=== PATIENT | female | born 1945 | race Caucasian/White ===

== ENCOUNTER 2017-10-25 09:02 | Outpatient (RCR) | payer OTHER, SELFPAY ==
[2017-10-11 09:46] LABS: International Normalized Ratio 3.4; Prothrombin Time (Protime)PT. 34.5 SECONDS (11.7-14.9)
[2017-10-25 10:02] LABS: International Normalized Ratio 2.8; Prothrombin Time (Protime)PT. 29.6 SECONDS (11.7-14.9)
== END 2017-10-30 23:59 ==
LOC: INT LAB 09:02
PROVIDERS: Family Provider Family Medicine; PCP Family Medicine; Visit Provider Family Medicine
DX: I48.91 Unspecified atrial fibrillation (principal)
CPT/HCPCS: 36415; 85610

== ENCOUNTER 2017-12-01 08:39 | Outpatient (RCR) | payer OTHER, SELFPAY ==
[2017-12-01 09:19] LABS: International Normalized Ratio 2.7
== END 2017-12-30 23:59 ==
LOC: INT LAB 08:39
PROVIDERS: Family Provider Family Medicine; PCP Family Medicine; Visit Provider Family Medicine
DX: I48.91 Unspecified atrial fibrillation (principal)
CPT/HCPCS: 36415; 85610

== ENCOUNTER 2018-01-19 07:55 | Outpatient (RCR) | payer OTHER, SELFPAY ==
[2018-01-19 09:36] LABS: International Normalized Ratio 2.7; Prothrombin Time (Protime)PT. 28.9 SECONDS (11.7-14.9)
== END 2018-01-19 09:00 | disposition home or self-care (01) ==
LOC: LAB 07:55
PROVIDERS: Family Provider Family Medicine; PCP Family Medicine; Visit Provider Family Medicine
DX: I48.91 Unspecified atrial fibrillation (principal)
CPT/HCPCS: 36415; 85610

== ENCOUNTER 2018-03-02 08:28 | Outpatient (RCR) | payer OTHER, SELFPAY ==
[2018-03-02 09:01] LABS: International Normalized Ratio 2.5; Prothrombin Time (Protime)PT. 27.2 SECONDS (11.7-14.9)
== END 2018-03-02 10:00 | disposition home or self-care (01) ==
LOC: LAB 08:28
PROVIDERS: Family Provider Family Medicine; PCP Family Medicine; Visit Provider Family Medicine
DX: I48.91 Unspecified atrial fibrillation (principal)
CPT/HCPCS: 36415; 85610

== ENCOUNTER 2018-05-18 08:28 | Outpatient (RCR) | payer OTHER, SELFPAY ==
[2018-05-18 09:18] LABS: International Normalized Ratio 3.2; Prothrombin Time (Protime)PT. 32.7 SECONDS (11.7-14.9)
[2018-05-18 09:27] LABS: Anion Gap 6 (5-15); BUN 17 mg/dL (7-18); BUN/Creat Ratio 22.4 RATIO (10-20); Chloride 104 mmol/L (98-107); Creatinine, Serum 0.76 mg/dL (0.55-1.02); EST Glomerular Filtration Rate 79 mL/min (>60); Est Glom Filt Rate - Afr Amer 96 mL/min (>60); Glucose 85 mg/dL (74-106); Sodium Level 138 mmol/L (136-145)
== END 2018-05-18 10:00 | disposition home or self-care (01) ==
LOC: LAB 08:28
PROVIDERS: Family Provider Family Medicine; PCP Family Medicine; Visit Provider Family Medicine
DX: I48.91 Unspecified atrial fibrillation (principal); I10 Essential (primary) hypertension
CPT/HCPCS: 36415; 80048; 85610

== ENCOUNTER 2018-06-06 08:07 | Outpatient (RCR) | payer OTHER, SELFPAY ==
[2018-06-06 10:00] LABS: International Normalized Ratio 2.8
[2018-06-06 10:17] LABS: Anion Gap 8 (5-15); BUN 12 mg/dL (7-18); BUN/Creat Ratio 15.7 RATIO (10-20); Calcium,Total 8.7 mg/dL (8.5-10.1); Chloride 104 mmol/L (98-107); Creatinine, Serum 0.77 mg/dL (0.55-1.02); EST Glomerular Filtration Rate 78 mL/min (>60); Est Glom Filt Rate - Afr Amer 95 mL/min (>60); Glucose 79 mg/dL (74-106); Potassium 4.2 mmol/L (3.5-5.1); Sodium Level 141 mmol/L (136-145)
== END 2018-07-01 12:34 | disposition home or self-care (01) ==
LOC: LAB 08:07
PROVIDERS: Family Provider Family Medicine; PCP Family Medicine; Referring Provider Family Medicine; Visit Provider Family Medicine
DX: I48.91 Unspecified atrial fibrillation (principal); I10 Essential (primary) hypertension
CPT/HCPCS: 36415; 80048; 85610

== ENCOUNTER 2018-07-29 08:27 | Outpatient (RCR) | payer OTHER, SELFPAY ==
[2018-06-29 09:31] VITALS: BMI 28.6
[2018-07-08 09:19] LABS: International Normalized Ratio 2.8; Prothrombin Time (Protime)PT. 29.6 SECONDS (11.7-14.9)
[2018-07-29 09:52] LABS: Prothrombin Time (Protime)PT. 31.5 SECONDS (11.7-14.9)
== END 2018-07-29 09:00 | disposition home or self-care (01) ==
LOC: LAB 08:27
PROVIDERS: Family Provider Family Medicine; PCP Family Medicine; Referring Provider Family Medicine; Visit Provider Family Medicine
DX: I48.91 Unspecified atrial fibrillation (principal); I10 Essential (primary) hypertension
CPT/HCPCS: 36415; 85610

== ENCOUNTER 2018-10-19 08:23 | Outpatient (RCR) | payer OTHER, SELFPAY ==
[2018-06-29 09:31] VITALS: BMI 28.6
[2018-10-19 09:05] LABS: International Normalized Ratio 2.3
== END 2018-10-19 09:23 | disposition home or self-care (01) ==
LOC: LAB 08:23
PROVIDERS: Family Provider Family Medicine; PCP Family Medicine; Referring Provider Family Medicine; Visit Provider Family Medicine
DX: I48.91 Unspecified atrial fibrillation (principal)
CPT/HCPCS: 36415; 85610

== ENCOUNTER 2018-10-28 08:38 | Outpatient (RCR) | payer OTHER, SELFPAY ==
[2018-06-29 09:31] VITALS: BMI 28.6
[2018-10-28 09:40] VITALS: BP 153/95; PULSE 76; RESP 16; TEMP 36.3; BMI 26.8
--- NOTE | 2018-10-28 11:01 | PCM.WC.HP ---
(1) Peripheral vascular disease of lower extremity with ulceration Status: Acute Current Visit: Yes Code(s): I73.9 - Peripheral vascular disease, unspecified; L97.909 - Non-pressure chronic ulcer of unspecified part of unspecified lower leg with unspecified severity (2) Chronic atrial fibrillation Status: Chronic Current Visit: No Code(s): I48.2 - Chronic atrial fibrillation (3) Essential (primary) hypertension Status: Chronic Current Visit: No Code(s): I10 - Essential (primary) hypertension (4) Nonrheumatic aortic valve insufficiency Status: Chronic Current Visit: No Code(s): I35.1 - Nonrheumatic aortic (valve) insufficiency (5) Nonhealing nonsurgical wound with fat layer exposed Status: Acute Current Visit: Yes Code(s): T14.8XXA - Other injury of unspecified body region, initial encounter (6) Edema, lower extremity Status: Acute Current Visit: Yes Code(s): R60.0 - Localized edema (7) Cellulitis of lower extremity Status: Acute Current Visit: Yes Code(s): L03.119 - Cellulitis of unspecified part of limb History of Present Illness Date of Service: 10/28/18 Chief Complaint: Follow-up on an old leg wound right nuno area History of Wound: 73-year-old [place] white woman with an open wound on her right lower leg nuno since last January or March 2018. Patient has been using ointments such as antibiotics and home remedies without any healing. Has severe edema of bilateral lower legs many varicosities and some cellulitis on the around the toes bilaterally and around the ulcer itself. Past Medical History Past Medical History: Chronic Problems (Last Reviewed 06/29/18 @ 09:49 by Demario Mccauley MD) Nonrheumatic aortic valve insufficiency (Chronic) Nonrheumatic mitral (valve) insufficiency (Chronic) Essential (primary) hypertension (Chronic) Chronic atrial fibrillation (Chronic) Past Medical History: Open ulcer right lower leg nonhealing Surgical History: - - Prior hemiarthroplasty Total hip arthroplasty Allergies/Adverse Reactions: Allergies chlorhexidine Adverse Reaction (Verified 10/28/18 10:02) Nausea Home Medications: Ambulatory Orders Medication Instructions Recorded Metoprolol Tartrate [Lopressor] 100 mg PO BID 02/22/15 warfarin 3 mg tablet 3 mg PO DAILY 60 Days #60 tab 06/28/18 amlodipine 5 mg tablet 5 mg PO QHS tab 06/29/18 Ubidecarenone/Vit E Acet [Co Q-10 2 each PO DAILY 10/28/18 100 mg Softgel] - Family History Maternal Family History: Family History (Last Reviewed 06/29/18 @ 09:49 by Demario Mccauley MD) Mother CVA (cerebral vascular accident) Father Cancer Unknown Lives: Spouse/ Significant Other Smoking Status: Never smoker Review of Systems Constitutional: Denies: Chills, Fever Eyes: Denies: Blurred vision, Drainage, Pain HEENT: Denies: Difficulty Hearing, Difficulty Swallowing, Sore Throat, Visual Changes Cardiovascular: Denies: Chest Pain, Palpitations, Syncope Respiratory: Denies: Cough, Shortness of Breath Gastrointestinal: Denies: Abdominal Pain, Nausea, Vomiting Genitourinary: Denies: Dysuria, Frequency Musculoskeletal: Denies: Joint Pain, Muscle pain Skin: Reports: - - Right lower leg nuno ulcer. Denies: Jaundice, Rash Neurological: Denies: Balance problems, Change in Speech, Difficulty swallowing, Focal weakness Psychiatric: Denies: Anxiety, Depression Endocrine: Denies: Change in Body Habitus Hematologic/ Lymphatic: Denies: Adenopathy - Physical Exam Vital Signs Temp Pulse Resp BP 97.3 F L 76 16 153/95 H 10/28/18 09:40 10/28/18 09:40 10/28/18 09:40 10/28/18 09:40 General: Oriented x3, Cooperative, Well developed HEENT: Atraumatic, PERRLA Oral: Moist Mucosa Neck: Supple, No JVD Lungs: Clear to auscultation, Normal air movement Cardiovascular: Regular rate, Regular Rhythm Abdomen: Bowel Sounds Present, Soft, Non Tender, No Hepato-splenomegaly Extremities: No clubbing, No edema Skin: - - Right nuno ulcer with peripheral vascular disease Wound Measurements and Assessment WC - Nurse 1 - General Ulcer Measurement Start: 10/28/18 09:39 Freq: Status: Active Protocol: Activity Type Activity Date Activity User E-Sign Co-Sign Detail Recorded Client Recorded Date Recorded By Document 10/28/18 09:40 [facility] [id number] 10/28/18 09:54 BM 10/28/18 09:40 Wound Center Nurse 1 [Ulcer Assessment] #1- RT NUNO -Combined with other wound No -Current Size (cm) - Length 1.4 -Current Size (cm) - Width 1.8 -Current Size (cm) - Depth 0.1 -Total Square Cm 2.52 -Date of Last Picture (Recall this 10/28/18 field) -Photo Taken Yes -Epithelialization Small 1-33% -Tunneling No -Undermining/Tunneling No -Circular Undermining No -Exudate Amt Small -Exudate Type Serous -Wound Margin Flat & Intact -Granulation Amt Medium (34-66%) -Granulation Quality Red -Slough/Fibrin Yes -Necrosis Amt Medium (34-66%) -Necrotic Tissue Type Adherent Slough -Texture (Nancy-wound Skin Appearance) Assessed Scarring -Moisture (Nancy-wound Skin Appearance Assessed ) -Color (Nancy-wound Skin Appearance) Assessed Erythema Hemosiderin Staining -Temperature (Nancy-wound Skin No Abnormality Appearance) (Pt Warm) -Tenderness on Palpation (Nancy-wound No Skin Appearance) -Ulcer Cleansing Rinsed/ Irrigated with Saline -Foul Odor after Cleansing No -Anesthetic Used 5% Lidocaine Gel [Edema Assessment] -Lower Limb Edema Present Yes -Right Calf (cm) 36.2 -Right Ankle (cm) 22.9 -Left Calf (cm) 37.2 -Left Ankle (cm) 24 WC - Nurse 2 - General Ulcer CM Notes Start: 10/28/18 09:39 Freq: Status: Active Protocol: Activity Type Activity Date Activity User E-Sign Co-Sign Detail Recorded Client Recorded Date Recorded By Document 10/28/18 10:19 MW [id number] 10/28/18 10:26 MW 10/28/18 10:19 Wound Center Nurse 2 [Procedure/Treatment] #1- RT NUNO -Time 10:24 -Correct Patient Yes -Correct Side, Site, Position Yes -Correct Procedure Yes -Procedure Performed Yes -Type of Procedure Debridement -Clinical Debridement Subcutaneous -Post Debridement Size (cm) - Length 1.5 -Post Debridement Size (cm) - Width 1.5 -Post Debridement Size (cm) - Depth 0.3 -Total Square Cm 2.25 -Wound/Ulcer Outcome Not Healed -Ulcer Cleansing Rinsed/ Irrigated with Saline -Foul Odor after Cleansing No -Bioengineered Tissue No -Bleeding Controlled with Pressure -Offloading No -Treatment Response Procedure Tolerated Well [See Physician Procedure note for Specifics] Pain Scale: 0-10 Numeric [Pain] -Is Patient Pain Free? Yes Musculoskeletal: No Tenderness to Palpation of Joints or Extremities Lymphatic: No Cervical, Supraclavicular, or Inguinal Adenopathy Neurological: Cranial nerves II-XII grossly intact, Neuro grossly intact Psych/Mental Status: Normal Affect, Appropriate Debridement Note Post-Debridement Measurements/Treatment WC - Nurse 2 - General Ulcer CM Notes Start: 10/28/18 09:39 Freq: Status: Active Protocol: Activity Type Activity Date Activity User E-Sign Co-Sign Detail Recorded Client Recorded Date Recorded By Document 10/28/18 10:19 MW [id number] 10/28/18 10:26 MW 10/28/18 10:19 Wound Center Nurse 2 #1- RT NUNO -Time 10:24 -Correct Patient Yes -Correct Side, Site, Position Yes -Correct Procedure Yes -Procedure Performed Yes -Type of Procedure Debridement -Clinical Debridement Subcutaneous -Post Debridement Size (cm) - Length 1.5 -Post Debridement Size (cm) - Width 1.5 -Post Debridement Size (cm) - Depth 0.3 -Total Square Cm 2.25 -Wound/Ulcer Outcome Not Healed -Ulcer Cleansing Rinsed/ Irrigated with Saline -Foul Odor after Cleansing No -Bioengineered Tissue No -Bleeding Controlled with Pressure -Offloading No -Treatment Response Procedure Tolerated Well Pain Scale: 0-10 Numeric Is Patient Pain Free? Yes Wound debrided: Nuno Laterality: Right Type of Debridement: Excisional debridement Anesthesia Used: 5% Lidocaine Gel Depth: Down to and including healthy tissue, in the subcutaneous layer Percentage of wound debrided: 100 Instrument Used: 5mm curette Tissue Removed: Slough and fibrin and devitalized tissue Amount of bleeding with debridement: Mild Bleeding Controlled with: Compression and gauze Patient tolerated procedure well Assessment/Plan Aerobic and anaerobic cultures obtained venous studies to be ordered Active Problems (Last Reviewed 06/29/18 @ 09:49 by Demario Mccauley MD) Peripheral vascular disease of lower extremity with ulceration (Acute) Nonhealing nonsurgical wound with fat layer exposed (Acute) Edema, lower extremity (Acute) Cellulitis of lower extremity (Acute) Assessment: As above Plan: Wash leg with dial. Apply Aquacel extra to wound base cover with Adaptic gauze and tape. Double layer Tubigrip to the right lower leg. Schedule for venous studies for her edema. She was taken of the ulcer
[2018-12-23 08:54] VITALS: BP 150/85; PULSE 72; RESP 16; TEMP 37; BMI 26.8
== END 2018-10-30 23:59 ==
LOC: WC 08:38
PROVIDERS: Family Provider Family Medicine; PCP Family Medicine; Visit Provider Nurse Practitioner
DX: I83.018 Varicose veins of right lower extremity with ulcer other part of lower leg (principal); L97.812 Non-pressure chronic ulcer of other part of right lower leg with fat layer exposed; I73.9 Peripheral vascular disease, unspecified; I48.2 Chronic atrial fibrillation; I10 Essential (primary) hypertension; R60.0 Localized edema
CPT/HCPCS: 11042; 87070; 87075; 87077; 87186; 87205; 99213; G0463

== ENCOUNTER 2018-11-09 08:23 | Outpatient (RCR) | payer SELFPAY ==
[2018-10-31 01:42] VITALS: BP 153/95; PULSE 76; RESP 16; TEMP 36.3; BMI 26.8
--- NOTE | 2018-11-09 08:26 | VDLE_ITS ---
Reason For Study: BLE EDEMA RT nuno ulcer RIGHT LEFT CFV is compressible, spontaneous, phasic, CFV is compressible, spontaneous, phasic, competent and demonstrates normal competent, and demonstrates normal augmentation. augmentation. FV is compressible, spontaneous, phasic, FV is compressible, spontaneous, phasic, competent and demonstrates normal competent and demonstrates normal augmentation. augmentation. POP V is compressible, spontaneous, phasic, POP V is compressible, spontaneous, phasic, competent and demonstrates normal competent and demonstrates normal augmentation. augmentation. T/P Trunk is compressible. T/P Trunk is compressible. PTV is compressible. PTV is compressible. RT PerV is compressible. LT PerV is compressible. SFJ is competent. SFJ is incompetent > 1.0 second. GSV above the knee is competent. GSV is incompetent throughout > .5 seconds, GSV below the knee is incompetent > .5 measuring 0.69 x 0.80 cm. seconds, measuring 0.37 0.46 cm. SSV was very difficult to evaluate, is SSV is competent. compressible with thickened quevedo. Procedure Gastrocnemius V are dilated and COMPRESSIBLE Exam performed in department. demonstrating rouleaux flow. The study was technically difficult. The exam was diagnostic. Interpretation Summary Deep veins of the lower extremities are bilaterally patent and compressible segmentally. There is no evidence of deep vein thrombosis on either side. Valvular competence appears intact within the proximal deep venous systems bilaterally. The greater saphenous veins appear bilaterally patent and compressible segmentally. Rouleaux flow is noted in the left gastrocnemius vein. The right sapheno- femoral junction is competent . The left sapheno-femoral junction is incompetent . The right greater saphenous vein appears competent above the knee. The right greater saphenous vein appears incompetent below the knee. The left greater saphenous vein appears segmentally incompetent. The right small saphenous vein is patent and competent. The left small saphenous vein is patent and demonstrates chronic vein wall thickening. Ordering Physician: Caryn Miguel Referring Physician: Caryn Miguel Performed By: Rebecca Bowman, MATT, RVT
== END 2018-11-29 23:59 ==
LOC: CVS 08:23
PROVIDERS: Family Provider Family Medicine; PCP Family Medicine; Referring Provider Nurse Practitioner; Visit Provider Nurse Practitioner
DX: R60.0 Localized edema (principal); L97.811 Non-pressure chronic ulcer of other part of right lower leg limited to breakdown of skin; I73.9 Peripheral vascular disease, unspecified
CPT/HCPCS: 93970

== ENCOUNTER 2018-11-16 08:08 | Outpatient (RCR) | payer OTHER, SELFPAY ==
[2018-10-31 01:42] VITALS: BMI 26.8
[2018-11-02 11:50] LABS: International Normalized Ratio 2.2; Prothrombin Time (Protime)PT. 24.7 SECONDS (11.7-14.9)
[2018-11-16 09:21] LABS: Prothrombin Time (Protime)PT. 22.4 SECONDS (11.7-14.9)
== END 2018-11-29 16:00 | disposition home or self-care (01) ==
LOC: LAB 08:08
PROVIDERS: Family Provider Family Medicine; PCP Family Medicine; Referring Provider Family Medicine; Visit Provider Family Medicine
DX: I48.91 Unspecified atrial fibrillation (principal)
CPT/HCPCS: 36415; 85610

== ENCOUNTER 2018-11-25 09:00 | Outpatient (RCR) | payer OTHER, SELFPAY ==
[2018-10-31 01:42] VITALS: BMI 26.8
[2018-11-11 08:50] VITALS: BP 143/76; PULSE 80; RESP 18; TEMP 36.4; BMI 26.8
--- NOTE | 2018-11-11 09:36 | PCM.WC.PN ---
(1) Cellulitis of lower extremity Status: Acute Current Visit: No Qualifiers: Laterality: right Qualified Code(s): L03.115 - Cellulitis of right lower limb Code(s): L03.119 - Cellulitis of unspecified part of limb (2) Edema, lower extremity Status: Acute Current Visit: Yes Code(s): R60.0 - Localized edema (3) Nonhealing nonsurgical wound with fat layer exposed Status: Acute Current Visit: Yes Code(s): T14.8XXA - Other injury of unspecified body region, initial encounter (4) Peripheral vascular disease of lower extremity with ulceration Status: Acute Current Visit: Yes Code(s): I73.9 - Peripheral vascular disease, unspecified; L97.909 - Non-pressure chronic ulcer of unspecified part of unspecified lower leg with unspecified severity (5) Chronic atrial fibrillation Status: Chronic Current Visit: Yes Code(s): I48.2 - Chronic atrial fibrillation (6) Nonrheumatic aortic valve insufficiency Status: Chronic Current Visit: Yes Code(s): I35.1 - Nonrheumatic aortic (valve) insufficiency (7) Nonrheumatic mitral (valve) insufficiency Status: Chronic Current Visit: Yes Code(s): I34.0 - Nonrheumatic mitral (valve) insufficiency Type of Wound Chief Complaint: Follow-up on an old leg wound right nuno area History of Wound: 73-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 Patient has been using ointments such as antibiotics and home remedies without any healing. Has severe edema of bilateral lower legs many varicosities and some cellulitis on the around the toes bilaterally and around the ulcer itself. Progress of Wound: Today the wound looks better with new cell buds growing in the base still has a lot of cellulitis around the area and upper leg. Her venous study showed blockages in her gastrocnemius and we will refer her to Dr. Watson. Patient is tolerating dressing changes daily well and the infection that she grew is being well contained with doxycycline that she is taking daily. - Physical Exam Vital Signs Temp Pulse Resp BP 97.6 F L 80 18 143/76 H 11/11/18 08:50 11/11/18 08:50 11/11/18 08:50 11/11/18 08:50 General: Oriented x3, Cooperative, Well developed HEENT: Atraumatic, PERRLA Oral: Moist Mucosa Neck: Supple, No JVD Lungs: Clear to auscultation, Normal air movement Cardiovascular: Regular rate, Regular Rhythm Abdomen: Bowel Sounds Present, Soft, Non Tender, No Hepato-splenomegaly Extremities: No clubbing, No edema Skin: Ulcer/ Wound - Right nuno traumatic Wound Measurements and Assessment WC - Nurse 1 - General Ulcer Measurement Start: 11/11/18 08:42 Freq: Status: Active Protocol: Activity Type Activity Date Activity User E-Sign Co-Sign Detail Recorded Client Recorded Date Recorded By Document 11/11/18 08:50 DV [id number] 11/11/18 09:04 DV 11/11/18 08:50 Wound Center Nurse 1 [Ulcer Assessment] #1- RT NUNO -Combined with other wound No -Current Size (cm) - Length 1.5 -Current Size (cm) - Width 1 -Current Size (cm) - Depth 0.1 -Total Square Cm 1.5 -Photo Taken No -Epithelialization None Present -Undermining/Tunneling No -Circular Undermining No -Classification - Thickness Full Thickness without Exposed Support Structure -Exudate Amt Medium -Exudate Type Yellow/Green -Wound Margin Flat & Intact -Granulation Amt Small (1-33%) -Granulation Quality N/A -Slough/Fibrin No -Necrosis Amt Large (67-100%) -Necrotic Tissue Type Adherent Slough -Structure Exposed None/Limited to Skin Breakdown -Texture (Nancy-wound Skin Appearance) Assessed Scarring Rash -Moisture (Nancy-wound Skin Appearance Assessed ) Weeping -Color (Nancy-wound Skin Appearance) Assessed Erythema -Temperature (Nancy-wound Skin No Abnormality Appearance) (Pt Warm) -Tenderness on Palpation (Nancy-wound Yes Skin Appearance) -Ulcer Cleansing Rinsed/ Irrigated with Saline -Foul Odor after Cleansing No -Anesthetic Used 5% Lidocaine Gel [Edema Assessment] -Lower Limb Edema Present Yes -Right Calf (cm) 38 -Right Ankle (cm) 22 WC - Nurse 2 - General Ulcer CM Notes Start: 11/11/18 08:42 Freq: Status: Active Protocol: Activity Type Activity Date Activity User E-Sign Co-Sign Detail Recorded Client Recorded Date Recorded By Document 11/11/18 09:11 MW [id number] 11/11/18 09:16 MW 11/11/18 09:11 Wound Center Nurse 2 [Procedure/Treatment] #1- RT NUNO -Time 09:11 -Correct Patient Yes -Correct Side, Site, Position Yes -Correct Procedure Yes -Procedure Performed Yes -Type of Procedure Debridement -Clinical Debridement Subcutaneous -Post Debridement Size (cm) - Length 1.2 -Post Debridement Size (cm) - Width 1.0 -Post Debridement Size (cm) - Depth 0.2 -Total Square Cm 1.20 -Wound/Ulcer Outcome Not Healed -Ulcer Cleansing Rinsed/ Irrigated with Saline -Foul Odor after Cleansing No -Bioengineered Tissue No -Bleeding Controlled with Pressure -Offloading No -Treatment Response Procedure Tolerated Well [See Physician Procedure note for Specifics] Pain Scale: 0-10 Numeric [Pain] -Is Patient Pain Free? Yes Musculoskeletal: No Tenderness to Palpation of Joints or Extremities Lymphatic: No Cervical, Supraclavicular, or Inguinal Adenopathy Neurological: Cranial nerves II-XII grossly intact, Neuro grossly intact Psych/Mental Status: Normal Affect, Appropriate Debridement Note Post-Debridement Measurements/Treatment WC - Nurse 2 - General Ulcer CM Notes Start: 11/11/18 08:42 Freq: Status: Active Protocol: Activity Type Activity Date Activity User E-Sign Co-Sign Detail Recorded Client Recorded Date Recorded By Document 11/11/18 09:11 MW [id number] 11/11/18 09:16 MW 11/11/18 09:11 Wound Center Nurse 2 #1- RT NUNO -Time 09:11 -Correct Patient Yes -Correct Side, Site, Position Yes -Correct Procedure Yes -Procedure Performed Yes -Type of Procedure Debridement -Clinical Debridement Subcutaneous -Post Debridement Size (cm) - Length 1.2 -Post Debridement Size (cm) - Width 1.0 -Post Debridement Size (cm) - Depth 0.2 -Total Square Cm 1.20 -Wound/Ulcer Outcome Not Healed -Ulcer Cleansing Rinsed/ Irrigated with Saline -Foul Odor after Cleansing No -Bioengineered Tissue No -Bleeding Controlled with Pressure -Offloading No -Treatment Response Procedure Tolerated Well Pain Scale: 0-10 Numeric Is Patient Pain Free? Yes Wound debrided: Right nuno Type of Debridement: Excisional debridement Depth: Down to and including healthy tissue, in the subcutaneous layer Instrument Used: 5mm curette Tissue Removed: Devitalized tissue and fibrin Severity: Limited To Skin Breakdown Amount of bleeding with debridement: Mild Bleeding Controlled with: Compression and gauze Patient tolerated procedure well Assessment/Plan Active Problems (Last Reviewed 06/29/18 @ 09:49 by Demario Mccauley MD) Peripheral vascular disease of lower extremity with ulceration (Acute) Nonhealing nonsurgical wound with fat layer exposed (Acute) Edema, lower extremity (Acute) Nonrheumatic aortic valve insufficiency (Chronic) Nonrheumatic mitral (valve) insufficiency (Chronic) Chronic atrial fibrillation (Chronic) Assessment: As above Plan: Wash leg with dial. Apply Aquacel extra to wound base cover with Adaptic gauze and tape. Double layer Tubigrip to the right lower leg. Schedule with Dr. Watson for follow-up. Follow-up 2 weeks
[2018-11-25 08:56] VITALS: BP 146/68; PULSE 81; RESP 16; TEMP 35.5; BMI 26.8
--- NOTE | 2018-11-25 10:27 | PCM.WC.PN ---
(1) Cellulitis of lower extremity Status: Acute Current Visit: No Qualifiers: Laterality: right Qualified Code(s): L03.115 - Cellulitis of right lower limb Code(s): L03.119 - Cellulitis of unspecified part of limb (2) Edema, lower extremity Status: Acute Current Visit: Yes Code(s): R60.0 - Localized edema (3) Nonhealing nonsurgical wound with fat layer exposed Status: Acute Current Visit: Yes Code(s): T14.8XXA - Other injury of unspecified body region, initial encounter (4) Peripheral vascular disease of lower extremity with ulceration Status: Acute Current Visit: Yes Code(s): I73.9 - Peripheral vascular disease, unspecified; L97.909 - Non-pressure chronic ulcer of unspecified part of unspecified lower leg with unspecified severity (5) Chronic atrial fibrillation Status: Chronic Current Visit: Yes Code(s): I48.2 - Chronic atrial fibrillation (6) Nonrheumatic aortic valve insufficiency Status: Chronic Current Visit: Yes Code(s): I35.1 - Nonrheumatic aortic (valve) insufficiency (7) Nonrheumatic mitral (valve) insufficiency Status: Chronic Current Visit: Yes Code(s): I34.0 - Nonrheumatic mitral (valve) insufficiency Type of Wound Chief Complaint: Follow-up on an old leg wound right nuno area History of Wound: 73-year-old [employer] white woman with an open wound on her right lower leg nuno since last January or March 2018. Patient has been using ointments such as antibiotics and home remedies without any healing. Has severe edema of bilateral lower legs many varicosities and some cellulitis on the around the toes bilaterally and around the ulcer itself. Progress of Wound: Today the wound looks better with new cell buds growing in the base still has a lot of cellulitis around the area and upper leg. Her venous study showed blockages in her gastrocnemius and we will refer her to Dr. Watson. Patient is tolerating dressing changes daily well and the infection that she grew is being well contained with doxycycline that she is taking daily. - Physical Exam Vital Signs Temp Pulse Resp BP 96 F L 81 16 146/68 H 11/25/18 08:56 11/25/18 08:56 11/25/18 08:56 11/25/18 08:56 General: Oriented x3, Cooperative, Well developed HEENT: Atraumatic, PERRLA Oral: Moist Mucosa Neck: Supple, No JVD Lungs: Clear to auscultation, Normal air movement Cardiovascular: Regular rate, Regular Rhythm Abdomen: Bowel Sounds Present, Soft, Non Tender, No Hepato-splenomegaly Extremities: No clubbing, No edema, - - right nuno Wound Measurements and Assessment WC - Nurse 1 - General Ulcer Measurement Start: 11/11/18 08:42 Freq: Status: Active Protocol: Activity Type Activity Date Activity User E-Sign Co-Sign Detail Recorded Client Recorded Date Recorded By Document 11/25/18 08:56 AN [id number] 11/25/18 09:08 AN 11/25/18 08:56 Wound Center Nurse 1 [Ulcer Assessment] #1- RT NUNO -Current Size (cm) - Length 1.3 -Current Size (cm) - Width 1.2 -Current Size (cm) - Depth 0.1 -Total Square Cm 1.56 -Photo Taken No -Tunneling No -Undermining/Tunneling No -Classification - Thickness Full Thickness without Exposed Support Structure -Exudate Amt Small -Exudate Type Serosanguineous -Wound Margin Distinct, Outline Attached -Granulation Amt Large (67-100%) -Granulation Quality Red -Slough/Fibrin Yes -Necrosis Amt Small (1-33%) -Necrotic Tissue Type Adherent Slough -Structure Exposed None/Limited to Skin Breakdown -Texture (Nancy-wound Skin Appearance) Assessed -Moisture (Nancy-wound Skin Appearance Maceration ) -Color (Nancy-wound Skin Appearance) Assessed Erythema -Temperature (Nancy-wound Skin No Abnormality Appearance) (Pt Warm) -Tenderness on Palpation (Nancy-wound No Skin Appearance) -Ulcer Cleansing Rinsed/ Irrigated with Saline -Foul Odor after Cleansing No -Anesthetic Used 4% Lidocaine Solution [Edema Assessment] -Right Calf (cm) 37.8 -Right Ankle (cm) 22.1 WC - Nurse 2 - General Ulcer CM Notes Start: 11/11/18 08:42 Freq: Status: Active Protocol: Activity Type Activity Date Activity User E-Sign Co-Sign Detail Recorded Client Recorded Date Recorded By Document 11/25/18 09:40 MW [id number] 11/25/18 09:42 MW 11/25/18 09:40 Wound Center Nurse 2 [Procedure/Treatment] #1- RT NUNO -Time 09:40 -Correct Patient Yes -Correct Side, Site, Position Yes -Correct Procedure Yes -Procedure Performed Yes -Type of Procedure Debridement -Clinical Debridement Subcutaneous -Post Debridement Size (cm) - Length 1.2 -Post Debridement Size (cm) - Width 1.3 -Post Debridement Size (cm) - Depth 0.2 -Total Square Cm 1.56 -Wound/Ulcer Outcome Not Healed -Ulcer Cleansing Rinsed/ Irrigated with Saline -Foul Odor after Cleansing No -Bioengineered Tissue No -Bleeding Controlled with Pressure -Offloading No -Treatment Response Procedure Tolerated Well [See Physician Procedure note for Specifics] Pain Scale: 0-10 Numeric [Pain] -Is Patient Pain Free? Yes Musculoskeletal: No Tenderness to Palpation of Joints or Extremities Lymphatic: No Cervical, Supraclavicular, or Inguinal Adenopathy Neurological: Cranial nerves II-XII grossly intact, Neuro grossly intact Psych/Mental Status: Normal Affect, Appropriate, Alert and oriented to time, place, person, mood and affect Debridement Note Post-Debridement Measurements/Treatment WC - Nurse 2 - General Ulcer CM Notes Start: 11/11/18 08:42 Freq: Status: Active Protocol: Activity Type Activity Date Activity User E-Sign Co-Sign Detail Recorded Client Recorded Date Recorded By Document 11/11/18 09:11 MW [id number] 11/11/18 09:16 MW Document 11/25/18 09:40 MW [id number] 11/25/18 09:42 MW 11/11/18 11/25/18 09:11 09:40 Wound Center Nurse 2 #1- RT NUNO -Time 09:11 09:40 -Correct Patient Yes Yes -Correct Side, Site, Position Yes Yes -Correct Procedure Yes Yes -Procedure Performed Yes Yes -Type of Procedure Debridement Debridement -Clinical Debridement Subcutaneous Subcutaneous -Post Debridement Size (cm) - Length 1.2 1.2 -Post Debridement Size (cm) - Width 1.0 1.3 -Post Debridement Size (cm) - Depth 0.2 0.2 -Total Square Cm 1.20 1.56 -Wound/Ulcer Outcome Not Healed Not Healed -Ulcer Cleansing Rinsed/ Rinsed/ Irrigated with Irrigated with Saline Saline -Foul Odor after Cleansing No No -Bioengineered Tissue No No -Bleeding Controlled with Pressure Pressure -Offloading No No -Treatment Response Procedure Procedure Tolerated Well Tolerated Well Pain Scale: 0-10 Numeric Is Patient Pain Free? Yes Yes Wound debrided: Right nuno Type of Debridement: Excisional debridement Anesthesia Used: 5% Lidocaine Gel Depth: Down to and including healthy tissue, in the subcutaneous layer Percentage of wound debrided: 100 Instrument Used: 5mm curette Tissue Removed: Fibrin Severity: Limited To Skin Breakdown Amount of bleeding with debridement: Mild Bleeding Controlled with: Compression and gauze Patient tolerated procedure well Assessment/Plan Active Problems (Last Reviewed 06/29/18 @ 09:49 by Demario Mccauley MD) Peripheral vascular disease of lower extremity with ulceration (Acute) Nonhealing nonsurgical wound with fat layer exposed (Acute) Edema, lower extremity (Acute) Nonrheumatic aortic valve insufficiency (Chronic) Nonrheumatic mitral (valve) insufficiency (Chronic) Chronic atrial fibrillation (Chronic) Assessment: As above Plan: Wash leg with dial. Apply Promogran to wound base every other day cover with Adaptic gauze and tape. Double layer Tubigrip to the right lower leg. Schedule with Dr. Watson for follow-up. Follow-up 2 weeks
== END 2018-11-29 23:59 ==
LOC: WC 09:00
PROVIDERS: Family Provider Family Medicine; PCP Family Medicine; Visit Provider Nurse Practitioner
DX: S81.831A Puncture wound without foreign body, right lower leg, initial encounter (principal); I73.9 Peripheral vascular disease, unspecified; L03.119 Cellulitis of unspecified part of limb; R60.0 Localized edema; I48.2 Chronic atrial fibrillation; X58.XXXA Exposure to other specified factors, initial encounter
CPT/HCPCS: 11042

== ENCOUNTER 2018-12-12 13:36 | Outpatient (RCR) | payer OTHER, SELFPAY ==
[2018-12-12 15:20] LABS: International Normalized Ratio 2.2; Prothrombin Time (Protime)PT. 24.7 SECONDS (11.7-14.9)
== END 2018-12-12 15:00 | disposition home or self-care (01) ==
LOC: LAB 13:36
PROVIDERS: Family Provider Family Medicine; PCP Family Medicine; Referring Provider Family Medicine; Visit Provider Family Medicine
DX: I48.91 Unspecified atrial fibrillation (principal)
CPT/HCPCS: 36415; 85610

== ENCOUNTER 2018-12-23 09:00 | Outpatient (RCR) | payer OTHER, SELFPAY ==
[2018-11-30 01:49] VITALS: BP 146/68; PULSE 81; RESP 16; TEMP 35.5
--- NOTE | 2018-12-09 10:09 | PCM.WC.PN ---
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 Patient has been using ointments such as antibiotics and home remedies without any healing. Has severe edema of bilateral lower legs many varicosities and some cellulitis on the around the toes bilaterally and around the ulcer itself. Progress of Wound: Today the wound looks better with new cell buds growing in the base still has a lot of cellulitis around the area and upper leg. Her venous study showed blockages in her gastrocnemius and we will refer her to Dr. Watson. Patient is tolerating dressing changes daily well and the infection that she grew is being well contained with doxycycline that she is taking daily. The right lateral lower leg is almost healed she has developed a second traumatic ulcer on the medial side of the right lower leg from her boots. - Physical Exam Vital Signs Temp Pulse Resp BP 96 F L 81 16 146/68 H 11/30/18 01:49 11/30/18 01:49 11/30/18 01:49 11/30/18 01:49 General: Oriented x3, Cooperative, Well developed HEENT: Atraumatic, PERRLA Oral: Moist Mucosa Neck: Supple, No JVD Lungs: Clear to auscultation, Normal air movement Cardiovascular: Regular rate, Regular Rhythm Abdomen: Bowel Sounds Present, Soft, Non Tender, No Hepato-splenomegaly Extremities: No clubbing, No edema Skin: Ulcer/ Wound - Right lateral lower leg and right medial lower leg traumatic wounds Musculoskeletal: No Tenderness to Palpation of Joints or Extremities Lymphatic: No Cervical, Supraclavicular, or Inguinal Adenopathy Neurological: Cranial nerves II-XII grossly intact, Neuro grossly intact Psych/Mental Status: Normal Affect, Appropriate Debridement Note Wound debrided: Right lateral lower leg Type of Debridement: Excisional debridement Anesthesia Used: 5% Lidocaine Gel Depth: Down to and including healthy tissue, in the subcutaneous layer Percentage of wound debrided: 100 Instrument Used: 5mm curette Tissue Removed: Fibrin Severity: Limited To Skin Breakdown Amount of bleeding with debridement: None Bleeding Controlled with: Compression and gauze Patient tolerated procedure well - Additional Wound Wound debrided: Right medial lower leg Type of Debridement: Excisional debridement Anesthesia Used: 5% Lidocaine Gel Depth: Down to and including healthy tissue, in the subcutaneous layer Percentage of wound debrided: 100 Instrument Used: 5mm curette Tissue Removed: Fibrin Severity: Limited To Skin Breakdown Amount of bleeding with debridement: Mild Bleeding Controlled with: Pressure Patient tolerated procedure: Patient tolerated procedure well Assessment/Plan Active Problems (Last Reviewed 06/29/18 @ 09:49 by Demario Mccauley MD) Traumatic open wound of right lower leg with delayed healing (Acute) Assessment: As above. Right medial lower leg traumatic laceration Plan: Wash leg with dial. Apply Aquacel extra to wound base cover with Adaptic gauze and tape. Double layer Tubigrip to the right lower le. Follow-up in 2 weeks
--- NOTE | 2018-12-23 12:05 | PCM.WC.PN ---
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 Patient has been using ointments such as antibiotics and home remedies without any healing. Has severe edema of bilateral lower legs many varicosities and some cellulitis on the around the toes bilaterally and around the ulcer itself. Progress of Wound: Today the ulcer is healed and patient will be discharged from the wound center - Physical Exam Vital Signs Temp Pulse Resp BP 96 F L 81 16 146/68 H 11/30/18 01:49 11/30/18 01:49 11/30/18 01:49 11/30/18 01:49 General: Oriented x3, Cooperative, Well developed HEENT: Atraumatic, PERRLA Oral: Moist Mucosa Neck: Supple, No JVD Lungs: Clear to auscultation, Normal air movement Cardiovascular: Regular rate, Regular Rhythm Abdomen: Bowel Sounds Present, Soft, Non Tender, No Hepato-splenomegaly Extremities: No clubbing, No edema, - - Right nuno Wound Measurements and Assessment WC - Nurse 2 - General Ulcer CM Notes Start: 12/09/18 09:54 Freq: Status: Active Protocol: Activity Type Activity Date Activity User E-Sign Co-Sign Detail Recorded Client Recorded Date Recorded By Document 12/23/18 09:19 MW [id number] 12/23/18 09:20 MW 12/23/18 09:19 Wound Center Nurse 2 [Procedure/Treatment] 2. R liliya LE -Time 09:19 -Correct Patient Yes -Correct Side, Site, Position Yes -Correct Procedure Yes -Procedure Performed No -Post Debridement Size (cm) - Length 0 -Post Debridement Size (cm) - Width 0 -Post Debridement Size (cm) - Depth 0 -Total Square Cm 0 -Wound/Ulcer Outcome Healed- Epithelialized #1- RT NUNO -Time 09:19 -Correct Patient Yes -Correct Side, Site, Position Yes -Correct Procedure Yes -Procedure Performed No -Post Debridement Size (cm) - Length 0 -Post Debridement Size (cm) - Width 0 -Post Debridement Size (cm) - Depth 0 -Total Square Cm 0 -Wound/Ulcer Outcome Healed- Epithelialized [See Physician Procedure note for Specifics] Musculoskeletal: No Tenderness to Palpation of Joints or Extremities Lymphatic: No Cervical, Supraclavicular, or Inguinal Adenopathy Neurological: Cranial nerves II-XII grossly intact, Neuro grossly intact Psych/Mental Status: Normal Affect, Appropriate Debridement Note Post-Debridement Measurements/Treatment WC - Nurse 2 - General Ulcer CM Notes Start: 12/09/18 09:54 Freq: Status: Active Protocol: Activity Type Activity Date Activity User E-Sign Co-Sign Detail Recorded Client Recorded Date Recorded By Document 12/09/18 10:31 MW [id number] 12/09/18 10:33 MW Document 12/23/18 09:19 MW [id number] 12/23/18 09:20 MW 12/09/18 12/23/18 10:31 09:19 Wound Center Nurse 2 2. R medial LE -Time 09:30 09:19 -Correct Patient Yes Yes -Correct Side, Site, Position Yes Yes -Correct Procedure Yes Yes -Procedure Performed Yes No -Type of Procedure Debridement -Clinical Debridement Subcutaneous -Post Debridement Size (cm) - Length 1.0 0 -Post Debridement Size (cm) - Width 1.0 0 -Post Debridement Size (cm) - Depth 0.1 0 -Total Square Cm 1.00 0 -Wound/Ulcer Outcome Not Healed Healed- Epithelialized -Ulcer Cleansing Rinsed/ Irrigated with Saline -Foul Odor after Cleansing No -Bioengineered Tissue No -Bleeding Controlled with Pressure -Offloading No -Treatment Response Procedure Tolerated Well #1- RT NUNO -Time 10:32 09:19 -Correct Patient Yes Yes -Correct Side, Site, Position Yes Yes -Correct Procedure Yes Yes -Procedure Performed Yes No -Type of Procedure Debridement -Clinical Debridement Subcutaneous -Post Debridement Size (cm) - Length 0.6 0 -Post Debridement Size (cm) - Width 1.0 0 -Post Debridement Size (cm) - Depth 0.1 0 -Total Square Cm 0.60 0 -Wound/Ulcer Outcome Not Healed Healed- Epithelialized -Ulcer Cleansing Rinsed/ Irrigated with Saline -Foul Odor after Cleansing No -Bioengineered Tissue No -Bleeding Controlled with Pressure -Offloading No -Treatment Response Procedure Tolerated Well Pain Scale: 0-10 Numeric Is Patient Pain Free? Yes No debridement was completed today Assessment/Plan Active Problems (Last Reviewed 06/29/18 @ 09:49 by Demario Mccauley MD) Nonhealing nonsurgical wound with fat layer exposed (Acute) Traumatic open wound of right lower leg with delayed healing (Acute) Chronic atrial fibrillation (Chronic) Assessment: As above. Right medial lower leg traumatic laceration resolved Plan: Discharge from the wound center follow-up as needed
== END 2018-12-30 23:59 ==
LOC: WC 09:00
PROVIDERS: Family Provider Family Medicine; PCP Family Medicine; Visit Provider Nurse Practitioner
DX: S81.831A Puncture wound without foreign body, right lower leg, initial encounter (principal); X58.XXXA Exposure to other specified factors, initial encounter; I48.2 Chronic atrial fibrillation
CPT/HCPCS: 11042; 99212; 99213; G0463

== ENCOUNTER 2019-01-23 11:26 | Outpatient (RCR) | payer OTHER, SELFPAY ==
[2018-12-28 09:48] VITALS: BMI 26.8
[2019-01-23 12:32] LABS: International Normalized Ratio 2.2; Prothrombin Time (Protime)PT. 24.5 SECONDS (11.7-14.9)
== END 2019-01-29 12:00 | disposition home or self-care (01) ==
LOC: LAB 11:26
PROVIDERS: Family Provider Family Medicine; PCP Family Medicine; Referring Provider Family Medicine; Visit Provider Family Medicine
DX: I48.91 Unspecified atrial fibrillation (principal)
CPT/HCPCS: 36415; 85610

== ENCOUNTER 2019-03-29 08:32 | Outpatient (RCR) | payer OTHER, SELFPAY ==
[2018-12-28 09:48] VITALS: BMI 26.8
[2019-03-08 10:20] LABS: International Normalized Ratio 1.7; Prothrombin Time (Protime)PT. 19.7 SECONDS (11.7-14.9)
[2019-03-29 09:09] LABS: International Normalized Ratio 2.1; Prothrombin Time (Protime)PT. 23.4 SECONDS (11.7-14.9)
== END 2019-03-29 09:32 | disposition home or self-care (01) ==
LOC: LAB 08:32
PROVIDERS: Family Provider Family Medicine; PCP Family Medicine; Referring Provider Family Medicine; Visit Provider Family Medicine
DX: I48.91 Unspecified atrial fibrillation (principal)
CPT/HCPCS: 36415; 85610

== ENCOUNTER 2019-04-20 13:26 | Outpatient (RCR) | payer OTHER, SELFPAY ==
[2018-12-28 09:48] VITALS: BMI 26.8
[2019-04-20 14:29] LABS: International Normalized Ratio 2.2; Prothrombin Time (Protime)PT. 24.6 SECONDS (11.7-14.9)
== END 2019-05-01 18:00 | disposition home or self-care (01) ==
LOC: LAB 13:26
PROVIDERS: Family Provider Family Medicine; PCP Family Medicine; Referring Provider Family Medicine; Visit Provider Family Medicine
DX: I48.91 Unspecified atrial fibrillation (principal)
CPT/HCPCS: 36415; 85610

== ENCOUNTER 2019-05-26 08:24 | Outpatient (RCR) | payer OTHER, SELFPAY ==
[2018-12-28 09:48] VITALS: BMI 26.8
[2019-05-26 09:37] LABS: International Normalized Ratio 1.8; Prothrombin Time (Protime)PT. 20.8 SECONDS (11.7-14.9)
== END 2019-05-26 18:00 | disposition home or self-care (01) ==
LOC: LAB 08:24
PROVIDERS: Family Provider Family Medicine; PCP Family Medicine; Referring Provider Family Medicine; Visit Provider Family Medicine
DX: I48.91 Unspecified atrial fibrillation (principal)
CPT/HCPCS: 36415; 85610

== ENCOUNTER 2019-06-23 10:51 | Outpatient (RCR) | payer OTHER, SELFPAY ==
[2018-12-28 09:48] VITALS: BMI 26.8
[2019-06-09 10:02] LABS: International Normalized Ratio 1.8; Prothrombin Time (Protime)PT. 20.4 SECONDS (11.7-14.9)
[2019-06-23 12:58] LABS: International Normalized Ratio 1.8; Prothrombin Time (Protime)PT. 20.8 SECONDS (11.7-14.9)
== END 2019-06-23 18:00 | disposition home or self-care (01) ==
LOC: LAB 10:51
PROVIDERS: Family Provider Family Medicine; PCP Family Medicine; Referring Provider Family Medicine; Visit Provider Family Medicine
DX: I48.91 Unspecified atrial fibrillation (principal)
CPT/HCPCS: 36415; 85610

== ENCOUNTER 2019-07-19 08:42 | Outpatient (RCR) | payer OTHER, SELFPAY ==
[2018-12-28 09:48] VITALS: BMI 26.8
[2019-07-03 10:41] LABS: Basophil# 0.09 X10^3/uL; Basophil% 1.4 % (0-1); Eosinophils% 22.3 % (0-5); Hemoglobin 13.8 g/dL (12.0-15.0); Lymphocyte % 22.3 % (19-41); Mean Corp Hgb Conc 32.9 g/dL (32-36); Mean Corpuscular Hgb 30.1 pg (27.0-32.0); Mean Corpuscular Volume 91.7 fL (81-99); Mean Platelet Vol. 10.6 fl (6.2-12.0); Monocyte# 0.39 X10^3/uL; Monocyte% 6.2 % (0-10); NRBC Flagged by Analyzer 0 % (0-5); Neutrophil % 47.6 % (47-70); Platelet Count 281 K/mm3 (150-450); RBC Distribution Width CV 12.7 % (11.6-14.6); RBC Distribution Width SD 42.2 fl (35.1-43.9); Red Blood Count 4.58 M/mm3 (4.2-5.4); White Blood Count 6.3 K/mm3 (4.4-11.0)
[2019-07-03 10:55] LABS: International Normalized Ratio 1.9; Prothrombin Time (Protime)PT. 21.4 SECONDS (11.7-14.9)
[2019-07-03 11:11] LABS: AST(SGOT) 26 U/L (15-37); Alanine Aminotransfer ALT/SGPT 14 U/L (13-56); Albumin, Serum 3.9 g/dL (3.2-5.0); Alkaline Phosphatase 70 U/L (45-117); Anion Gap 6 (5-15); BUN 14 mg/dL (7-18); Calcium,Total 8.8 mg/dL (8.5-10.1); Chloride 105 mmol/L (98-107); EST Glomerular Filtration Rate 87 mL/min (>60); Est Glom Filt Rate - Afr Amer 105 mL/min (>60); Globulin 4.1 g/dL (2.2-4.2); Glucose 85 mg/dL (74-106); Potassium 4.1 mmol/L (3.5-5.1); Sodium Level 138 mmol/L (136-145); T4 Free Direct 1.04 ng/dL (0.76-1.46); Thyroid Stim Hormone (TSH) 4.69 uIU/mL (0.358-3.74)
[2019-07-05 12:05] LABS: Anti-Thyroglobulin AB < 1.0 IU/mL (0.0-0.9); Thyroglobulin, Serum Qt. 24.5 ng/mL (1.5-38.5); Thyroid Peroxidase AB 16 IU/mL (0-34)
[2019-07-12 09:42] LABS: International Normalized Ratio 2.6; Prothrombin Time (Protime)PT. 27.7 SECONDS (11.7-14.9)
[2019-07-19 09:15] LABS: International Normalized Ratio 2.4
== END 2019-07-19 18:00 | disposition home or self-care (01) ==
LOC: LAB 08:42
PROVIDERS: Family Provider Family Medicine; PCP Family Medicine; Referring Provider Family Medicine; Visit Provider Family Medicine
DX: I48.91 Unspecified atrial fibrillation (principal); E01.0 Iodine-deficiency related diffuse (endemic) goiter
CPT/HCPCS: 36415; 80053; 83735; 84432; 84439; 84443; 85025; 85610; 86376; 86800

== ENCOUNTER 2019-09-27 08:17 | Outpatient (RCR) | payer OTHER, SELFPAY ==
[2018-12-28 09:48] VITALS: BMI 26.8
[2019-09-27 08:59] LABS: International Normalized Ratio 2.6; Prothrombin Time (Protime)PT. 27.5 SECONDS (11.7-14.9)
== END 2019-09-27 18:00 | disposition home or self-care (01) ==
LOC: LAB 08:17
PROVIDERS: Family Provider Family Medicine; PCP Family Medicine; Referring Provider Family Medicine; Visit Provider Family Medicine
DX: I48.91 Unspecified atrial fibrillation (principal)
CPT/HCPCS: 36415; 85610

== ENCOUNTER 2019-10-13 09:10 | Outpatient (RCR) | payer OTHER, SELFPAY ==
[2018-12-28 09:48] VITALS: BMI 26.8
[2019-10-13 10:43] LABS: International Normalized Ratio 2.5; Prothrombin Time (Protime)PT. 27.4 SECONDS (11.7-14.9)
== END 2019-10-13 18:00 | disposition home or self-care (01) ==
LOC: LAB 09:10
PROVIDERS: Family Provider Family Medicine; PCP Family Medicine; Referring Provider Family Medicine; Visit Provider Family Medicine
DX: I48.91 Unspecified atrial fibrillation (principal)
CPT/HCPCS: 36415; 85610

== ENCOUNTER 2019-12-27 10:32 | Outpatient (RCR) | payer OTHER, SELFPAY ==
[2018-12-28 09:48] VITALS: BMI 26.8
[2019-12-27 11:21] LABS: International Normalized Ratio 2.2; Prothrombin Time (Protime)PT. 23.8 SECONDS (11.7-14.9)
== END 2019-12-27 18:00 | disposition home or self-care (01) ==
LOC: LAB 10:32
PROVIDERS: Family Provider Family Medicine; PCP Family Medicine; Referring Provider Family Medicine; Visit Provider Family Medicine
DX: I48.91 Unspecified atrial fibrillation (principal)
CPT/HCPCS: 36415; 85610

== ENCOUNTER 2020-02-15 08:30 | Outpatient (RCR) | payer OTHER, SELFPAY ==
[2018-12-28 09:48] VITALS: BMI 26.8
[2020-02-15 09:16] LABS: International Normalized Ratio 2.4; Prothrombin Time (Protime)PT. 25.6 SECONDS (11.7-14.9)
== END 2020-02-15 18:00 | disposition home or self-care (01) ==
LOC: LAB 08:30
PROVIDERS: Family Provider Family Medicine; PCP Family Medicine; Referring Provider Family Medicine; Visit Provider Family Medicine
DX: I48.91 Unspecified atrial fibrillation (principal)
CPT/HCPCS: 36415; 85610

== ENCOUNTER 2020-03-20 08:14 | Outpatient (RCR) | payer OTHER, SELFPAY ==
[2018-12-28 09:48] VITALS: BMI 26.8
[2020-03-20 09:45] LABS: International Normalized Ratio 2.7; Prothrombin Time (Protime)PT. 27.9 SECONDS (11.7-14.9)
== END 2020-04-01 18:00 | disposition home or self-care (01) ==
LOC: LAB 08:14
PROVIDERS: Family Provider Family Medicine; PCP Family Medicine; Referring Provider Family Medicine; Visit Provider Family Medicine
DX: I48.91 Unspecified atrial fibrillation (principal)
CPT/HCPCS: 36415; 85610

== ENCOUNTER 2020-04-17 14:31 | Outpatient (RCR) | payer OTHER, SELFPAY ==
[2018-12-28 09:48] VITALS: BMI 26.8
[2020-04-17 16:09] LABS: International Normalized Ratio 2.5; Prothrombin Time (Protime)PT. 26.9 SECONDS (11.7-14.9)
== END 2020-04-17 18:00 | disposition home or self-care (01) ==
LOC: LAB 14:31
PROVIDERS: Family Provider Family Medicine; PCP Family Medicine; Referring Provider Family Medicine; Visit Provider Family Medicine
DX: I48.91 Unspecified atrial fibrillation (principal)
CPT/HCPCS: 36415; 85610

== ENCOUNTER 2020-06-26 08:15 | Outpatient (RCR) | payer OTHER, SELFPAY ==
[2018-12-28 09:48] VITALS: BMI 26.8
[2020-06-07 09:41] LABS: International Normalized Ratio 2.7; Prothrombin Time (Protime)PT. 28.5 SECONDS (11.7-14.9)
[2020-06-26 09:31] LABS: Mucous, Urine 0 SEEN /hpf (<or=2+); Squamous Epithelial Cells - UA 0 SEEN /hpf (5-10)
[2020-06-26 09:51] LABS: International Normalized Ratio 2.7; Prothrombin Time (Protime)PT. 28.7 SECONDS (11.7-14.9)
[2020-06-26 10:30] LABS: Absolute Lymphocyte Count 0.85 X10^3/uL (0.83-4.51); Absolute Neutrophil Count 3.5 X10^3/uL (2.0-7.7); Basophil# 0.09 X10^3/uL; Basophil% 1.5 % (0-1); Eosinophil# 1.18 X10^3/uL; Eosinophils% 19.8 % (0-5); Hematocrit 40.1 % (37-47); Hemoglobin 12.8 g/dL (12.0-15.0); Lymphocyte # 0.85 X10^3/ul (4.0); Lymphocyte % 14.3 % (19-41); Mean Corp Hgb Conc 31.9 g/dL (32-36); Mean Corpuscular Hgb 29.1 pg (27.0-32.0); Mean Corpuscular Volume 91.1 fL (81-99); Mean Platelet Vol. 10.4 fl (6.2-12.0); Monocyte# 0.38 X10^3/uL; Monocyte% 6.4 % (0-10); NRBC Flagged by Analyzer 0 % (0-5); Neutrophil # 3.45 X10^3/uL (2.7-7.7); Neutrophil % 57.8 % (47-70); Platelet Count 253 K/mm3 (150-450); RBC Distribution Width CV 12.8 % (11.6-14.6); RBC Distribution Width SD 42.6 fl (35.1-43.9)
[2020-06-26 11:27] LABS: AST(SGOT) 29 U/L (15-37); Alanine Aminotransfer ALT/SGPT 17 U/L (13-56); Alkaline Phosphatase 74 U/L (45-117); Anion Gap 6 (5-15); BUN 16 mg/dL (7-18); BUN/Creat Ratio 20.1 RATIO (10-20); Chloride 104 mmol/L (98-107); EST Glomerular Filtration Rate 74 mL/min (>60); Est Glom Filt Rate - Afr Amer 90 mL/min (>60); Globulin 3.9 g/dL (2.2-4.2); Glucose 92 mg/dL (74-106); Potassium 3.8 mmol/L (3.5-5.1); Protein, Total 7.9 g/dL (6.4-8.2); Sodium Level 137 mmol/L (136-145); Thyroid Stim Hormone (TSH) 5.22 uIU/mL (0.358-3.74)
[2020-06-26 12:25] LABS: Color, Urine Yellow (Yellow); Glucose, Dipstick Normal (Normal); Ketone-Dipstick Negative (Negative); Leukocyte Esterase-Dipstick Negative /ul (Negative); Nitrite-Dipstick Negative (Negative); Occult Blood-Urine 10 /ul (Negative); Protein-Dipstick Negative (Negative); Urine Bilirubin Dipstick Negative (Negative); Urine Clarity Clear (Clear); Urine Urobilinogen Normal (Normal)
[2020-06-26 12:31] LABS: Red Blood Cells-Urine 0-5 SEEN /hpf (0-5)
[2020-06-26 12:32] LABS: Bacteria RARE /hpf (None Seen); White Blood Cells 0 SEEN /hpf (0-5)
== END 2020-06-26 18:00 | disposition home or self-care (01) ==
LOC: LAB 08:15
PROVIDERS: Family Provider Family Medicine; PCP Family Medicine; Referring Provider Family Medicine; Visit Provider Family Medicine
DX: I48.91 Unspecified atrial fibrillation (principal)
CPT/HCPCS: 36415; 80053; 81001; 83735; 84443; 85025; 85610

== ENCOUNTER → 2020-07-03 11:19 | Outpatient (CLI) | payer OTHER, SELFPAY ==
[2018-12-28 09:48] VITALS: BMI 26.8
[2020-07-03 12:35] LABS: T4 Free Direct 1.08 ng/dL (0.76-1.46)
[2020-07-04 15:56] LABS: Thyroglobulin Antibody < 1.0 IU/mL (0.0-0.9); Thyroid Peroxidase AB < 9 IU/mL (0-34)
== END ==
PROVIDERS: PCP Family Medicine; Visit Provider Family Medicine
DX: E01.0 Iodine-deficiency related diffuse (endemic) goiter (principal)
CPT/HCPCS: 36415; 84439; 86376; 86800

== ENCOUNTER 2020-07-24 08:40 | Outpatient (RCR) | payer OTHER, SELFPAY ==
[2018-12-28 09:48] VITALS: BMI 26.8
[2020-07-24 09:21] LABS: International Normalized Ratio 2.6; Prothrombin Time (Protime)PT. 27.1 SECONDS (11.7-14.9)
== END 2020-07-24 18:00 | disposition home or self-care (01) ==
LOC: LAB 08:40
PROVIDERS: Family Provider Family Medicine; PCP Family Medicine; Referring Provider Family Medicine; Visit Provider Family Medicine
DX: I48.91 Unspecified atrial fibrillation (principal)
CPT/HCPCS: 36415; 85610

== ENCOUNTER → 2020-08-05 10:31 | Outpatient (CLI) | payer SELFPAY, OTHER ==
[2018-12-28 09:48] VITALS: BMI 26.8
--- NOTE | 2020-08-05 10:35 | ART_ITS ---
Reason For Study: Decreasedpedal pulses Procedure A bilateral lower extremity continuous wave Doppler with analog waveform analysis,segmental pressures,and ankle brachial indexes with exercise. Left Segmental Pressures Left brachial= 151mmHg. Left posterior tibial artery = 196mmHg. Left dorsalis pedis artery = 171mmHg. Left digit = 138 mmHg. The left dorsalis pedis waveforms are triphasic. The left posterior tibial artery waveforms are triphasic. Right Segmental Pressures Right brachial= 153mmHg. Right posterior tibial artery = 190mmHg. Right dorsalis pedis artery = 181mmHg. Right digit = 145 mmHg. The right dorsalis pedis waveforms are triphasic. The right posterior tibial artery waveforms are triphasic. Indices The right ankle brachial index by the dorsalis pedis is 1.18. The right ankle brachial index by the posterior tibial artery is 1.24. The right post exercise ankle brachial index is 1.34. The right digital-brachial index is 0.95. The left ankle brachial index by the dorsalis pedis is 1.12. The left ankle brachial index by the posterior tibial artery is 1.28. The left post exercise ankle brachial index is 1.28. The left digital-brachial index is 0.90. Interpretation Summary Triphasic Doppler waveforms are noted at ankle level bilaterally. Pulse-volume recordings appear satisfactory at all levels bilaterally, including low-thigh, calf, ankle, and digital levels. Resting ankle-brachial indices are normal bilaterally. Digital-brachial indices are normal bilaterally. The patient ambulated on a treadmill for 4 minutes at 1.4 MPH and a 5% grade, following which ankle pressures augmented bilaterally, a normal physiological response. There is no evidence of significant arterial occlusive disease in the lower extremities bilaterally. Ordering Physician: Wilmer Hernandez Referring Physician: Wilmer Hernandez Performed By: Lizy Stoll RVT
== END ==
PROVIDERS: PCP Family Medicine; Referring Provider Family Medicine; Visit Provider Family Medicine
DX: R09.89 Other specified symptoms and signs involving the circulatory and respiratory systems (principal)
CPT/HCPCS: 93924

== ENCOUNTER 2020-08-28 08:09 | Outpatient (RCR) | payer OTHER, SELFPAY ==
[2018-12-28 09:48] VITALS: BMI 26.8
[2020-08-28 08:43] LABS: International Normalized Ratio 1.9; Prothrombin Time (Protime)PT. 21.7 SECONDS (11.7-14.9)
== END 2020-08-28 18:00 | disposition home or self-care (01) ==
LOC: LAB 08:09
PROVIDERS: Family Provider Family Medicine; PCP Family Medicine; Referring Provider Family Medicine; Visit Provider Family Medicine
DX: I48.91 Unspecified atrial fibrillation (principal)
CPT/HCPCS: 36415; 85610

== ENCOUNTER 2020-10-18 10:20 | Outpatient (RCR) | payer OTHER, SELFPAY ==
[2018-12-28 09:48] VITALS: BMI 26.8
[2020-10-18 09:12] VITALS: BMI 26.8
[2020-10-18 11:16] LABS: International Normalized Ratio 2.6; Prothrombin Time (Protime)PT. 27.2 SECONDS (11.7-14.9)
== END 2020-10-18 18:00 | disposition home or self-care (01) ==
LOC: LAB 10:20
PROVIDERS: Family Provider Family Medicine; PCP Family Medicine; Referring Provider Family Medicine; Visit Provider Family Medicine
DX: I48.91 Unspecified atrial fibrillation (principal)
CPT/HCPCS: 36415; 85610

== ENCOUNTER 2020-10-25 09:00 | Outpatient (RCR) | payer OTHER, SELFPAY ==
[2018-12-28 09:48] VITALS: BMI 26.8
[2020-10-04 08:52] VITALS: BP 148/92; PULSE 62; TEMP 36.1; BMI 26.8
--- NOTE | 2020-10-04 12:56 | HP.PCM_ITS ---
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; L97.312 - Non-pressure chronic ulcer of right ankle with fat layer exposed (2) Peripheral vascular disease of lower extremity with ulceration Status: Chronic Code(s): I73.9 - Peripheral vascular disease, unspecified; L97.909 - Non-pressure chronic ulcer of unspecified part of unspecified lower leg with unspecified severity (3) Chronic atrial fibrillation Status: Chronic Code(s): I48.2 - Chronic atrial fibrillation (4) Diastolic heart failure Status: Chronic Qualifiers: Code(s): I50.30 - Unspecified diastolic (congestive) heart failure (5) Essential (primary) hypertension Status: Chronic Code(s): I10 - Essential (primary) hypertension History of Present Illness Date of Service: 10/04/20 Chief Complaint: right ankle ulcer History of Wound: This pleasant 75-year-old white [employer] female presents to the wound healing center today (10/04/2020) for an initial evaluation of a right ankle venous leg ulcer cluster. She had previously been seen at the [facility] wound healing center for a right venous leg ulcer. She has a past medical history significant for atrial fibrillation on Coumadin, hypertension, peripheral venous disease and right kidney injury. The ulcers initially developed in June 2020. The patient had noted itching of her right medial ankle prior to development of the ulcers. She was evaluated by a wound healing center in [place]. Medihoney was initially prescribed, but the patient developed an adverse reaction. She has since been using Cutimed dressings to th e medial ankle ulcers. She does not feel she has had any improvement in her right medial ankle ulcers. She wears compression stockings (20-30 mmHg) daily, and this has been of benefit for her bilateral lower extremity edema. 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 She just recently returned from [place] to [place] and we will be assuming her wound care. She states that a recent wound culture was collected in [place], and no antibiotics were subsequently prescribed. Results of this culture will be obtained. Labs were collected in June 2020 (CBCD, CMP, TSH) and were unremarkable. She had a bilateral lower extremity venous Doppler study in October 2018, which demonstrated incompetence of the left saphenofemoral junction, incompetence of the right greater saphenous vein below the knee, and segmental incompetence of the left greater saphenous vein. She had bilateral lower extremity arterial studies in August 2020 which showed no evidence of significant arterial occlusive disease in the bilateral lower extremities. The patient denies any fever, chills. Denies any increasing pain, redness, swelling, or purulent/malodorous drainage from affected area. Past Medical History Past Medical History: Chronic Problems (Last Updated 12/28/18 @ 09:35 by Wilmer Cross NP, AUTO SERVICE INSTRUCTOR-C) Venous stasis ulcer of right ankle with fat layer exposed (Chronic) Diastolic heart failure (Chronic) Peripheral vascular disease of lower extremity with ulceration (Chronic) Nonrheumatic aortic valve insufficiency (Chronic) Nonrheumatic mitral (valve) insufficiency (Chronic) Essential (primary) hypertension (Chronic) Chronic atrial fibrillation (Chronic) Surgical History: - - Prior hemiarthroplasty Total hip arthroplasty Allergies/Adverse Reactions: Allergies chlorhexidine Adverse Reaction (Verified 12/28/18 09:14) Nausea Home Medications: Ambulatory Orders Medication Instructions Recorded Metoprolol Tartrate [Lopressor] 100 mg PO BID 02/22/15 warfarin 3 mg tablet 3 mg PO DAILY 60 Days #60 tab 06/28/18 amlodipine 5 mg tablet 5 mg PO QHS tab 06/29/18 Ubidecarenone/Vit E Acet [Co Q-10 2 ea PO DAILY 10/28/18 100 mg Softgel] - Family History Maternal Family History: Family History (Last Reviewed 12/28/18 @ 09:11 by Val Quesada) Mother CVA (cerebral vascular accident) Father Cancer Unknown Smoking Status: Never smoker Review of Systems Constitutional: Denies: Chills, Fever, Weight Change Eyes: Denies: Pain, Vision Change HEENT: Denies: Difficulty Hearing, Difficulty Swallowing, Sinus Congestion Cardiovascular: Reports: Palpitations, - - Chronic atrial fibrillation Respiratory: Denies: Cough, Shortness of Breath Gastrointestinal: Denies: Diarrhea, Nausea, Vomiting Genitourinary: Denies: Dysuria, Hematuria Musculoskeletal: Reports: Leg Pain - Right medial ankle Skin: Reports: Wounds - Right medial ankle Endocrine: Denies: Heat/ Cold Intolerance, Polydipsia, Polyuria Hematologic/ Lymphatic: Reports: Easy Bruising - On Coumadin, Easy Bleeding - On Coumadin - Physical Exam Vital Signs Temp Pulse BP 97.0 F L 62 148/92 H 10/04/20 08:52 10/04/20 08:52 10/04/20 08:52 General: Alert, Cooperative, No apparent distress HEENT: Atraumatic, Normocephalic Oral: Moist Mucosa Neck: Supple, Trachea Midline Lungs: Clear to auscultation, Normal air movement, No rhonchi, No wheeze, No rales Cardiovascular: Irregular Rate - Irregularly irregular Abdomen: Bowel Sounds Present, Soft, Non-Distended Extremities: No clubbing, No cyanosis, No edema, Capillary Refill Less than 3 Seconds, Peripheral Pulses Normal Skin: Ulcer/ Wound - Ulcer cluster of right medial ankle with subcutaneous layer exposed. No tunneling, undermining, or probing to bone. No purulent/malodorous drainage. No periulcer erythema, warmth or edema. Wound Measurements and Assessment WC - Nurse 1 - General Ulcer Measurement Start: 10/04/20 08:52 Freq: Status: Active Protocol: Activity Type Activity Date Activity User E-Sign Co-Sign Detail Recorded Client Recorded Date Recorded By Document 10/04/20 08:52 ARNIE [id number] 10/04/20 09:11 ARNIE 10/04/20 08:52 Wound Center Nurse 1 [Ulcer Assessment] #3 Right Medial Ankle -Current Size (cm) - Length 2 -Current Size (cm) - Width 2 -Current Size (cm) - Depth 0.1 -Total Square Cm 4 -Exudate Amt Medium -Exudate Type Serosanguineous -Wound Margin Distinct, Outline Attached -Granulation Amt Medium (34-66%) -Granulation Quality [place] -Necrosis Amt Medium (34-66%) -Necrotic Tissue Type Adherent Slough -Texture (Nancy-wound Skin Appearance) Assessed, Scarring -Moisture (Nancy-wound Skin Appearance Assessed,Dry/ ) Scaly -Color (Nancy-wound Skin Appearance) Assessed, Hemosiderin Staining -Temperature (Nancy-wound Skin No Abnormality Appearance) (Pt Warm) -Tenderness on Palpation (Nancy-wound No Skin Appearance) -Ulcer Cleansing Rinsed/ Irrigated with Saline -Foul Odor after Cleansing Yes -Anesthetic Used 4% Lidocaine Solution [Edema Assessment] -Right Calf (cm) 34.5 -Right Ankle (cm) 22.5 -Point of Measurement (cm from the 34.5 distal point) -Point of measurement (cm from the 22 medial instep) WC - Nurse 3 - General Ulcer D/C NN Start: 10/04/20 08:52 Freq: Status: Active Protocol: Activity Type Activity Date Activity User E-Sign Co-Sign Detail Recorded Client Recorded Date Recorded By Document 10/04/20 11:42 PL [id number] 10/04/20 11:42 PL 10/04/20 11:42 Wound Care Nurse 3 [Wound Dressing] #3 Right Medial Ankle -Primary Dressing Applied Aquacel Extra -Primary Dressing Covered/Secured Dry Gauze, with Secured with Tape -Aquacel Extra 2 Pain Scale: 0-10 Numeric [Pain] -Is Patient Pain Free? Yes WC - Visit Discharge [Visit Discharge Information] -Discharge Condition Stable -Ambulatory Status Ambulatory -Transportation Private Auto -Accompanied by Musculoskeletal: Tenderness - On debridement of right medial ankle Neurological: Neuro grossly intact Psych/Mental Status: Normal Affect, Appropriate Debridement Note Post-Debridement Measurements/Treatment WC - Nurse 3 - General Ulcer D/C NN Start: 10/04/20 08:52 Freq: Status: Active Protocol: Activity Type Activity Date Activity User E-Sign Co-Sign Detail Recorded Client Recorded Date Recorded By Document 10/04/20 11:42 PL [id number] 10/04/20 11:42 PL 10/04/20 11:42 Wound Care Nurse 3 #3 Right Medial Ankle -Primary Dressing Applied Aquacel Extra -Primary Dressing Covered/Secured with Dry Gauze, Secured with Tape -Aquacel Extra 2 Pain Scale: 0-10 Numeric Is Patient Pain Free? Yes WC - Visit Discharge Discharge Condition Stable Ambulatory Status Ambulatory Transportation Private Auto Accompanied by Wound debrided: Right medial ankle cluster Laterality: Right Type of Debridement: Excisional debridement Anesthesia Used: 4% Lidocaine Solution Depth: in the subcutaneous layer Percentage of wound debrided: 100 Instrument Used: 3mm curette Tissue Removed: Slough and devitalized tissue Severity: Fat Layer Exposed Amount of bleeding with debridement: Mild Bleeding Controlled with: Pressure Patient tolerated procedure well Assessment/Plan Assessment: As above. Right medial lower leg traumatic laceration resolved Plan: Debridement performed today in clinic. Aquacel Ag wet-to-dry dressing applied. At home wound-care instructions: Change Aquacel Ag wet-to-dry dressing daily, or more frequently as needed due to contamination. Compression: Continue compression stockings (20-30 mmHg pressure) daily. Off-loading: Avoid pressure at the site of the ulcers. Avoid shoes that apply pressure or friction to this area. Avoid prolonged standing or dangling of legs. When seated, elevate feet at chest level. Diet: Patient encouraged to increase protein intake. Labs/cultures/imaging: Culture results will be requested from [place] wound center. Labs and venous and arterial studies reviewed as noted above. Further venous studies will be deferred for the time being. Follow-up: Return to clinic in 1 week for re-evaluation. Return sooner or report to the emergency room should symptoms worsen, or new symptoms arise. Discussed the use of advanced skin subs. At this time, the patient declines the use of advanced skin subs and wishes to continue with traditional wound treatment measures. We will continue to discuss treatment options throughout the course of wound management. Note: [employer] speech recognition contracts specialist software was used to create portions of this document. Sound-alike and misspelled words, as well as other contracts specialist errors may be contained in the documentation. Office Visits / Consults: [id number] OV L4 Est 111xxx-113xx: [id number] Dalia subq tissue 20 sq cm/<
[2020-10-11 08:26] VITALS: BP 132/70; PULSE 76; TEMP 35.8; BMI 26.8
[2020-10-11 10:16] VITALS: BP 131/67
--- NOTE | 2020-10-11 10:38 | RAD_ITS ---
STUDY: X-RAY - RIGHT ANKLE REASON FOR EXAM: Nonhealing wound at the medial right ankle since June. TECHNIQUE: 3 view(s) of the ankle. COMPARISON: None. FINDINGS: Normal visualized distal tibia and fibula. Normal medial and lateral malleoli. Normal tibiotalar articulation and ankle mortise. There is a small plantar calcaneal enthesophyte. The visualized subtalar, talonavicular, calcaneocuboid and tarsal articulations are normal. There is vascular calcification in the lower leg. RAD/Ankle min 3 Views IMPRESSION: No demonstrated osteomyelitis. Electronically Signed: Jay Moraes MD at 11:32 EST Tel , Service support ,
--- NOTE | 2020-10-11 13:33 | PCM.WC.PN ---
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; L97.312 - Non-pressure chronic ulcer of right ankle with fat layer exposed Code(s): I83.013 - Varicose veins of right lower extremity with ulcer of ankle; L97.312 - Non-pressure chronic ulcer of right ankle with fat layer exposed (2) Peripheral vascular disease of lower extremity with ulceration Status: Chronic Code(s): I73.9 - Peripheral vascular disease, unspecified; L97.909 - Non-pressure chronic ulcer of unspecified part of unspecified lower leg with unspecified severity (3) Chronic atrial fibrillation Status: Chronic Code(s): I48.2 - Chronic atrial fibrillation (4) Diastolic heart failure Status: Chronic Qualifiers: Code(s): I50.30 - Unspecified diastolic (congestive) heart failure (5) Essential (primary) hypertension Status: Chronic Code(s): I10 - Essential (primary) hypertension Type of Wound Date of Service: 10/11/20 Chief Complaint: right ankle ulcer History of Wound: This pleasant 75-year-old white [employer] female presents to the wound healing center today (10/04/2020) for an initial evaluation of a right ankle venous leg ulcer cluster. She had previously been seen at the [facility] wound healing center for a right venous leg ulcer. She has a past medical history significant for atrial fibrillation on Coumadin, hypertension, peripheral venous disease and right kidney injury. The ulcers initially developed in June 2020. The patient had noted itching of her right medial ankle prior to development of the ulcers. She was evaluated by a wound healing center in [place]. Medihoney was initially prescribed, but the patient developed an adverse reaction. She has since been using Cutimed dressings to the medial ankle ulcers. She does not feel she has had any improvement in her right medial ankle ulcers. She wears compression stockings (20-30 mmHg) daily, and this has been of benefit for her bilateral lower extremity edema. 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 She just recently returned from [place] to [place] and we will be assuming her wound care. She states that a recent wound culture was collected in [place], and no antibiotics were subsequently prescribed. Results of this culture will be obtained. Labs were collected in June 2020 (CBCD, CMP, TSH) and were unremarkable. She had a bilateral lower extremity venous Doppler study in October 2018, which demonstrated incompetence of the left saphenofemoral junction, incompetence of the right greater saphenous vein below the knee, and segmental incompetence of the left greater saphenous vein. She had bilateral lower extremity arterial studies in August 2020 which showed no evidence of significant arterial occlusive disease in the bilateral lower extremities. The patient denies any fever, chills. Denies any increasing pain, redness, swelling, or purulent/malodorous drainage from affected area. Progress of Wound: The patient has been tolerating Aquacel Ag dressing changes. She continues to use compression daily. The inflammation in her right ankle has diminished. The patient denies any fever, chills, nausea, vomiting, or diarrhea. Denies any increasing pain, redness, swelling, or purulent/malodorous drainage from affected area. - Physical Exam Vital Signs Temp Pulse BP 96.5 F L 76 131/67 H 10/11/20 08:26 10/11/20 08:26 10/11/20 10:16 General: Alert, Cooperative, No apparent distress Oral: Moist Mucosa Neck: Supple, Trachea Midline Lungs: Normal air movement Extremities: No clubbing, No cyanosis, No edema, Capillary Refill Less than 3 Seconds, Peripheral Pulses Normal Skin: Ulcer/ Wound - Ulcer cluster of right medial ankle with subcutaneous layer exposed. No tunneling,, or probing to bone. No purulent/malodorous drainage. No periulcer erythema, warmth or edema. Wound Measurements and Assessment WC - Nurse 1 - General Ulcer Measurement Start: 10/04/20 08:52 Freq: Status: Active Protocol: Activity Type Activity Date Activity User E-Sign Co-Sign Detail Recorded Client Recorded Date Recorded By Document 10/11/20 08:26 KR [id number] 10/11/20 08:28 KR 10/11/20 08:26 Wound Center Nurse 1 [Ulcer Assessment] #3 Right Medial Ankle -Current Size (cm) - Length 3.1 -Current Size (cm) - Width 2 -Current Size (cm) - Depth 0.1 -Total Square Cm 6.2 -Exudate Amt Small -Exudate Type Serosanguineous -Wound Margin Distinct, Outline Attached -Granulation Amt Medium (34-66%) -Granulation Quality [place] -Necrosis Amt Medium (34-66%) -Necrotic Tissue Type Adherent Slough -Texture (Nancy-wound Skin Appearance) Assessed, Scarring -Moisture (Nancy-wound Skin Appearance No Abnormality, ) Assessed -Color (Nancy-wound Skin Appearance) No Abnormality, Assessed -Temperature (Nancy-wound Skin No Abnormality Appearance) (Pt Warm) -Tenderness on Palpation (Nancy-wound No Skin Appearance) -Ulcer Cleansing Rinsed/ Irrigated with Saline -Foul Odor after Cleansing No -Anesthetic Used 4% Lidocaine Solution - Nurse 3 - General Ulcer D/C NN Start: 10/04/20 08:52 Freq: Status: Active Protocol: Activity Type Activity Date Activity User E-Sign Co-Sign Detail Recorded Client Recorded Date Recorded By Document 10/11/20 10:16 ARNIE [id number] 10/11/20 10:17 ARNIE 10/11/20 10:16 Wound Care Nurse 3 [Wound Dressing] -Primary Dressing Applied Aquacel AG 4x4 -Primary Dressing Covered/Secured Dry Gauze with -Aquacel AG 4x4 1 Vital Signs [Blood Pressure] -Blood Pressure (90/60-120/80) 131/67 H -Blood Pressure Mean (mm Hg) 88 -Source Monitor -Position Sitting -Blood Pressure Location Right Arm Pain Scale: 0-10 Numeric [Pain] -Is Patient Pain Free? Yes WC - Visit Discharge [Visit Discharge Information] -Discharge Condition Stable -Ambulatory Status Ambulatory -Transportation Private Auto -Accompanied by Musculoskeletal: Tenderness - On debridement of right ankle Psych/Mental Status: Normal Affect, Appropriate Debridement Note Post-Debridement Measurements/Treatment - Nurse 2 - General Ulcer CM Notes Start: 10/04/20 08:52 Freq: Status: Active Protocol: Activity Type Activity Date Activity User E-Sign Co-Sign Detail Recorded Client Recorded Date Recorded By Document 10/04/20 13:17 ERI [id number] 10/04/20 13:21 ERI 10/04/20 13:17 Wound Center Nurse 2 #3 Right Medial Ankle -Time 09:35 -Correct Patient Yes -Correct Side, Site, Position Yes -Correct Procedure Yes -Procedure Performed Yes -Type of Procedure Debridement -Clinical Debridement Subcutaneous -Tissue Removed Subcutaneous -Post Debridement (cm) - Length 4.0 -Post Debridement (cm) - Width 2.5 -Post Debridement (cm) - Depth 0.1 -Total Square (Post) (cm) 10.00 -Area of Debridement (cm) - Length 4.0 -Area of Debridement (cm) - Width 2.5 -Total Square (Area) (cm) 10.00 -Tunneling No -Undermining/Tunneling No -Circular Undermining No -Wound/Ulcer Outcome Not Healed -Ulcer Cleansing Rinsed/ Irrigated with Saline -Foul Odor after Cleansing No -Bioengineered Tissue No -Debridement - Subq, 1st 20sq cm Yes Pain Scale: 0-10 Numeric Is Patient Pain Free? Yes - Nurse 3 - General Ulcer D/C NN Start: 10/04/20 08:52 Freq: Status: Active Protocol: Activity Type Activity Date Activity User E-Sign Co-Sign Detail Recorded Client Recorded Date Recorded By Document 10/04/20 11:42 ERI [id number] 10/04/20 11:42 PL Document 10/11/20 10:16 ARNIE [id number] 10/11/20 10:17 ARNIE 10/04/20 10/11/20 11:42 10:16 Wound Care Nurse 3 #3 Right Medial Ankle -Primary Dressing Applied Aquacel Extra Aquacel AG 4x4 -Primary Dressing Covered/Secured with Dry Gauze, Dry Gauze Secured with Tape -Aquacel Extra 2 -Aquacel AG 4x4 1 Vital Signs Blood Pressure (90/60-120/80) 131/67 H Blood Pressure Mean (mm Hg) 88 Source Monitor Position Sitting Blood Pressure Location Right Arm Pain Scale: 0-10 Numeric Is Patient Pain Free? Yes Yes - Visit Discharge Discharge Condition Stable Stable Ambulatory Status Ambulatory Ambulatory Transportation Private Auto Private Auto Accompanied by Wound debrided: Right medial ankle cluster Laterality: Right Type of Debridement: Excisional debridement Anesthesia Used: 4% Lidocaine Solution, Cetacaine Depth: in the subcutaneous layer Percentage of wound debrided: 100 Instrument Used: 3mm curette Tissue Removed: Slough and devitalized tissue Severity: Fat Layer Exposed Amount of bleeding with debridement: Mild Bleeding Controlled with: Pressure Patient tolerated procedure well Assessment/Plan Clinical Impression(s) from Imaging Studies Ankle X-Ray 10/11/20 10:38 IMPRESSION: No demonstrated osteomyelitis. Electronically Signed: Jay Moraes MD at 11:32 EST Tel , Service support , Active Problems (Last Updated 12/28/18 @ 09:35 by Wilmer Cross [employer]Y MIX TRUCK DRIVER, [employer]Y M[employer] TRUCK DRIVER-C) Venous stasis ulcer of right ankle with fat layer exposed (Chronic) Diastolic heart failure (Chronic) Peripheral vascular disease of lower extremity with ulceration (Chronic) Essential (primary) hypertension (Chronic) Chronic atrial fibrillation (Chronic) Assessment: As above. Right medial lower leg traumatic laceration resolved Plan: Debridement performed today in clinic. Aquacel Ag wet-to-dry dressing applied. At home wound-care instructions: Change Aquacel Ag wet-to-dry dressing daily, or more frequently as needed due to contamination. Compression: Continue compression stockings (20-30 mmHg pressure) daily. Off-loading: Avoid pressure at the site of the ulcers. Avoid shoes that apply pressure or friction to this area. Avoid prolonged standing or dangling of legs. When seated, elevate feet at chest level. Diet: Patient encouraged to increase protein intake. Labs/cultures/imaging: Culture results were requested from [place] wound center; results not available at this time. Labs and venous and arterial studies reviewed as noted above. Venous studies of bilateral lower extremities will be ordered today. A right ankle x-ray was ordered today and there was no evidence of osteomyelitis. Follow-up: Return to clinic in 1 week for re-evaluation. Return sooner or report to the emergency room should symptoms worsen, or new symptoms arise. Discussed the use of advanced skin subs. At this time, the patient declines the use of advanced skin subs and wishes to continue with traditional wound treatment measures. We will continue to discuss treatment options throughout the course of wound management. Note: [employer] speech recognition national investigative producer software was used to create portions of this document. Sound-alike and misspelled words, as well as other national investigative producer errors may be contained in the documentation. 111xxx-113xx: [id number] Dalia subq tissue 20 sq cm/<
[2020-10-18 09:12] VITALS: BP 151/79; PULSE 75; TEMP 36.1
[2020-10-18 10:02] VITALS: BP 129/72
--- NOTE | 2020-10-18 13:58 | PN.PCM_ITS ---
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; L97.312 - Non-pressure chronic ulcer of right ankle with fat layer exposed (2) Peripheral vascular disease of lower extremity with ulceration Status: Chronic Code(s): I73.9 - Peripheral vascular disease, unspecified; L97.909 - Non-pressure chronic ulcer of unspecified part of unspecified lower leg with unspecified severity (3) Chronic atrial fibrillation Status: Chronic Code(s): I48.2 - Chronic atrial fibrillation (4) Diastolic heart failure Status: Chronic Qualifiers: Code(s): I50.30 - Unspecified diastolic (congestive) heart failure (5) Essential (primary) hypertension Status: Chronic Code(s): I10 - Essential (primary) hypertension Type of Wound Date of Service: 10/18/20 Chief Complaint: right ankle ulcer History of Wound: This pleasant 75-year-old white Jain female presents to the wound healing center today (10/04/2020) for an initial evaluation of a right ankle venous leg ulcer cluster. She had previously been seen at the [facility] wound healing center for a right venous leg ulcer. She has a past medical history significant for atrial fibrillation on Coumadin, hypertension, peripheral venous disease and right kidney injury. The ulcers initially developed in June 2020. The patient had noted itching of her right medial ankle prior to development of the ulcers. She was evaluated by a wound healing center in [place]. Medihoney was initially prescribed, but the patient developed an adverse reaction. She has since been using Cutimed dressings to the medial ankle ulcers. She does not feel she has had any improvement in her right medial ankle ulcers. She wears compression stockings (20-30 mmHg) daily, and this has been of benefit for her bilateral lower extremity edema. 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 She just recently returned from [place] to [place] and we will be assuming her wound care. She states that a recent wound culture was collected in [place], and no antibiotics were subsequently prescribed. Results of this culture will be obtained. Labs were collected in June 2020 (CBCD, CMP, TSH) and were unremarkable. She had a bilateral lower extremity venous Doppler study in October 2018, which demonstrated incompetence of the left saphenofemoral junction, incompetence of the right greater saphenous vein below the knee, and segmental incompetence of the left greater saphenous vein. She had bilateral lower extremity arterial studies in August 2020 which showed no evidence of significant arterial occlu sive disease in the bilateral lower extremities. The patient denies any fever, chills. Denies any increasing pain, redness, swelling, or purulent/malodorous drainage from affected area. Progress of Wound: The patient has been tolerating Aquacel Ag dressing changes. She continues to use compression daily. The inflammation in her right ankle has diminished. The patient denies any fever, chills, nausea, vomiting, or diarrhea. She reports an increase in her right ankle pain. She denies purulent or malodorous drainage. Her wound has not changed in size since initial visit. - Physical Exam Vital Signs Temp Pulse BP 96.9 F L 75 129/72 H 10/18/20 09:12 10/18/20 09:12 10/18/20 10:02 General: Alert, Cooperative, No apparent distress HEENT: Atraumatic, Normocephalic Oral: Moist Mucosa Neck: Trachea Midline Lungs: Normal air movement Extremities: No clubbing, No cyanosis, No edema, Capillary Refill Less than 3 Seconds, Peripheral Pulses Normal Skin: Ulcer/ Wound - Ulcer cluster of right medial ankle with subcutaneous layer exposed. No tunneling,, or probing to bone. No purulent/malodorous drainage. No periulcer erythema, warmth or edema. Wound Measurements and Assessment WC - Nurse 1 - General Ulcer Measurement Start: 10/04/20 08:52 Freq: Status: Active Protocol: Activity Type Activity Date Activity User E-Sign Co-Sign Detail Recorded Client Recorded Date Recorded By Document 10/18/20 09:12 ARNIE [id number] 10/18/20 09:14 ARNIE 10/18/20 09:12 Wound Center Nurse 1 [Ulcer Assessment] #3 Right Medial Ankle -Current Size (cm) - Length 3 -Current Size (cm) - Width 2 -Current Size (cm) - Depth 0.1 -Total Square Cm 6 -Exudate Amt Medium -Exudate Type Serosanguineous -Wound Margin Distinct, Outline Attached -Granulation Amt Medium (34-66%) -Granulation Quality Red -Necrosis Amt Medium (34-66%) -Necrotic Tissue Type Adherent Slough -Texture (Nancy-wound Skin Appearance) Assessed, Scarring -Moisture (Nancy-wound Skin Appearance Assessed, ) Maceration -Color (Nancy-wound Skin Appearance) No Abnormality, Assessed -Temperature (Nancy-wound Skin No Abnormality Appearance) (Pt Warm) -Tenderness on Palpation (Nancy-wound No Skin Appearance) -Ulcer Cleansing Rinsed/ Irrigated with Saline -Foul Odor after Cleansing No -Anesthetic Used 5% Lidocaine Gel [Edema Assessment] -Right Calf (cm) 35.1 -Right Ankle (cm) 21 - Nurse 3 - General Ulcer D/C NN Start: 10/04/20 08:52 Freq: Status: Active Protocol: Activity Type Activity Date Activity User E-Sign Co-Sign Detail Recorded Client Recorded Date Recorded By Document 10/18/20 10:02 ARNIE [id number] 10/18/20 10:03 ARNIE 10/18/20 10:02 Wound Care Nurse 3 [Wound Dressing] #3 Right Medial Ankle -Ulcer Cleansing Rinsed/ Irrigated with Saline -Primary Dressing Applied Promogran Taniya Matter -Primary Dressing Covered/Secured Dry Gauze, with Secured with Tape -Promogran Taniya Matter 2 Vital Signs [Blood Pressure] -Blood Pressure (90/60-120/80) 129/72 H -Blood Pressure Mean (mm Hg) 91 -Source Monitor -Position Sitting -Blood Pressure Location Right Arm Pain Scale: 0-10 Numeric [Pain] -Is Patient Pain Free? Yes - Visit Discharge [Visit Discharge Information] -Discharge Condition Stable -Ambulatory Status Ambulatory -Transportation Private Auto -Accompanied by Psych/Mental Status: Normal Affect, Appropriate Debridement Note Post-Debridement Measurements/Treatment WC - Nurse 2 - General Ulcer CM Notes Start: 10/04/20 08:52 Freq: Status: Active Protocol: Activity Type Activity Date Activity User E-Sign Co-Sign Detail Recorded Client Recorded Date Recorded By Document 10/04/20 13:17 PL [id number] 10/04/20 13:21 PL Document 10/11/20 14:25 PL [id number] 10/11/20 14:26 PL 10/04/20 10/11/20 13:17 14:25 Wound Center Nurse 2 #3 Right Medial Ankle -Time 09:35 09:45 -Correct Patient Yes Yes -Correct Side, Site, Position Yes Yes -Correct Procedure Yes Yes -Procedure Performed Yes Yes -Type of Procedure Debridement Debridement -Clinical Debridement Subcutaneous Subcutaneous -Tissue Removed Subcutaneous Subcutaneous -Post Debridement (cm) - Length 4.0 4 -Post Debridement (cm) - Width 2.5 2.5 -Post Debridement (cm) - Depth 0.1 0.1 -Total Square (Post) (cm) 10.00 10.0 -Area of Debridement (cm) - Length 4.0 4 -Area of Debridement (cm) - Width 2.5 2.5 -Total Square (Area) (cm) 10.00 10.0 -Tunneling No No -Undermining/Tunneling No No -Circular Undermining No No -Wound/Ulcer Outcome Not Healed Not Healed -Ulcer Cleansing Rinsed/ Irrigated with Saline -Foul Odor after Cleansing No -Bioengineered Tissue No No -Debridement - Subq, 1st 20sq cm Yes Yes Pain Scale: 0-10 Numeric Is Patient Pain Free? Yes Yes WC - Nurse 3 - General Ulcer D/C NN Start: 10/04/20 08:52 Freq: Status: Active Protocol: Activity Type Activity Date Activity User E-Sign Co-Sign Detail Recorded Client Recorded Date Recorded By Document 10/04/20 11:42 PL [id number] 10/04/20 11:42 PL Document 10/11/20 10:16 KR [id number] 10/11/20 10:17 KR Document 10/18/20 10:02 KR [id number] 10/18/20 10:03 KR 10/04/20 10/11/20 10/18/20 11:42 10:16 10:02 Wound Care Nurse 3 #3 Right Medial Ankle -Ulcer Cleansing Rinsed/ Irrigated with Saline -Primary Dressing Applied Aquacel Extra Aquacel AG 4x4 Promogran Taniya Matter -Primary Dressing Covered/Secured with Dry Gauze, Dry Gauze Dry Gauze, Secured with Secured with Tape Tape -Aquacel Extra 2 -Aquacel AG 4x4 1 -Promogran Taniya Matter 2 Vital Signs Blood Pressure (90/60-120/80) 131/67 H 129/72 H Blood Pressure Mean (mm Hg) 88 91 Source Monitor Monitor Position Sitting Sitting Blood Pressure Location Right Arm Right Arm Pain Scale: 0-10 Numeric Is Patient Pain Free? Yes Yes Yes WC - Visit Discharge Discharge Condition Stable Stable Stable Ambulatory Status Ambulatory Ambulatory Ambulatory Transportation Private Auto Private Auto Private Auto Accompanied by Wound debrided: Right medial ankle cluster Laterality: Right Type of Debridement: Excisional debridement Anesthesia Used: 4% Lidocaine Solution, Cetacaine Depth: in the subcutaneous layer Percentage of wound debrided: 100 Instrument Used: 3mm curette Tissue Removed: Slough and devitalized tissue Severity: Fat Layer Exposed Amount of bleeding with debridement: Mild Bleeding Controlled with: Pressure Patient tolerated procedure well Assessment/Plan Clinical Impression(s) from Imaging Studies Ankle X-Ray 10/11/20 10:38 IMPRESSION: No demonstrated osteomyelitis. Electronically Signed: Jay Moraes MD at 11:32 EST Tel , Service support , Active Problems (Last Updated 12/28/18 @ 09:35 by Wilmer Cross DENTAL LABORATORY ASSISTANT, DENTAL LABORATORY ASSISTANT-C) Venous stasis ulcer of right ankle with fat layer exposed (Chronic) Diastolic heart failure (Chronic) Peripheral vascular disease of lower extremity with ulceration (Chronic) Essential (primary) hypertension (Chronic) Chronic atrial fibrillation (Chronic) Assessment: As above. Right medial lower leg traumatic laceration resolved Plan: Debridement performed today in clinic. Taniya dressing applied. Covered with an ABD pad. At home wound-care instructions: Change Taniya dressing every other day. Change outer dressing daily, or more frequently as needed due to contamination/drainage. When changing Taniya dressing, wash thoroughly with antibacterial soap and water. Compression: Continue compression stockings (20- 30 mmHg pressure) daily. Off-loading: Avoid pressure at the site of the ulcers. Avoid shoes that apply pressure or friction to this area. Avoid prolonged standing or dangling of legs. When seated, elevate feet at chest level. Diet: Patient encouraged to increase protein intake. Labs/cultures/imaging: Culture results were requested from [place] wound center; results have still not yet been received. New cultures collected today. Labs and venous and arterial studies reviewed as noted above. Venous studies of bilateral lower extremities are scheduled for next Wednesday. A right ankle x-ray demonstrated no evidence of osteomyelitis. Follow-up: Return to clinic in 1 week for re-evaluation. Return sooner or report to the emergency room should symptoms worsen, or new symptoms arise. Discussed the use of advanced skin subs. At this time, the patient declines the use of advanced skin subs and wishes to continue with traditional wound treatment measures. We will continue to discuss treatment options throughout the course of wound management. Note: [employer] speech recognition shift leader software was used to create portions of this document. Sound-alike and misspelled words, as well as other shift leader errors may be contained in the documentation. [id number]: [id number] Dalia subq tissue 20 sq cm/<
[2020-10-25 09:10] VITALS: BP 109/68; PULSE 89; RESP 16; TEMP 36.7; BMI 26.8
--- NOTE | 2020-10-25 12:43 | PCM.WC.PN ---
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; L97.312 - Non-pressure chronic ulcer of right ankle with fat layer exposed Code(s): I83.013 - Varicose veins of right lower extremity with ulcer of ankle; L97.312 - Non-pressure chronic ulcer of right ankle with fat layer exposed (2) Peripheral vascular disease of lower extremity with ulceration Status: Chronic Code(s): I73.9 - Peripheral vascular disease, unspecified; L97.909 - Non-pressure chronic ulcer of unspecified part of unspecified lower leg with unspecified severity (3) Chronic atrial fibrillation Status: Chronic Code(s): I48.2 - Chronic atrial fibrillation (4) Diastolic heart failure Status: Chronic Qualifiers: Code(s): I50.30 - Unspecified diastolic (congestive) heart failure (5) Essential (primary) hypertension Status: Chronic Code(s): I10 - Essential (primary) hypertension Type of Wound Date of Service: 10/25/20 Chief Complaint: right ankle ulcer History of Wound: This pleasant 75-year-old white Rastafari female presents to the wound healing center today (10/04/2020) for an initial evaluation of a right ankle venous leg ulcer cluster. She had previously been seen at the [facility] wound healing center for a right venous leg ulcer. She has a past medical history significant for atrial fibrillation on Coumadin, hypertension, peripheral venous disease and right kidney injury. The ulcers initially developed in June 2020. The patient had noted itching of her right medial ankle prior to development of the ulcers. She was evaluated by a wound healing center in [place]. Medihoney was initially prescribed, but the patient developed an adverse reaction. She has since been using Cutimed dressings to the medial ankle ulcers. She does not feel she has had any improvement in her right medial ankle ulcers. She wears compression stockings (20-30 mmHg) daily, and this has been of benefit for her bilateral lower extremity edema. 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 She just recently returned from [place] to [place] and we will be assuming her wound care. She states that a recent wound culture was collected in [place], and no antibiotics were subsequently prescribed. Results of this culture will be obtained. Labs were collected in June 2020 (CBCD, CMP, TSH) and were unremarkable. She had a bilateral lower extremity venous Doppler study in October 2018, which demonstrated incompetence of the left saphenofemoral junction, incompetence of the right greater saphenous vein below the knee, and segmental incompetence of the left greater saphenous vein. She had bilateral lower extremity arterial studies in August 2020 which showed no evidence of significant arterial occlusive disease in the bilateral lower extremities. The patient denies any fever, chills. Denies any increasing pain, redness, swelling, or purulent/malodorous drainage from affected area. Progress of Wound: The patient has been tolerating Taniya dressing changes. She continues to use compression daily. The inflammation in her right ankle has diminished. The patient denies any fever, chills, nausea, vomiting, or diarrhea. She reports an increase in her right ankle pain. She denies purulent or malodorous drainage. Her wound is slightly improved in size and appearance from last week. Her wound culture from 10/18/2020 was positive for rare Staph aureus and very rare Klebsiella oxytoca and positive for anaerobic cocci. - Physical Exam Vital Signs Temp Pulse Resp BP 98.1 F 89 16 109/68 10/25/20 09:10 10/25/20 09:10 10/25/20 09:10 10/25/20 09:10 General: Alert, Cooperative, No apparent distress HEENT: Atraumatic, Normocephalic Oral: Moist Mucosa Neck: Supple Lungs: Normal air movement Extremities: No clubbing, No cyanosis, No edema, Capillary Refill Less than 3 Seconds, Peripheral Pulses Normal Skin: Ulcer/ Wound - Ulcer cluster of right medial ankle with subcu layer exposed. No tunneling, undermining, or probing to bone. No purulent/malodorous drainage. No periulcer erythema, warmth or edema. Wound Measurements and Assessment MARILOU - Nurse 1 - General Ulcer Measurement Start: 10/04/20 08:52 Freq: Status: Active Protocol: Activity Type Activity Date Activity User E-Sign Co-Sign Detail Recorded Client Recorded Date Recorded By Document 10/25/20 09:10 AURORA [id number] 10/25/20 09:14 AURORA 10/25/20 09:10 Wound Center Nurse 1 [Ulcer Assessment] #3 Right Medial Ankle -Combined with other wound No -Current Size (cm) - Length 4.5 -Current Size (cm) - Width 1 -Current Size (cm) - Depth 0.1 -Total Square Cm 4.5 -Photo Taken No -Epithelialization Small 1-33% -Tunneling No -Undermining/Tunneling No -Circular Undermining No -Exudate Amt Medium -Exudate Type Serosanguineous -Wound Margin Flat & Intact -Granulation Amt Small (1-33%) -Granulation Quality Biola -Slough/Fibrin Yes -Necrosis Amt Medium (34-66%) -Necrotic Tissue Type Adherent Slough -Structure Exposed N/A -Texture (Nancy-wound Skin Appearance) Assessed, Excoriation, Localized Edema -Moisture (Nancy-wound Skin Appearance Assessed,Dry/ ) Scaly -Color (Nancy-wound Skin Appearance) Assessed, Hemosiderin Staining -Temperature (Nancy-wound Skin No Abnormality Appearance) (Pt Warm) -Tenderness on Palpation (Nancy-wound No Skin Appearance) -Ulcer Cleansing Rinsed/ Irrigated with Saline -Foul Odor after Cleansing No -Anesthetic Used 4% Lidocaine Solution [Edema Assessment] -Lower Limb Edema Present Yes -Right Calf (cm) 34 -Right Ankle (cm) 24 WC - Nurse 2 - General Ulcer CM Notes Start: 10/04/20 08:52 Freq: Status: Active Protocol: Activity Type Activity Date Activity User E-Sign Co-Sign Detail Recorded Client Recorded Date Recorded By Document 10/25/20 10:58 PL [id number] 10/25/20 10:59 PL 10/25/20 10:58 Wound Center Nurse 2 [Procedure/Treatment] #3 Right Medial Ankle -Time 10:10 -Correct Patient Yes -Correct Side, Site, Position Yes -Correct Procedure Yes -Procedure Performed Yes -Type of Procedure Debridement -Clinical Debridement Subcutaneous -Tissue Removed Subcutaneous -Post Debridement (cm) - Length 3.5 -Post Debridement (cm) - Width 2.5 -Post Debridement (cm) - Depth 0.1 -Total Square (Post) (cm) 8.75 -Area of Debridement (cm) - Length 3.5 -Area of Debridement (cm) - Width 2.5 -Total Square (Area) (cm) 8.75 -Tunneling No -Undermining/Tunneling No -Circular Undermining No -Wound/Ulcer Outcome Not Healed -Ulcer Cleansing Rinsed/ Irrigated with Saline -Foul Odor after Cleansing No -Bioengineered Tissue No -Debridement - Subq, 1st 20sq cm Yes [See Physician Procedure note for Specifics] Pain Scale: 0-10 Numeric [Pain] -Is Patient Pain Free? Yes - Nurse 3 - General Ulcer D/C NN Start: 10/04/20 08:52 Freq: Status: Active Protocol: Activity Type Activity Date Activity User E-Sign Co-Sign Detail Recorded Client Recorded Date Recorded By Document 10/25/20 10:27 KR [id number] 10/25/20 10:27 KR 10/25/20 10:27 Wound Care Nurse 3 [Wound Dressing] #3 Right Medial Ankle -Ulcer Cleansing Rinsed/ Irrigated with Saline -Primary Dressing Applied Promogran Taniya Matter -Primary Dressing Covered/Secured Dry Gauze, with Secured with Tape -Promogran Taniya Matter 1 Pain Scale: 0-10 Numeric [Pain] -Is Patient Pain Free? Yes - Visit Discharge [Visit Discharge Information] -Discharge Condition Stable -Ambulatory Status Ambulatory -Transportation Private Auto Psych/Mental Status: Normal Affect, Appropriate Debridement Note Post-Debridement Measurements/Treatment - Nurse 2 - General Ulcer CM Notes Start: 10/04/20 08:52 Freq: Status: Active Protocol: Activity Type Activity Date Activity User E-Sign Co-Sign Detail Recorded Client Recorded Date Recorded By Document 10/04/20 13:17 PL [id number] 10/04/20 13:21 PL Document 10/11/20 14:25 PL [id number] 10/11/20 14:26 PL Document 10/18/20 14:03 PL [id number] 10/18/20 14:04 PL Document 10/25/20 10:58 PL [id number] 10/25/20 10:59 PL 10/04/20 10/11/20 10/18/20 13:17 14:25 14:03 Wound Center Nurse 2 #3 Right Medial Ankle -Time 09:35 09:45 09:48 -Correct Patient Yes Yes Yes -Correct Side, Site, Position Yes Yes Yes -Correct Procedure Yes Yes Yes -Procedure Performed Yes Yes Yes -Type of Procedure Debridement Debridement Debridement -Clinical Debridement Subcutaneous Subcutaneous Subcutaneous -Tissue Removed Subcutaneous Subcutaneous Subcutaneous -Post Debridement (cm) - Length 4.0 4 4.0 -Post Debridement (cm) - Width 2.5 2.5 2.5 -Post Debridement (cm) - Depth 0.1 0.1 0.1 -Total Square (Post) (cm) 10.00 10.0 10.00 -Area of Debridement (cm) - Length 4.0 4 4.0 -Area of Debridement (cm) - Width 2.5 2.5 2.5 -Total Square (Area) (cm) 10.00 10.0 10.00 -Tunneling No No No -Undermining/Tunneling No No No -Circular Undermining No No No -Wound/Ulcer Outcome Not Healed Not Healed Not Healed -Ulcer Cleansing Rinsed/ Rinsed/ Irrigated with Irrigated with Saline Saline -Foul Odor after Cleansing No No -Bioengineered Tissue No No No -Debridement - Subq, 1st 20sq cm Yes Yes Yes Pain Scale: 0-10 Numeric Is Patient Pain Free? Yes Yes Yes 10/25/20 10:58 Wound Center Nurse 2 #3 Right Medial Ankle -Time 10:10 -Correct Patient Yes -Correct Side, Site, Position Yes -Correct Procedure Yes -Procedure Performed Yes -Type of Procedure Debridement -Clinical Debridement Subcutaneous -Tissue Removed Subcutaneous -Post Debridement (cm) - Length 3.5 -Post Debridement (cm) - Width 2.5 -Post Debridement (cm) - Depth 0.1 -Total Square (Post) (cm) 8.75 -Area of Debridement (cm) - Length 3.5 -Area of Debridement (cm) - Width 2.5 -Total Square (Area) (cm) 8.75 -Tunneling No -Undermining/Tunneling No -Circular Undermining No -Wound/Ulcer Outcome Not Healed -Ulcer Cleansing Rinsed/ Irrigated with Saline -Foul Odor after Cleansing No -Bioengineered Tissue No -Debridement - Subq, 1st 20sq cm Yes Pain Scale: 0-10 Numeric Is Patient Pain Free? Yes WC - Nurse 3 - General Ulcer D/C NN Start: 10/04/20 08:52 Freq: Status: Active Protocol: Activity Type Activity Date Activity User E-Sign Co-Sign Detail Recorded Client Recorded Date Recorded By Document 10/04/20 11:42 PL [id number] 10/04/20 11:42 PL Document 10/11/20 10:16 KR [id number] 10/11/20 10:17 KR Document 10/18/20 10:02 KR [id number] 10/18/20 10:03 KR Document 10/25/20 10:27 KR [id number] 10/25/20 10:27 KR 10/04/20 10/11/20 10/18/20 11:42 10:16 10:02 Wound Care Nurse 3 #3 Right Medial Ankle -Ulcer Cleansing Rinsed/ Irrigated with Saline -Primary Dressing Applied Aquacel Extra Aquacel AG 4x4 Promogran Taniya Matter -Primary Dressing Covered/Secured with Dry Gauze, Dry Gauze Dry Gauze, Secured with Secured with Tape Tape -Aquacel Extra 2 -Aquacel AG 4x4 1 -Promogran Taniya Matter 2 Vital Signs Blood Pressure (90/60-120/80) 131/67 H 129/72 H Blood Pressure Mean (mm Hg) 88 91 Source Monitor Monitor Position Sitting Sitting Blood Pressure Location Right Arm Right Arm Pain Scale: 0-10 Numeric Is Patient Pain Free? Yes Yes Yes WC - Visit Discharge Discharge Condition Stable Stable Stable Ambulatory Status Ambulatory Ambulatory Ambulatory Transportation Private Auto Private Auto Private Auto Accompanied by 10/25/20 10:27 Wound Care Nurse 3 #3 Right Medial Ankle -Ulcer Cleansing Rinsed/ Irrigated with Saline -Primary Dressing Applied Promogran Taniya Matter -Primary Dressing Covered/Secured with Dry Gauze, Secured with Tape -Aquacel Extra -Aquacel AG 4x4 -Promogran Taniya Matter 1 Vital Signs Blood Pressure (90/60-120/80) Blood Pressure Mean (mm Hg) Source Position Blood Pressure Location Pain Scale: 0-10 Numeric Is Patient Pain Free? Yes WC - Visit Discharge Discharge Condition Stable Ambulatory Status Ambulatory Transportation Private Auto Accompanied by Wound debrided: Right ankle cluster Laterality: Right Type of Debridement: Excisional debridement Anesthesia Used: 4% Lidocaine Solution Depth: in the subcutaneous layer Percentage of wound debrided: 100 Instrument Used: 3mm curette Tissue Removed: Slough and devitalized tissue Severity: Fat Layer Exposed Amount of bleeding with debridement: Mild Bleeding Controlled with: Pressure Patient tolerated procedure well Assessment/Plan Clinical Impression(s) from Imaging Studies Ankle X-Ray 10/11/20 10:38 IMPRESSION: No demonstrated osteomyelitis. Electronically Signed: Jay Moraes MD at 11:32 EST Tel , Service support , Active Problems (Last Updated 12/28/18 @ 09:35 by Wilmer Cross HACK DRIVER, HACK DRIVER-C) Venous stasis ulcer of right ankle with fat layer exposed (Chronic) Diastolic heart failure (Chronic) Peripheral vascular disease of lower extremity with ulceration (Chronic) Essential (primary) hypertension (Chronic) Chronic atrial fibrillation (Chronic) Assessment: As above. Right medial lower leg traumatic laceration resolved Plan: Debridement performed today in clinic. Taniya dressing applied. Covered with an ABD pad. At home wound-care instructions: Change Taniya dressing every other day. Change outer dressing daily, or more frequently as needed due to contamination/drainage. When changing Taniya dressing, wash thoroughly with antibacterial soap and water. Compression: Continue compression stockings (20-30 mmHg pressure) daily. Off-loading: Avoid pressure at the site of the ulcers. Avoid shoes that apply pressure or friction to this area. Avoid prolonged standing or dangling of legs. When seated, elevate feet at chest level. Diet: Patient encouraged to increase protein intake. Labs/cultures/imaging: Culture results were requested from [place] wound center; results have still not yet been received. Her wound culture from 10/18/2020 was positive for rare Staph aureus and very rare Klebsiella oxytoca and positive for anaerobic cocci. She will be started on Augmentin 875/125 mg every 12 hours x7 days. Labs and venous and arterial studies reviewed as noted above. Venous studies of bilateral lower extremities are scheduled for next week. A right ankle x-ray demonstrated no evidence of osteomyelitis. Follow-up: Return to clinic in 1 week for re-evaluation. Return sooner or report to the emergency room should symptoms worsen, or new symptoms arise. Discussed the use of advanced skin subs. At this time, the patient declines the use of advanced skin subs and wishes to continue with traditional wound treatment measures. We will continue to discuss treatment options throughout the course of wound management. Note: [employer] speech recognition incinerator plant general supervisor software was used to create portions of this document. Sound-alike and misspelled words, as well as other incinerator plant general supervisor errors may be contained in the documentation. [id number]: [id number] Dalia subq tissue 20 sq cm/<
== END 2020-10-30 23:59 ==
LOC: WC 09:00
PROVIDERS: PCP Family Medicine; Visit Provider Nurse Practitioner Family
DX: I83.013 Varicose veins of right lower extremity with ulcer of ankle (principal); L97.312 Non-pressure chronic ulcer of right ankle with fat layer exposed; I73.9 Peripheral vascular disease, unspecified; R60.0 Localized edema; I34.0 Nonrheumatic mitral (valve) insufficiency; I48.20 Chronic atrial fibrillation, unspecified; I11.0 Hypertensive heart disease with heart failure; I50.32 Chronic diastolic (congestive) heart failure; Z79.01 Long term (current) use of anticoagulants; Z79.899 Other long term (current) drug therapy
CPT/HCPCS: 11042; 73610; 87070; 87075; 87077; 87186; 87205; 99213; G0463

== ENCOUNTER 2020-11-04 08:26 | Outpatient (RCR) | payer OTHER, SELFPAY ==
[2020-11-01 09:38] VITALS: BMI 26.8
[2020-11-04 09:21] LABS: International Normalized Ratio 2.3; Prothrombin Time (Protime)PT. 24.6 SECONDS (11.7-14.9)
--- NOTE | 2020-11-08 12:23 | PCM.WC.PN ---
(1) Venous stasis ulcer of right ankle with fat layer exposed Status: Chronic Qualifiers: Code(s): I83.013 - Varicose veins of right lower extremity with ulcer of ankle; L97.312 - Non-pressure chronic ulcer of right ankle with fat layer exposed (2) Peripheral vascular disease of lower extremity with ulceration Status: Chronic Code(s): I73.9 - Peripheral vascular disease, unspecified; L97.909 - Non-pressure chronic ulcer of unspecified part of unspecified lower leg with unspecified severity (3) Chronic atrial fibrillation Status: Chronic Code(s): I48.2 - Chronic atrial fibrillation (4) Diastolic heart failure Status: Chronic Qualifiers: Code(s): I50.30 - Unspecified diastolic (congestive) heart failure (5) Essential (primary) hypertension Status: Chronic Code(s): I10 - Essential (primary) hypertension Type of Wound Date of Service: 11/08/20 Chief Complaint: right ankle ulcer History of Wound: This pleasant 75-year-old white Stephane female presents to the wound healing center today (10/04/2020) for an initial evaluation of a right ankle venous leg ulcer cluster. She had previously been seen at the [facility] wound healing center for a right venous leg ulcer. She has a past medical history significant for atrial fibrillation on Coumadin, hypertension, peripheral venous disease and right kidney injury. The ulcers initially developed in June 2020. The patient had noted itching of her right medial ankle prior to development of the ulcers. She was evaluated by a wound healing center in [place]. Medihoney was initially prescribed, but the patient developed an adverse reaction. She has since been using Cutimed dressings to the medial ankle ulcers. She does not feel she has had any improvement in her right medial ankle ulcers. She wears compression stockings (20-30 mmHg) daily, and this has been of benefit for her bilateral lower extremity edema. 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 She just recently returned from [place] to [place] and we will be assuming her wound care. She states that a recent wound culture was collected in [place], and no antibiotics were subsequently prescribed. Results of this culture will be obtained. Labs were collected in June 2020 (CBCD, CMP, TSH) and were unremarkable. She had a bilateral lower extremity venous Doppler study in October 2018, which demonstrated incompetence of the left saphenofemoral junction, incompetence of the right greater saphenous vein below the knee, and segmental incompetence of the left greater saphenous vein. She had bilateral lower extremity arterial studies in August 2020 which showed no evidence of significant arterial occlusive disease in the bilateral lower extremities. The patient denies any fever, chills. Denies any increasing pain, redness, swelling, or purulent/malodorous drainage from affected area. Progress of Wound: The patient has been tolerating hydrogel and Aquacel Ag dressing changes well. She continues to use compression daily. The inflammation in her right ankle has diminished. The patient denies fever, chills, nausea, vomiting, or diarrhea. She reports an improvement in her ankle pain in the past week. She denies purulent/malodorous drainage. She completed a course of Augmentin. Her wound has improved in size and appearance today. Her venous studies showed multiple areas of insufficiency in the bilateral lower extremities. This was reviewed with the patient, and she was encouraged to schedule an appointment with vascular. - Physical Exam General: Alert, Cooperative, No apparent distress Oral: Moist Mucosa Lungs: Normal air movement Extremities: No clubbing, No cyanosis, No edema, Capillary Refill Less than 3 Seconds, Peripheral Pulses Normal, - - Varicosities of bilateral lower extremities Skin: Ulcer/ Wound - Ulcer cluster of right medial ankle with subcutaneous layer exposed. No tunneling, undermining, or probing to bone. No purulent/malodorous drainage. No periulcer erythema, warmth or edema. Musculoskeletal: Tenderness - Of right ankle with debridement Psych/Mental Status: Normal Affect, Appropriate Debridement Note Wound debrided: Right medial ankle cluster Laterality: Right Type of Debridement: Excisional debridement Anesthesia Used: 4% Lidocaine Solution Depth: in the subcutaneous layer Percentage of wound debrided: 100 Instrument Used: 3mm curette Tissue Removed: Slough and devitalized tissue Severity: Fat Layer Exposed Amount of bleeding with debridement: Mild Bleeding Controlled with: Pressure Patient tolerated procedure well Assessment/Plan Assessment: As above. Right medial lower leg traumatic laceration resolved Plan: Debridement performed today in clinic. Hydrogel and Aquacel Ag dressing applied. At home wound-care instructions: Apply hydrogel and change Aquacel Ag dressing every day. When changing dressing, wash thoroughly with antibacterial soap and water. Compression: Continue compression stockings (20-30 mmHg pressure) daily. Off-loading: Avoid pressure at the site of the ulcers. Avoid shoes that apply pressure or friction to this area. Avoid prolonged standing or dangling of legs. When seated, elevate feet at chest level. Diet: Patient encouraged to increase protein intake. Labs/cultures/imaging: Culture results were requested from [place] wound center; results have still not yet been received. Her wound culture from 10/18/2020 was positive for rare Staph aureus and very rare Klebsiella oxytoca and positive for anaerobic cocci. She was started on Augmentin 875/125 mg every 12 hours x7 days. Labs and venous and arterial studies reviewed as noted above. Venous studies showed multiple areas of venous incompetence in the bilateral lower extremities. Findings were discussed with the patient, and she was recommended to consult with vascular. A right ankle x-ray demonstrated no evidence of osteomyelitis. Follow-up: Return to clinic in 1 week for re-evaluation. Return sooner or report to the emergency room should symptoms worsen, or new symptoms arise. Discussed the use of advanced skin subs. At this time, the patient declines the use of advanced skin subs and wishes to continue with traditional wound treatment measures. We will continue to discuss treatment options throughout the course of wound management. Note: [employer] speech recognition parking regulation enforcement officer software was used to create portions of this document. Sound-alike and misspelled words, as well as other parking regulation enforcement officer errors may be contained in the documentation. [id number]: [id number] Dalia subq tissue 20 sq cm/<
== END 2020-11-04 18:00 | disposition home or self-care (01) ==
LOC: LAB 08:26
PROVIDERS: Family Provider Family Medicine; PCP Family Medicine; Referring Provider Family Medicine; Visit Provider Family Medicine
DX: I48.91 Unspecified atrial fibrillation (principal)
CPT/HCPCS: 36415; 85610

== ENCOUNTER 2020-11-29 10:00 | Outpatient (RCR) | payer OTHER, SELFPAY ==
[2020-10-31 00:47] VITALS: BP 109/68; PULSE 89; RESP 16; TEMP 36.7
[2020-11-01 09:38] VITALS: BP 144/70; PULSE 86; RESP 16; TEMP 36.1; BMI 26.8
--- NOTE | 2020-11-01 14:34 | PCM.WC.PN ---
(1) Venous stasis ulcer of right ankle with fat layer exposed Status: Chronic Qualifiers: Code(s): I83.013 - Varicose veins of right lower extremity with ulcer of ankle; L97.312 - Non-pressure chronic ulcer of right ankle with fat layer exposed (2) Peripheral vascular disease of lower extremity with ulceration Status: Chronic Code(s): I73.9 - Peripheral vascular disease, unspecified; L97.909 - Non-pressure chronic ulcer of unspecified part of unspecified lower leg with unspecified severity (3) Chronic atrial fibrillation Status: Chronic Code(s): I48.2 - Chronic atrial fibrillation (4) Diastolic heart failure Status: Chronic Qualifiers: Code(s): I50.30 - Unspecified diastolic (congestive) heart failure (5) Essential (primary) hypertension Status: Chronic Code(s): I10 - Essential (primary) hypertension Type of Wound Date of Service: 11/01/20 Chief Complaint: right ankle ulcer History of Wound: This pleasant 75-year-old white [place] female presents to the wound healing center today (10/04/2020) for an initial evaluation of a right ankle venous leg ulcer cluster. She had previously been seen at the [facility] wound healing center for a right venous leg ulcer. She has a past medical history significant for atrial fibrillation on Coumadin, hypertension, peripheral venous disease and right kidney injury. The ulcers initially developed in June 2020. The patient had noted itching of her right medial ankle prior to development of the ulcers. She was evaluated by a wound healing center in [place]. Medihoney was initially prescribed, but the patient developed an adverse reaction. She has since been using Cutimed dressings to the medial ankle ulcers. She does not feel she has had any improvement in her right medial ankle ulcers. She wears compression stockings (20-30 mmHg) daily, and this has been of benefit for her bilateral lower extremity edema. 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 She just recently returned from [place] to [place] and we will be assuming her wound care. She states that a recent wound culture was collected in [place], and no antibiotics were subsequently prescribed. Results of this culture will be obtained. Labs were collected in June 2020 (CBCD, CMP, TSH) and were unremarkable. She had a bilateral lower extremity venous Doppler study in October 2018, which demonstrated incompetence of the left saphenofemoral junction, incompetence of the right greater saphenous vein below the knee, and segmental incompetence of the left greater saphenous vein. She had bilateral lower extremity arterial studies in August 2020 which showed no evidence of significant arterial occlusive disease in the bilateral lower extremities. The patient denies any fever, chills. Denies any increasing pain, redness, swelling, or purulent/malodorous drainage from affected area. Progress of Wound: The patient has been tolerating Taniya dressing changes. She continues to use compression daily. The inflammation in her right ankle has diminished. The patient denies any fever, chills, nausea, vomiting, or diarrhea. She reports a slight improvement in her right ankle pain in the past week. She denies purulent or malodorous drainage. Her wound culture from 10/18/2020 was positive for rare Staph aureus and very rare Klebsiella oxytoca and positive for anaerobic cocci. She was started on Augmentin x7 days. She is tolerating this well. Her wound drainage is very dry and adherent today. - Physical Exam Vital Signs Temp Pulse Resp BP 96.9 F L 86 16 144/70 H 11/01/20 09:38 11/01/20 09:38 11/01/20 09:38 11/01/20 09:38 General: Alert, Cooperative, No apparent distress HEENT: Atraumatic, Normocephalic Oral: Moist Mucosa Lungs: Normal air movement Extremities: No clubbing, No cyanosis, No edema, Capillary Refill Less than 3 Seconds, Peripheral Pulses Normal Skin: Ulcer/ Wound - Ulcer cluster of right medial ankle with subcu layer exposed. No tunneling, undermining, or probing to bone. No purulent/malodorous drainage. No periulcer erythema, warmth or edema. Wound Measurements and Assessment WC - Nurse 1 - General Ulcer Measurement Start: 11/01/20 09:38 Freq: Status: Active Protocol: Activity Type Activity Date Activity User E-Sign Co-Sign Detail Recorded Client Recorded Date Recorded By Document 11/01/20 09:38 MS [id number] 11/01/20 09:40 MS 11/01/20 09:38 Wound Center Nurse 1 [Ulcer Assessment] #3 Right Medial Ankle -Current Size (cm) - Length 3.8 -Current Size (cm) - Width 2 -Current Size (cm) - Depth 0.1 -Total Square Cm 7.6 -Exudate Amt Small -Exudate Type Serosanguineous -Wound Margin Distinct, Outline Attached -Granulation Amt Medium (34-66%) -Slough/Fibrin Yes -Necrosis Amt Small (1-33%) -Necrotic Tissue Type Adherent Slough -Texture (Nancy-wound Skin Appearance) No Abnormality -Moisture (Nancy-wound Skin Appearance No Abnormality ) -Color (Nacny-wound Skin Appearance) No Abnormality -Temperature (Nancy-wound Skin No Abnormality Appearance) (Pt Warm) -Ulcer Cleansing Rinsed/ Irrigated with Saline -Foul Odor after Cleansing No -Anesthetic Used 4% Lidocaine Solution Musculoskeletal: Tenderness Psych/Mental Status: Normal Affect, Appropriate Debridement Note Wound debrided: Right medial ankle cluster Laterality: Right Type of Debridement: Excisional debridement Anesthesia Used: 4% Lidocaine Solution, Cetacaine Depth: in the subcutaneous layer Percentage of wound debrided: 100, 50 Instrument Used: 3mm curette Tissue Removed: Slough and devitalized tissue Severity: Fat Layer Exposed Amount of bleeding with debridement: Mild Bleeding Controlled with: Pressure Patient did not tolerate procedure well Assessment/Plan Assessment: As above. Right medial lower leg traumatic laceration resolved Plan: Debridement performed today in clinic. Hydrogel and Aquacel Ag dressing applied. At home wound-care instructions: Apply hydrogel and change Aquacel Ag dressing every day. When changing dressing, wash thoroughly with antibacterial soap and water. Compression: Continue compression stockings (20-30 mmHg pressure) daily. Off-loading: Avoid pressure at the site of the ulcers. Avoid shoes that apply pressure or friction to this area. Avoid prolonged standing or dangling of legs. When seated, elevate feet at chest level. Diet: Patient encouraged to increase protein intake. Labs/cultures/imaging: Culture results were requested from [place] wound center; results have still not yet been received. Her wound culture from 10/18/2020 was positive for rare Staph aureus and very rare Klebsiella oxytoca and positive for anaerobic cocci. She was started on Augmentin 875/125 mg every 12 hours x7 days. Labs and venous and arterial studies reviewed as noted above. Venous studies of bilateral lower extremities are scheduled for next week. A right ankle x-ray demonstrated no evidence of osteomyelitis. Follow-up: Return to clinic in 1 week for re-evaluation. Return sooner or report to the emergency room should symptoms worsen, or new symptoms arise. Discussed the use of advanced skin subs. At this time, the patient declines the use of advanced skin subs and wishes to continue with traditional wound treatment measures. We will continue to discuss treatment options throughout the course of wound management. Note: [employer] speech recognition survey rodman software was used to create portions of this document. Sound-alike and misspelled words, as well as other survey rodman errors may be contained in the documentation. [id number]: [id number] Dalia subq tissue 20 sq cm/<
--- NOTE | 2020-11-04 09:17 | VDLE_ITS ---
Reason For Study: NON HEALING WOUND RIGHT LEFT CFV is compressible, spontaneous, phasic, CFV is compressible, spontaneous, phasic, competent and demonstrates normal competent, and demonstrates normal augmentation. augmentation. FV is compressible, spontaneous, phasic, FV is compressible, spontaneous, phasic, competent and demonstrates normal competent and demonstrates normal augmentation. augmentation. POP V is compressible, spontaneous, phasic, POP V is compressible, spontaneous, phasic, competent and demonstrates normal competent and demonstrates normal augmentation. augmentation. T/P Trunk is compressible. T/P Trunk is compressible. PTV is compressible. PTV is compressible. RT PerV is compressible. LT PerV is compressible. SFJ is competent and measures .5 X .5 cm. SFJ is competent and measures .9 x .9 cm. GSV above knee is competent. GSV above knee is INCOMPETENT for greater GSV at knee measures .2 X .3 cm. than 0.5 seconds. GSV below knee is competent. GSV below knee is INCOMPETENT for greater ASV proximal calf is INCOMPETENT for greater than 0.5 seconds. than 0.5 seconds and measures .4 X .4 cm. SSV at junction is competent and SSV at junction is INCOMPETENT for greater measures .5 x .6 cm. than 0.5 seconds and measures .6 X .6 cm. SSV proximal calf is INCOMPETENT for RT SSV is INCOMPETENTthroughout for greater greater than 0.5 seconds and measures .5 than .5 sec and measures .5 x .5 cm. x .6 cm. Procedure Exam performed in department. A preliminary report was called and/or faxed to [facility]. VL/Venous Duplex US - Dio Extrem Interpretation Summary Deep veins of the lower extremities are bilaterally patent and compressible seg mentally. There is no evidence of deep vein thrombosis on either side. Valvular competence appears in tact within the proximal deep venous systems bilaterally. The great saphenous veins appear bila terally patent and compressible segmentally. Sapheno-femoral junctions are bilaterally competent . The right great saphenous vein appears segmentally competent. The left great saphenous vein omar ears segmentally incompetent. Small saphenous veins are patent and incompetent bilaterally. The right accessory saphenous vein in the proximal calf is incompetent. Ordering Physician: Ashley Carbajal Referring Physician: MANNIE JADE Performed By: Kerri Camacho RDCS, RVT
[2020-11-08 08:01] VITALS: BP 152/77; PULSE 66; TEMP 36; BMI 26.8
[2020-11-15 08:39] VITALS: BP 130/97; PULSE 75; TEMP 36; BMI 26.8
--- NOTE | 2020-11-15 13:05 | PCM.WC.PN ---
(1) Venous stasis ulcer of right ankle with fat layer exposed Status: Chronic Qualifiers: Code(s): I83.013 - Varicose veins of right lower extremity with ulcer of ankle; L97.312 - Non-pressure chronic ulcer of right ankle with fat layer exposed (2) Peripheral vascular disease of lower extremity with ulceration Status: Chronic Code(s): I73.9 - Peripheral vascular disease, unspecified; L97.909 - Non-pressure chronic ulcer of unspecified part of unspecified lower leg with unspecified severity (3) Chronic atrial fibrillation Status: Chronic Code(s): I48.2 - Chronic atrial fibrillation (4) Diastolic heart failure Status: Chronic Qualifiers: Code(s): I50.30 - Unspecified diastolic (congestive) heart failure (5) Essential (primary) hypertension Status: Chronic Code(s): I10 - Essential (primary) hypertension Type of Wound Date of Service: 11/15/20 Chief Complaint: right ankle ulcer History of Wound: This pleasant 75-year-old white Stephane female presents to the wound healing center today (10/04/2020) for an initial evaluation of a right ankle venous leg ulcer cluster. She had previously been seen at the [facility] wound healing center for a right venous leg ulcer. She has a past medical history significant for atrial fibrillation on Coumadin, hypertension, peripheral venous disease and right kidney injury. The ulcers initially developed in June 2020. The patient had noted itching of her right medial ankle prior to development of the ulcers. She was evaluated by a wound healing center in [place]. Medihoney was initially prescribed, but the patient developed an adverse reaction. She has since been using Cutimed dressings to the medial ankle ulcers. She does not feel she has had any improvement in her right medial ankle ulcers. She wears compression stockings (20-30 mmHg) daily, and this has been of benefit for her bilateral lower extremity edema. 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 She just recently returned from [place] to [place] and we will be assuming her wound care. She states that a recent wound culture was collected in [place], and no antibiotics were subsequently prescribed. Results of this culture will be obtained. Labs were collected in June 2020 (CBCD, CMP, TSH) and were unremarkable. She had a bilateral lower extremity venous Doppler study in October 2018, which demonstrated incompetence of the left saphenofemoral junction, incompetence of the right greater saphenous vein below the knee, and segmental incompetence of the left greater saphenous vein. She had bilateral lower extremity arterial studies in August 2020 which showed no evidence of significant arterial occlusive disease in the bilateral lower extremities. The patient denies any fever, chills. Denies any increasing pain, redness, swelling, or purulent/malodorous drainage from affected area. Progress of Wound: The patient has been tolerating hydrogel and Aquacel Ag dressing changes. She continues to use compression daily. The inflammation in her right ankle has diminished. The patient denies any fever, chills, nausea, vomiting, or diarrhea. Her right ankle pain has improved with the use of hydrogel. She denies purulent or malodorous drainage. Her wound culture from 10/18/2020 was positive for rare Staph aureus and very rare Klebsiella oxytoca and positive for anaerobic cocci. She was started on Augmentin x7 days. She is tolerating this well. Her wound drainage is somewhat dry and adherent today. - Physical Exam Vital Signs Temp Pulse Resp BP 96.8 F L 75 16 130/97 H 11/15/20 08:39 11/15/20 08:39 11/01/20 09:38 11/15/20 08:39 General: Alert, Cooperative, No apparent distress HEENT: Atraumatic, Normocephalic Oral: Moist Mucosa Neck: Supple, Trachea Midline Lungs: Normal air movement Extremities: No clubbing, No cyanosis, No edema, Capillary Refill Less than 3 Seconds, Peripheral Pulses Normal Skin: Ulcer/ Wound - Ulcer cluster of right medial ankle with subcu layer exposed. Improved. No tunneling, undermining, or probing to bone. No purulent/malodorous drainage. No periulcer erythema, warmth or edema. Wound Measurements and Assessment WC - Nurse 1 - General Ulcer Measurement Start: 11/01/20 09:38 Freq: Status: Active Protocol: Activity Type Activity Date Activity User E-Sign Co-Sign Detail Recorded Client Recorded Date Recorded By Document 11/15/20 08:39 ARNIE [id number] 11/15/20 08:43 KR 11/15/20 08:39 Wound Center Nurse 1 [Ulcer Assessment] #3 Right Medial Ankle -Current Size (cm) - Length 0.1 -Current Size (cm) - Width 0.4 -Current Size (cm) - Depth 0.1 -Total Square Cm 0.04 -Exudate Amt Small -Exudate Type Serosanguineous -Wound Margin Distinct, Outline Attached -Granulation Amt Small (1-33%) -Granulation Quality Hyper- granulation -Texture (Nancy-wound Skin Appearance) Assessed, Scarring -Moisture (Nancy-wound Skin Appearance No Abnormality, ) Assessed -Color (Nancy-wound Skin Appearance) No Abnormality, Assessed -Temperature (Nancy-wound Skin No Abnormality Appearance) (Pt Warm) -Tenderness on Palpation (Nancy-wound No Skin Appearance) -Ulcer Cleansing Rinsed/ Irrigated with Saline -Anesthetic Used 4% Lidocaine Solution - Nurse 3 - General Ulcer D/C NN Start: 11/01/20 09:38 Freq: Status: Active Protocol: Activity Type Activity Date Activity User E-Sign Co-Sign Detail Recorded Client Recorded Date Recorded By Document 11/15/20 09:27 ARNEI [id number] 11/15/20 09:28 ARNIE 11/15/20 09:27 Wound Care Nurse 3 [Wound Dressing] -Ulcer Cleansing Rinsed/ Irrigated with Saline -Primary Dressing Applied Aquacel AG 2x2, C Hydrogel ($) -Primary Dressing Covered/Secured Dry Gauze, with Secured with Tape -Aquacel AG 2x2 3 Pain Scale: 0-10 Numeric [Pain] -Is Patient Pain Free? Yes - Visit Discharge [Visit Discharge Information] -Discharge Condition Stable -Ambulatory Status Ambulatory -Transportation Private Auto Debridement Note Post-Debridement Measurements/Treatment - Nurse 2 - General Ulcer CM Notes Start: 11/01/20 09:38 Freq: Status: Active Protocol: Activity Type Activity Date Activity User E-Sign Co-Sign Detail Recorded Client Recorded Date Recorded By Document 11/01/20 15:30 PL [id number] 11/01/20 15:33 PL Document 11/08/20 13:28 PL [id number] 11/08/20 13:29 PL 11/01/20 11/08/20 15:30 13:28 Wound Center Nurse 2 #3 Right Medial Ankle -Time 10:18 08:25 -Correct Patient Yes Yes -Correct Side, Site, Position Yes Yes -Correct Procedure Yes Yes -Procedure Performed Yes Yes -Type of Procedure Debridement Debridement -Clinical Debridement Subcutaneous Subcutaneous -Tissue Removed Subcutaneous Subcutaneous -Post Debridement (cm) - Length 4.0 3.5 -Post Debridement (cm) - Width 3.0 2.5 -Post Debridement (cm) - Depth 0.1 0.1 -Total Square (Post) (cm) 12.00 8.75 -Area of Debridement (cm) - Length 4.0 3.5 -Area of Debridement (cm) - Width 3.0 2.5 -Total Square (Area) (cm) 12.00 8.75 -Tunneling No No -Undermining/Tunneling No No -Circular Undermining No No -Wound/Ulcer Outcome Not Healed Not Healed -Ulcer Cleansing Rinsed/ Rinsed/ Irrigated with Irrigated with Saline Saline -Foul Odor after Cleansing No No -Bioengineered Tissue No No -Bleeding Controlled with Pressure Pressure -Treatment Response Procedure Procedure Tolerated Well Tolerated Well -Debridement - Subq, 1st 20sq cm Yes Yes Pain Scale: 0-10 Numeric Is Patient Pain Free? Yes Yes - Nurse 3 - General Ulcer D/C NN Start: 11/01/20 09:38 Freq: Status: Active Protocol: Activity Type Activity Date Activity User E-Sign Co-Sign Detail Recorded Client Recorded Date Recorded By Document 11/01/20 15:33 PL [id number] 11/01/20 15:34 PL Document 11/08/20 08:45 MS [id number] 11/08/20 08:46 MS Document 11/15/20 09:27 KR [id number] 11/15/20 09:28 KR 11/01/20 11/08/20 11/15/20 15:33 08:45 09:27 Wound Care Nurse 3 #3 Right Medial Ankle -Ulcer Cleansing Rinsed/ Rinsed/ Rinsed/ Irrigated with Irrigated with Irrigated with Saline Saline Saline -Foul Odor after Cleansing No -Primary Dressing Applied Aquacel AG 4x4, Aquacel AG 4x4 Aquacel AG 2x2, C Hydrogel ($) C Hydrogel ($) -Other Dressing hydrogel -Primary Dressing Covered/Secured with Dry Gauze, Dry Gauze & Dry Gauze, Secured with Roll Gauze, Secured with Tape Secured with Tape Tape -Aquacel AG 4x4 2 1 -Aquacel AG 2x2 3 Pain Scale: 0-10 Numeric Is Patient Pain Free? Yes Yes WC - Visit Discharge Discharge Condition Stable Stable Ambulatory Status Ambulatory Ambulatory Transportation Private Auto Wound debrided: Right medial ankle cluster Laterality: Right Type of Debridement: Excisional debridement Anesthesia Used: 4% Lidocaine Solution Depth: in the subcutaneous layer Percentage of wound debrided: 100 Instrument Used: 3mm curette, - - 1mm curette Tissue Removed: Slough and devitalized tissue Severity: Fat Layer Exposed Amount of bleeding with debridement: Mild Bleeding Controlled with: Pressure Patient tolerated procedure well Assessment/Plan Clinical Impression(s) from Imaging Studies Venous Doppler Study 11/04/20 09:17 Interpretation Summary Deep veins of the lower extremities are bilaterally patent and compressible segmentally. There is no evidence of deep vein thrombosis on either side. Valvular competence appears intact within the proximal deep venous systems bilaterally. The great saphenous veins appear bilaterally patent and compressible segmentally. Sapheno-femoral junctions are bilaterally competent . The right great saphenous vein appears segmentally competent. The left great saphenous vein appears segmentally incompetent. Small saphenous veins are patent and incompetent bilaterally. The right accessory saphenous vein in the proximal calf is incompetent. Ordering Physician: Ashley Carbajal Referring Physician: MANNIE JADE Performed By: Kerri Camacho, BOBCS, RVT Active Problems (Last Updated 12/28/18 @ 09:35 by Mannie Cross NP, CHURN OPERATOR-C) Venous stasis ulcer of right ankle with fat layer exposed (Chronic) Diastolic heart failure (Chronic) Peripheral vascular disease of lower extremity with ulceration (Chronic) Essential (primary) hypertension (Chronic) Chronic atrial fibrillation (Chronic) Assessment: As above. Right medial lower leg traumatic laceration resolved Plan: Debridement performed today in clinic. Hydrogel and Aquacel Ag dressing applied. At home wound-care instructions: Apply hydrogel and change Aquacel Ag dressing every day. When changing dressing, wash thoroughly with antibacterial soap and water. Compression: Continue compression stockings (20-30 mmHg pressure) daily. Off-loading: Avoid pressure at the site of the ulcers. Avoid shoes that apply pressure or friction to this area. Avoid prolonged standing or dangling of legs. When seated, elevate feet at chest level. Diet: Patient encouraged to increase protein intake. Labs/cultures/imaging: Culture results were requested from [place] wound center; results were never received. Her wound culture from 10/18/2020 was positive for rare Staph aureus and very rare Klebsiella oxytoca and positive for anaerobic cocci. She was started on Augmentin 875/125 mg every 12 hours x7 days. Labs and venous and arterial studies reviewed as noted above. Venous studies showed multiple areas of venous incompetence in the bilateral lower extremities. Findings were discussed with the patient, and she was recommended to consult with vascular. A right ankle x-ray demonstrated no evidence of osteomyelitis. Follow-up: Return to clinic in 2 weeks for re-evaluation. Return sooner or report to the emergency room should symptoms worsen, or new symptoms arise. Discussed the use of advanced skin subs. At this time, the patient declines the use of advanced skin subs and wishes to continue with traditional wound treatment measures. We will continue to discuss treatment options throughout the course of wound management. Note: [employer] speech recognition circular head saw operator software was used to create portions of this document. Sound-alike and misspelled words, as well as other circular head saw operator errors may be contained in the documentation. [id number]: [id number] Dalia subq tissue 20 sq cm/<
[2020-11-29 09:48] VITALS: BP 140/75; PULSE 78; TEMP 36.2; BMI 26.8
--- NOTE | 2020-11-29 13:54 | PN.PCM_ITS ---
History of Present Illness Date of Service: 11/29/20 Chief Complaint: right ankle ulcer History of Wound: This pleasant 75-year-old white Judaism female presents to the wound healing center today (10/04/2020) for an initial evaluation of a right ankle venous leg ulcer cluster. She had previously been seen at the [facility] wound healing center for a right venous leg ulcer. She has a past medical history significant for atrial fibrillation on Coumadin, hypertension, peripheral venous disease and right kidney injury. The ulcers initially developed in June 2020. The patient had noted itching of her right medial ankle prior to development of the ulcers. She was evaluated by a wound healing center in [place]. Medihoney was initially prescribed, but the patient developed an adverse reaction. She has since been using Cutimed dressings to the medial ankle ulcers. She does not feel she has had any improvement in her right medial ankle ulcers. She wears compression stockings (20-30 mmHg) daily, and this has been of benefit for her bilateral lower extremity edema. 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 She just recently returned from [place] to [place] and we will be assuming her wound care. She states that a recent wound culture was collected in [place], and no antibiotics were subsequently prescribed. Results of this culture will be obtained. Labs were collected in June 2020 (CBCD, CMP, TSH) and were unremarkable. She had a bilateral lower extremity venous Doppler study in October 2018, which demonstrated incompetence of the left saphenofemoral junction, incompetence of the right greater saphenous vein below the knee, and segmental incompetence of the left greater saphenous vein. She had bilateral lower extremity arterial studies in August 2020 which showed no evidence of significant arterial occlusive disease in the bilateral lower extremities. The patient denies any fever, chills. Denies any increasing pain, redness, swelling, or purulent/malodorous drainage from affected area. Progress of Wound: Patient has been tolerating hydrogel and Aquacel Ag dressing changes well. She continues to use compression daily. The inflammation her right ankle has diminished. She denies any fever, chills, nausea, vomiting, or diarrhea. Her right ankle pain has improved with the use of hydrogel. She denies purulent or malodorous drainage. Her wound drainage continues to be sma ll in amount, though dry and adherent. Objective Data Objective Data Vital Signs: Vital Signs Temp Pulse Resp BP 97.2 F L 78 16 140/75 H 11/29/20 09:48 11/29/20 09:48 11/01/20 09:38 11/29/20 09:48 Body Mass Index (BMI) 26.8 Assessment & Plan Assessment/Plan (1) Venous stasis ulcer of right ankle with fat layer exposed: Status: Chronic Code(s): I83.013 - Varicose veins of right lower extremity with ulcer of ankle; L97.312 - Non-pressure chronic ulcer of right ankle with fat layer exposed Qualifiers: Varicose vein presence: with varicose veins Qualified Code(s): I83.013 - Varicose veins of right lower extremity with ulcer of ankle; L97.312 - Non-pressure chronic ulcer of right ankle with fat layer exposed (2) Peripheral vascular disease of lower extremity with ulceration: Status: Chronic Code(s): I73.9 - Peripheral vascular disease, unspecified; L97.909 - Non-pressure chronic ulcer of unspecified part of unspecified lower leg with unspecified severity (3) Chronic atrial fibrillation: Status: Chronic Code(s): I48.2 - Chronic atrial fibrillation (4) Diastolic heart failure: Status: Chronic Code(s): I50.30 - Unspecified diastolic (congestive) heart failure Qualifiers: Heart failure chronicity: chronic Qualified Code(s): I50.32 - Chronic diastolic (congestive) heart failure Plan: Debridement performed today in clinic. Patient is very sensitive and does not tolerate debridement well. Hydrogel and Aquacel Ag dressing applied. At home wound-care instructions: Apply hydrogel and change Aquacel Ag dressing every day. When changing dressing, wash thoroughly with antibacterial soap and water. Compression: Continue compression stockings (20-30 mmHg pressure) daily. Off-loading: Avoid pressure at the site of the ulcers. Avoid shoes that apply pressure or friction to this area. Avoid prolonged standing or dangling of legs. When seated, elevate feet at chest level. Diet: Patient encouraged to increase protein intake. Labs/cultures/imaging: Culture results were requested from [place] wound center; results were never received. Her wound culture from 10/18/2020 was positive for rare Staph aureus and very rare Klebsiella oxytoca and positive for anaerobic cocci. She was started on Augmentin 875/125 mg every 12 hours x7 days. Labs and venous and arterial studies reviewed as noted above. Venous studies showed multiple areas of venous incompetence in the bilateral lower extremities. Findings were discussed with the patient, and she was recommended to consult with vascular. A right ankle x-ray demonstrated no evidence of osteomyelitis. Follow-up: Return to clinic in 2 weeks for re-evaluation. Return sooner or report to the emergency room should symptoms worsen, or new symptoms arise. Discussed the use of advanced skin subs. At this time, the patient declines the use of advanced skin subs and wishes to continue with traditional wound treatment measures. We will continue to discuss treatment options throughout the course of wound management. Note: [email or web address] speech recognition radiology transcriptionist software was used to create portions of this document. Sound-alike and misspelled words, as well as other radiology transcriptionist errors may be contained in the documentation. Charges/Coding Procedures Integumentary 111xxx-113xx: 74252 Dalia subq tissue 20 sq cm/< Physical Exam Const alert, no apparent distress and healthy appearing General Appearance: cooperative, comfortable and well kempt HEENT Head and Scalp: normocephalic and atraumatic Neck supple and no JVD Resp normal respiratory effort, normal air movement and no use of accessory muscles GI non-distended Palpation: soft Extremity normal capillary refill, no joint enlargement, no calf tenderness and no pedal edema General Extremity: Negative for clubbing or cyanosis Peripheral Pulses: Yes dorsalis pedis pulses present bilateral 2+ Skin Wounds: wounds noted No malodorous Wound Narrative: Ulcer cluster of right medial ankle with subcutaneous layer exposed. Inflammation is improved. No tunneling, undermining, or probing to bone. No purulent/malodorous drainage. No periulcer erythema, warmth or edema. Tender to palpation. Neuro moves all extremities Sensorium / Orientation: awake and alert Psych mental status grossly normal, cooperative and affect normal Appearance: grossly normal Debridement Note Debridement Note Post-Debridement Measurements and Additional Note: Post-Debridement Measurements/Treatment WC - Nurse 2 - General Ulcer CM Notes Start: 11/01/20 09:38 Freq: Status: Active Protocol: Activity Type Activity Date Activity User E-Sign Co-Sign Detail Recorded Client Recorded Date Recorded By Document 11/01/20 15:30 PL [id number] 11/01/20 15:33 PL Document 11/08/20 13:28 PL [id number] 11/08/20 13:29 PL Document 11/15/20 13:06 PL [id number] 11/15/20 13:07 PL Document 11/29/20 13:40 PL [id number] 11/29/20 13:41 PL 11/01/20 11/08/20 11/15/20 15:30 13:28 13:06 Wound Center Nurse 2 #3 Right Medial Ankle -Time 10:18 08:25 09:08 -Correct Patient Yes Yes Yes -Correct Side, Site, Position Yes Yes Yes -Correct Procedure Yes Yes Yes -Procedure Performed Yes Yes Yes -Type of Procedure Debridement Debridement Debridement -Clinical Debridement Subcutaneous Subcutaneous Subcutaneous -Tissue Removed Subcutaneous Subcutaneous Subcutaneous -Post Debridement (cm) - Length 4.0 3.5 2.9 -Post Debridement (cm) - Width 3.0 2.5 1.1 -Post Debridement (cm) - Depth 0.1 0.1 0.1 -Total Square (Post) (cm) 12.00 8.75 3.19 -Area of Debridement (cm) - Length 4.0 3.5 2.9 -Area of Debridement (cm) - Width 3.0 2.5 1.1 -Total Square (Area) (cm) 12.00 8.75 3.19 -Tunneling No No No -Undermining/Tunneling No No No -Circular Undermining No No No -Wound/Ulcer Outcome Not Healed Not Healed Not Healed -Ulcer Cleansing Rinsed/ Rinsed/ Rinsed/ Irrigated with Irrigated with Irrigated with Saline Saline Saline -Foul Odor after Cleansing No No No -Bioengineered Tissue No No No -Bleeding Controlled with Pressure Pressure -Treatment Response Procedure Procedure Tolerated Well Tolerated Well -Debridement - Subq, 1st 20sq cm Yes Yes Yes Pain Scale: 0-10 Numeric Is Patient Pain Free? Yes Yes Yes 11/29/20 13:40 Wound Center Nurse 2 #3 Right Medial Ankle -Time 09:55 -Correct Patient Yes -Correct Side, Site, Position Yes -Correct Procedure Yes -Procedure Performed Yes -Type of Procedure Debridement -Clinical Debridement Subcutaneous -Tissue Removed Subcutaneous -Post Debridement (cm) - Length 2.9 -Post Debridement (cm) - Width 1.1 -Post Debridement (cm) - Depth 0.1 -Total Square (Post) (cm) 3.19 -Area of Debridement (cm) - Length 2.9 -Area of Debridement (cm) - Width 1.1 -Total Square (Area) (cm) 3.19 -Tunneling No -Undermining/Tunneling No -Circular Undermining No -Wound/Ulcer Outcome Not Healed -Ulcer Cleansing Rinsed/ Irrigated with Saline -Foul Odor after Cleansing No -Bioengineered Tissue No -Bleeding Controlled with Pressure -Treatment Response Procedure Tolerated Well -Debridement - Subq, 1st 20sq cm Yes Pain Scale: 0-10 Numeric Is Patient Pain Free? Yes - Nurse 3 - General Ulcer D/C NN Start: 11/01/20 09:38 Freq: Status: Active Protocol: Activity Type Activity Date Activity User E-Sign Co-Sign Detail Recorded Client Recorded Date Recorded By Document 11/01/20 15:33 PL [id number] 11/01/20 15:34 PL Document 11/08/20 08:45 MS [id number] 11/08/20 08:46 MS Document 11/15/20 09:27 KR [id number] 11/15/20 09:28 KR Document 11/29/20 10:20 F Desktop 11/29/20 10:21 BMF 11/01/20 11/08/20 11/15/20 15:33 08:45 09:27 Wound Care Nurse 3 #3 Right Medial Ankle -Ulcer Cleansing Rinsed/ Rinsed/ Rinsed/ Irrigated with Irrigated with Irrigated with Saline Saline Saline -Foul Odor after Cleansing No -Primary Dressing Applied Aquacel AG 4x4, Aquacel AG 4x4 Aquacel AG 2x2, C Hydrogel ($) C Hydrogel ($) -Other Dressing hydrogel -Primary Dressing Covered/Secured with Dry Gauze, Dry Gauze & Dry Gauze, Secured with Roll Gauze, Secured with Tape Secured with Tape Tape -Aquacel AG 4x4 2 1 -Aquacel AG 2x2 3 Right -Other Treatment Response Pain Scale: 0-10 Numeric Is Patient Pain Free? Yes Yes - Visit Discharge Discharge Condition Stable Stable Ambulatory Status Ambulatory Ambulatory Transportation Private Auto Accompanied by 11/29/20 10:20 Wound Care Nurse 3 #3 Right Medial Ankle -Ulcer Cleansing Rinsed/ Irrigated with Saline -Foul Odor after Cleansing No -Primary Dressing Applied Aquacel AG 4x4, C Hydrogel ($) -Other Dressing -Primary Dressing Covered/Secured with Dry Gauze, Secured with Tape -Aquacel AG 4x4 1 -Aquacel AG 2x2 Right -Other applied pts own compression stocking Treatment Response Procedure Tolerated Well Pain Scale: 0-10 Numeric Is Patient Pain Free? Yes WC - Visit Discharge Discharge Condition Stable Ambulatory Status Ambulatory Transportation Private Auto Accompanied by Wound debrided: Right medial ankle cluster Laterality: Right Type of Debridement: Excisional debridement Anesthesia Used: 4% Lidocaine Solution and Cetacaine Depth: in the subcutaneous layer Percentage of wound debrided: 100 Instrument Used: 3mm curette and - (1 mm curette) Tissue Removed: Slough and devitalized tissue Severity: Fat Layer Exposed Amount of bleeding with debridement: Mild Bleeding Controlled with: Pressure Patient tolerated procedure: Patient did not tolerate procedure well
== END 2020-11-29 23:59 ==
LOC: WC 10:00
PROVIDERS: PCP Family Medicine; Referring Provider Nurse Practitioner Family; Visit Provider Nurse Practitioner Family
DX: I83.013 Varicose veins of right lower extremity with ulcer of ankle (principal); L97.312 Non-pressure chronic ulcer of right ankle with fat layer exposed; I73.9 Peripheral vascular disease, unspecified; I48.20 Chronic atrial fibrillation, unspecified; I11.0 Hypertensive heart disease with heart failure; I50.32 Chronic diastolic (congestive) heart failure; Z79.01 Long term (current) use of anticoagulants; Z79.899 Other long term (current) drug therapy
CPT/HCPCS: 11042; 93970

== ENCOUNTER 2020-12-13 08:30 | Outpatient (RCR) | payer OTHER, SELFPAY ==
[2020-11-30 00:44] VITALS: BP 140/75; PULSE 78; RESP 16; TEMP 36.2
[2020-12-13 08:12] VITALS: BP 142/65; PULSE 65; TEMP 36.2; BMI 26.8
--- NOTE | 2020-12-13 08:51 | PCM.WC.PN ---
History of Present Illness Date of Service: 12/13/20 Chief Complaint: right ankle ulcer History of Wound: This pleasant 75-year-old white Confucianist female presents to the wound healing center today (10/04/2020) for an initial evaluation of a right ankle venous leg ulcer cluster. She had previously been seen at the [facility] wound healing center for a right venous leg ulcer. She has a past medical history significant for atrial fibrillation on Coumadin, hypertension, peripheral venous disease and right kidney injury. The ulcers initially developed in June 2020. The patient had noted itching of her right medial ankle prior to development of the ulcers. She was evaluated by a wound healing center in [place]. Medihoney was initially prescribed, but the patient developed an adverse reaction. She has since been using Cutimed dressings to the medial ankle ulcers. She does not feel she has had any improvement in her right medial ankle ulcers. She wears compression stockings (20-30 mmHg) daily, and this has been of benefit for her bilateral lower extremity edema. 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 She just recently returned from [place] to [place] and we will be assuming her wound care. She states that a recent wound culture was collected in [place], and no antibiotics were subsequently prescribed. Results of this culture will be obtained. Labs were collected in June 2020 (CBCD, CMP, TSH) and were unremarkable. She had a bilateral lower extremity venous Doppler study in October 2018, which demonstrated incompetence of the left saphenofemoral junction, incompetence of the right greater saphenous vein below the knee, and segmental incompetence of the left greater saphenous vein. She had bilateral lower extremity arterial studies in August 2020 which showed no evidence of significant arterial occlusive disease in the bilateral lower extremities. The patient denies any fever, chills. Denies any increasing pain, redness, swelling, or purulent/malodorous drainage from affected area. Progress of Wound: Emani returns for reevaluation of her right medial ankle ulcer cluster. Her ulcer cluster has improved in size and appearance with the use of hydrogel and Aquacel Ag. She is changing her dressings 1-2 times daily. She does report frequent dryness of her ulcers. The patient denies fever, chills. The patient has not had increased redness, swelling, or purulent/malodorous drainage from affected area. Objective Data Objective Data Vital Signs: Vital Signs Temp Pulse Resp BP 97.2 F L 65 16 142/65 H 12/13/20 08:12 12/13/20 08:12 11/30/20 00:44 12/13/20 08:12 Body Mass Index (BMI) 26.8 Assessment & Plan Assessment/Plan (1) Venous stasis ulcer of right ankle with fat layer exposed: QUALIFIERS: Varicose vein presence: with varicose veins Qualified Code(s): I83.013 - Varicose veins of right lower extremity with ulcer of ankle; L97.312 - Non-pressure chronic ulcer of right ankle with fat layer exposed (2) Peripheral vascular disease of lower extremity with ulceration: (3) Chronic atrial fibrillation: (4) Diastolic heart failure: QUALIFIERS: Heart failure chronicity: chronic Qualified Code(s): I50.32 - Chronic diastolic (congestive) heart failure PLAN: Debridement performed today in clinic. The patient tolerated debridement well today. Hydrogel and Adaptic dressing applied. At home wound-care instructions: Apply hydrogel and change Adaptic dressing every day. Change more frequently as needed due to contamination. When changing dressing, wash thoroughly with antibacterial soap and water. Compression: Continue compression stockings (20-30 mmHg pressure) daily. Off-loading: Avoid pressure at the site of the ulcers. Avoid shoes that apply pressure or friction to this area. Avoid prolonged standing or dangling of legs. When seated, elevate feet at chest level. Diet: Patient encouraged to increase protein intake. Labs/cultures/imaging: Culture results were requested from [place] wound center; results were never received. Her wound culture from 10/18/2020 was positive for rare Staph aureus and very rare Klebsiella oxytoca and positive for anaerobic cocci. She was started on Augmentin 875/125 mg every 12 hours x7 days and completed this course of antibiotics. Labs and venous and arterial studies reviewed as noted above. Venous studies showed multiple areas of venous incompetence in the bilateral lower extremities. Findings were discussed with the patient, and she was recommended to consult with vascular. A right ankle x-ray demonstrated no evidence of osteomyelitis. Follow-up: Return to clinic in 3 weeks for re-evaluation. Return sooner or report to the emergency room should symptoms worsen, or new symptoms arise. Discussed the use of advanced skin subs. At this time, the patient declines the use of advanced skin subs and wishes to continue with traditional wound treatment measures. We will continue to discuss treatment options throughout the course of wound management. Note: [employer] speech recognition lime puller software was used to create portions of this document. Sound-alike and misspelled words, as well as other lime puller errors may be contained in the documentation. Charges/Coding Procedures Integumentary 111xxx-113xx: 15958 Dalia subq tissue 20 sq cm/< Physical Exam Const alert, no apparent distress and healthy appearing General Appearance: cooperative, comfortable and well kempt HEENT Head and Scalp: normocephalic and atraumatic Neck supple and no JVD Resp normal respiratory effort, normal air movement and no use of accessory muscles GI non-distended Extremity normal capillary refill, no joint enlargement, no calf tenderness and no pedal edema General Extremity: Negative for clubbing or cyanosis Peripheral Pulses: Yes dorsalis pedis pulses present bilateral 2+ Skin Wounds: wounds noted No malodorous Wound Narrative: Ulcer cluster of right medial ankle with subcutaneous layer exposed. Mild crusting of serous drainage. Inflammation is improved. No tunneling, undermining, or probing to bone. No purulent/malodorous drainage. No periulcer erythema, warmth or edema. Mild tenderness to palpation. Neuro moves all extremities Sensorium / Orientation: awake and alert Psych mental status grossly normal, cooperative and affect normal Appearance: grossly normal Debridement Note Debridement Note Post-Debridement Measurements and Additional Note: Post-Debridement Measurements/Treatment - Nurse 1 - General Ulcer Assessment Start: 12/13/20 08:11 Freq: Status: Active Protocol: ISAIAH Activity Type Activity Date Activity User E-Sign Co-Sign Detail Recorded Client Recorded Date Recorded By Document 12/13/20 08:12 ARNIE [id number] 12/13/20 08:15 ARNIE 12/13/20 08:12 - Today's Visit Information Type of service Follow-up Visit (Physician/ASSISTANT EDUCATION DIRECTOR ) Arrival Mode Ambulatory Patient Identification Verified (Name & Yes ) Height and Weight Body Mass Index (BMI) 26.8 BMI Classification Overweight Vital Signs Temperature (97.8 F-99.1 F) 97.2 F L Temperature Source Temporal Pulse Rate (60-100) 65 Pulse Location Monitor Blood Pressure (90/60-120/80) 142/65 H Blood Pressure Mean (mm Hg) 90 Source Monitor Position Semi-Fowlers Blood Pressure Location Left Arm History Since Last Visit- (Skip if this is Patient's initial visit) Have you changed medications since your No last visit? Any new allergies or adverse reactions No Had a fall/change in ADL's that may No increase risk of falls Signs or symptoms of abuse and/or No neglect since last visit Have you been in the hospital since your No last visit? Has dressing in place as prescribed Yes Has compression in place as prescribed Yes Has offloadiing in place as prescribed N/A Experienced any changes in pain level or No management Left Footwear Regular Shoe Right Footwear Regular Shoe Pain Scale: 0-10 Numeric Is Patient Pain Free? Yes - Nurse 1 - General Ulcer Measurement Start: 12/13/20 08:11 Freq: Status: Active Protocol: Activity Type Activity Date Activity User E-Sign Co-Sign Detail Recorded Client Recorded Date Recorded By Document 12/13/20 08:12 ARNIE [id number] 12/13/20 08:15 ARNIE 12/13/20 08:12 Wound Center Nurse 1 #3 Right Medial Ankle -Current Size (cm) - Length 1.1 -Current Size (cm) - Width 0.2 -Current Size (cm) - Depth 0.1 -Total Square Cm 0.22 -Exudate Amt None Present -Wound Margin Distinct, Outline Attached -Granulation Amt Small (1-33%) -Granulation Quality Hiko -Necrosis Amt None Present (0 %) -Texture (Nancy-wound Skin Appearance) Assessed, Scarring -Moisture (Nancy-wound Skin Appearance) Assessed,Dry/ Scaly -Color (Nancy-wound Skin Appearance) No Abnormality, Assessed -Temperature (Nancy-wound Skin No Abnormality Appearance) (Pt Warm) -Tenderness on Palpation (Nancy-wound No Skin Appearance) -Ulcer Cleansing Rinsed/ Irrigated with Saline -Foul Odor after Cleansing No -Anesthetic Used 5% Lidocaine Gel WC - Nurse 2 - General Ulcer CM Notes Start: 12/13/20 08:11 Freq: Status: Active Protocol: Activity Type Activity Date Activity User E-Sign Co-Sign Detail Recorded Client Recorded Date Recorded By Document 12/13/20 08:42 AURORA [id number] 12/13/20 08:46 AURORA 12/13/20 08:42 Wound Center Nurse 2 -Time 08:43 -Correct Patient Yes -Correct Side, Site, Position Yes -Correct Procedure Yes -Procedure Performed Yes -Type of Procedure Debridement -Clinical Debridement Subcutaneous -Tissue Removed Subcutaneous -Post Debridement (cm) - Length 2.2 -Post Debridement (cm) - Width 0.4 -Post Debridement (cm) - Depth 0.1 -Total Square (Post) (cm) 0.88 -Area of Debridement (cm) - Length 2.2 -Area of Debridement (cm) - Width 0.4 -Total Square (Area) (cm) 0.88 -Tunneling No -Undermining/Tunneling No -Circular Undermining No -Wound/Ulcer Outcome Not Healed -Ulcer Cleansing Rinsed/ Irrigated with Saline -Foul Odor after Cleansing No -Bioengineered Tissue No -Bleeding Controlled with Pressure -Offloading No -Treatment Response Procedure Tolerated Well -Debridement - Subq, 1st 20sq cm Yes Pain Scale: 0-10 Numeric Is Patient Pain Free? Yes Wound debrided: Right medial ankle cluster Laterality: Right Type of Debridement: Excisional debridement Anesthesia Used: 5% Lidocaine Gel Depth: in the subcutaneous layer Percentage of wound debrided: 100 Instrument Used: 3mm curette Tissue Removed: Dry drainage, slough, devitalized tissue Severity: Fat Layer Exposed Amount of bleeding with debridement: Mild Bleeding Controlled with: Pressure Patient tolerated procedure: Patient tolerated procedure well
== END 2020-12-30 23:59 ==
LOC: WC 08:30
PROVIDERS: PCP Family Medicine; Referring Provider Nurse Practitioner Family; Visit Provider Nurse Practitioner Family
DX: I83.013 Varicose veins of right lower extremity with ulcer of ankle (principal); L97.312 Non-pressure chronic ulcer of right ankle with fat layer exposed; I73.9 Peripheral vascular disease, unspecified; R60.0 Localized edema; I48.20 Chronic atrial fibrillation, unspecified; I11.0 Hypertensive heart disease with heart failure; I50.32 Chronic diastolic (congestive) heart failure; Z79.01 Long term (current) use of anticoagulants; Z79.899 Other long term (current) drug therapy
CPT/HCPCS: 11042

== ENCOUNTER 2020-12-13 09:06 | Outpatient (RCR) | payer OTHER, SELFPAY ==
[2020-12-13 08:12] VITALS: BMI 26.8
[2020-12-13 09:34] LABS: International Normalized Ratio 2.5; Prothrombin Time (Protime)PT. 26.2 SECONDS (11.7-14.9)
== END 2020-12-13 18:00 | disposition home or self-care (01) ==
LOC: LAB 09:06
PROVIDERS: Family Provider Family Medicine; PCP Family Medicine; Referring Provider Family Medicine; Visit Provider Family Medicine
DX: I48.91 Unspecified atrial fibrillation (principal)
CPT/HCPCS: 36415; 85610

== ENCOUNTER 2021-01-03 08:30 | Outpatient (RCR) | payer OTHER, SELFPAY ==
[2020-12-31 00:29] VITALS: BP 142/65; PULSE 65; RESP 16; TEMP 36.2
[2021-01-03 08:23] VITALS: BP 136/70; PULSE 69; RESP 16; TEMP 36.2; BMI 26.8
--- NOTE | 2021-01-03 14:05 | PN.PCM_ITS ---
History of Present Illness Date of Service: 01/03/21 Chief Complaint: right ankle ulcer History of Wound: This pleasant 75-year-old white Religion female presents to the wound healing center today (10/04/2020) for an initial evaluation of a right ankle venous leg ulcer cluster. She had previously been seen at the [facility] wound healing center for a right venous leg ulcer. She has a past medical history significant for atrial fibrillation on Coumadin, hypertension, peripheral venous disease and right kidney injury. The ulcers initially developed in June 2020. The patient had noted itching of her right medial ankle prior to development of the ulcers. She was evaluated by a wound healing center in [place]. Medihoney was initially prescribed, but the patient developed an adverse reaction. She has since been using Cutimed dressings to the medial ankle ulcers. She does not feel she has had any improvement in her right medial ankle ulcers. She wears compression stockings (20-30 mmHg) daily, and this has been of benefit for her bilateral lower extremity edema. 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 She just recently returned from [place] to [place] and we will be assuming her wound care. She states that a recent wound culture was collected in [place], and no antibiotics were subsequently prescribed. Results of this culture will be obtained. Labs were collected in June 2020 (CBCD, CMP, TSH) and were unremarkable. She had a bilateral lower extremity venous Doppler study in October 2018, which demonstrated incompetence of the left saphenofemoral junction, incompetence of the right greater saphenous vein below the knee, and segmental incompetence of the left greater saphenous vein. She had bilateral lower extremity arterial studies in August 2020 which showed no evidence of significant arterial occlusive disease in the bilateral lower extremities. The patient denies any fever, chills. Denies any increasing pain, redness, swelling, or purulent/malodorous drainage from affected area. Progress of Wound: The patient has been compliant with the use of compression and hydrogel dressings to her right ankle ulcer. Her right ankle ulcer is healed today. Her right ankle pain has diminished. She has not had any drainage in the past week. Objective Data Objective Data Vital Signs: Vital Signs Temp Pulse Resp BP 97.2 F L 69 16 136/70 H 01/03/21 08:23 01/03/21 08:23 01/03/21 08:23 01/03/21 08:23 Body Mass Index (BMI) 26.8 Charges/Coding Visit Charges Office Visits / Consults: 21697 OV L3 Est Physical Exam Const alert, no apparent distress and healthy appearing General Appearance: cooperative, comfortable and well kempt HEENT Head and Scalp: normocephalic and atraumatic Neck supple and no JVD Resp normal respiratory effort, normal air movement and no use of accessory muscles GI non-distended Extremity normal capillary refill, no joint enlargement, no calf tenderness and no pedal edema General Extremity: Negative for clubbing or cyanosis Peripheral Pulses: Yes dorsalis pedis pulses present bilateral 2+ Skin Wounds: Negative for wounds noted Neuro moves all extremities Sensorium / Orientation: awake and alert Psych mental status grossly normal, cooperative and affect normal Appearance: grossly normal Debridement Note Debridement Note No debridement was completed: No debridement was completed today Assessment/Plan Assessment/Plan (1) Venous stasis ulcer of right ankle with fat layer exposed: CODE(S): I83.013 - Varicose veins of right lower extremity with ulcer of ankle; L97.312 - Non-pressure chronic ulcer of right ankle with fat layer exposed QUALIFIERS: Varicose vein presence: with varicose veins Qualified Code(s): I83.013 - Varicose veins of right lower extremity with ulcer of ankle; L97.312 - Non-pressure chronic ulcer of right ankle with fat layer exposed (2) Peripheral vascular disease of lower extremity with ulceration: CODE(S): I73.9 - Peripheral vascular disease, unspecified; L97.909 - Non- pressure chronic ulcer of unspecified part of unspecified lower leg with unspecified severity (3) Chronic atrial fibrillation: CODE(S): I48.2 - Chronic atrial fibrillation (4) Diastolic heart failure: CODE(S): I50.30 - Unspecified diastolic (congestive) heart failure QUALIFIERS: Heart failure chronicity: chronic Qualified Code(s): I50.32 - Chronic diastolic (congestive) heart failure PLAN: Patient's right ankle venous stasis ulcers are healed today. She may continue to apply hydrogel to the right medial ankle for the next 1 to 2 weeks if desired to aid with dryness. She will be discharged from the Wound Healing Center today with instructions to follow-up on an as-needed basis. Note: [employer] speech recognition chief of field operations software was used to create portions of this document. Sound-alike and misspelled words, as well as other chief of field operations errors may be contained in the documentation.
== END 2021-01-03 09:31 | disposition home or self-care (01) ==
LOC: WC 08:30
PROVIDERS: PCP Family Medicine; Referring Provider Nurse Practitioner Family; Visit Provider Nurse Practitioner Family
DX: Z09 Encounter for follow-up examination after completed treatment for conditions other than malignant neoplasm (principal); I11.0 Hypertensive heart disease with heart failure; I50.32 Chronic diastolic (congestive) heart failure; I48.20 Chronic atrial fibrillation, unspecified; I73.9 Peripheral vascular disease, unspecified; Z79.01 Long term (current) use of anticoagulants; Z79.899 Other long term (current) drug therapy
CPT/HCPCS: 99213; G0463

== ENCOUNTER 2021-01-17 11:04 | Outpatient (RCR) | payer OTHER, SELFPAY ==
[2021-01-17 11:46] LABS: International Normalized Ratio 2.4; Prothrombin Time (Protime)PT. 25.1 SECONDS (11.7-14.9)
== END 2021-01-17 18:00 | disposition home or self-care (01) ==
LOC: LAB 11:04
PROVIDERS: Family Provider Family Medicine; PCP Family Medicine; Referring Provider Family Medicine; Visit Provider Family Medicine
DX: I48.91 Unspecified atrial fibrillation (principal)
CPT/HCPCS: 36415; 85610

== ENCOUNTER 2021-02-26 08:22 | Outpatient (RCR) | payer OTHER, SELFPAY ==
[2021-02-26 09:25] LABS: Absolute Lymphocyte Count 1.49 X10^3/uL (0.83-4.51); Absolute Neutrophil Count 2.6 X10^3/uL (2.0-7.7); Basophil# 0.08 X10^3/uL; Basophil% 1.3 % (0-1); Eosinophil# 1.42 X10^3/uL; Eosinophils% 23.4 % (0-5); Hematocrit 41.2 % (37-47); Hemoglobin 13.6 g/dL (12.0-15.0); Lymphocyte # 1.49 X10^3/ul (0.83-4.51); Lymphocyte % 24.6 % (19-41); Mean Corpuscular Hgb 29.6 pg (27.0-32.0); Mean Corpuscular Volume 89.6 fL (81-99); Mean Platelet Vol. 10.4 fl (6.2-12.0); Monocyte# 0.44 X10^3/uL; Monocyte% 7.3 % (0-10); NRBC Flagged by Analyzer 0 % (0-5); Neutrophil # 2.62 X10^3/uL (2.7-7.7); Neutrophil % 43.2 % (47-70); Platelet Count 283 K/mm3 (150-450); RBC Distribution Width CV 12.5 % (11.6-14.6); RBC Distribution Width SD 41.3 fl (35.1-43.9); White Blood Count 6.1 K/mm3 (4.4-11.0)
[2021-02-26 09:35] LABS: International Normalized Ratio 2.2; Prothrombin Time (Protime)PT. 23.7 SECONDS (11.7-14.9)
[2021-02-26 10:05] LABS: AST(SGOT) 28 U/L (15-37); Alanine Aminotransfer ALT/SGPT 17 U/L (13-56); Albumin, Serum 3.8 g/dL (3.2-5.0); Alkaline Phosphatase 65 U/L (45-117); Anion Gap 6 (5-15); BUN 18 mg/dL (7-18); BUN/Creat Ratio 26.9 RATIO (10-20); Calcium,Total 8.8 mg/dL (8.5-10.1); Chloride 106 mmol/L (98-107); Cholesterol 198 mg/dL (200); Creatinine, Serum 0.67 mg/dL (0.55-1.02); EST Glomerular Filtration Rate 91 mL/min (>60); Est Glom Filt Rate - Afr Amer 110 mL/min (>60); Globulin 3.9 g/dL (2.2-4.2); Glucose 85 mg/dL (74-106); High Density Lipoprotein 60 mg/dL; Magnesium 1.9 mg/dL (1.6-2.6); Potassium 3.7 mmol/L (3.5-5.1); Protein, Total 7.7 g/dL (6.4-8.2); Sodium Level 139 mmol/L (136-145); Triglycerides 72 mg/dL; Very Low Density Lipoprotein 14 mg/dL (5-40)
== END 2021-02-26 18:00 | disposition home or self-care (01) ==
LOC: LAB 08:22
PROVIDERS: Family Provider Family Medicine; PCP Family Medicine; Referring Provider Family Medicine; Visit Provider Family Medicine
DX: I48.91 Unspecified atrial fibrillation (principal); E01.0 Iodine-deficiency related diffuse (endemic) goiter
CPT/HCPCS: 36415; 80053; 80061; 83735; 85025; 85610

== ENCOUNTER 2021-03-31 09:10 | Outpatient (RCR) | payer OTHER, SELFPAY ==
[2021-03-31 10:27] LABS: International Normalized Ratio 2.6
== END 2021-03-31 18:00 | disposition home or self-care (01) ==
LOC: LAB 09:10
PROVIDERS: Family Provider Family Medicine; PCP Family Medicine; Referring Provider Family Medicine; Visit Provider Family Medicine
DX: I48.91 Unspecified atrial fibrillation (principal)
CPT/HCPCS: 36415; 85610

== ENCOUNTER 2021-05-26 08:29 | Outpatient (RCR) | payer OTHER, SELFPAY ==
[2021-04-02 01:14] VITALS: BMI 26.8
[2021-05-26 09:50] LABS: International Normalized Ratio 2.3; Prothrombin Time (Protime)PT. 24.5 SECONDS (11.7-14.9)
== END 2021-06-01 05:23 | disposition home or self-care (01) ==
LOC: LAB 08:29
PROVIDERS: Family Provider Family Medicine; PCP Family Medicine; Referring Provider Family Medicine; Visit Provider Family Medicine
DX: I48.91 Unspecified atrial fibrillation (principal)
CPT/HCPCS: 36415; 85610

== ENCOUNTER → 2021-07-08 16:14 | Outpatient (CLI) | payer OTHER, SELFPAY ==
[2021-07-08 18:00] LABS: Absolute Lymphocyte Count 2.21 X10^3/uL (0.83-4.51); Absolute Neutrophil Count 4.3 X10^3/uL (2.0-7.7); Basophil# 0.09 X10^3/uL; Basophil% 1.1 % (0-1); Eosinophil# 1.35 X10^3/uL; Hematocrit 39.9 % (37-47); Hemoglobin 13.4 g/dL (12.0-15.0); Lymphocyte # 2.21 X10^3/ul (0.83-4.51); Lymphocyte % 26.2 % (19-41); Mean Corp Hgb Conc 33.6 g/dL (32-36); Mean Corpuscular Hgb 30.5 pg (27.0-32.0); Mean Corpuscular Volume 90.7 fL (81-99); Mean Platelet Vol. 10.5 fl (6.2-12.0); Monocyte# 0.49 X10^3/uL; Monocyte% 5.8 % (0-10); NRBC Flagged by Analyzer 0 % (0-5); Neutrophil # 4.29 X10^3/uL (2.7-7.7); Neutrophil % 50.7 % (47-70); Platelet Count 290 K/mm3 (150-450); RBC Distribution Width CV 12.2 % (11.6-14.6); RBC Distribution Width SD 40.6 fl (35.1-43.9); White Blood Count 8.5 K/mm3 (4.4-11.0)
[2021-07-08 18:06] LABS: International Normalized Ratio 2.3; Prothrombin Time (Protime)PT. 24.4 SECONDS (11.7-14.9)
[2021-07-08 18:35] LABS: ALB/GLOB Ratio 0.9 RATIO (0.9-2.4); AST(SGOT) 31 U/L (15-37); Alanine Aminotransfer ALT/SGPT 22 U/L (13-56); Albumin, Serum 3.9 g/dL (3.2-5.0); Alkaline Phosphatase 77 U/L (45-117); Anion Gap 9 (5-15); BUN 22 mg/dL (7-18); BUN/Creat Ratio 29.3 RATIO (10-20); Chloride 101 mmol/L (98-107); Cholesterol 189 mg/dL (200); Creatinine, Serum 0.75 mg/dL (0.55-1.02); EST Glomerular Filtration Rate 79 mL/min (>60); Est Glom Filt Rate - Afr Amer 96 mL/min (>60); Globulin 4.2 g/dL (2.2-4.2); Glucose 91 mg/dL (74-106); High Density Lipoprotein 54 mg/dL; Magnesium 2.3 mg/dL (1.6-2.6); Potassium 3.2 mmol/L (3.5-5.1); Protein, Total 8.1 g/dL (6.4-8.2); Sodium Level 136 mmol/L (136-145); Thyroid Stim Hormone (TSH) 4.18 uIU/mL (0.358-3.74); Triglycerides 106 mg/dL; Very Low Density Lipoprotein 21 mg/dL (5-40)
== END ==
PROVIDERS: PCP Family Medicine; Referring Provider Family Medicine; Visit Provider Family Medicine
DX: I48.91 Unspecified atrial fibrillation (principal)
CPT/HCPCS: 36415; 80053; 80061; 83735; 84443; 85025; 85610

== ENCOUNTER → 2021-07-23 08:08 | Outpatient (CLI) | payer OTHER, SELFPAY ==
[2021-07-23 09:33] LABS: Potassium 3.9 mmol/L (3.5-5.1)
== END ==
PROVIDERS: PCP Family Medicine; Referring Provider Family Medicine; Visit Provider Family Medicine
DX: E87.6 Hypokalemia (principal)
CPT/HCPCS: 36415; 84132

== ENCOUNTER 2021-08-20 08:38 | Outpatient (RCR) | payer OTHER, SELFPAY ==
[2021-06-01 05:23] VITALS: BMI 26.8
[2021-08-20 10:25] LABS: International Normalized Ratio 2.2; Prothrombin Time (Protime)PT. 23.7 SECONDS (11.7-14.9)
== END 2021-09-01 18:00 | disposition home or self-care (01) ==
LOC: LAB 08:38
PROVIDERS: Family Provider Family Medicine; PCP Family Medicine; Referring Provider Family Medicine; Visit Provider Family Medicine
DX: I48.91 Unspecified atrial fibrillation (principal)
CPT/HCPCS: 36415; 85610

== ENCOUNTER 2021-10-03 08:20 | Outpatient (RCR) | payer OTHER, SELFPAY ==
[2021-09-02 01:35] VITALS: BMI 26.8
[2021-10-03 09:26] LABS: International Normalized Ratio 2.1; Prothrombin Time (Protime)PT. 23.1 SECONDS (11.7-14.9)
== END 2021-10-30 18:00 | disposition home or self-care (01) ==
LOC: LAB 08:20
PROVIDERS: Family Provider Family Medicine; PCP Family Medicine; Referring Provider Family Medicine; Visit Provider Family Medicine
DX: I48.91 Unspecified atrial fibrillation (principal)
CPT/HCPCS: 36415; 85610

== ENCOUNTER 2021-11-12 08:38 | Outpatient (RCR) | payer OTHER, SELFPAY ==
[2021-10-31 02:53] VITALS: BMI 26.8
[2021-11-12 09:30] LABS: International Normalized Ratio 2.4; Prothrombin Time (Protime)PT. 25.6 SECONDS (11.7-14.9)
== END 2021-11-12 18:00 | disposition home or self-care (01) ==
LOC: LAB 08:38
PROVIDERS: Family Provider Family Medicine; PCP Family Medicine; Referring Provider Family Medicine; Visit Provider Family Medicine
DX: I48.91 Unspecified atrial fibrillation (principal)
CPT/HCPCS: 36415; 85610

== ENCOUNTER 2021-12-17 09:17 | Outpatient (RCR) | payer OTHER, SELFPAY ==
[2021-11-30 04:29] VITALS: BMI 26.8
[2021-12-17 09:40] LABS: Absolute Neutrophil Count 2.5 X10^3/uL (2.0-7.7); Basophil# 0.09 X10^3/uL; Basophil% 1.8 % (0-1); Eosinophil# 1.09 X10^3/uL; Eosinophils% 22.2 % (0-5); Hematocrit 39.7 % (37-47); Hemoglobin 13.3 g/dL (12.0-15.0); Lymphocyte % 18.3 % (19-41); Mean Corp Hgb Conc 33.5 g/dL (32-36); Mean Corpuscular Hgb 30.4 pg (27.0-32.0); Mean Corpuscular Volume 90.6 fL (81-99); Mean Platelet Vol. 9.8 fl (6.2-12.0); Monocyte# 0.33 X10^3/uL; Monocyte% 6.7 % (0-10); NRBC Flagged by Analyzer 0 % (0-5); Neutrophil # 2.49 X10^3/uL (2.7-7.7); Neutrophil % 50.6 % (47-70); Platelet Count 265 K/mm3 (150-450); RBC Distribution Width CV 12.5 % (11.6-14.6); RBC Distribution Width SD 41.1 fl (35.1-43.9); Red Blood Count 4.38 M/mm3 (4.2-5.4); White Blood Count 4.9 K/mm3 (4.4-11.0)
[2021-12-17 09:55] LABS: International Normalized Ratio 2.9; Prothrombin Time (Protime)PT. 29.8 SECONDS (11.7-14.9)
[2021-12-17 10:23] LABS: ALB/GLOB Ratio 0.9 RATIO (0.9-2.4); AST(SGOT) 27 U/L (15-37); Alanine Aminotransfer ALT/SGPT 17 U/L (13-56); Albumin, Serum 3.8 g/dL (3.2-5.0); Alkaline Phosphatase 73 U/L (45-117); Anion Gap 5 (5-15); BUN 14 mg/dL (7-18); Chloride 105 mmol/L (98-107); Creatinine, Serum 0.74 mg/dL (0.55-1.02); EST Glomerular Filtration Rate 81 mL/min (>60); Est Glom Filt Rate - Afr Amer 98 mL/min (>60); Globulin 4.1 g/dL (2.2-4.2); Glucose 94 mg/dL (74-106); Magnesium 1.9 mg/dL (1.6-2.6); Potassium 4.1 mmol/L (3.5-5.1); Protein, Total 7.9 g/dL (6.4-8.2); Sodium Level 137 mmol/L (136-145); Thyroid Stim Hormone (TSH) 4.96 uIU/mL (0.358-3.74)
[2021-12-18 09:55] LABS: T4 Free Direct 0.99 ng/dL (0.76-1.46)
[2021-12-20 13:19] LABS: Anti-Thyroglobulin AB < 1.0 IU/mL (0.0-0.9); Thyroglobulin, Serum Qt. 28.1 ng/mL (1.5-38.5); Thyroid Peroxidase AB < 8 IU/mL (0-34)
== END 2021-12-17 18:00 | disposition home or self-care (01) ==
LOC: LAB 09:17
PROVIDERS: Family Provider Family Medicine; PCP Family Medicine; Referring Provider Family Medicine; Visit Provider Family Medicine
DX: I48.91 Unspecified atrial fibrillation (principal)
CPT/HCPCS: 36415; 80053; 83735; 84432; 84439; 84443; 85025; 85610; 86376; 86800

== ENCOUNTER 2022-01-26 08:31 | Outpatient (RCR) | payer OTHER, SELFPAY ==
[2021-12-30 21:39] VITALS: BMI 26.8
[2022-01-26 09:54] LABS: International Normalized Ratio 2.9; Prothrombin Time (Protime)PT. 30.2 SECONDS (11.7-14.9)
== END 2022-01-26 23:59 | disposition home or self-care (01) ==
LOC: LAB 08:31
PROVIDERS: Family Provider Family Medicine; PCP Family Medicine; Referring Provider Family Medicine; Visit Provider Family Medicine
DX: I48.91 Unspecified atrial fibrillation (principal)
CPT/HCPCS: 36415; 85610

== ENCOUNTER → 2022-02-23 | Outpatient (CLI) | payer OTHER, SELFPAY ==
[2022-02-23 16:40] LABS: Mucous, Urine 0 SEEN /hpf (<or=2+)
[2022-02-23 16:48] LABS: Glucose, Dipstick Normal (Normal); Ketone-Dipstick Negative (Negative); Leukocyte Esterase-Dipstick 500 /ul (Negative); Nitrite-Dipstick Negative (Negative); Occult Blood-Urine 150 /ul (Negative); Protein-Dipstick 100 mg/dl (Negative); Specific Gravity, Urine 1.015 (1.002-1.030); Urine Bilirubin Dipstick Negative (Negative); Urine Urobilinogen Normal (Normal)
[2022-02-23 16:51] LABS: Color, Urine Yellow (Yellow); Urine Clarity Clear (Clear)
[2022-02-23 16:57] LABS: White Blood Cells 50-100 SEEN /hpf (0-5)
[2022-02-23 16:58] LABS: Bacteria 3+ /hpf (None Seen); Red Blood Cells-Urine 10-25 SEEN /hpf (0-5); Squamous Epithelial Cells - UA 0-5 SEEN /hpf (5-10)
== END | disposition home or self-care (01) ==
LOC: LABSPEC 16:20
PROVIDERS: PCP Family Medicine; Referring Provider Physician Assistant; Visit Provider Physician Assistant
DX: R30.0 Dysuria (principal)
CPT/HCPCS: 81001; 87086; 87088; 87186

== ENCOUNTER 2022-02-27 09:01 | Outpatient (RCR) | payer OTHER, SELFPAY ==
[2022-01-30 08:02] VITALS: BMI 26.8
[2022-02-27 09:34] LABS: International Normalized Ratio 2.5; Prothrombin Time (Protime)PT. 26.8 SECONDS (11.7-14.9)
== END 2022-03-01 03:19 | disposition home or self-care (01) ==
LOC: LAB 09:01
PROVIDERS: Family Provider Family Medicine; PCP Family Medicine; Referring Provider Family Medicine; Visit Provider Family Medicine
DX: I48.91 Unspecified atrial fibrillation (principal)
CPT/HCPCS: 36415; 85610

== ENCOUNTER → 2022-03-04 | Outpatient (CLI) | payer OTHER, SELFPAY | END | disposition home or self-care (01) | LOC: LABSPEC 12:10 | PROVIDERS: PCP Family Medicine; Visit Provider Family Medicine | DX: R30.0 Dysuria (principal) | CPT/HCPCS: 87077; 87086; 87088; 87186 ==

== ENCOUNTER 2022-04-03 13:13 | Outpatient (RCR) | payer OTHER, SELFPAY ==
[2022-03-01 03:19] VITALS: BMI 26.8
[2022-04-03 14:44] LABS: International Normalized Ratio 2.6; Prothrombin Time (Protime)PT. 27.2 SECONDS (11.7-14.9)
== END 2022-04-03 18:00 | disposition home or self-care (01) ==
LOC: LAB 13:13
PROVIDERS: Family Provider Family Medicine; PCP Family Medicine; Referring Provider Family Medicine; Visit Provider Family Medicine
DX: I48.91 Unspecified atrial fibrillation (principal)
CPT/HCPCS: 36415; 85610

== ENCOUNTER 2022-05-06 08:09 | Outpatient (RCR) | payer OTHER, SELFPAY ==
[2022-05-01 23:44] VITALS: BMI 26.8
[2022-05-06 08:47] LABS: International Normalized Ratio 2.6; Prothrombin Time (Protime)PT. 27.8 SECONDS (11.7-14.9)
[2022-05-06 09:11] LABS: T4 Free Direct 0.98 ng/dL (0.76-1.46)
== END 2022-06-01 09:42 | disposition home or self-care (01) ==
LOC: LAB 08:09
PROVIDERS: Family Provider Family Medicine; PCP Family Medicine; Referring Provider Family Medicine; Visit Provider Family Medicine
DX: I48.91 Unspecified atrial fibrillation (principal)
CPT/HCPCS: 36415; 83735; 84439; 85610

== ENCOUNTER 2022-06-17 09:09 | Outpatient (RCR) | payer OTHER, SELFPAY ==
[2022-06-02 09:43] VITALS: BMI 26.8
[2022-06-17 10:11] LABS: International Normalized Ratio 2.9; Prothrombin Time (Protime)PT. 29.7 SECONDS (11.7-14.9)
== END 2022-07-01 18:00 | disposition home or self-care (01) ==
LOC: LAB 09:09
PROVIDERS: Family Provider Family Medicine; PCP Family Medicine; Referring Provider Family Medicine; Visit Provider Family Medicine
DX: I48.91 Unspecified atrial fibrillation (principal)
CPT/HCPCS: 36415; 85610

== ENCOUNTER 2022-07-17 09:37 | Outpatient (RCR) | payer OTHER, SELFPAY ==
[2022-07-02 01:40] VITALS: BMI 26.8
[2022-07-17 11:12] LABS: Color, Urine Yellow (Yellow); Glucose, Dipstick Normal (Normal); Ketone-Dipstick Negative (Negative); Leukocyte Esterase-Dipstick 25 /ul (Negative); Nitrite-Dipstick Negative (Negative); Occult Blood-Urine 10 /ul (Negative); Protein-Dipstick Negative (Negative); Specific Gravity, Urine 1.015 (1.002-1.030); Urine Bilirubin Dipstick Negative (Negative); Urine Clarity Sl. Cloudy (Clear); Urine Urobilinogen Normal (Normal)
[2022-07-17 11:22] LABS: Bacteria RARE /hpf (None Seen); Red Blood Cells-Urine 0-5 SEEN /hpf (0-5); Squamous Epithelial Cells - UA 0-5 SEEN /hpf (5-10); White Blood Cells 0-5 SEEN /hpf (0-5)
[2022-07-17 11:23] LABS: Mucous, Urine RARE /hpf (<or=2+)
[2022-07-17 12:32] LABS: Absolute Lymphocyte Count 1.11 X10^3/uL (0.83-4.51); Absolute Neutrophil Count 2.9 X10^3/uL (2.0-7.7); Basophil# 0.09 X10^3/uL; Basophil% 1.6 % (0-1); Eosinophil# 1.28 X10^3/uL; Eosinophils% 22.3 % (0-5); Hematocrit 40.1 % (37-47); Hemoglobin 13.5 g/dL (12.0-15.0); Lymphocyte # 1.11 X10^3/ul (0.83-4.51); Lymphocyte % 19.4 % (19-41); Mean Corp Hgb Conc 33.7 g/dL (32-36); Mean Corpuscular Hgb 30.7 pg (27.0-32.0); Mean Corpuscular Volume 91.1 fL (81-99); Mean Platelet Vol. 10.4 fl (6.2-12.0); Monocyte# 0.38 X10^3/uL; Monocyte% 6.6 % (0-10); NRBC Flagged by Analyzer 0 % (0-5); Neutrophil # 2.86 X10^3/uL (2.7-7.7); Neutrophil % 49.9 % (47-70); Platelet Count 281 K/mm3 (150-450); RBC Distribution Width CV 12.6 % (11.6-14.6); RBC Distribution Width SD 42.4 fl (35.1-43.9); White Blood Count 5.7 K/mm3 (4.4-11.0)
[2022-07-17 12:44] LABS: Prothrombin Time (Protime)PT. 30.6 SECONDS (11.7-14.9)
[2022-07-17 13:30] LABS: AST(SGOT) 27 U/L (15-37); Alanine Aminotransfer ALT/SGPT 17 U/L (13-56); Albumin, Serum 3.9 g/dL (3.2-5.0); Alkaline Phosphatase 63 U/L (45-117); Anion Gap 3 (5-15); BUN 17 mg/dL (7-18); BUN/Creat Ratio 23.4 RATIO (10-20); Calcium,Total 9.2 mg/dL (8.5-10.1); Chloride 104 mmol/L (98-107); Cholesterol 190 mg/dL (200); Creatinine, Serum 0.72 mg/dL (0.55-1.02); EST Glomerular Filtration Rate 82 mL/min (>60); Est Glom Filt Rate - Afr Amer 100 mL/min (>60); Globulin 4.1 g/dL (2.2-4.2); Glucose 78 mg/dL (74-106); High Density Lipoprotein 60 mg/dL; Magnesium 2.1 mg/dL (1.6-2.6); Potassium 3.7 mmol/L (3.5-5.1); Sodium Level 138 mmol/L (136-145); T4 Free Direct 1.03 ng/dL (0.76-1.46); Triglycerides 63 mg/dL; Very Low Density Lipoprotein 13 mg/dL (5-40)
== END 2022-07-17 18:00 | disposition home or self-care (01) ==
LOC: LAB 09:37
PROVIDERS: Family Provider Family Medicine; PCP Family Medicine; Referring Provider Family Medicine; Visit Provider Family Medicine
DX: I48.91 Unspecified atrial fibrillation (principal); I10 Essential (primary) hypertension; R79.89 Other specified abnormal findings of blood chemistry
CPT/HCPCS: 36415; 80053; 80061; 81001; 83735; 84439; 84443; 85025; 85610

== ENCOUNTER 2022-09-28 08:39 | Outpatient (RCR) | payer OTHER, SELFPAY ==
[2022-08-02 05:45] VITALS: BMI 26.8
[2022-09-28 10:14] LABS: International Normalized Ratio 3.4
== END 2022-09-28 18:00 | disposition home or self-care (01) ==
LOC: LAB 08:39
PROVIDERS: Family Provider Family Medicine; PCP Family Medicine; Referring Provider Family Medicine; Visit Provider Family Medicine
DX: I48.91 Unspecified atrial fibrillation (principal)
CPT/HCPCS: 36415; 85610

== ENCOUNTER 2022-10-07 08:54 | Outpatient (RCR) | payer OTHER, SELFPAY ==
[2022-09-29 23:03] VITALS: BMI 26.8
[2022-10-07 09:21] LABS: International Normalized Ratio 2.6; Prothrombin Time (Protime)PT. 27.2 SECONDS (11.7-14.9)
== END 2022-10-30 23:08 | disposition home or self-care (01) ==
LOC: LAB 08:54
PROVIDERS: Family Provider Family Medicine; PCP Family Medicine; Referring Provider Family Medicine; Visit Provider Family Medicine
DX: Z79.01 Long term (current) use of anticoagulants (principal)
CPT/HCPCS: 36415; 85610

== ENCOUNTER 2022-11-09 08:07 | Outpatient (RCR) | payer OTHER, SELFPAY ==
[2022-10-30 23:08] VITALS: BMI 26.8
[2022-11-09 08:43] LABS: International Normalized Ratio 2.8; Prothrombin Time (Protime)PT. 28.8 SECONDS (11.7-14.9)
== END 2022-11-29 01:36 | disposition home or self-care (01) ==
LOC: LAB 08:07
PROVIDERS: Family Provider Family Medicine; PCP Family Medicine; Referring Provider Family Medicine; Visit Provider Family Medicine
DX: I48.91 Unspecified atrial fibrillation (principal)
CPT/HCPCS: 36415; 85610

== ENCOUNTER 2022-12-23 08:32 | Outpatient (RCR) | payer OTHER, SELFPAY ==
[2022-11-29 01:36] VITALS: BMI 26.8
[2022-12-04 09:05] LABS: International Normalized Ratio 3.1; Prothrombin Time (Protime)PT. 32.8 SECONDS (11.7-14.9)
[2022-12-23 09:30] LABS: International Normalized Ratio 2.5; Prothrombin Time (Protime)PT. 27.4 SECONDS (11.7-14.9)
== END 2022-12-30 18:00 | disposition home or self-care (01) ==
LOC: LAB 08:32
PROVIDERS: Family Provider Family Medicine; PCP Family Medicine; Referring Provider Family Medicine; Visit Provider Family Medicine
DX: I48.91 Unspecified atrial fibrillation (principal)
CPT/HCPCS: 36415; 85610

== ENCOUNTER 2023-01-22 08:37 | Outpatient (RCR) | payer OTHER, SELFPAY ==
[2022-12-31 08:25] VITALS: BMI 26.8
[2023-01-22 09:27] LABS: Absolute Neutrophil Count 2.5 X10^3/uL (2.0-7.7); Basophil# 0.09 X10^3/uL; Basophil% 1.6 % (0-1); Eosinophil# 1.49 X10^3/uL; Hematocrit 38.2 % (37-47); Hemoglobin 12.8 g/dL (12.0-15.0); Lymphocyte % 18.1 % (19-41); Mean Corp Hgb Conc 33.5 g/dL (32-36); Mean Corpuscular Hgb 30.7 pg (27.0-32.0); Mean Corpuscular Volume 91.6 fL (81-99); Mean Platelet Vol. 10.3 fl (6.2-12.0); Monocyte# 0.47 X10^3/uL; Monocyte% 8.5 % (0-10); NRBC Flagged by Analyzer 0 % (0-5); Neutrophil # 2.46 X10^3/uL (2.7-7.7); Neutrophil % 44.6 % (47-70); Platelet Count 270 K/mm3 (150-450); RBC Distribution Width CV 12.6 % (11.6-14.6); Red Blood Count 4.17 M/mm3 (4.2-5.4); White Blood Count 5.5 K/mm3 (4.4-11.0)
[2023-01-22 09:32] LABS: International Normalized Ratio 2.5; Prothrombin Time (Protime)PT. 27.4 SECONDS (11.7-14.9)
[2023-01-22 09:59] LABS: AST(SGOT) 29 U/L (15-37); Alanine Aminotransfer ALT/SGPT 17 U/L (13-56); Albumin, Serum 3.6 g/dL (3.2-5.0); Alkaline Phosphatase 71 U/L (45-117); Anion Gap 7 (5-15); BUN 20 mg/dL (7-18); BUN/Creat Ratio 28.9 RATIO (10-20); Calcium,Total 8.6 mg/dL (8.5-10.1); Chloride 106 mmol/L (98-107); Cholesterol 183 mg/dL (200); Creatinine, Serum 0.69 mg/dL (0.55-1.02); EST Glomerular Filtration Rate 87 mL/min (>60); Est Glom Filt Rate - Afr Amer 105 mL/min (>60); Globulin 3.7 g/dL (2.2-4.2); Glucose 97 mg/dL (74-106); High Density Lipoprotein 60 mg/dL; Magnesium 1.8 mg/dL (1.6-2.6); Potassium 3.9 mmol/L (3.5-5.1); Protein, Total 7.3 g/dL (6.4-8.2); Sodium Level 139 mmol/L (136-145); Thyroid Stim Hormone (TSH) 5.61 uIU/mL (0.358-3.74); Triglycerides 55 mg/dL; Very Low Density Lipoprotein 11 mg/dL (5-40)
[2023-01-22 14:18] LABS: T4 Free Direct 0.87 ng/dL (0.76-1.46)
== END 2023-01-22 18:00 | disposition home or self-care (01) ==
LOC: LAB 08:37
PROVIDERS: Family Provider Family Medicine; PCP Family Medicine; Referring Provider Family Medicine; Visit Provider Family Medicine
DX: I48.91 Unspecified atrial fibrillation (principal); E06.3 Autoimmune thyroiditis
CPT/HCPCS: 36415; 80053; 80061; 83735; 84439; 84443; 85025; 85610

== ENCOUNTER 2023-03-08 11:19 | Outpatient (RCR) | payer OTHER, SELFPAY ==
[2023-01-30 01:59] VITALS: BMI 26.8
[2023-03-08 12:59] LABS: International Normalized Ratio 2.5; Prothrombin Time (Protime)PT. 26.9 SECONDS (11.7-14.9)
== END 2023-03-08 18:00 | disposition home or self-care (01) ==
LOC: LAB 11:19
PROVIDERS: Family Provider Family Medicine; PCP Family Medicine; Referring Provider Family Medicine; Visit Provider Family Medicine
DX: I48.91 Unspecified atrial fibrillation (principal)
CPT/HCPCS: 36415; 85610

== ENCOUNTER 2023-04-09 11:16 | Outpatient (RCR) | payer OTHER, SELFPAY ==
[2023-04-02 01:18] VITALS: BMI 26.8
[2023-04-09 12:24] LABS: International Normalized Ratio 3.8
[2023-04-09 12:55] LABS: T4 Free Direct 0.97 ng/dL (0.76-1.46)
== END 2023-04-09 18:00 | disposition home or self-care (01) ==
LOC: LAB 11:16
PROVIDERS: Family Provider Family Medicine; PCP Family Medicine; Referring Provider Family Medicine; Visit Provider Family Medicine
DX: I48.91 Unspecified atrial fibrillation (principal)
CPT/HCPCS: 36415; 84439; 85610

== ENCOUNTER 2023-04-30 07:59 | Outpatient (RCR) | payer OTHER, SELFPAY ==
[2023-04-17 11:08] LABS: Prothrombin Time Fingerstick 21.6 SEC (11.7-14.9)
[2023-04-30 09:40] LABS: International Normalized Ratio 2.6; Prothrombin Time (Protime)PT. 28.3 SECONDS (11.7-14.9)
== END 2023-04-30 18:00 | disposition home or self-care (01) ==
LOC: LAB 07:59
PROVIDERS: PCP Family Medicine; Referring Provider Family Medicine; Visit Provider Family Medicine
DX: I48.91 Unspecified atrial fibrillation (principal); R30.0 Dysuria; N39.0 Urinary tract infection, site not specified
CPT/HCPCS: 36415; 36416; 85610; 87077; 87086; 87088; 87186

== ENCOUNTER 2023-05-24 08:53 | Outpatient (RCR) | payer OTHER, SELFPAY ==
[2023-05-02 04:52] VITALS: BMI 26.8
[2023-05-24 10:01] LABS: International Normalized Ratio 2.8; Prothrombin Time (Protime)PT. 29.5 SECONDS (11.7-14.9)
== END 2023-05-24 18:00 | disposition home or self-care (01) ==
LOC: LAB 08:53
PROVIDERS: Family Provider Family Medicine; PCP Family Medicine; Referring Provider Family Medicine; Visit Provider Family Medicine
DX: I48.91 Unspecified atrial fibrillation (principal)
CPT/HCPCS: 36415; 85610

== ENCOUNTER 2023-06-14 07:52 | Outpatient (RCR) | payer OTHER, SELFPAY ==
[2023-06-01 22:55] VITALS: BMI 26.8
[2023-06-14 09:40] LABS: International Normalized Ratio 2.9; Prothrombin Time (Protime)PT. 30.8 SECONDS (11.7-14.9)
== END 2023-07-01 18:00 | disposition home or self-care (01) ==
LOC: LAB 07:52
PROVIDERS: Family Provider Family Medicine; PCP Family Medicine; Referring Provider Family Medicine; Visit Provider Family Medicine
DX: I48.91 Unspecified atrial fibrillation (principal)
CPT/HCPCS: 36415; 85610

== ENCOUNTER 2023-07-14 09:05 | Outpatient (RCR) | payer OTHER, SELFPAY ==
[2023-07-02 03:50] VITALS: BMI 26.8
[2023-07-14 10:28] LABS: Absolute Lymphocyte Count 1.23 X10^3/uL (0.83-4.51); Absolute Neutrophil Count 4.1 X10^3/uL (2.0-7.7); Basophil# 0.13 X10^3/uL; Basophil% 1.8 % (0-1); Eosinophils% 17.9 % (0-5); Hematocrit 41.1 % (37-47); Hemoglobin 13.3 g/dL (12.0-15.0); Lymphocyte # 1.23 X10^3/ul (0.83-4.51); Lymphocyte % 16.9 % (19-41); Mean Corp Hgb Conc 32.4 g/dL (32-36); Mean Corpuscular Hgb 30.1 pg (27.0-32.0); Mean Platelet Vol. 10.4 fl (6.2-12.0); Monocyte# 0.49 X10^3/uL; Monocyte% 6.7 % (0-10); NRBC Flagged by Analyzer 0 % (0-5); Neutrophil # 4.08 X10^3/uL (2.7-7.7); Neutrophil % 56.3 % (47-70); Platelet Count 311 K/mm3 (150-450); RBC Distribution Width CV 12.7 % (11.6-14.6); RBC Distribution Width SD 43.7 fl (35.1-43.9); Red Blood Count 4.42 M/mm3 (4.2-5.4); White Blood Count 7.3 K/mm3 (4.4-11.0)
[2023-07-14 10:39] LABS: Prothrombin Time (Protime)PT. 31.6 SECONDS (11.7-14.9)
[2023-07-14 11:41] LABS: AST(SGOT) 40 U/L (15-37); Alanine Aminotransfer ALT/SGPT 19 U/L (13-56); Albumin, Serum 3.9 g/dL (3.2-5.0); Alkaline Phosphatase 67 U/L (45-117); Anion Gap 7 (5-15); BUN 13 mg/dL (7-18); BUN/Creat Ratio 18.4 RATIO (10-20); Calcium,Total 8.5 mg/dL (8.5-10.1); Chloride 104 mmol/L (98-107); Creatinine, Serum 0.71 mg/dL (0.55-1.02); EST Glomerular Filtration Rate 85 mL/min (>60); Est Glom Filt Rate - Afr Amer 102 mL/min (>60); Globulin 3.9 g/dL (2.2-4.2); Glucose 87 mg/dL (74-106); Magnesium 2.1 mg/dL (1.6-2.6); Protein, Total 7.8 g/dL (6.4-8.2); Sodium Level 139 mmol/L (136-145); T4 Free Direct 1.01 ng/dL (0.76-1.46); Thyroid Stim Hormone (TSH) 5.45 uIU/mL (0.358-3.74)
== END 2023-08-01 18:00 | disposition home or self-care (01) ==
LOC: LAB 09:05
PROVIDERS: Family Provider Family Medicine; PCP Family Medicine; Referring Provider Family Medicine; Visit Provider Family Medicine
DX: I48.91 Unspecified atrial fibrillation (principal); R79.89 Other specified abnormal findings of blood chemistry
CPT/HCPCS: 36415; 80053; 83735; 84439; 84443; 85025; 85610

== ENCOUNTER 2023-08-30 08:27 | Outpatient (RCR) | payer OTHER, SELFPAY ==
[2023-08-01 22:08] VITALS: BMI 26.8
[2023-08-30 10:55] LABS: International Normalized Ratio 2.7; Prothrombin Time (Protime)PT. 28.9 SECONDS (11.7-14.9)
== END 2023-08-30 18:00 | disposition home or self-care (01) ==
LOC: LAB 08:27
PROVIDERS: Family Provider Family Medicine; PCP Family Medicine; Referring Provider Family Medicine; Visit Provider Family Medicine
DX: I48.91 Unspecified atrial fibrillation (principal)
CPT/HCPCS: 36415; 85610

== ENCOUNTER 2023-09-29 08:41 | Outpatient (RCR) | payer OTHER, SELFPAY ==
[2023-09-01 23:08] VITALS: BMI 26.8
[2023-09-29 10:16] LABS: International Normalized Ratio 2.4; Prothrombin Time (Protime)PT. 25.6 SECONDS (11.7-14.9)
== END 2023-09-30 18:00 | disposition home or self-care (01) ==
LOC: LAB 08:41
PROVIDERS: Family Provider Family Medicine; PCP Family Medicine; Referring Provider Family Medicine; Visit Provider Family Medicine
DX: I48.91 Unspecified atrial fibrillation (principal)
CPT/HCPCS: 36415; 85610

== ENCOUNTER 2023-10-27 08:22 | Outpatient (RCR) | payer OTHER, SELFPAY ==
[2023-10-01 02:53] VITALS: BMI 26.8
[2023-10-27 09:35] LABS: International Normalized Ratio 2.8; Prothrombin Time (Protime)PT. 29.2 SECONDS (11.7-14.9)
== END 2023-10-31 01:39 | disposition home or self-care (01) ==
LOC: LAB 08:22
PROVIDERS: Family Provider Family Medicine; PCP Family Medicine; Referring Provider Family Medicine; Visit Provider Family Medicine
DX: I48.91 Unspecified atrial fibrillation (principal)
CPT/HCPCS: 36415; 85610

== ENCOUNTER 2023-12-06 08:13 | Outpatient (RCR) | payer OTHER, SELFPAY ==
[2023-10-31 01:39] VITALS: BMI 26.8
[2023-12-06 09:52] LABS: International Normalized Ratio 2.7; Prothrombin Time (Protime)PT. 28.2 SECONDS (11.7-14.9)
== END 2023-12-06 18:00 | disposition home or self-care (01) ==
LOC: LAB 08:13
PROVIDERS: Family Provider Family Medicine; PCP Family Medicine; Referring Provider Family Medicine; Visit Provider Family Medicine
DX: I48.91 Unspecified atrial fibrillation (principal)
CPT/HCPCS: 36415; 85610

== ENCOUNTER 2024-01-17 12:19 | Outpatient (RCR) | payer OTHER, SELFPAY ==
[2024-01-03 09:26] VITALS: BMI 26.8
[2024-01-17 12:47] LABS: International Normalized Ratio 2.8; Prothrombin Time (Protime)PT. 29.5 SECONDS (11.7-14.9)
== END 2024-01-17 18:00 | disposition home or self-care (01) ==
LOC: LAB 12:19
PROVIDERS: Family Provider Family Medicine; PCP Family Medicine; Referring Provider Family Medicine; Visit Provider Family Medicine
DX: I48.91 Unspecified atrial fibrillation (principal)
CPT/HCPCS: 36415; 85610

== ENCOUNTER → 2024-01-28 | Outpatient (CLI) | payer OTHER, SELFPAY ==
[2024-01-28 10:25] LABS: Absolute Neutrophil Count 4.2 X10^3/uL (2.0-7.7); Basophil# 0.09 X10^3/uL; Basophil% 1.2 % (0-1); Eosinophil# 1.32 X10^3/uL; Eosinophils% 17.7 % (0-5); Hematocrit 38.4 % (37-47); Hemoglobin 12.7 g/dL (12.0-15.0); Lymphocyte % 16.1 % (19-41); Mean Corp Hgb Conc 33.1 g/dL (32-36); Mean Corpuscular Hgb 29.6 pg (27.0-32.0); Mean Corpuscular Volume 89.5 fL (81-99); Mean Platelet Vol. 10.1 fl (6.2-12.0); Monocyte# 0.57 X10^3/uL; Monocyte% 7.7 % (0-10); NRBC Flagged by Analyzer 0 % (0-5); Neutrophil # 4.24 X10^3/uL (2.7-7.7); Neutrophil % 56.9 % (47-70); Platelet Count 329 K/mm3 (150-450); RBC Distribution Width CV 12.7 % (11.6-14.6); RBC Distribution Width SD 41.5 fl (35.1-43.9); Red Blood Count 4.29 M/mm3 (4.2-5.4); White Blood Count 7.5 K/mm3 (4.4-11.0)
[2024-01-28 12:43] LABS: AST(SGOT) 32 U/L (15-37); Alanine Aminotransfer ALT/SGPT 16 U/L (13-56); Albumin, Serum 3.8 g/dL (3.2-5.0); Alkaline Phosphatase 65 U/L (45-117); Anion Gap 7 (5-15); BUN 19 mg/dL (7-18); BUN/Creat Ratio 28.1 RATIO (10-20); Calcium,Total 9.2 mg/dL (8.5-10.1); Chloride 104 mmol/L (98-107); Creatinine, Serum 0.68 mg/dL (0.55-1.02); EST Glomerular Filtration Rate 89 mL/min (>60); Est Glom Filt Rate - Afr Amer 108 mL/min (>60); Glucose 91 mg/dL (74-106); Potassium 3.6 mmol/L (3.5-5.1); Protein, Total 7.8 g/dL (6.4-8.2); Sodium Level 136 mmol/L (136-145); Thyroid Stim Hormone (TSH) 5.34 uIU/mL (0.358-3.74)
== END | disposition home or self-care (01) ==
LOC: MFPLAB 09:48
PROVIDERS: PCP Family Medicine; Visit Provider Family Medicine
DX: I48.91 Unspecified atrial fibrillation (principal); R79.89 Other specified abnormal findings of blood chemistry
CPT/HCPCS: 36415; 80053; 83735; 84439; 84443; 85025

== ENCOUNTER 2024-02-18 10:05 | Outpatient (RCR) | payer OTHER, SELFPAY ==
[2024-01-31 04:15] VITALS: BMI 26.8
== END 2024-03-01 18:00 | disposition home or self-care (01) ==
LOC: LAB 10:05
PROVIDERS: Family Provider Family Medicine; PCP Family Medicine; Referring Provider Family Medicine; Visit Provider Family Medicine
DX: I48.91 Unspecified atrial fibrillation (principal)

== ENCOUNTER → 2024-02-18 | Outpatient (CLI) | payer OTHER, SELFPAY | END | disposition home or self-care (01) | LOC: LABSPEC 10:17 | PROVIDERS: PCP Family Medicine; Referring Provider Physician Assistant Surgical; Visit Provider Physician Assistant Surgical | DX: S91.009A Unspecified open wound, unspecified ankle, initial encounter (principal) | CPT/HCPCS: 87070; 87075; 87077; 87186; 87205 ==

== ENCOUNTER → 2024-02-22 | Outpatient (CLI) | payer OTHER, SELFPAY ==
[2024-02-22 15:47] LABS: Prothrombin Time (Protime)PT. 31.3 SECONDS (11.7-14.9)
== END | disposition home or self-care (01) ==
LOC: LAB 14:27
PROVIDERS: PCP Family Medicine; Referring Provider Family Medicine; Visit Provider Family Medicine
DX: I48.91 Unspecified atrial fibrillation (principal)
CPT/HCPCS: 36415; 85610

== ENCOUNTER 2024-03-31 09:00 | Outpatient (RCR) | payer OTHER, SELFPAY ==
[2024-03-24 08:36] VITALS: BP 153/75; PULSE 64; RESP 16; TEMP 35.4
--- NOTE | 2024-03-24 13:45 | PCM.WC.HP ---
History of Present Illness Date of Service: 03/24/24 Chief Complaint: right medial ankle ulcer History of Wound: Emani is a pleasant 78-year-old white [place] female who presents to the wound healing center for an evaluation of a right medial ankle venous leg ulcer. She had previously been seen at the [facility] wound healing center for 2 other right venous leg ulcers. She has a past medical history significant for atrial fibrillation and is on chronic anticoagulation with Coumadin, hypertension, peripheral venous disease. The ulcer started in January with pain and itching to the area and then it became red and started draining a large amount of serous fluid. She was seen by urgent care and prescribed Bactrim. She has been dressing the ulcer with Telfa bandages. She normally wear compression stockings daily but does not have them on today. She has noted improvement in the ulcer since taking the antibiotic but it remains open and is still draining heavily at times. She wears compression stockings (20-30 mmHg) daily, and this has been of benefit for her bilateral lower extremity edema. 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 She had a bilateral lower extremity venous Doppler studies in October 2018 and October 2020, which demonstrated incompetence of the left saphenofemoral junction, incompetence of the right greater saphenous vein below the knee, and segmental incompetence of the left greater saphenous vein. She had bilateral lower extremity arterial studies in August 2020 which showed no evidence of significant arterial occlusive disease in the bilateral lower extremities. She was referred to vascular surgery previously for consideration for operative intervention for venous incompetence but did not follow through with referral but is ready to proceed with referral for prevention of recurrent ulcers. The patient denies any fever, chills. Denies any increasing pain, redness, swelling, or purulent/malodorous drainage from affected area. [facility] Medical History Acute UTI Diastolic heart failure Ulcer of right leg Kidney stone on right side Osteoporosis Osteoarthritis Nonrheumatic aortic valve insufficiency Nonrheumatic mitral (valve) insufficiency Essential (primary) hypertension Chronic atrial fibrillation Home Medications ?Medication ?Instructions ?Recorded ?Last Taken ?Type metoprolol tartrate 100 mg tablet 100 mg PO BID 02/22/15 02/27/15 04:30 History 100 MG warfarin 3 mg tablet 3 mg PO DAILY 60 days #60 tabs 06/28/18 Unknown History amlodipine 5 mg tablet 5 mg PO QHS 06/29/18 Unknown History amlodipine 10 mg tablet 10 mg PO DAILY 03/24/24 Unknown History warfarin 1 mg tablet 1 mg PO DAILY 03/24/24 Unknown History Allergy/AdvReac Type Severity Reaction Status Date / Time chlorhexidine AdvReac Nausea Verified 03/24/24 08:55 Family History Mother CVA (cerebral vascular accident) Father Cancer Surgical History History of total left hip arthroplasty History of History of cardioversion History of left heart catheterization (02/22/08) Social History Smoking Status: Never smoker ROS Constitutional Constitutional: Denies chills, fatigue or fever(s) Eyes Eyes: Denies blurry vision, change in vision or loss of vision ENT HEENT: Denies dysphagia, hearing loss or sore throat Cardiovascular Cardiovascular: Denies chest pain, edema or palpitations Respiratory/Chest Respiratory/Chest: Denies dry cough, dyspnea, dyspnea on exertion, productive cough or wheezing Gastrointestinal Gastrointestinal: Denies diarrhea, nausea or vomiting Genitourinary Genitourinary: Denies dysuria or polyuria Musculoskeletal Musculoskeletal: Denies arthralgias, joint stiffness or muscle weakness Integumentary Integumentary: Reports erythema and wounds Neurologic Neurologic: Denies dizziness, memory loss or weakness Psychiatric Psychiatric: Denies homicidal ideation or suicidal ideation Endocrine Endocrinology: Denies polydipsia, polyphagia or polyuria Hematologic/Lymphatic Hematologic/Lymphatic: Denies easy bleeding or easy bruising Allergic/Immunologic Allergic/Immunologic: Denies throat swelling, tongue swelling or urticaria Vital Signs Vital Signs Vital Signs: 03/24/24 08:36 Temperature 95.7 F L Temperature Source Temporal Pulse Rate 64 Respiratory Rate 16 Blood Pressure 153/75 H Blood Pressure Mean 101 Blood Pressure Source Monitor Blood Pressure Position Sitting Blood Pressure Location Left Arm Oxygen Delivery Method Room Air Physical Exam Const alert, oriented x3 and no apparent distress General Appearance: cooperative and comfortable HEENT normocephalic and head/scalp atraumatic Resp normal respiratory effort Effort and Inspection: able to speak in complete sentences Cardio regular rate and regular rhythm Skin Wounds: wounds noted Wound Narrative: as in clinical panel Psych mental status grossly normal, thought process normal, cooperative and affect normal Debridement Note Debridement Note Wound debrided: right medial ankle Laterality: Right Type of Debridement: Excisional debridement Anesthesia Used: 4% Lidocaine Solution and 5% Lidocaine Gel Depth: Down to and including healthy tissue and in the subcutaneous layer Percentage of wound debrided: 100 Instrument Used: 3mm curette Tissue Removed: Yellow slough, devitalized tissue Severity: Fat Layer Exposed Amount of bleeding with debridement: Mild Bleeding Controlled with: Compression and gauze Patient tolerated procedure: Patient tolerated procedure well Post-Debridement Measurements and Additional Note: Post-Debridement Measurements/Treatment - Nurse 1 - General Ulcer Assessment Start: 03/24/24 08:36 Freq: Status: Active Protocol: ISAIAH Activity Type Activity Date Activity User E-sign Co-sign Detail Recorded Client Recorded Date Recorded By Document 03/24/24 08:36 [id number] 03/24/24 08:54 03/24/24 08:36 - Today's Visit Information Type of service Initial Visit Arrival Mode Ambulatory Patient Identification Verified (Name & Yes ) Height and Weight Height 5 ft 4.5 in Vital Signs Temperature (97.8 F-99.1 F) 95.7 F L Temperature Source Temporal Pulse Rate (60-100) 64 Pulse Location Monitor Respiratory Rate (12-18) 16 Respiratory rate source Observation Oxygen Delivery Method Room Air Blood Pressure (90/60-120/80) 153/75 H Blood Pressure Mean 101 Source Monitor Position Sitting Blood Pressure Location Left Arm History Since Last Visit- (Skip if this is Patient's initial visit) Left Footwear Regular Shoe Right Footwear Regular Shoe Pain Scale: 0-10 Numeric Is Patient Pain Free? Yes Communication Assessment Preferred language Greek Engineering Administrator Required No Able to Read Yes Able to Write Yes Communication Tools None Caregiver Communication Skills No Impairment Impairment Right Hearing Abillity Normal Left Hearing Abillity Normal Visual Assistive Devices Glasses Teaching Assessment Preferences Verbal,Written, Demonstration Barriers to Learning None Readiness To Learn Excellent Willingness to Engage in Self Management High Activies Readiness to Engage in Self Management High Activities Anxiety Level Calm Cooperation Cooperative Perception Coherent Interest in Health Problem Asks Questions Education Importance Acknowledges Need Does Patient Smoke tobacco or other Yes substances Smoking Status Never smoker Is Patient Diabetic No Functional Assessment Recent Decline in Ability to Perform Denies Any Declines Culture/Congregational/Golf Ball Molder Cultural/Congregational Needs that may affect No Treatment Plan Would you allow our hospital supervisor furnace process to No meet you for the purpose of spiritual/ emotional support? Golf Ball Molder to contact place of anabaptism No WC - Nurse 1 - General Ulcer Measurement Start: 03/24/24 08:36 Freq: Status: Active Protocol: Activity Type Activity Date Activity User E-sign Co-sign Detail Recorded Client Recorded Date Recorded By Document 03/24/24 08:36 [id number] 03/24/24 08:54 03/24/24 08:36 Wound Center Nurse 1 #4 RT MED ANKLE -Current Size (cm) - Length 0.4 -Current Size (cm) - Width 0.3 -Current Size (cm) - Depth 0.1 -Total Square Cm 0.12 -Exudate Amt Small -Exudate Type Serosanguineous -Wound Margin Distinct, Outline Attached -Granulation Amt Small (1-33%) -Granulation Quality [place] -Necrosis Amt Large (67-100%) -Necrotic Tissue Type Adherent Slough -Texture (Nancy-wound Skin Appearance) Assessed,Rash -Moisture (Nancy-wound Skin Appearance) Assessed -Color (Nancy-wound Skin Appearance) Assessed, Hemosiderin Staining -Temperature (Nancy-wound Skin No Abnormality Appearance) (Pt Warm) -Tenderness on Palpation (Nancy-wound Yes Skin Appearance) -Ulcer Cleansing Rinsed/ Irrigated with Saline -Foul Odor after Cleansing No -Anesthetic Used 5% Lidocaine Gel Right Calf (cm) 34 Right Ankle (cm) 21.5 WC - Nurse 2 - General Ulcer CM Notes Start: 03/24/24 08:36 Freq: Status: Active Protocol: Activity Type Activity Date Activity User E-sign Co-sign Detail Recorded Client Recorded Date Recorded By Document 03/24/24 09:28 [email or web address] [id number] 03/24/24 09:41 03/24/24 09:28 Wound Center Nurse 2 #4 RT MED ANKLE -Time 09:28 -Correct Patient Yes -Correct Side, Site, Position Yes -Correct Procedure Yes -Procedure Performed Yes -Type of Procedure Debridement -Clinical Debridement Subcutaneous -Tissue Removed Subcutaneous -Post Debridement (cm) - Length 0.4 -Post Debridement (cm) - Width 0.4 -Post Debridement (cm) - Depth 0.1 -Total Square (Post) (cm) 0.16 -Area of Debridement (cm) - Length 0.4 -Area of Debridement (cm) - Width 0.4 -Total Square (Area) (cm) 0.16 -Tunneling No -Undermining/Tunneling No -Circular Undermining No -Wound/Ulcer Outcome Not Healed -Ulcer Cleansing Rinsed/ Irrigated with Saline -Foul Odor after Cleansing No -Bioengineered Tissue No -Bleeding Controlled with Pressure -Treatment Response Procedure Tolerated Well -Debridement - Subq, 1st 20sq cm Yes Pain Scale: 0-10 Numeric Is Patient Pain Free? Yes - Nurse 3 - General Ulcer D/C NN Start: 03/24/24 08:36 Freq: Status: Active Protocol: Activity Type Activity Date Activity User E-sign Co-sign Detail Recorded Client Recorded Date Recorded By Document 03/24/24 10:05 [id number] 03/24/24 10:06 03/24/24 10:05 Wound Care Center Nurse 3 #4 RT MED ANKLE -Ulcer Cleansing Not Cleansed -Foul Odor after Cleansing No -Primary Dressing Applied Aquacel Extra -Primary Dressing Covered/Secured with Dry Gauze & Roll Gauze, Secured with Tape -Aquacel Extra 2 Right -Lotion applied to leg before No compression wrap -Tubular Bandage Single Layer -Size of Tubigrip Used Size D -Size D ($) 1 Pain Scale: 0-10 Numeric Is Patient Pain Free? Yes - Visit Discharge Discharge Condition Stable Ambulatory Status Ambulatory Transportation Private Auto Clinical Summary of Care Provided Yes Assessment/Plan Assessment/Plan (1) Venous stasis ulcer of right ankle with fat layer exposed: CODE(S): I83.013 - Varicose veins of right lower extremity with ulcer of ankle; L97.312 - Non-pressure chronic ulcer of right ankle with fat layer exposed QUALIFIERS: Varicose vein presence: with varicose veins Qualified Code(s): I83.013 - Varicose veins of right lower extremity with ulcer of ankle; L97.312 - Non-pressure chronic ulcer of right ankle with fat layer exposed (2) Peripheral vascular disease of lower extremity with ulceration: CODE(S): I73.9 - Peripheral vascular disease, unspecified; L97.909 - Non-pressure chronic ulcer of unspecified part of unspecified lower leg with unspecified severity (3) Nonhealing nonsurgical wound with fat layer exposed: CODE(S): T14.8XXA - Other injury of unspecified body region, initial encounter (4) Chronic atrial fibrillation: CODE(S): I48.2 - Chronic atrial fibrillation (5) Essential (primary) hypertension: CODE(S): I10 - Essential (primary) hypertension PLAN: Plan Debridement performed today in clinic as annotated above. At home wound-care instructions: Will have her dress the ulcer daily with Aquacel Extra and cover with gauze. Wash with soap and water daily. Keep dressing clean and dry. Off-loading: The patient was instructed to avoid pressure and friction on the affected areas. Reposition every 2 hours at minimum. Avoid prolonged standing and/or dangling of legs. When seated, feet should be elevated at chest level. Frequent ambulation is encouraged. Diet: Patient encouraged to increase protein intake while taking caution to avoid high carbohydrate and/or sugar intake. Labs/cultures/imaging: Wound culture taken today. Will treat based on results. Follow-up: Return in 1 week for wound care follow up. Return sooner or report to the emergency room should symptoms worsen, or new symptoms arise. Note: [employer] speech recognition software validation engineer software was used to create portions of this document. Sound-alike and misspelled words, as well as other software validation engineer errors may be contained in the documentation.
[2024-03-31 08:43] VITALS: BP 134/61; PULSE 68; RESP 18; TEMP 36.1
--- NOTE | 2024-03-31 09:42 | PCM.WC.PN ---
History of Present Illness Date of Service: 03/31/24 Chief Complaint: right medial ankle ulcer History of Wound: Emani is a pleasant 78-year-old white [place] female who presents to the wound healing center for an evaluation of a right medial ankle venous leg ulcer. She had previously been seen at the [facility] wound healing center for 2 other right venous leg ulcers. She has a past medical history significant for atrial fibrillation and is on chronic anticoagulation with Coumadin, hypertension, peripheral venous disease. The ulcer started in January with pain and itching to the area and then it became red and started draining a large amount of serous fluid. She was seen by urgent care and prescribed Bactrim. She has been dressing the ulcer with Telfa bandages. She normally wear compression stockings daily but does not have them on today. She has noted improvement in the ulcer since taking the antibiotic but it remains open and is still draining heavily at times. She wears compression stockings (20-30 mmHg) daily, and this has been of benefit for her bilateral lower extremity edema. 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 She had a bilateral lower extremity venous Doppler studies in October 2018 and October 2020, which demonstrated incompetence of the left saphenofemoral junction, incompetence of the right greater saphenous vein below the knee, and segmental incompetence of the left greater saphenous vein. She had bilateral lower extremity arterial studies in August 2020 which showed no evidence of significant arterial occlusive disease in the bilateral lower extremities. She was referred to vascular surgery previously for consideration for operative intervention for venous incompetence but did not follow through with referral but is ready to proceed with referral for prevention of recurrent ulcers. The patient denies any fever, chills. Denies any increasing pain, redness, swelling, or purulent/malodorous drainage from affected area. Subjective Subjective Emani returns today for follow up of ulcer of right medial ankle. She tolerated treatment with Aquacel Extra last week but unfortunately the ulcer did get bigger and there is increased surrounding edema and drainage. She did feel that the drainage was less. The wound culture was positive for Staph and Actinobacter. She was on her feet more this week but did wear compression stockings. Objective Data Objective Data Vital Signs: Vital Signs Temp Pulse Resp BP O2 Del Method 96.9 F L 68 18 134/61 H Room Air 03/31/24 08:43 03/31/24 08:43 03/31/24 08:43 03/31/24 08:43 03/24/24 08:36 Oxygen Delivery Method Room Air Lab / Micro Data Micro: Microbiology 03/24/24 09:40 Ulcer, Decubitus - Right Foot Gram Stain - Final 03/24/24 09:40 Ulcer, Decubitus - Right Foot Wound Culture - Final Acinetobacter baumannii Staphylococcus aureus Aerococcus urinae 03/24/24 09:40 Ulcer, Decubitus - Right Foot Anaerobic Culture - Final No anaerobic bacteria isolated. Physical Exam Const alert, oriented x3 and no apparent distress General Appearance: cooperative and comfortable HEENT normocephalic and head/scalp atraumatic Resp normal respiratory effort Effort and Inspection: able to speak in complete sentences Cardio regular rate and regular rhythm Skin Wounds: wounds noted Wound Narrative: as in clinical panel Psych mental status grossly normal, thought process normal, cooperative and affect normal Debridement Note Debridement Note Wound debrided: right medial ankle Laterality: Right Type of Debridement: Excisional debridement Anesthesia Used: 4% Lidocaine Solution and 5% Lidocaine Gel Depth: Down to and including healthy tissue and in the subcutaneous layer Percentage of wound debrided: 100 Instrument Used: 3mm curette Tissue Removed: Yellow slough, devitalized tissue Severity: Fat Layer Exposed Amount of bleeding with debridement: Mild Bleeding Controlled with: Compression and gauze Patient tolerated procedure: Patient tolerated procedure well Post-Debridement Measurements and Additional Note: Post-Debridement Measurements/Treatment - Nurse 1 - General Ulcer Assessment Start: 03/24/24 08:36 Freq: Status: Active Protocol: ISAIAH Activity Type Activity Date Activity User E-sign Co-sign Detail Recorded Client Recorded Date Recorded By Document 03/24/24 08:36 KW [id number] 03/24/24 08:54 KW Document 03/31/24 08:43 RB [id number] 03/31/24 08:45 RB 03/24/24 03/31/24 08:36 08:43 - Today's Visit Information Type of service Initial Visit Follow-up Visit (Physician/DIRECTOR MATERNAL CHILD ) Arrival Mode Ambulatory Ambulatory Transfer Assistance None Patient Identification Verified (Name & Yes Yes ) Patient Requires Transmission-Based No Precautions Height and Weight Height 5 ft 4.5 in Vital Signs Temperature (97.8 F-99.1 F) 95.7 F L 96.9 F L Temperature Source Temporal Temporal Pulse Rate (60-100) 64 68 Pulse Location Monitor Monitor Respiratory Rate (12-18) 16 18 Respiratory rate source Observation Observation Oxygen Delivery Method Room Air Blood Pressure (90/60-120/80) 153/75 H 134/61 H Blood Pressure Mean (mm Hg) 101 85 Source Monitor Monitor Position Sitting Semi-Fowlers Blood Pressure Location Left Arm Left Arm History Since Last Visit- (Skip if this is Patient's initial visit) Have you changed medications since your No last visit? Any new allergies or adverse reactions No Had a fall/change in ADL's that may No increase risk of falls Signs or symptoms of abuse and/or No neglect since last visit Have you been in the hospital since your No last visit? Has dressing in place as prescribed Yes Has compression in place as prescribed Yes Has offloadiing in place as prescribed No Experienced any changes in pain level or No management Left Footwear Regular Shoe Right Footwear Regular Shoe Pain Scale: 0-10 Numeric Is Patient Pain Free? Yes Yes Communication Assessment Preferred language Mongolian Can Cutter Required No Able to Read Yes Able to Write Yes Communication Tools None Caregiver Communication Skills No Impairment Impairment Right Hearing Abillity Normal Left Hearing Abillity Normal Visual Assistive Devices Glasses Teaching Assessment Preferences Verbal,Written, Demonstration Barriers to Learning None Readiness To Learn Excellent Willingness to Engage in Self Management High Activies Readiness to Engage in Self Management High Activities Anxiety Level Calm Cooperation Cooperative Perception Coherent Interest in Health Problem Asks Questions Education Importance Acknowledges Need Does Patient Smoke tobacco or other Yes substances Smoking Status Never smoker Is Patient Diabetic No Functional Assessment Recent Decline in Ability to Perform Denies Any Declines Culture/Yazdanism/Nursing Staff Development Coordinator Cultural/Yazdanism Needs that may affect No Treatment Plan Would you allow our hospital gas welding equipment mechanic to No meet you for the purpose of spiritual/ emotional support? Nursing Staff Development Coordinator to contact place of faith No WC - Nurse 1 - General Ulcer Measurement Start: 03/24/24 08:36 Freq: Status: Active Protocol: Activity Type Activity Date Activity User E-sign Co-sign Detail Recorded Client Recorded Date Recorded By Document 03/24/24 08:36 KW [id number] 03/24/24 08:54 KW Document 03/31/24 08:43 RB [id number] 03/31/24 08:45 RB 03/24/24 03/31/24 08:36 08:43 Wound Center Nurse 1 #4 RT MED ANKLE -Combined with other wound No -Current Size (cm) - Length 0.4 2 -Current Size (cm) - Width 0.3 1 -Current Size (cm) - Depth 0.1 0.1 -Total Square Cm 0.12 2 -Photo Taken Yes -Tunneling No -Undermining/Tunneling No -Circular Undermining No -Exudate Amt Small Medium -Exudate Type Serosanguineous Serosanguineous -Wound Margin Distinct, Distinct, Outline Outline Attached Attached -Granulation Amt Small (1-33%) Medium (34-66%) -Granulation Quality Grottoes Grottoes -Slough/Fibrin Yes -Necrosis Amt Large (67-100%) Medium (34-66%) -Necrotic Tissue Type Adherent Slough Adherent Slough -Structure Exposed N/A -Texture (Nancy-wound Skin Appearance) Assessed,Rash Assessed -Moisture (Nancy-wound Skin Appearance) Assessed Assessed -Color (Nancy-wound Skin Appearance) Assessed, Assessed Hemosiderin Staining -Temperature (Nancy-wound Skin No Abnormality No Abnormality Appearance) (Pt Warm) (Pt Warm) -Tenderness on Palpation (Nancy-wound Yes No Skin Appearance) -Ulcer Cleansing Rinsed/ Wound Cleanser Irrigated with Saline -Foul Odor after Cleansing No No -Anesthetic Used 5% Lidocaine 5% Lidocaine Gel Gel Lower Limb Edema Present Yes Right Calf (cm) 34 34 Right Ankle (cm) 21.5 22.2 WC - Nurse 2 - General Ulcer CM Notes Start: 03/24/24 08:36 Freq: Status: Active Protocol: Activity Type Activity Date Activity User E-sign Co-sign Detail Recorded Client Recorded Date Recorded By Document 03/24/24 09:28 [id number] 03/24/24 09:41 KW Document 03/31/24 09:16 [id number] 03/31/24 09:28 03/24/24 03/31/24 09:28 09:16 Wound Center Nurse 2 #4 RT MED ANKLE -Time 09: 09:17 -Correct Patient Yes Yes -Correct Side, Site, Position Yes Yes -Correct Procedure Yes Yes -Procedure Performed Yes Yes -Type of Procedure Debridement Debridement -Clinical Debridement Subcutaneous Subcutaneous -Tissue Removed Subcutaneous Subcutaneous -Post Debridement (cm) - Length 0.4 -Post Debridement (cm) - Width 0.4 -Post Debridement (cm) - Depth 0.1 -Total Square (Post) (cm) 0.16 -Area of Debridement (cm) - Length 0.4 -Area of Debridement (cm) - Width 0.4 -Total Square (Area) (cm) 0.16 -Tunneling No No -Undermining/Tunneling No No -Circular Undermining No No -Wound/Ulcer Outcome Not Healed Not Healed -Ulcer Cleansing Rinsed/ Rinsed/ Irrigated with Irrigated with Saline Saline -Foul Odor after Cleansing No No -Bioengineered Tissue No No -Bleeding Controlled with Pressure Pressure -Treatment Response Procedure Procedure Tolerated Well Tolerated Well -Debridement - Subq, 1st 20sq cm Yes Yes Pain Scale: 0-10 Numeric Is Patient Pain Free? Yes Yes - Nurse 3 - General Ulcer D/C NN Start: 03/24/24 08:36 Freq: Status: Active Protocol: Activity Type Activity Date Activity User E-sign Co-sign Detail Recorded Client Recorded Date Recorded By Document 03/24/24 10:05 [id number] 03/24/24 10:06 03/24/24 10:05 Wound Care Center Nurse 3 #4 RT MED ANKLE -Ulcer Cleansing Not Cleansed -Foul Odor after Cleansing No -Primary Dressing Applied Aquacel Extra -Primary Dressing Covered/Secured with Dry Gauze & Roll Gauze, Secured with Tape -Aquacel Extra 2 Right -Lotion applied to leg before No compression wrap -Tubular Bandage Single Layer -Size of Tubigrip Used Size D -Size D ($) 1 Pain Scale: 0-10 Numeric Is Patient Pain Free? Yes - Visit Discharge Discharge Condition Stable Ambulatory Status Ambulatory Transportation Private [facility] Clinical Summary of Care Provided Yes Assessment/Plan Assessment/Plan (1) Venous stasis ulcer of right ankle with fat layer exposed: CODE(S): I83.013 - Varicose veins of right lower extremity with ulcer of ankle; L97.312 - Non-pressure chronic ulcer of right ankle with fat layer exposed QUALIFIERS: Varicose vein presence: with varicose veins Qualified Code(s): I83.013 - Varicose veins of right lower extremity with ulcer of ankle; L97.312 - Non-pressure chronic ulcer of right ankle with fat layer exposed (2) Peripheral vascular disease of lower extremity with ulceration: CODE(S): I73.9 - Peripheral vascular disease, unspecified; L97.909 - Non-pressure chronic ulcer of unspecified part of unspecified lower leg with unspecified severity (3) Nonhealing nonsurgical wound with fat layer exposed: CODE(S): T14.8XXA - Other injury of unspecified body region, initial encounter (4) Cellulitis of lower extremity: CODE(S): L03.119 - Cellulitis of unspecified part of limb QUALIFIERS: Laterality: right Qualified Code(s): L03.115 - Cellulitis of right lower limb (5) Essential (primary) hypertension: CODE(S): I10 - Essential (primary) hypertension (6) Chronic atrial fibrillation: CODE(S): I48.2 - Chronic atrial fibrillation PLAN: Plan Debridement performed today in clinic as annotated above. At home wound-care instructions: Will continue to have her dress the ulcer daily with Aquacel Extra and cover with gauze. Wash with soap and water daily. Keep dressing clean and dry. Off-loading: The patient was instructed to avoid pressure and friction on the affected areas. Reposition every 2 hours at minimum. Avoid prolonged standing and/or dangling of legs. When seated, feet should be elevated at chest level. Frequent ambulation is encouraged. Diet: Patient encouraged to increase protein intake while taking caution to avoid high carbohydrate and/or sugar intake. Labs/cultures/imaging: Wound culture was positive and she was started on Augmentin based on culture results sensitivities. Follow-up: Return in 1 week for wound care follow up. Return sooner or report to the emergency room should symptoms worsen, or new symptoms arise. Note: [employer] speech recognition project eng software was used to create portions of this document. Sound-alike and misspelled words, as well as other project eng errors may be contained in the documentation.
--- NOTE | 2024-04-05 09:57 | WC ---
PHOTO 03/31/24 R MED ANKLE
== END 2024-04-01 23:59 | disposition home or self-care (01) ==
LOC: WC 09:00
PROVIDERS: PCP Family Medicine; Referring Provider Family Medicine; Visit Provider Family Medicine
DX: I83.013 Varicose veins of right lower extremity with ulcer of ankle (principal); L97.312 Non-pressure chronic ulcer of right ankle with fat layer exposed; I11.0 Hypertensive heart disease with heart failure; I50.32 Chronic diastolic (congestive) heart failure; I48.20 Chronic atrial fibrillation, unspecified; L03.119 Cellulitis of unspecified part of limb; I73.9 Peripheral vascular disease, unspecified; I87.2 Venous insufficiency (chronic) (peripheral); Z79.01 Long term (current) use of anticoagulants; Z79.899 Other long term (current) drug therapy
CPT/HCPCS: 11042; 87070; 87075; 87077; 87186; 87205; 99213; G0463

== ENCOUNTER 2024-03-31 10:26 | Outpatient (RCR) | payer OTHER, SELFPAY ==
[2024-03-01 23:10] VITALS: BMI 26.8
[2024-03-31 11:06] LABS: International Normalized Ratio 2.5; Prothrombin Time (Protime)PT. 26.8 SECONDS (11.7-14.9)
== END 2024-03-31 18:00 | disposition home or self-care (01) ==
LOC: LAB 10:26
PROVIDERS: Family Provider Family Medicine; PCP Family Medicine; Referring Provider Family Medicine; Visit Provider Family Medicine
DX: I48.91 Unspecified atrial fibrillation (principal)
CPT/HCPCS: 36415; 85610

== ENCOUNTER 2024-04-28 09:00 | Outpatient (RCR) | payer OTHER, SELFPAY ==
[2024-04-02 00:10] VITALS: BP 134/61; PULSE 68; RESP 18; TEMP 36.1
[2024-04-07 08:15] VITALS: BP 128/49; PULSE 56; RESP 16; TEMP 36
[2024-04-14 09:09] VITALS: BP 129/61; PULSE 67; RESP 18; TEMP 36
[2024-04-21 08:54] VITALS: BP 136/66; PULSE 69; RESP 18; TEMP 36.1
[2024-04-28 08:12] VITALS: BP 152/68; PULSE 76; RESP 16; TEMP 36.4
== END 2024-05-01 23:59 | disposition home or self-care (01) ==
LOC: WC 09:00
PROVIDERS: PCP Family Medicine; Referring Provider Family Medicine; Visit Provider Family Medicine
DX: I83.013 Varicose veins of right lower extremity with ulcer of ankle (principal); L97.312 Non-pressure chronic ulcer of right ankle with fat layer exposed; I48.20 Chronic atrial fibrillation, unspecified; L03.115 Cellulitis of right lower limb; I10 Essential (primary) hypertension; I73.9 Peripheral vascular disease, unspecified; R60.0 Localized edema; Z79.2 Long term (current) use of antibiotics; Z79.01 Long term (current) use of anticoagulants; Z79.899 Other long term (current) drug therapy
CPT/HCPCS: 11042; 29581; 87070; 87075; 87077; 87186; 87205

== ENCOUNTER 2024-05-05 09:40 | Outpatient (RCR) | payer OTHER, SELFPAY ==
[2024-04-02 03:14] VITALS: BMI 26.8
[2024-05-05 10:42] LABS: International Normalized Ratio 3.2; Prothrombin Time (Protime)PT. 32.2 SECONDS (11.7-14.9)
== END 2024-05-05 18:00 | disposition home or self-care (01) ==
LOC: LAB 09:40
PROVIDERS: Family Provider Family Medicine; PCP Family Medicine; Referring Provider Family Medicine; Visit Provider Family Medicine
DX: I48.91 Unspecified atrial fibrillation (principal)
CPT/HCPCS: 36415; 85610

== ENCOUNTER 2024-05-26 09:00 | Outpatient (RCR) | payer OTHER, SELFPAY ==
[2024-05-02 00:34] VITALS: BP 134/61; PULSE 68; RESP 18; TEMP 36.1
[2024-05-05 08:50] VITALS: BP 136/70; PULSE 67; RESP 18; TEMP 35.9
--- NOTE | 2024-05-05 12:53 | PCM.WC.PN ---
History of Present Illness Date of Service: 05/05/24 Chief Complaint: right medial ankle ulcer History of Wound: Emani is a pleasant 78-year-old white [place] female who presents to the wound healing center for an evaluation of a right medial ankle venous leg ulcer. She had previously been seen at the [facility] wound healing center for 2 other right venous leg ulcers. She has a past medical history significant for atrial fibrillation and is on chronic anticoagulation with Coumadin, hypertension, peripheral venous disease. The ulcer started in January with pain and itching to the area and then it became red and started draining a large amount of serous fluid. She was seen by urgent care and prescribed Bactrim. She has been dressing the ulcer with Telfa bandages. She normally wear compression stockings daily but does not have them on today. She has noted improvement in the ulcer since taking the antibiotic but it remains open and is still draining heavily at times. She wears compression stockings (20-30 mmHg) daily, and this has been of benefit for her bilateral lower extremity edema. 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 She had a bilateral lower extremity venous Doppler studies in October 2018 and October 2020, which demonstrated incompetence of the left saphenofemoral junction, incompetence of the right greater saphenous vein below the knee, and segmental incompetence of the left greater saphenous vein. She had bilateral lower extremity arterial studies in August 2020 which showed no evidence of significant arterial occlusive disease in the bilateral lower extremities. She was referred to vascular surgery previously for consideration for operative intervention for venous incompetence but did not follow through with referral but is ready to proceed with referral for prevention of recurrent ulcers. The patient denies any fever, chills. Denies any increasing pain, redness, swelling, or purulent/malodorous drainage from affected area. Subjective Subjective Emani returns today for follow up of ulcer of right medial ankle. She tolerated treatment with Promogran, adaptic and foam dressing for moderate drainage and venous stasis pad. This is improving. She denies fever, chills, odor. Objective Data Objective Data Vital Signs: Vital Signs Temp Pulse Resp BP 96.6 F L 67 18 136/70 H 05/05/24 08:50 05/05/24 08:50 05/05/24 08:50 05/05/24 08:50 Physical Exam Const alert, oriented x3 and no apparent distress General Appearance: cooperative and comfortable HEENT normocephalic and head/scalp atraumatic Resp normal respiratory effort Effort and Inspection: able to speak in complete sentences Cardio regular rate and regular rhythm Skin Wounds: wounds noted Wound Narrative: as in clinical panel Psych mental status grossly normal, thought process normal, cooperative and affect normal Debridement Note Debridement Note Wound debrided: right medial ankle Laterality: Right Type of Debridement: Excisional debridement Anesthesia Used: 4% Lidocaine Solution, 5% Lidocaine Gel and Cetacaine Depth: Down to and including healthy tissue and in the subcutaneous layer Percentage of wound debrided: 100 Instrument Used: 5mm curette Tissue Removed: yellow slough, devitalized tissue Severity: Fat Layer Exposed Amount of bleeding with debridement: Mild Bleeding Controlled with: Compression and gauze Patient tolerated procedure: Patient tolerated procedure well Post-Debridement Measurements and Additional Note: Post-Debridement Measurements/Treatment - Nurse 1 - General Ulcer Assessment Start: 05/05/24 08:50 Freq: Status: Active Protocol: ISAIAH Activity Type Activity Date Activity User E-sign Co-sign Detail Recorded Client Recorded Date Recorded By Document 05/05/24 08:50 [id number] 05/05/24 08:52 RB 05/05/24 08:50 - Today's Visit Information Type of service Follow-up Visit (Physician/CORRESPONDENCE RENEW CLERK ) Arrival Mode Ambulatory Transfer Assistance None Patient Identification Verified (Name & Yes ) Patient Requires Transmission-Based No Precautions Vital Signs Temperature (97.8 F-99.1 F) 96.6 F L Temperature Source Temporal Pulse Rate (60-100) 67 Pulse Location Monitor Respiratory Rate (12-18) 18 Respiratory rate source Observation Blood Pressure (90/60-120/80) 136/70 H Blood Pressure Mean (mm Hg) 92 Source Monitor Position Semi-Fowlers Blood Pressure Location Left Arm History Since Last Visit- (Skip if this is Patient's initial visit) Have you changed medications since your No last visit? Any new allergies or adverse reactions No Had a fall/change in ADL's that may No increase risk of falls Signs or symptoms of abuse and/or No neglect since last visit Have you been in the hospital since your No last visit? Has dressing in place as prescribed Yes Has compression in place as prescribed Yes Has offloadiing in place as prescribed No Experienced any changes in pain level or No management Pain Scale: 0-10 Numeric Is Patient Pain Free? Yes WC - Nurse 1 - General Ulcer Measurement Start: 05/05/24 08:50 Freq: Status: Active Protocol: Activity Type Activity Date Activity User E-sign Co-sign Detail Recorded Client Recorded Date Recorded By Document 05/05/24 08:50 RB [id number] 05/05/24 08:52 RB Edit Result 05/05/24 08:50 RB (1) [id number] 05/05/24 08:53 RB (1) Lower Limb Edema Present => Yes Right Calf (cm) => 35 Right Ankle (cm) => 22 05/05/24 08:50 Wound Center Nurse 1 #4 RT MED ANKLE -Combined with other wound No -Current Size (cm) - Length 0.1 -Current Size (cm) - Width 0.1 -Current Size (cm) - Depth 0.1 -Total Square Cm 0.01 -Photo Taken No -Tunneling No -Undermining/Tunneling No -Circular Undermining No -Exudate Amt Medium -Exudate Type Serosanguineous -Wound Margin Distinct, Outline Attached -Granulation Amt Medium (34-66%) -Granulation Quality [place] -Slough/Fibrin Yes -Necrosis Amt Small (1-33%) -Necrotic Tissue Type Adherent Slough -Structure Exposed N/A -Texture (Nancy-wound Skin Appearance) Assessed -Moisture (Nancy-wound Skin Appearance) Assessed -Color (Nancy-wound Skin Appearance) Assessed -Temperature (Nancy-wound Skin No Abnormality Appearance) (Pt Warm) -Tenderness on Palpation (Nancy-wound No Skin Appearance) -Ulcer Cleansing Wound Cleanser -Foul Odor after Cleansing No -Anesthetic Used 5% Lidocaine Gel -Wound Comment(s) PT REFUSED PHOTO OF WOUND DUE TO MORAVIAN Lower Limb Edema Present Yes Right Calf (cm) 35 Right Ankle (cm) 22 WC - Nurse 2 - General Ulcer CM Notes Start: 05/05/24 08:50 Freq: Status: Active Protocol: Activity Type Activity Date Activity User E-sign Co-sign Detail Recorded Client Recorded Date Recorded By Document 05/05/24 08:58 GM [id number] 05/05/24 09:02 GM 05/05/24 08:58 Wound Center Nurse 2 #4 RT MED ANKLE -Time 08:58 -Correct Patient Yes -Correct Side, Site, Position Yes -Correct Procedure Yes -Procedure Performed Yes -Type of Procedure Debridement -Clinical Debridement Subcutaneous -Tissue Removed Subcutaneous -Post Debridement (cm) - Length 0.5 -Post Debridement (cm) - Width 0.4 -Post Debridement (cm) - Depth 0.1 -Total Square (Post) (cm) 0.20 -Area of Debridement (cm) - Length 0.5 -Area of Debridement (cm) - Width 0.4 -Total Square (Area) (cm) 0.20 -Tunneling No -Undermining/Tunneling No -Circular Undermining No -Wound/Ulcer Outcome Not Healed -Ulcer Cleansing Rinsed/ Irrigated with Saline -Foul Odor after Cleansing No -Bioengineered Tissue No -Bleeding Controlled with Pressure -Treatment Response Procedure Tolerated Well -Debridement - Subq, 1st 20sq cm Yes Pain Scale: 0-10 Numeric Is Patient Pain Free? Yes - Nurse 3 - General Ulcer D/C NN Start: 05/05/24 08:50 Freq: Status: Active Protocol: Activity Type Activity Date Activity User E-sign Co-sign Detail Recorded Client Recorded Date Recorded By Document 05/05/24 09:22 DS [id number] 05/05/24 09:24 DS 05/05/24 09:22 Wound Care Center Nurse 3 #4 RT MED ANKLE -Ulcer Cleansing Rinsed/ Irrigated with Saline -Primary Dressing Applied Promogran -Primary Dressing Covered/Secured with Other -Other Covering adaptic, gauze, stasis pad, conforming wrap -Promogran 1 Pain Scale: 0-10 Numeric Is Patient Pain Free? Yes - Visit Discharge Discharge Condition Stable Ambulatory Status Ambulatory Transportation Private Auto Medication Reconcilliation completed & Yes provided to patient/care provider Clinical Summary of Care Provided Yes Assessment/Plan Assessment/Plan (1) Venous stasis ulcer of right ankle with fat layer exposed: CODE(S): I83.013 - Varicose veins of right lower extremity with ulcer of ankle; L97.312 - Non-pressure chronic ulcer of right ankle with fat layer exposed QUALIFIERS: Varicose vein presence: with varicose veins Qualified Code(s): I83.013 - Varicose veins of right lower extremity with ulcer of ankle; L97.312 - Non-pressure chronic ulcer of right ankle with fat layer exposed (2) Peripheral vascular disease of lower extremity with ulceration: CODE(S): I73.9 - Peripheral vascular disease, unspecified; L97.909 - Non-pressure chronic ulcer of unspecified part of unspecified lower leg with unspecified severity (3) Nonhealing nonsurgical wound with fat layer exposed: CODE(S): T14.8XXA - Other injury of unspecified body region, initial encounter (4) Cellulitis of lower extremity: CODE(S): L03.119 - Cellulitis of unspecified part of limb QUALIFIERS: Laterality: right Qualified Code(s): L03.115 - Cellulitis of right lower limb (5) Edema, lower extremity: CODE(S): R60.0 - Localized edema (6) Essential (primary) hypertension: CODE(S): I10 - Essential (primary) hypertension (7) Chronic atrial fibrillation: CODE(S): I48.2 - Chronic atrial fibrillation PLAN: Plan Debridement performed today in clinic as annotated above. At home wound-care instructions: Will have her continue to use Promogran and adaptic and cover with foam dressing or gauze and have her add a venous stasis pad over the ulcer. She will use compression stocking for compression for her edema. Keep dressing clean and dry. Off-loading: The patient was instructed to avoid pressure and friction on the affected areas. Reposition every 2 hours at minimum. Avoid prolonged standing and/or dangling of legs. When seated, feet should be elevated at chest level. Frequent ambulation is encouraged. Diet: Patient encouraged to increase protein intake while taking caution to avoid high carbohydrate and/or sugar intake. Labs/cultures/imaging: Wound culture taken today and will treat based on results. She is scheduled to see Dr. Cesar for discussion of procedure for venous insufficiency with recurrent ulcers. Follow-up: Return in 1 week for wound care follow up. Return sooner or report to the emergency room should symptoms worsen, or new symptoms arise. Note: [employer] speech recognition financial business analyst software was used to create portions of this document. Sound-alike and misspelled words, as well as other financial business analyst errors may be contained in the documentation.
[2024-05-12 08:23] VITALS: BP 119/48; PULSE 64; RESP 18; TEMP 35.8
--- NOTE | 2024-05-12 09:24 | PN.PCM_ITS ---
History of Present Illness Date of Service: 05/12/24 Chief Complaint: right medial ankle ulcer History of Wound: Emani is a pleasant 78-year-old white [place] female who presents to the wound healing center for an evaluation of a right medial ankle venous leg ulcer. She had previously been seen at the [facility] wound healing center for 2 other right venous leg ulcers. She has a past medical history significant for atrial fibrillation and is on chronic anticoagulation with Coumadin, hypertension, peripheral venous disease. The ulcer started in January with pain and itching to the area and then it became red and started draining a large amount of serous fluid. She was seen by urgent care and prescribed Bactrim. She has been dressing the ulcer with Telfa bandages. She normally wear compression stockings daily but does not have them on today. She has noted improvement in the ulcer since taking the antibiotic but it remains open and is still draining heavily at times. She wears compression stockings (20-30 mmHg) daily, and this has been of benefit for her bilateral lower ext remity edema. 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 She had a bilateral lower extremity venous Doppler studies in October 2018 and October 2020, which demonstrated incompetence of the left saphenofemoral junction, incompetence of the right greater saphenous vein below the knee, and segmental incompetence of the left greater saphenous vein. She had bilateral lower extremity arterial studies in August 2020 which showed no evidence of significant arterial occlusive disease in the bilateral lower extremities. She was referred to vascular surgery previously for consideration for operative intervention for venous incompetence but did not follow through with referral but is ready to proceed with referral for prevention of recurrent ulcers. The patient denies any fever, chills. Denies any increasing pain, redness, swelling, or purulent/malodorous drainage from affected area. Subjective Subjective Emani returns today for follow up of ulcer of right medial ankle. She tolerated treatment with Promogran, adaptic and foam dressing for moderate drainage and venous stasis pad. This is improving. She denies fever, chills, odor. Objective Data Objective Data Vital Signs: Vital Signs Temp Pulse Resp BP 96.4 F L 64 18 119/48 L 05/12/24 08:23 05/12/24 08:23 05/12/24 08:23 05/12/24 08:23 Physical Exam Const alert, oriented x3 and no apparent distress General Appearance: cooperative and comfortable HEENT normocephalic and head/scalp atraumatic Resp normal respiratory effort Effort and Inspection: able to speak in complete sentences Cardio regular rate and regular rhythm Skin Wounds: wounds noted Wound Narrative: as in clinical panel Psych mental status grossly normal, thought process normal, cooperative and affect normal Debridement Note Debridement Note Post-Debridement Measurements and Additional Note: Post-Debridement Measurements/Treatment WC - Nurse 1 - General Ulcer Assessment Start: 05/05/24 08:50 Freq: Status: Active Protocol: ISAIAH Activity Type Activity Date Activity User E-sign Co-sign Detail Recorded Client Recorded Date Recorded By Document 05/05/24 08:50 RB [id number] 05/05/24 08:52 RB Document 05/12/24 08:23 RB [id number] 05/12/24 08:35 RB 05/05/24 05/12/24 08:50 08:23 WC - Today's Visit Information Type of service Follow-up Visit Follow-up Visit (Physician/COTTON GROWER (Physician/COTTON GROWER ) ) Arrival Mode Ambulatory Ambulatory Transfer Assistance None None Patient Identification Verified (Name & Yes Yes ) Patient Requires Transmission-Based No No Precautions Vital Signs Temperature (97.8 F-99.1 F) 96.6 F L 96.4 F L Temperature Source Temporal Temporal Pulse Rate (60-100) 67 64 Pulse Location Monitor Monitor Respiratory Rate (12-18) 18 18 Respiratory rate source Observation Observation Blood Pressure (90/60-120/80) 136/70 H 119/48 L Blood Pressure Mean (mm Hg) 92 71 Source Monitor Monitor Position Semi-Fowlers Semi-Fowlers Blood Pressure Location Left Arm Left Arm History Since Last Visit- (Skip if this is Patient's initial visit) Have you changed medications since your No No last visit? Any new allergies or adverse reactions No No Had a fall/change in ADL's that may No No increase risk of falls Signs or symptoms of abuse and/or No No neglect since last visit Have you been in the hospital since your No No last visit? Has dressing in place as prescribed Yes Yes Has compression in place as prescribed Yes Yes Has offloadiing in place as prescribed No No Experienced any changes in pain level or No No management Pain Scale: 0-10 Numeric Is Patient Pain Free? Yes Yes MARILOU - Nurse 1 - General Ulcer Measurement Start: 05/05/24 08:50 Freq: Status: Active Protocol: Activity Type Activity Date Activity User E-sign Co-sign Detail Recorded Client Recorded Date Recorded By Document 05/05/24 08:50 RB [id number] 05/05/24 08:52 RB Edit Result 05/05/24 08:50 RB (1) [id number] 05/05/24 08:53 RB Document 05/12/24 08:23 RB [id number] 05/12/24 08:35 RB (1) Lower Limb Edema Present => Yes Right Calf (cm) => 35 Right Ankle (cm) => 22 05/05/24 05/12/24 08:50 08:23 Wound Center Nurse 1 #4 RT MED ANKLE -Combined with other wound No No -Current Size (cm) - Length 0.1 0.4 -Current Size (cm) - Width 0.1 0.6 -Current Size (cm) - Depth 0.1 0.1 -Total Square Cm 0.01 0.24 -Photo Taken No Yes -Tunneling No No -Undermining/Tunneling No No -Circular Undermining No No -Exudate Amt Medium Medium -Exudate Type Serosanguineous Serosanguineous -Wound Margin Distinct, Distinct, Outline Outline Attached Attached -Granulation Amt Medium (34-66%) Medium (34-66%) -Granulation Quality [place] -Slough/Fibrin Yes Yes -Necrosis Amt Small (1-33%) Small (1-33%) -Necrotic Tissue Type Adherent Slough Adherent Slough -Structure Exposed N/A N/A -Texture (Nancy-wound Skin Appearance) Assessed Assessed, Scarring -Moisture (Nancy-wound Skin Appearance) Assessed Assessed -Color (Nancy-wound Skin Appearance) Assessed Assessed -Temperature (Nancy-wound Skin No Abnormality No Abnormality Appearance) (Pt Warm) (Pt Warm) -Tenderness on Palpation (Nancy-wound No No Skin Appearance) -Ulcer Cleansing Wound Cleanser Wound Cleanser -Foul Odor after Cleansing No No -Anesthetic Used 5% Lidocaine 5% Lidocaine Gel Gel -Wound Comment(s) PT REFUSED PHOTO OF WOUND DUE TO SABIANISM Lower Limb Edema Present Yes Right Calf (cm) 35 Right Ankle (cm) 22 WC - Nurse 2 - General Ulcer CM Notes Start: 05/05/24 08:50 Freq: Status: Active Protocol: Activity Type Activity Date Activity User E-sign Co-sign Detail Recorded Client Recorded Date Recorded By Document 05/05/24 08:58 [id number] 05/05/24 09:02 Document 05/12/24 08:59 [id number] 05/12/24 09:07 05/05/24 05/12/24 08:58 08:59 Wound Center Nurse 2 #4 RT MED ANKLE -Time 08:58 09:01 -Correct Patient Yes Yes -Correct Side, Site, Position Yes Yes -Correct Procedure Yes Yes -Procedure Performed Yes Yes -Type of Procedure Debridement Debridement -Clinical Debridement Subcutaneous Subcutaneous -Tissue Removed Subcutaneous Subcutaneous -Post Debridement (cm) - Length 0.5 0.6 -Post Debridement (cm) - Width 0.4 0.4 -Post Debridement (cm) - Depth 0.1 0.1 -Total Square (Post) (cm) 0.20 0.24 -Area of Debridement (cm) - Length 0.5 0.6 -Area of Debridement (cm) - Width 0.4 0.4 -Total Square (Area) (cm) 0.20 0.24 -Tunneling No No -Undermining/Tunneling No No -Circular Undermining No No -Wound/Ulcer Outcome Not Healed Not Healed -Ulcer Cleansing Rinsed/ Rinsed/ Irrigated with Irrigated with Saline Saline -Foul Odor after Cleansing No No -Bioengineered Tissue No No -Bleeding Controlled with Pressure Pressure -Treatment Response Procedure Procedure Tolerated Well Tolerated Well -Debridement - Subq, 1st 20sq cm Yes Yes Pain Scale: 0-10 Numeric Is Patient Pain Free? Yes Yes - Nurse 3 - General Ulcer D/C NN Start: 05/05/24 08:50 Freq: Status: Active Protocol: Activity Type Activity Date Activity User E-sign Co-sign Detail Recorded Client Recorded Date Recorded By Document 05/05/24 09:22 DS [id number] 05/05/24 09:24 DS 05/05/24 09:22 Wound Care Center Nurse 3 #4 RT MED ANKLE -Ulcer Cleansing Rinsed/ Irrigated with Saline -Primary Dressing Applied Promogran -Primary Dressing Covered/Secured with Other -Other Covering adaptic, gauze, stasis pad, conforming wrap -Promogran 1 Pain Scale: 0-10 Numeric Is Patient Pain Free? Yes - Visit Discharge Discharge Condition Stable Ambulatory Status Ambulatory Transportation Private Auto Medication Reconcilliation completed & Yes provided to patient/care provider Clinical Summary of Care Provided Yes Assessment/Plan Assessment/Plan (1) Venous stasis ulcer of right ankle with fat layer exposed: CODE(S): I83.013 - Varicose veins of right lower extremity with ulcer of ankle; L97.312 - Non-pressure chronic ulcer of right ankle with fat layer exposed QUALIFIERS: Varicose vein presence: with varicose veins Qualified Code(s): I83.013 - Varicose veins of right lower extremity with ulcer of ankle; L97.312 - Non-pressure chronic ulcer of right ankle with fat layer exposed (2) Peripheral vascular disease of lower extremity with ulceration: CODE(S): I73.9 - Peripheral vascular disease, unspecified; L97.909 - Non- pressure chronic ulcer of unspecified part of unspecified lower leg with unspecified severity (3) Nonhealing nonsurgical wound with fat layer exposed: CODE(S): T14.8XXA - Other injury of unspecified body region, initial encounter (4) Cellulitis of lower extremity: CODE(S): L03.119 - Cellulitis of unspecified part of limb QUALIFIERS: Laterality: right Qualified Code(s): L03.115 - Cellulitis of right lower limb (5) Edema, lower extremity: CODE(S): R60.0 - Localized edema (6) Essential (primary) hypertension: CODE(S): I10 - Essential (primary) hypertension (7) Chronic atrial fibrillation: CODE(S): I48.2 - Chronic atrial fibrillation PLAN: Plan Debridement performed today in clinic as annotated above. At home wound-care instructions: Will have her continue to use Promogran and adaptic and cover with foam dressing or gauze and have her add a venous stasis pad over the ulcer. She will use compression stocking for compression for her edema. Keep dressing clean and dry. Off-loading: The patient was instructed to avoid pressure and friction on the affected areas. Reposition every 2 hours at minimum. Avoid prolonged standing and/or dangling of legs. When seated, feet should be elevated at chest level. Frequent ambulation is encouraged. Diet: Patient encouraged to increase protein intake while taking caution to avoid high carbohydrate and/or sugar intake. Labs/cultures/imaging: Wound culture taken today and will treat based on results. She is scheduled to see Dr. Cesar for discussion of procedure for venous insufficiency with recurrent ulcers. Follow-up: Return in 1 week for wound care follow up. Return sooner or report to the emergency room should symptoms worsen, or new symptoms arise. Note: [employer] speech recognition assembler wire mesh gate software was used to create portions of this document. Sound-alike and misspelled words, as well as other assembler wire mesh gate errors may be contained in the documentation.
[2024-05-19 08:55] VITALS: BP 130/60; PULSE 63; RESP 18; TEMP 35.8
--- NOTE | 2024-05-19 12:45 | PCM.WC.PN ---
History of Present Illness Date of Service: 05/19/24 Chief Complaint: right medial ankle ulcer History of Wound: Emani is a pleasant 78-year-old white [place] female who presents to the wound healing center for an evaluation of a right medial ankle venous leg ulcer. She had previously been seen at the [facility] wound healing center for 2 other right venous leg ulcers. She has a past medical history significant for atrial fibrillation and is on chronic anticoagulation with Coumadin, hypertension, peripheral venous disease. The ulcer started in January with pain and itching to the area and then it became red and started draining a large amount of serous fluid. She was seen by urgent care and prescribed Bactrim. She has been dressing the ulcer with Telfa bandages. She normally wear compression stockings daily but does not have them on today. She has noted improvement in the ulcer since taking the antibiotic but it remains open and is still draining heavily at times. She wears compression stockings (20-30 mmHg) daily, and this has been of benefit for her bilateral lower extremity edema. 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 She had a bilateral lower extremity venous Doppler studies in October 2018 and October 2020, which demonstrated incompetence of the left saphenofemoral junction, incompetence of the right greater saphenous vein below the knee, and segmental incompetence of the left greater saphenous vein. She had bilateral lower extremity arterial studies in August 2020 which showed no evidence of significant arterial occlusive disease in the bilateral lower extremities. She was referred to vascular surgery previously for consideration for operative intervention for venous incompetence but did not follow through with referral but is ready to proceed with referral for prevention of recurrent ulcers. The patient denies any fever, chills. Denies any increasing pain, redness, swelling, or purulent/malodorous drainage from affected area. Subjective Subjective Emani returns today for follow up of ulcer of right medial ankle. She tolerated treatment with Promogran, adaptic and foam dressing for moderate drainage and venous stasis pad. This is improving. She denies fever, chills, odor. Objective Data Objective Data Vital Signs: Vital Signs Temp Pulse Resp BP 96.5 F L 63 18 130/60 H 05/19/24 08:55 05/19/24 08:55 05/19/24 08:55 05/19/24 08:55 Physical Exam Const alert, oriented x3 and no apparent distress General Appearance: cooperative and comfortable HEENT normocephalic and head/scalp atraumatic Resp normal respiratory effort Effort and Inspection: able to speak in complete sentences Cardio regular rate and regular rhythm Skin Wounds: wounds noted Wound Narrative: as in clinical panel Psych mental status grossly normal, thought process normal, cooperative and affect normal Debridement Note Debridement Note Wound debrided: right medial ankle Laterality: Right Type of Debridement: Excisional debridement Anesthesia Used: 4% Lidocaine Solution, 5% Lidocaine Gel and Cetacaine Depth: Down to and including healthy tissue and in the subcutaneous layer Percentage of wound debrided: 100 Instrument Used: 3mm curette Tissue Removed: Yellow slough, devitalized tissue Severity: Fat Layer Exposed Amount of bleeding with debridement: Mild Bleeding Controlled with: Compression and gauze Patient tolerated procedure: Patient tolerated procedure well Post-Debridement Measurements and Additional Note: Post-Debridement Measurements/Treatment - Nurse 1 - General Ulcer Assessment Start: 05/05/24 08:50 Freq: Status: Active Protocol: ISAIAH Activity Type Activity Date Activity User E-sign Co-sign Detail Recorded Client Recorded Date Recorded By Document 05/05/24 08:50 RB [id number] 05/05/24 08:52 RB Document 05/12/24 08:23 RB [id number] 05/12/24 08:35 RB Document 05/19/24 08:55 RB [id number] 05/19/24 08:58 RB 05/05/24 05/12/24 05/19/24 08:50 08:23 08:55 - Today's Visit Information Type of service Follow-up Visit Follow-up Visit Follow-up Visit (Physician/PARTS PERSON (Physician/PARTS PERSON (Physician/PARTS PERSON ) ) ) Arrival Mode Ambulatory Ambulatory Ambulatory Transfer Assistance None None None Patient Identification Verified (Name & Yes Yes Yes ) Patient Requires Transmission-Based No No No Precautions Vital Signs Temperature (97.8 F-99.1 F) 96.6 F L 96.4 F L 96.5 F L Temperature Source Temporal Temporal Temporal Pulse Rate (60-100) 67 64 63 Pulse Location Monitor Monitor Monitor Respiratory Rate (12-18) 18 18 18 Respiratory rate source Observation Observation Observation Blood Pressure (90/60-120/80) 136/70 H 119/48 L 130/60 H Blood Pressure Mean (mm Hg) 92 71 83 Source Monitor Monitor Monitor Position Semi-Fowlers Semi-Fowlers Semi-Fowlers Blood Pressure Location Left Arm Left Arm Left Arm History Since Last Visit- (Skip if this is Patient's initial visit) Have you changed medications since your No No No last visit? Any new allergies or adverse reactions No No No Had a fall/change in ADL's that may No No No increase risk of falls Signs or symptoms of abuse and/or No No No neglect since last visit Have you been in the hospital since your No No No last visit? Has dressing in place as prescribed Yes Yes Yes Has compression in place as prescribed Yes Yes Yes Has offloadiing in place as prescribed No No No Experienced any changes in pain level or No No No management Pain Scale: 0-10 Numeric Is Patient Pain Free? Yes Yes Yes WC - Nurse 1 - General Ulcer Measurement Start: 05/05/24 08:50 Freq: Status: Active Protocol: Activity Type Activity Date Activity User E-sign Co-sign Detail Recorded Client Recorded Date Recorded By Document 05/05/24 08:50 RB [id number] 05/05/24 08:52 RB Edit Result 05/05/24 08:50 RB (1) [id number] 05/05/24 08:53 RB Document 05/12/24 08:23 RB [id number] 05/12/24 08:35 RB Document 05/19/24 08:55 RB [id number] 05/19/24 08:58 RB (1) Lower Limb Edema Present => Yes Right Calf (cm) => 35 Right Ankle (cm) => 22 05/05/24 05/12/24 05/19/24 08:50 08:23 08:55 Wound Center Nurse 1 #4 RT MED ANKLE -Combined with other wound No No No -Current Size (cm) - Length 0.1 0.4 0.7 -Current Size (cm) - Width 0.1 0.6 0.5 -Current Size (cm) - Depth 0.1 0.1 0.1 -Total Square Cm 0.01 0.24 0.35 -Photo Taken No Yes No -Tunneling No No No -Undermining/Tunneling No No No -Circular Undermining No No No -Exudate Amt Medium Medium Medium -Exudate Type Serosanguineous Serosanguineous Serosanguineous -Wound Margin Distinct, Distinct, Distinct, Outline Outline Outline Attached Attached Attached -Granulation Amt Medium (34-66%) Medium (34-66%) Medium (34-66%) -Granulation Quality [place] -Slough/Fibrin Yes Yes Yes -Necrosis Amt Small (1-33%) Small (1-33%) Medium (34-66%) -Necrotic Tissue Type Adherent Slough Adherent Slough Adherent Slough -Structure Exposed N/A N/A N/A -Texture (Nancy-wound Skin Appearance) Assessed Assessed, Assessed Scarring -Moisture (Nancy-wound Skin Appearance) Assessed Assessed Assessed -Color (Nancy-wound Skin Appearance) Assessed Assessed Assessed, Hemosiderin Staining -Temperature (Nancy-wound Skin No Abnormality No Abnormality No Abnormality Appearance) (Pt Warm) (Pt Warm) (Pt Warm) -Tenderness on Palpation (Nancy-wound No No No Skin Appearance) -Ulcer Cleansing Wound Cleanser Wound Cleanser Wound Cleanser -Foul Odor after Cleansing No No No -Anesthetic Used 5% Lidocaine 5% Lidocaine 5% Lidocaine Gel Gel Gel -Wound Comment(s) PT REFUSED PHOTO OF WOUND DUE TO MOR[place] Lower Limb Edema Present Yes Right Calf (cm) 35 Right Ankle (cm) 22 WC - Nurse 2 - General Ulcer CM Notes Start: 05/05/24 08:50 Freq: Status: Active Protocol: Activity Type Activity Date Activity User E-sign Co-sign Detail Recorded Client Recorded Date Recorded By Document 05/05/24 08:58 [id number] 05/05/24 09:02 Document 05/12/24 08:59 [id number] 05/12/24 09:07 Document 05/19/24 09:07 [id number] 05/19/24 09:14 05/05/24 05/12/24 05/19/24 08:58 08:59 09:07 Wound Center Nurse 2 #4 RT MED ANKLE -Time 08:58 09:01 09:08 -Correct Patient Yes Yes Yes -Correct Side, Site, Position Yes Yes Yes -Correct Procedure Yes Yes Yes -Procedure Performed Yes Yes Yes -Type of Procedure Debridement Debridement Debridement -Clinical Debridement Subcutaneous Subcutaneous Subcutaneous -Tissue Removed Subcutaneous Subcutaneous Subcutaneous -Post Debridement (cm) - Length 0.5 0.6 0.9 -Post Debridement (cm) - Width 0.4 0.4 0.4 -Post Debridement (cm) - Depth 0.1 0.1 0.1 -Total Square (Post) (cm) 0.20 0.24 0.36 -Area of Debridement (cm) - Length 0.5 0.6 0.9 -Area of Debridement (cm) - Width 0.4 0.4 0.4 -Total Square (Area) (cm) 0.20 0.24 0.36 -Tunneling No No No -Undermining/Tunneling No No No -Circular Undermining No No No -Wound/Ulcer Outcome Not Healed Not Healed Not Healed -Ulcer Cleansing Rinsed/ Rinsed/ Rinsed/ Irrigated with Irrigated with Irrigated with Saline Saline Saline -Foul Odor after Cleansing No No No -Bioengineered Tissue No No No -Bleeding Controlled with Pressure Pressure Pressure -Treatment Response Procedure Procedure Procedure Tolerated Well Tolerated Well Tolerated Well -Debridement - Subq, 1st 20sq cm Yes Yes Yes Pain Scale: 0-10 Numeric Is Patient Pain Free? Yes Yes Yes - Nurse 3 - General Ulcer D/C NN Start: 05/05/24 08:50 Freq: Status: Active Protocol: Activity Type Activity Date Activity User E-sign Co-sign Detail Recorded Client Recorded Date Recorded By Document 05/05/24 09:22 DS [id number] 05/05/24 09:24 DS Document 05/12/24 09:28 [id number] 05/12/24 09:29 GM Document 05/19/24 10:10 RB [id number] 05/19/24 10:11 RB 05/05/24 05/12/24 05/19/24 09:22 09:28 10:10 Wound Care Center Nurse 3 #4 RT MED ANKLE -Ulcer Cleansing Rinsed/ Not Cleansed Rinsed/ Irrigated with Irrigated with Saline Saline -Foul Odor after Cleansing No -Primary Dressing Applied Promogran NonAdherent Promogran Contact Layer, Promogran -Other Dressing two venous stasis pads applied over roll gauze -Primary Dressing Covered/Secured with Other Dry Gauze & Dry Gauze & Roll Gauze, Roll Gauze, Secured with Secured with Tape Tape -Other Covering adaptic, gauze, stasis pad, conforming wrap -Promogran 1 1 1 Right -Stockings Yes Treatment Response Procedure Tolerated Well Pain Scale: 0-10 Numeric Is Patient Pain Free? Yes Yes Yes - Visit Discharge Discharge Condition Stable Stable Stable Ambulatory Status Ambulatory Ambulatory Ambulatory Transportation Private Auto Private Auto Private Auto Medication Reconcilliation completed & Yes No provided to patient/care provider Clinical Summary of Care Provided Yes Yes Assessment/Plan Assessment/Plan (1) Venous stasis ulcer of right ankle with fat layer exposed: CODE(S): I83.013 - Varicose veins of right lower extremity with ulcer of ankle; L97.312 - Non-pressure chronic ulcer of right ankle with fat layer exposed QUALIFIERS: Varicose vein presence: with varicose veins Qualified Code(s): I83.013 - Varicose veins of right lower extremity with ulcer of ankle; L97.312 - Non-pressure chronic ulcer of right ankle with fat layer exposed (2) Peripheral vascular disease of lower extremity with ulceration: CODE(S): I73.9 - Peripheral vascular disease, unspecified; L97.909 - Non-pressure chronic ulcer of unspecified part of unspecified lower leg with unspecified severity (3) Nonhealing nonsurgical wound with fat layer exposed: CODE(S): T14.8XXA - Other injury of unspecified body region, initial encounter (4) Cellulitis of lower extremity: CODE(S): L03.119 - Cellulitis of unspecified part of limb QUALIFIERS: Laterality: right Qualified Code(s): L03.115 - Cellulitis of right lower limb (5) Edema, lower extremity: CODE(S): R60.0 - Localized edema (6) Essential (primary) hypertension: CODE(S): I10 - Essential (primary) hypertension (7) Chronic atrial fibrillation: CODE(S): I48.2 - Chronic atrial fibrillation PLAN: Plan Debridement performed today in clinic as annotated above. At home wound-care instructions: Will have her continue to use Promogran and adaptic and cover with foam dressing or gauze and have her add a venous stasis pad over the ulcer. Will also add venous stasis pad to the other side of her ankle as she has increased swelling and some blistering there. She will use compression stocking for compression for her edema. Keep dressing clean and dry. Off-loading: The patient was instructed to avoid pressure and friction on the affected areas. Reposition every 2 hours at minimum. Avoid prolonged standing and/or dangling of legs. When seated, feet should be elevated at chest level. Frequent ambulation is encouraged. Diet: Patient encouraged to increase protein intake while taking caution to avoid high carbohydrate and/or sugar intake. Labs/cultures/imaging: Wound culture taken today and will treat based on results. She is scheduled to see Dr. Cesar for discussion of procedure for venous insufficiency with recurrent ulcers. Follow-up: Return in 1 week for wound care follow up. Return sooner or report to the emergency room should symptoms worsen, or new symptoms arise. Note: Occasion speech recognition casing crew pusher software was used to create portions of this document. Sound-alike and misspelled words, as well as other casing crew pusher errors may be contained in the documentation.
[2024-05-26 08:40] VITALS: BP 127/63; PULSE 59; RESP 18; TEMP 35.6
--- NOTE | 2024-05-26 13:01 | PN.PCM_ITS ---
History of Present Illness Date of Service: 05/26/24 Chief Complaint: right medial ankle ulcer History of Wound: Emani is a pleasant 78-year-old white [place] female who presents to the wound healing center for an evaluation of a right medial ankle venous leg ulcer. She had previously been seen at the [facility] wound healing center for 2 other right venous leg ulcers. She has a past medical history significant for atrial fibrillation and is on chronic anticoagulation with Coumadin, hypertension, peripheral venous disease. The ulcer started in January with pain and itching to the area and then it became red and started draining a large amount of serous fluid. She was seen by urgent care and prescribed Bactrim. She has been dressing the ulcer with Telfa bandages. She normally wear compression stockings daily but does not have them on today. She has noted improvement in the ulcer since taking the antibiotic but it remains open and is still draining heavily at times. She wears compression stockings (20-30 mmHg) daily, and this has been of benefit for her bilateral lower ext remity edema. 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 She had a bilateral lower extremity venous Doppler studies in October 2018 and October 2020, which demonstrated incompetence of the left saphenofemoral junction, incompetence of the right greater saphenous vein below the knee, and segmental incompetence of the left greater saphenous vein. She had bilateral lower extremity arterial studies in August 2020 which showed no evidence of significant arterial occlusive disease in the bilateral lower extremities. She was referred to vascular surgery previously for consideration for operative intervention for venous incompetence but did not follow through with referral but is ready to proceed with referral for prevention of recurrent ulcers. The patient denies any fever, chills. Denies any increasing pain, redness, swelling, or purulent/malodorous drainage from affected area. Subjective Subjective Emani returns today for follow up of ulcer of right medial ankle. She tolerated treatment with Promogran, adaptic and foam dressing for moderate drainage and venous stasis pad. This is improving. She denies fever, chills, odor. Objective Data Objective Data Vital Signs: Vital Signs Temp Pulse Resp BP O2 Del Method 96.0 F L 59 L 18 127/63 H Room Air 05/26/24 08:40 05/26/24 08:40 05/26/24 08:40 05/26/24 08:40 05/26/24 08:40 Oxygen Delivery Method Room Air Physical Exam Const alert, oriented x3 and no apparent distress General Appearance: cooperative and comfortable HEENT normocephalic and head/scalp atraumatic Resp normal respiratory effort Effort and Inspection: able to speak in complete sentences Cardio regular rate and regular rhythm Skin Wounds: wounds noted Wound Narrative: as in clinical panel Psych mental status grossly normal, thought process normal, cooperative and affect normal Debridement Note Debridement Note Wound debrided: right medial ankle Laterality: Right Type of Debridement: Excisional debridement Anesthesia Used: 4% Lidocaine Solution and 5% Lidocaine Gel Depth: Down to and including healthy tissue and in the subcutaneous layer Percentage of wound debrided: 100 Instrument Used: 3mm curette Tissue Removed: Yellow slough, devitalized tissue Severity: Fat Layer Exposed Amount of bleeding with debridement: Mild Bleeding Controlled with: Compression and gauze Patient tolerated procedure: Patient tolerated procedure well Post-Debridement Measurements and Additional Note: Post-Debridement Measurements/Treatment - Nurse 1 - General Ulcer Assessment Start: 05/05/24 08:50 Freq: Status: Active Protocol: ISAIAH Activity Type Activity Date Activity User E-sign Co-sign Detail Recorded Client Recorded Date Recorded By Document 05/05/24 08:50 RB [id number] 05/05/24 08:52 RB Document 05/12/24 08:23 RB [id number] 05/12/24 08:35 RB Document 05/19/24 08:55 RB [id number] 05/19/24 08:58 RB Document 05/26/24 08:40 KW [id number] 05/26/24 08:47 KW 05/05/24 05/12/24 05/19/24 08:50 08:23 08:55 - Today's Visit Information Type of service Follow-up Visit Follow-up Visit Follow-up Visit (Physician/COVERED BUCKLE ASSEMBLER (Physician/COVERED BUCKLE ASSEMBLER (Physician/COVERED BUCKLE ASSEMBLER ) ) ) Arrival Mode Ambulatory Ambulatory Ambulatory Transfer Assistance None None None Patient Identification Verified (Name & Yes Yes Yes ) Patient Requires Transmission-Based No No No Precautions Vital Signs Temperature (97.8 F-99.1 F) 96.6 F L 96.4 F L 96.5 F L Temperature Source Temporal Temporal Temporal Pulse Rate (60-100) 67 64 63 Pulse Location Monitor Monitor Monitor Respiratory Rate (12-18) 18 18 18 Respiratory rate source Observation Observation Observation Oxygen Delivery Method Blood Pressure (90/60-120/80) 136/70 H 119/48 L 130/60 H Blood Pressure Mean (mm Hg) 92 71 83 Source Monitor Monitor Monitor Position Semi-Fowlers Semi-Fowlers Semi-Fowlers Blood Pressure Location Left Arm Left Arm Left Arm History Since Last Visit- (Skip if this is Patient's initial visit) Have you changed medications since your No No No last visit? Any new allergies or adverse reactions No No No Had a fall/change in ADL's that may No No No increase risk of falls Signs or symptoms of abuse and/or No No No neglect since last visit Have you been in the hospital since your No No No last visit? Has dressing in place as prescribed Yes Yes Yes Has compression in place as prescribed Yes Yes Yes Has offloadiing in place as prescribed No No No Experienced any changes in pain level or No No No management Left Footwear Right Footwear Pain Scale: 0-10 Numeric Is Patient Pain Free? Yes Yes Yes 05/26/24 08:40 WC - Today's Visit Information Type of service Follow-up Visit (Physician/COVERED BUCKLE ASSEMBLER ) Arrival Mode Ambulatory Transfer Assistance Patient Identification Verified (Name & Yes ) Patient Requires Transmission-Based Precautions Vital Signs Temperature (97.8 F-99.1 F) 96.0 F L Temperature Source Temporal Pulse Rate (60-100) 59 L Pulse Location Monitor Respiratory Rate (12-18) 18 Respiratory rate source Observation Oxygen Delivery Method Room Air Blood Pressure (90/60-120/80) 127/63 H Blood Pressure Mean (mm Hg) 84 Source Monitor Position Semi-Fowlers Blood Pressure Location Left Arm History Since Last Visit- (Skip if this is Patient's initial visit) Have you changed medications since your No last visit? Any new allergies or adverse reactions No Had a fall/change in ADL's that may No increase risk of falls Signs or symptoms of abuse and/or No neglect since last visit Have you been in the hospital since your No last visit? Has dressing in place as prescribed Yes Has compression in place as prescribed Yes Has offloadiing in place as prescribed N/A Experienced any changes in pain level or No management Left Footwear Regular Shoe Right Footwear Regular Shoe Pain Scale: 0-10 Numeric Is Patient Pain Free? Yes - Nurse 1 - General Ulcer Measurement Start: 05/05/24 08:50 Freq: Status: Active Protocol: Activity Type Activity Date Activity User E-sign Co-sign Detail Recorded Client Recorded Date Recorded By Document 05/05/24 08:50 RB [id number] 05/05/24 08:52 RB Edit Result 05/05/24 08:50 RB (1) [id number] 05/05/24 08:53 RB Document 05/12/24 08:23 RB [id number] 05/12/24 08:35 RB Document 05/19/24 08:55 RB [id number] 05/19/24 08:58 RB Document 05/26/24 08:40 KW [id number] 05/26/24 08:47 KW (1) Lower Limb Edema Present => Yes Right Calf (cm) => 35 Right Ankle (cm) => 22 05/05/24 05/12/24 05/19/24 08:50 08:23 08:55 Wound Center Nurse 1 #4 RT MED ANKLE -Combined with other wound No No No -Current Size (cm) - Length 0.1 0.4 0.7 -Current Size (cm) - Width 0.1 0.6 0.5 -Current Size (cm) - Depth 0.1 0.1 0.1 -Total Square Cm 0.01 0.24 0.35 -Photo Taken No Yes No -Tunneling No No No -Undermining/Tunneling No No No -Circular Undermining No No No -Exudate Amt Medium Medium Medium -Exudate Type Serosanguineous Serosanguineous Serosanguineous -Wound Margin Distinct, Distinct, Distinct, Outline Outline Outline Attached Attached Attached -Granulation Amt Medium (34-66%) Medium (34-66%) Medium (34-66%) -Granulation Quality Sutherland Sutherland Sutherland -Slough/Fibrin Yes Yes Yes -Necrosis Amt Small (1-33%) Small (1-33%) Medium (34-66%) -Necrotic Tissue Type Adherent Slough Adherent Slough Adherent Slough -Structure Exposed N/A N/A N/A -Texture (Nacny-wound Skin Appearance) Assessed Assessed, Assessed Scarring -Moisture (Nancy-wound Skin Appearance) Assessed Assessed Assessed -Color (Nancy-wound Skin Appearance) Assessed Assessed Assessed, Hemosiderin Staining -Temperature (Nancy-wound Skin No Abnormality No Abnormality No Abnormality Appearance) (Pt Warm) (Pt Warm) (Pt Warm) -Tenderness on Palpation (Nancy-wound No No No Skin Appearance) -Ulcer Cleansing Wound Cleanser Wound Cleanser Wound Cleanser -Foul Odor after Cleansing No No No -Anesthetic Used 5% Lidocaine 5% Lidocaine 5% Lidocaine Gel Gel Gel -Wound Comment(s) PT REFUSED PHOTO OF WOUND DUE TO ZOROASTRIAN Lower Limb Edema Present Yes Right Calf (cm) 35 Right Ankle (cm) 22 05/26/24 08:40 Wound Center Nurse 1 #4 RT MED ANKLE -Combined with other wound -Current Size (cm) - Length 2 -Current Size (cm) - Width 0.5 -Current Size (cm) - Depth 0.1 -Total Square Cm 1.0 -Photo Taken -Tunneling -Undermining/Tunneling -Circular Undermining -Exudate Amt Small -Exudate Type Serosanguineous -Wound Margin Distinct, Outline Attached -Granulation Amt Large (67-100%) -Granulation Quality Sutherland -Slough/Fibrin -Necrosis Amt -Necrotic Tissue Type -Structure Exposed -Texture (Nancy-wound Skin Appearance) Assessed -Moisture (Nancy-wound Skin Appearance) Maceration -Color (Nancy-wound Skin Appearance) Assessed -Temperature (Nancy-wound Skin No Abnormality Appearance) (Pt Warm) -Tenderness on Palpation (Nancy-wound No Skin Appearance) -Ulcer Cleansing Rinsed/ Irrigated with Saline -Foul Odor after Cleansing No -Anesthetic Used 5% Lidocaine Gel -Wound Comment(s) Lower Limb Edema Present Right Calf (cm) Right Ankle (cm) WC - Nurse 2 - General Ulcer CM Notes Start: 05/05/24 08:50 Freq: Status: Active Protocol: Activity Type Activity Date Activity User E-sign Co-sign Detail Recorded Client Recorded Date Recorded By Document 05/05/24 08:58 [id number] 05/05/24 09:02 Document 05/12/24 08:59 [id number] 05/12/24 09:07 GM Document 05/19/24 09:07 [id number] 05/19/24 09:14 Document 05/26/24 08:50 [id number] 05/26/24 08:57 05/05/24 05/12/24 05/19/24 08:58 08:59 09:07 Wound Center Nurse 2 #4 RT MED ANKLE -Time 08:58 09:01 09:08 -Correct Patient Yes Yes Yes -Correct Side, Site, Position Yes Yes Yes -Correct Procedure Yes Yes Yes -Procedure Performed Yes Yes Yes -Type of Procedure Debridement Debridement Debridement -Clinical Debridement Subcutaneous Subcutaneous Subcutaneous -Tissue Removed Subcutaneous Subcutaneous Subcutaneous -Post Debridement (cm) - Length 0.5 0.6 0.9 -Post Debridement (cm) - Width 0.4 0.4 0.4 -Post Debridement (cm) - Depth 0.1 0.1 0.1 -Total Square (Post) (cm) 0.20 0.24 0.36 -Area of Debridement (cm) - Length 0.5 0.6 0.9 -Area of Debridement (cm) - Width 0.4 0.4 0.4 -Total Square (Area) (cm) 0.20 0.24 0.36 -Tunneling No No No -Undermining/Tunneling No No No -Circular Undermining No No No -Wound/Ulcer Outcome Not Healed Not Healed Not Healed -Ulcer Cleansing Rinsed/ Rinsed/ Rinsed/ Irrigated with Irrigated with Irrigated with Saline Saline Saline -Foul Odor after Cleansing No No No -Bioengineered Tissue No No No -Bleeding Controlled with Pressure Pressure Pressure -Treatment Response Procedure Procedure Procedure Tolerated Well Tolerated Well Tolerated Well -Debridement - Subq, 1st 20sq cm Yes Yes Yes Pain Scale: 0-10 Numeric Is Patient Pain Free? Yes Yes Yes 05/26/24 08:50 Wound Center Nurse 2 #4 RT MED ANKLE -Time 08:51 -Correct Patient Yes -Correct Side, Site, Position Yes -Correct Procedure Yes -Procedure Performed Yes -Type of Procedure Debridement -Clinical Debridement Subcutaneous -Tissue Removed Subcutaneous -Post Debridement (cm) - Length 0.5 -Post Debridement (cm) - Width 0.2 -Post Debridement (cm) - Depth 0.1 -Total Square (Post) (cm) 0.10 -Area of Debridement (cm) - Length 0.5 -Area of Debridement (cm) - Width 0.2 -Total Square (Area) (cm) 0.10 -Tunneling No -Undermining/Tunneling No -Circular Undermining No -Wound/Ulcer Outcome Not Healed -Ulcer Cleansing Rinsed/ Irrigated with Saline -Foul Odor after Cleansing No -Bioengineered Tissue No -Bleeding Controlled with Pressure -Treatment Response Procedure Tolerated Well -Debridement - Subq, 1st 20sq cm Yes Pain Scale: 0-10 Numeric Is Patient Pain Free? Yes - Nurse 3 - General Ulcer D/C NN Start: 05/05/24 08:50 Freq: Status: Active Protocol: Activity Type Activity Date Activity User E-sign Co-sign Detail Recorded Client Recorded Date Recorded By Document 05/05/24 09:22 DS [id number] 05/05/24 09:24 DS Document 05/12/24 09:28 GM [id number] 05/12/24 09:29 GM Document 05/19/24 10:10 RB [id number] 05/19/24 10:11 RB Document 05/26/24 08:59 KW [id number] 05/26/24 09:00 KW 05/05/24 05/12/24 05/19/24 09:22 09:28 10:10 Wound Care Center Nurse 3 #4 RT MED ANKLE -Ulcer Cleansing Rinsed/ Not Cleansed Rinsed/ Irrigated with Irrigated with Saline Saline -Foul Odor after Cleansing No -Primary Dressing Applied Promogran NonAdherent Promogran Contact Layer, Promogran -Other Dressing two venous stasis pads applied over roll gauze -Primary Dressing Covered/Secured with Other Dry Gauze & Dry Gauze & Roll Gauze, Roll Gauze, Secured with Secured with Tape Tape -Other Covering adaptic, gauze, stasis pad, conforming wrap -Promogran 1 1 1 Right -Stockings Yes -Other Treatment Response Procedure Tolerated Well Pain Scale: 0-10 Numeric Is Patient Pain Free? Yes Yes Yes WC - Visit Discharge Discharge Condition Stable Stable Stable Ambulatory Status Ambulatory Ambulatory Ambulatory Transportation Private Auto Private Auto Private Auto Medication Reconcilliation completed & Yes No provided to patient/care provider Clinical Summary of Care Provided Yes Yes 05/26/24 08:59 Wound Care Center Nurse 3 #4 RT MED ANKLE -Ulcer Cleansing -Foul Odor after Cleansing -Primary Dressing Applied Promogran -Other Dressing -Primary Dressing Covered/Secured with Dry Gauze & Roll Gauze, Secured with Tape -Other Covering -Promogran 1 Right -Stockings -Other pt own compression Treatment Response Pain Scale: 0-10 Numeric Is Patient Pain Free? Yes WC - Visit Discharge Discharge Condition Ambulatory Status Transportation Medication Reconcilliation completed & provided to patient/care provider Clinical Summary of Care Provided Assessment/Plan Assessment/Plan (1) Venous stasis ulcer of right ankle with fat layer exposed: CODE(S): I83.013 - Varicose veins of right lower extremity with ulcer of ankle; L97.312 - Non-pressure chronic ulcer of right ankle with fat layer exposed QUALIFIERS: Varicose vein presence: with varicose veins Qualified Code(s): I83.013 - Varicose veins of right lower extremity with ulcer of ankle; L97.312 - Non-pressure chronic ulcer of right ankle with fat layer exposed (2) Peripheral vascular disease of lower extremity with ulceration: CODE(S): I73.9 - Peripheral vascular disease, unspecified; L97.909 - Non- pressure chronic ulcer of unspecified part of unspecified lower leg with unspecified severity (3) Nonhealing nonsurgical wound with fat layer exposed: CODE(S): T14.8XXA - Other injury of unspecified body region, initial enco unter (4) Cellulitis of lower extremity: CODE(S): L03.119 - Cellulitis of unspecified part of limb QUALIFIERS: Laterality: right Qualified Code(s): L03.115 - Cellulitis of right lower limb (5) Edema, lower extremity: CODE(S): R60.0 - Localized edema (6) Essential (primary) hypertension: CODE(S): I10 - Essential (primary) hypertension (7) Chronic atrial fibrillation: CODE(S): I48.2 - Chronic atrial fibrillation PLAN: Plan Debridement performed today in clinic as annotated above. At home wound-care instructions: Will have her continue to use Promogran and adaptic and cover with foam dressing or gauze and have her add a venous stasis pad over the ulcer. Will also continue venous stasis pad to the other side of her ankle as she has increased swelling and some blistering there last week that has resolved. She will use compression stocking for compression for her edema. Keep dressing clean and dry. Off-loading: The patient was instructed to avoid pressure and friction on the affected areas. Reposition every 2 hours at minimum. Avoid prolonged standing and/or dangling of legs. When seated, feet should be elevated at chest level. Frequent ambulation is encouraged. Diet: Patient encouraged to increase protein intake while taking caution to avoid high carbohydrate and/or sugar intake. Labs/cultures/imaging: Wound culture taken today and will treat based on results. She is scheduled to see Dr. Cesar for discussion of procedure for venous insufficiency with recurrent ulcers on 06/01/24. Follow-up: Return in 1 week for wound care follow up. Return sooner or report to the emergency room should symptoms worsen, or new symptoms arise. Note: [employer] speech recognition energy conservation engineer software was used to create portions of this document. Sound-alike and misspelled words, as well as other energy conservation engineer errors may be contained in the documentation.
== END 2024-06-01 23:59 | disposition home or self-care (01) ==
LOC: WC 09:00
PROVIDERS: PCP Family Medicine; Referring Provider Family Medicine; Visit Provider Family Medicine
DX: I83.013 Varicose veins of right lower extremity with ulcer of ankle (principal); L97.312 Non-pressure chronic ulcer of right ankle with fat layer exposed; I48.20 Chronic atrial fibrillation, unspecified; L03.115 Cellulitis of right lower limb; I10 Essential (primary) hypertension; R60.0 Localized edema; Z79.01 Long term (current) use of anticoagulants; Z79.899 Other long term (current) drug therapy
CPT/HCPCS: 11042

== ENCOUNTER 2024-06-12 09:32 | Outpatient (RCR) | payer OTHER, SELFPAY ==
[2024-06-01 21:27] VITALS: BMI 26.8
[2024-06-12 10:17] LABS: International Normalized Ratio 2.6; Prothrombin Time (Protime)PT. 27.5 SECONDS (11.7-14.9)
== END 2024-07-01 18:00 | disposition home or self-care (01) ==
LOC: LAB 09:32
PROVIDERS: Family Provider Family Medicine; PCP Family Medicine; Referring Provider Family Medicine; Visit Provider Family Medicine
DX: I48.91 Unspecified atrial fibrillation (principal)
CPT/HCPCS: 36415; 85610

== ENCOUNTER → 2024-06-12 | Outpatient (CLI) | payer SELFPAY, OTHER | END | disposition home or self-care (01) | LOC: CVS 08:59 | PROVIDERS: PCP Family Medicine; Referring Provider Surgery Trauma Surgery; Visit Provider Surgery Trauma Surgery | DX: I83.013 Varicose veins of right lower extremity with ulcer of ankle (principal); L97.312 Non-pressure chronic ulcer of right ankle with fat layer exposed; R60.0 Localized edema | CPT/HCPCS: 93971 ==

== ENCOUNTER 2024-06-23 09:00 | Outpatient (RCR) | payer OTHER, SELFPAY ==
[2024-06-02 00:41] VITALS: BP 134/61; PULSE 68; RESP 18; TEMP 36.1
[2024-06-02 08:34] VITALS: BP 112/40; PULSE 60; RESP 18; TEMP 35.6
--- NOTE | 2024-06-02 12:11 | PCM.WC.PN ---
History of Present Illness Date of Service: 06/02/24 Chief Complaint: right medial ankle ulcer History of Wound: Emani is a pleasant 78-year-old white [place] female who presents to the wound healing center for an evaluation of a right medial ankle venous leg ulcer. She had previously been seen at the [facility] wound healing center for 2 other right venous leg ulcers. She has a past medical history significant for atrial fibrillation and is on chronic anticoagulation with Coumadin, hypertension, peripheral venous disease. The ulcer started in January with pain and itching to the area and then it became red and started draining a large amount of serous fluid. She was seen by urgent care and prescribed Bactrim. She has been dressing the ulcer with Telfa bandages. She normally wear compression stockings daily but does not have them on today. She has noted improvement in the ulcer since taking the antibiotic but it remains open and is still draining heavily at times. She wears compression stockings (20-30 mmHg) daily, and this has been of benefit for her bilateral lower extremity edema. 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 She had a bilateral lower extremity venous Doppler studies in October 2018 and October 2020, which demonstrated incompetence of the left saphenofemoral junction, incompetence of the right greater saphenous vein below the knee, and segmental incompetence of the left greater saphenous vein. She had bilateral lower extremity arterial studies in August 2020 which showed no evidence of significant arterial occlusive disease in the bilateral lower extremities. She was referred to vascular surgery previously for consideration for operative intervention for venous incompetence but did not follow through with referral but is ready to proceed with referral for prevention of recurrent ulcers. The patient denies any fever, chills. Denies any increasing pain, redness, swelling, or purulent/malodorous drainage from affected area. Subjective Subjective Emani returns today for follow up of ulcer of right medial ankle. She tolerated treatment with Promogran, adaptic and foam dressing for moderate drainage and venous stasis pad. This is improving. She denies fever, chills, odor. Objective Data Objective Data Vital Signs: Vital Signs Temp Pulse Resp BP O2 Del Method 96.1 F L 60 18 112/40 L Room Air 06/02/24 08:34 06/02/24 08:34 06/02/24 08:34 06/02/24 08:34 06/02/24 08:34 Oxygen Delivery Method Room Air Physical Exam Const alert, oriented x3 and no apparent distress General Appearance: cooperative and comfortable HEENT normocephalic and head/scalp atraumatic Resp normal respiratory effort Effort and Inspection: able to speak in complete sentences Cardio regular rate and regular rhythm Skin Wounds: wounds noted Wound Narrative: as in clinical panel Psych mental status grossly normal, thought process normal, cooperative and affect normal Debridement Note Debridement Note Wound debrided: right medial ankle Laterality: Right Type of Debridement: Excisional debridement Anesthesia Used: 5% Lidocaine Gel and Cetacaine Depth: Down to and including healthy tissue and in the subcutaneous layer Percentage of wound debrided: 100 Instrument Used: 3mm curette Tissue Removed: Yellow slough, devitalized tissue Severity: Fat Layer Exposed Amount of bleeding with debridement: Mild Bleeding Controlled with: Compression and gauze Patient tolerated procedure: Patient tolerated procedure well Post-Debridement Measurements and Additional Note: Post-Debridement Measurements/Treatment MARILOU - Nurse 1 - General Ulcer Assessment Start: 06/02/24 08:34 Freq: Status: Active Protocol: ISAIAH Activity Type Activity Date Activity User E-sign Co-sign Detail Recorded Client Recorded Date Recorded By Document 06/02/24 08:34 RADHA [id number] 06/02/24 08:43 RADHA 06/02/24 08:34 MARILOU - Today's Visit Information Type of service Follow-up Visit (Physician/SKEIN BANDER ) Arrival Mode Ambulatory Patient Identification Verified (Name & Yes ) Vital Signs Temperature (97.8 F-99.1 F) 96.1 F L Temperature Source Temporal Pulse Rate (60-100) 60 Pulse Location Monitor Respiratory Rate (12-18) 18 Respiratory rate source Observation Oxygen Delivery Method Room Air Blood Pressure (90/60-120/80) 112/40 L Blood Pressure Mean (mm Hg) 64 Source Monitor Position Semi-Fowlers Blood Pressure Location Right Arm History Since Last Visit- (Skip if this is Patient's initial visit) Have you changed medications since your No last visit? Any new allergies or adverse reactions No Had a fall/change in ADL's that may No increase risk of falls Signs or symptoms of abuse and/or No neglect since last visit Have you been in the hospital since your No last visit? Has dressing in place as prescribed Yes Has compression in place as prescribed Yes Has offloadiing in place as prescribed N/A Experienced any changes in pain level or No management Left Footwear Regular Shoe Right Footwear Regular Shoe Pain Scale: 0-10 Numeric Is Patient Pain Free? Yes - Nurse 1 - General Ulcer Measurement Start: 06/02/24 08:34 Freq: Status: Active Protocol: Activity Type Activity Date Activity User E-sign Co-sign Detail Recorded Client Recorded Date Recorded By Document 06/02/24 08:34 [id number] 06/02/24 08:43 06/02/24 08:34 Wound Center Nurse 1 #4 RT MED ANKLE -Current Size (cm) - Length 1.8 -Current Size (cm) - Width 0.5 -Current Size (cm) - Depth 0.1 -Total Square Cm 0.90 -Exudate Amt Small -Exudate Type Serosanguineous -Wound Margin Distinct, Outline Attached -Granulation Amt Medium (34-66%) -Granulation Quality [place] -Necrosis Amt Medium (34-66%) -Necrotic Tissue Type Adherent Slough -Texture (Nancy-wound Skin Appearance) Assessed -Moisture (Nancy-wound Skin Appearance) Assessed -Color (Nancy-wound Skin Appearance) Assessed -Temperature (Nancy-wound Skin No Abnormality Appearance) (Pt Warm) -Tenderness on Palpation (Nancy-wound No Skin Appearance) -Ulcer Cleansing Rinsed/ Irrigated with Saline -Foul Odor after Cleansing No -Anesthetic Used 5% Lidocaine Gel - Nurse 2 - General Ulcer CM Notes Start: 06/02/24 08:34 Freq: Status: Active Protocol: Activity Type Activity Date Activity User E-sign Co-sign Detail Recorded Client Recorded Date Recorded By Document 06/02/24 09:14 [id number] 06/02/24 09:17 06/02/24 09:14 Wound Center Nurse 2 -Time 09:14 -Correct Patient Yes -Correct Side, Site, Position Yes -Correct Procedure Yes -Procedure Performed Yes -Type of Procedure Debridement -Clinical Debridement Subcutaneous -Tissue Removed Subcutaneous -Post Debridement (cm) - Length 0.8 -Post Debridement (cm) - Width 0.3 -Post Debridement (cm) - Depth 0.1 -Total Square (Post) (cm) 0.24 -Area of Debridement (cm) - Length 0.8 -Area of Debridement (cm) - Width 0.3 -Total Square (Area) (cm) 0.24 -Tunneling No -Undermining/Tunneling No -Circular Undermining No -Wound/Ulcer Outcome Not Healed -Ulcer Cleansing Rinsed/ Irrigated with Saline -Foul Odor after Cleansing No -Bioengineered Tissue No -Bleeding Controlled with Pressure -Treatment Response Procedure Tolerated Well -Debridement - Subq, 1st 20sq cm Yes Pain Scale: 0-10 Numeric Is Patient Pain Free? Yes WC - Nurse 3 - General Ulcer D/C NN Start: 06/02/24 08:34 Freq: Status: Active Protocol: Activity Type Activity Date Activity User E-sign Co-sign Detail Recorded Client Recorded Date Recorded By Document 06/02/24 09:43 RB [id number] 06/02/24 09:44 RB 06/02/24 09:43 Wound Care Center Nurse 3 #4 RT MED ANKLE -Ulcer Cleansing Rinsed/ Irrigated with Saline -Primary Dressing Applied C Hydrogel ($), NonAdherent Contact Layer, Promogran -Other Dressing two venous stasis pad over roll gauze -Primary Dressing Covered/Secured with Dry Gauze,Dry Gauze & Roll Gauze,Secured with Tape -Promogran 1 Right -Stockings Yes Treatment Response Procedure Tolerated Well Pain Scale: 0-10 Numeric Is Patient Pain Free? Yes WC - Visit Discharge Discharge Condition Stable Ambulatory Status Ambulatory Transportation Private Auto Medication Reconcilliation completed & No provided to patient/care provider Clinical Summary of Care Provided Yes Assessment/Plan Assessment/Plan (1) Venous stasis ulcer of right ankle with fat layer exposed: CODE(S): I83.013 - Varicose veins of right lower extremity with ulcer of ankle; L97.312 - Non-pressure chronic ulcer of right ankle with fat layer exposed QUALIFIERS: Varicose vein presence: with varicose veins Qualified Code(s): I83.013 - Varicose veins of right lower extremity with ulcer of ankle; L97.312 - Non-pressure chronic ulcer of right ankle with fat layer exposed (2) Peripheral vascular disease of lower extremity with ulceration: CODE(S): I73.9 - Peripheral vascular disease, unspecified; L97.909 - Non-pressure chronic ulcer of unspecified part of unspecified lower leg with unspecified severity (3) Nonhealing nonsurgical wound with fat layer exposed: CODE(S): T14.8XXA - Other injury of unspecified body region, initial encounter (4) Cellulitis of lower extremity: CODE(S): L03.119 - Cellulitis of unspecified part of limb QUALIFIERS: Laterality: right Qualified Code(s): L03.115 - Cellulitis of right lower limb (5) Edema, lower extremity: CODE(S): R60.0 - Localized edema (6) Essential (primary) hypertension: CODE(S): I10 - Essential (primary) hypertension (7) Chronic atrial fibrillation: CODE(S): I48.2 - Chronic atrial fibrillation PLAN: Plan Debridement performed today in clinic as annotated above. At home wound-care instructions: Will have her continue to use hydrogel to ulcer and then apply Promogran and adaptic and cover with foam dressing or gauze and have her add a venous stasis pad over the ulcer. Will also continue venous stasis pad to the other side of her ankle as she has increased swelling and some blistering there last week that has resolved. She will use compression stocking for compression for her edema. Keep dressing clean and dry. Triamcinolone cream prescribed to apply to nancy-wound. Off-loading: The patient was instructed to avoid pressure and friction on the affected areas. Reposition every 2 hours at minimum. Avoid prolonged standing and/or dangling of legs. When seated, feet should be elevated at chest level. Frequent ambulation is encouraged. Diet: Patient encouraged to increase protein intake while taking caution to avoid high carbohydrate and/or sugar intake. Labs/cultures/imaging: Wound culture taken today and will treat based on results. She saw Dr. Cesar on 06/01/24 and he is planning on several tests and ultimately treating the venous insufficiency with ablation or glue. Follow-up: Return in 1 week for wound care follow up. Return sooner or report to the emergency room should symptoms worsen, or new symptoms arise. Note: [employer] speech recognition switching operator software was used to create portions of this document. Sound-alike and misspelled words, as well as other switching operator errors may be contained in the documentation.
[2024-06-09 08:32] VITALS: BP 138/52; PULSE 60; RESP 18; TEMP 35.9
--- NOTE | 2024-06-09 09:29 | PN.PCM_ITS ---
History of Present Illness Date of Service: 06/09/24 Chief Complaint: right medial ankle ulcer History of Wound: Emani is a pleasant 78-year-old white [place] female who presents to the wound healing center for an evaluation of a right medial ankle venous leg ulcer. She had previously been seen at the [facility] wound healing center for 2 other right venous leg ulcers. She has a past medical history significant for atrial fibrillation and is on chronic anticoagulation with Coumadin, hypertension, peripheral venous disease. The ulcer started in January with pain and itching to the area and then it became red and started draining a large amount of serous fluid. She was seen by urgent care and prescribed Bactrim. She has been dressing the ulcer with Telfa bandages. She normally wear compression stockings daily but does not have them on today. She has noted improvement in the ulcer since taking the antibiotic but it remains open and is still draining heavily at times. She wears compression stockings (20-30 mmHg) daily, and this has been of benefit for her bilateral lower ext remity edema. 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 She had a bilateral lower extremity venous Doppler studies in October 2018 and October 2020, which demonstrated incompetence of the left saphenofemoral junction, incompetence of the right greater saphenous vein below the knee, and segmental incompetence of the left greater saphenous vein. She had bilateral lower extremity arterial studies in August 2020 which showed no evidence of significant arterial occlusive disease in the bilateral lower extremities. She was referred to vascular surgery previously for consideration for operative intervention for venous incompetence but did not follow through with referral but is ready to proceed with referral for prevention of recurrent ulcers. The patient denies any fever, chills. Denies any increasing pain, redness, swelling, or purulent/malodorous drainage from affected area. Subjective Subjective Emnai returns today for follow up of ulcer of right medial ankle. She tolerated treatment with Promogran, adaptic and foam dressing for moderate drainage and venous stasis pad. This is stable. She is scheduled for further testing and vascular surgery is planning on ablation procedure. She denies fever, chills, odor. Objective Data Objective Data Vital Signs: Vital Signs Temp Pulse Resp BP O2 Del Method 96.6 F L 60 18 138/52 H Room Air 06/09/24 08:32 06/09/24 08:32 06/09/24 08:32 06/09/24 08:32 06/09/24 08:32 Oxygen Delivery Method Room Air Physical Exam Const alert, oriented x3 and no apparent distress General Appearance: cooperative and comfortable HEENT normocephalic and head/scalp atraumatic Resp normal respiratory effort Effort and Inspection: able to speak in complete sentences Cardio regular rate and regular rhythm Skin Wounds: wounds noted Wound Narrative: as in clinical panel Psych mental status grossly normal, thought process normal, cooperative and affect normal Debridement Note Debridement Note Wound debrided: right medial ankle Laterality: Right Type of Debridement: Excisional debridement Anesthesia Used: 5% Lidocaine Gel Depth: Down to and including healthy tissue and in the subcutaneous layer Percentage of wound debrided: 100 Instrument Used: 3mm curette Tissue Removed: Yellow slough, devitalized tissue Severity: Fat Layer Exposed Amount of bleeding with debridement: Mild Bleeding Controlled with: Compression and gauze Patient tolerated procedure: Patient tolerated procedure well Post-Debridement Measurements and Additional Note: Post-Debridement Measurements/Treatment - Nurse 1 - General Ulcer Assessment Start: 06/02/24 08:34 Freq: Status: Active Protocol: WC.STACEYT Activity Type Activity Date Activity User E-sign Co-sign Detail Recorded Client Recorded Date Recorded By Document 06/02/24 08:34 [id number] 06/02/24 08:43 KW Document 06/09/24 08:32 KW [id number] 06/09/24 08:41 KW 06/02/24 06/09/24 08:34 08:32 - Today's Visit Information Type of service Follow-up Visit Follow-up Visit (Physician/DRY KILN LOADER (Physician/DRY KILN LOADER ) ) Arrival Mode Ambulatory Ambulatory Patient Identification Verified (Name & Yes Yes ) Patient Requires Transmission-Based No Precautions Vital Signs Temperature (97.8 F-99.1 F) 96.1 F L 96.6 F L Temperature Source Temporal Temporal Pulse Rate (60-100) 60 60 Pulse Location Monitor Monitor Respiratory Rate (12-18) 18 18 Respiratory rate source Observation Observation Oxygen Delivery Method Room Air Room Air Blood Pressure (90/60-120/80) 112/40 L 138/52 H Blood Pressure Mean (mm Hg) 64 80 Source Monitor Monitor Position Semi-Fowlers Sitting Blood Pressure Location Right Arm Left Arm History Since Last Visit- (Skip if this is Patient's initial visit) Have you changed medications since your No No last visit? Any new allergies or adverse reactions No No Had a fall/change in ADL's that may No No increase risk of falls Signs or symptoms of abuse and/or No No neglect since last visit Have you been in the hospital since your No No last visit? Has dressing in place as prescribed Yes Yes Has compression in place as prescribed Yes Yes Has offloadiing in place as prescribed N/A N/A Experienced any changes in pain level or No No management Left Footwear Regular Shoe Regular Shoe Right Footwear Regular Shoe Regular Shoe Pain Scale: 0-10 Numeric Is Patient Pain Free? Yes Yes WC - Nurse 1 - General Ulcer Measurement Start: 06/02/24 08:34 Freq: Status: Active Protocol: Activity Type Activity Date Activity User E-sign Co-sign Detail Recorded Client Recorded Date Recorded By Document 06/02/24 08:34 KW [id number] 06/02/24 08:43 KW Document 06/09/24 08:32 KW [id number] 06/09/24 08:41 KW 06/02/24 06/09/24 08:34 08:32 Wound Center Nurse 1 #4 RT MED ANKLE -Combined with other wound No -Current Size (cm) - Length 1.8 0.1 -Current Size (cm) - Width 0.5 0.1 -Current Size (cm) - Depth 0.1 0.1 -Total Square Cm 0.90 0.01 -Tunneling No -Undermining/Tunneling No -Circular Undermining No -Exudate Amt Small Small -Exudate Type Serosanguineous Serosanguineous -Wound Margin Distinct, Distinct, Outline Outline Attached Attached -Granulation Amt Medium (34-66%) Large (67-100%) -Granulation Quality [place] Red -Slough/Fibrin Yes -Necrosis Amt Medium (34-66%) Small (1-33%) -Necrotic Tissue Type Adherent Slough Adherent Slough -Structure Exposed N/A -Texture (Nancy-wound Skin Appearance) Assessed Assessed -Moisture (Nancy-wound Skin Appearance) Assessed Assessed -Color (Nancy-wound Skin Appearance) Assessed Assessed -Temperature (Nancy-wound Skin No Abnormality No Abnormality Appearance) (Pt Warm) (Pt Warm) -Tenderness on Palpation (Nancy-wound No No Skin Appearance) -Ulcer Cleansing Rinsed/ Soap and Water Irrigated with Saline -Foul Odor after Cleansing No No -Anesthetic Used 5% Lidocaine 5% Lidocaine Gel Gel Lower Limb Edema Present Yes Right Calf (cm) 34 Right Ankle (cm) 21.5 WC - Nurse 2 - General Ulcer CM Notes Start: 06/02/24 08:34 Freq: Status: Active Protocol: Activity Type Activity Date Activity User E-sign Co-sign Detail Recorded Client Recorded Date Recorded By Document 06/02/24 09:14 [id number] 06/02/24 09:17 Document 06/09/24 08:54 [id number] 06/09/24 09:02 06/02/24 06/09/24 09:14 08:54 Wound Center Nurse 2 #4 RT MED ANKLE -Time 09:14 08:54 -Correct Patient Yes Yes -Correct Side, Site, Position Yes Yes -Correct Procedure Yes Yes -Procedure Performed Yes Yes -Type of Procedure Debridement Debridement -Clinical Debridement Subcutaneous Subcutaneous -Tissue Removed Subcutaneous Subcutaneous -Post Debridement (cm) - Length 0.8 0.8 -Post Debridement (cm) - Width 0.3 0.3 -Post Debridement (cm) - Depth 0.1 0.1 -Total Square (Post) (cm) 0.24 0.24 -Area of Debridement (cm) - Length 0.8 0.8 -Area of Debridement (cm) - Width 0.3 0.3 -Total Square (Area) (cm) 0.24 0.24 -Tunneling No No -Undermining/Tunneling No No -Circular Undermining No No -Wound/Ulcer Outcome Not Healed Not Healed -Ulcer Cleansing Rinsed/ Rinsed/ Irrigated with Irrigated with Saline Saline -Foul Odor after Cleansing No No -Bioengineered Tissue No No -Bleeding Controlled with Pressure Pressure -Treatment Response Procedure Procedure Tolerated Well Tolerated Well -Debridement - Subq, 1st 20sq cm Yes Yes Pain Scale: 0-10 Numeric Is Patient Pain Free? Yes Yes WC - Nurse 3 - General Ulcer D/C NN Start: 06/02/24 08:34 Freq: Status: Active Protocol: Activity Type Activity Date Activity User E-sign Co-sign Detail Recorded Client Recorded Date Recorded By Document 06/02/24 09:43 RB [id number] 06/02/24 09:44 RB Document 06/09/24 09:16 [id number] 06/09/24 09:17 KW 06/02/24 06/09/24 09:43 09:16 Wound Care Center Nurse 3 #4 RT MED ANKLE -Ulcer Cleansing Rinsed/ Irrigated with Saline -Primary Dressing Applied C Hydrogel ($), Aquacel Extra, NonAdherent NonAdherent Contact Layer, Contact Layer, Promogran Promogran -Other Dressing two venous hydrogel stasis pad over roll gauze -Primary Dressing Covered/Secured with Dry Gauze,Dry Dry Gauze & Gauze & Roll Roll Gauze, Gauze,Secured Secured with with Tape Tape -Aquacel Extra 1 -Promogran 1 1 Right -Stockings Yes -Other pt own compression stocking Treatment Response Procedure Tolerated Well Pain Scale: 0-10 Numeric Is Patient Pain Free? Yes Yes WC - Visit Discharge Discharge Condition Stable Ambulatory Status Ambulatory Transportation Private Auto Medication Reconcilliation completed & No provided to patient/care provider Clinical Summary of Care Provided Yes Assessment/Plan Assessment/Plan (1) Venous stasis ulcer of right ankle with fat layer exposed: CODE(S): I83.013 - Varicose veins of right lower extremity with ulcer of ankle; L97.312 - Non-pressure chronic ulcer of right ankle with fat layer exposed QUALIFIERS: Varicose vein presence: with varicose veins Qualified Code(s): I83.013 - Varicose veins of right lower extremity with ulcer of ankle; L97.312 - Non-pressure chronic ulcer of right ankle with fat layer exposed (2) Peripheral vascular disease of lower extremity with ulceration: CODE(S): I73.9 - Peripheral vascular disease, unspecified; L97.909 - Non- pressure chronic ulcer of unspecified part of unspecified lower leg with unspecified severity (3) Nonhealing nonsurgical wound with fat layer exposed: CODE(S): T14.8XXA - Other injury of unspecified body region, initial encounter (4) Cellulitis of lower extremity: CODE(S): L03.119 - Cellulitis of unspecified part of limb QUALIFIERS: Laterality: right Qualified Code(s): L03.115 - Cellulitis of right lower limb (5) Edema, lower extremity: CODE(S): R60.0 - Localized edema (6) Essential (primary) hypertension: CODE(S): I10 - Essential (primary) hypertension (7) Chronic atrial fibrillation: CODE(S): I48.2 - Chronic atrial fibrillation PLAN: Plan Debridement performed today in clinic as annotated above. At home wound-care instructions: Will have her continue to use hydrogel to ulcer and then apply Promogran and adaptic and cover with foam dressing or gauze and have her add a venous stasis pad over the ulcer. Will also continue venous stasis pad to the other side of her ankle as she has increased swelling and some blistering there last week that has resolved. She will use compression stocking for compression for her edema. Keep dressing clean and dry. Triamcinolone cream prescribed to apply to nancy-wound. Off-loading: The patient was instructed to avoid pressure and friction on the affected areas. Reposition every 2 hours at minimum. Avoid prolonged standing and/or dangling of legs. When seated, feet should be elevated at chest level. Frequent ambulation is encouraged. Diet: Patient encouraged to increase protein intake while taking caution to avoid high carbohydrate and/or sugar intake. Labs/cultures/imaging: She saw Dr. Cesar on 06/01/24 and he is planning on several tests and ultimately treating the venous insufficiency with ablation or glue. Follow-up: Return in 1 week for wound care follow up. Return sooner or report to the emergency room should symptoms worsen, or new symptoms arise. Note: [employer] speech recognition state federal relations deputy director software was used to create portions of this document. Sound-alike and misspelled words, as well as other state federal relations deputy director errors may be contained in the documentation.
[2024-06-16 08:26] VITALS: BP 123/43; PULSE 69; RESP 18; TEMP 36.3
--- NOTE | 2024-06-16 13:32 | PN.PCM_ITS ---
History of Present Illness Date of Service: 06/16/24 Chief Complaint: right medial ankle ulcer History of Wound: Emani is a pleasant 78-year-old white [place] female who presents to the wound healing center for an evaluation of a right medial ankle venous leg ulcer. She had previously been seen at the [facility] wound healing center for 2 other right venous leg ulcers. She has a past medical history significant for atrial fibrillation and is on chronic anticoagulation with Coumadin, hypertension, peripheral venous disease. The ulcer started in January with pain and itching to the area and then it became red and started draining a large amount of serous fluid. She was seen by urgent care and prescribed Bactrim. She has been dressing the ulcer with Telfa bandages. She normally wear compression stockings daily but does not have them on today. She has noted improvement in the ulcer since taking the antibiotic but it remains open and is still draining heavily at times. She wears compression stockings (20-30 mmHg) daily, and this has been of benefit for her bilateral lower ext remity edema. 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 She had a bilateral lower extremity venous Doppler studies in October 2018 and October 2020, which demonstrated incompetence of the left saphenofemoral junction, incompetence of the right greater saphenous vein below the knee, and segmental incompetence of the left greater saphenous vein. She had bilateral lower extremity arterial studies in August 2020 which showed no evidence of significant arterial occlusive disease in the bilateral lower extremities. She was referred to vascular surgery previously for consideration for operative intervention for venous incompetence but did not follow through with referral but is ready to proceed with referral for prevention of recurrent ulcers. The patient denies any fever, chills. Denies any increasing pain, redness, swelling, or purulent/malodorous drainage from affected area. Subjective Subjective Emani returns today for follow up of ulcer of right medial ankle. She tolerated treatment with Promogran, adaptic and foam dressing for moderate drainage and venous stasis pad. This is stable. She is scheduled for further testing and vascular surgery is planning on ablation procedure. She denies fever, chills, odor. Objective Data Objective Data Vital Signs: Vital Signs Temp Pulse Resp BP O2 Del Method 97.4 F L 69 18 123/43 H Room Air 06/16/24 08:26 06/16/24 08:26 06/16/24 08:26 06/16/24 08:26 06/16/24 08:26 Oxygen Delivery Method Room Air Physical Exam Const alert, oriented x3 and no apparent distress General Appearance: cooperative and comfortable HEENT normocephalic and head/scalp atraumatic Resp normal respiratory effort Effort and Inspection: able to speak in complete sentences Cardio regular rate and regular rhythm Skin Wounds: wounds noted Wound Narrative: as in clinical panel Psych mental status grossly normal, thought process normal, cooperative and affect normal Debridement Note Debridement Note Wound debrided: right medial ankle Laterality: Right Type of Debridement: Excisional debridement Anesthesia Used: 5% Lidocaine Gel Depth: Down to and including healthy tissue and in the subcutaneous layer Percentage of wound debrided: 100 Instrument Used: 3mm curette Tissue Removed: Yellow slough, devitalized tissue Severity: Fat Layer Exposed Amount of bleeding with debridement: Mild Bleeding Controlled with: Compression and gauze Patient tolerated procedure: Patient tolerated procedure well Post-Debridement Measurements and Additional Note: Post-Debridement Measurements/Treatment - Nurse 1 - General Ulcer Assessment Start: 06/02/24 08:34 Freq: Status: Active Protocol: .ANDRA Activity Type Activity Date Activity User E-sign Co-sign Detail Recorded Client Recorded Date Recorded By Document 06/02/24 08:34 [id number] 06/02/24 08:43 KW Document 06/09/24 08:32 KW [id number] 06/09/24 08:41 KW Document 06/16/24 08:26 KW [id number] 06/16/24 08:36 KW 06/02/24 06/09/24 06/16/24 08:34 08:32 08:26 - Today's Visit Information Type of service Follow-up Visit Follow-up Visit Follow-up Visit (Physician/EQUAL OPPORTUNITY REPRESENTATIVE (Physician/EQUAL OPPORTUNITY REPRESENTATIVE (Physician/EQUAL OPPORTUNITY REPRESENTATIVE ) ) ) Arrival Mode Ambulatory Ambulatory Ambulatory Patient Identification Verified (Name & Yes Yes Yes ) Patient Requires Transmission-Based No Precautions Vital Signs Temperature (97.8 F-99.1 F) 96.1 F L 96.6 F L 97.4 F L Temperature Source Temporal Temporal Temporal Pulse Rate (60-100) 60 60 69 Pulse Location Monitor Monitor Monitor Respiratory Rate (12-18) 18 18 18 Respiratory rate source Observation Observation Observation Oxygen Delivery Method Room Air Room Air Room Air Blood Pressure (90/60-120/80) 112/40 L 138/52 H 123/43 H Blood Pressure Mean (mm Hg) 64 80 69 Source Monitor Monitor Monitor Position Semi-Fowlers Sitting Semi-Fowlers Blood Pressure Location Right Arm Left Arm Left Forearm History Since Last Visit- (Skip if this is Patient's initial visit) Have you changed medications since your No No No last visit? Any new allergies or adverse reactions No No No Had a fall/change in ADL's that may No No No increase risk of falls Signs or symptoms of abuse and/or No No No neglect since last visit Have you been in the hospital since your No No No last visit? Has dressing in place as prescribed Yes Yes Yes Has compression in place as prescribed Yes Yes Yes Has offloadiing in place as prescribed N/A N/A N/A Experienced any changes in pain level or No No No management Left Footwear Regular Shoe Regular Shoe Regular Shoe Right Footwear Regular Shoe Regular Shoe Regular Shoe Pain Scale: 0-10 Numeric Is Patient Pain Free? Yes Yes Yes WC - Nurse 1 - General Ulcer Measurement Start: 06/02/24 08:34 Freq: Status: Active Protocol: Activity Type Activity Date Activity User E-sign Co-sign Detail Recorded Client Recorded Date Recorded By Document 06/02/24 08:34 KW [id number] 06/02/24 08:43 KW Document 06/09/24 08:32 KW [id number] 06/09/24 08:41 KW Document 06/16/24 08:26 KW [id number] 06/16/24 08:36 KW 06/02/24 06/09/24 06/16/24 08:34 08:32 08:26 Wound Center Nurse 1 #4 RT MED ANKLE -Combined with other wound No -Current Size (cm) - Length 1.8 0.1 0.8 -Current Size (cm) - Width 0.5 0.1 0.3 -Current Size (cm) - Depth 0.1 0.1 0.1 -Total Square Cm 0.90 0.01 0.24 -Date of Last Picture (Recall this 06/16/24 field) -Tunneling No -Undermining/Tunneling No -Circular Undermining No -Exudate Amt Small Small Small -Exudate Type Serosanguineous Serosanguineous Serosanguineous -Wound Margin Distinct, Distinct, Distinct, Outline Outline Outline Attached Attached Attached -Granulation Amt Medium (34-66%) Large (67-100%) Small (1-33%) -Granulation Quality Excel Red Excel -Slough/Fibrin Yes -Necrosis Amt Medium (34-66%) Small (1-33%) Large (67-100%) -Necrotic Tissue Type Adherent Slough Adherent Slough Adherent Slough -Structure Exposed N/A -Texture (Nancy-wound Skin Appearance) Assessed Assessed Assessed -Moisture (Nancy-wound Skin Appearance) Assessed Assessed Maceration -Color (Nancy-wound Skin Appearance) Assessed Assessed Assessed -Temperature (Nancy-wound Skin No Abnormality No Abnormality No Abnormality Appearance) (Pt Warm) (Pt Warm) (Pt Warm) -Tenderness on Palpation (Nancy-wound No No No Skin Appearance) -Ulcer Cleansing Rinsed/ Soap and Water Rinsed/ Irrigated with Irrigated with Saline Saline -Foul Odor after Cleansing No No No -Anesthetic Used 5% Lidocaine 5% Lidocaine 5% Lidocaine Gel Gel Gel Lower Limb Edema Present Yes Right Calf (cm) 34 Right Ankle (cm) 21.5 WC - Nurse 2 - General Ulcer CM Notes Start: 06/02/24 08:34 Freq: Status: Active Protocol: Activity Type Activity Date Activity User E-sign Co-sign Detail Recorded Client Recorded Date Recorded By Document 06/02/24 09:14 [id number] 06/02/24 09:17 Document 06/09/24 08:54 [id number] 06/09/24 09:02 Document 06/16/24 09:21 [id number] 06/16/24 09:24 06/02/24 06/09/24 06/16/24 09:14 08:54 09:21 Wound Center Nurse 2 #4 RT MED ANKLE -Time 09:14 08:54 09:21 -Correct Patient Yes Yes Yes -Correct Side, Site, Position Yes Yes Yes -Correct Procedure Yes Yes Yes -Procedure Performed Yes Yes Yes -Type of Procedure Debridement Debridement Debridement -Clinical Debridement Subcutaneous Subcutaneous Subcutaneous -Tissue Removed Subcutaneous Subcutaneous Subcutaneous -Post Debridement (cm) - Length 0.8 0.8 0.8 -Post Debridement (cm) - Width 0.3 0.3 0.7 -Post Debridement (cm) - Depth 0.1 0.1 0.1 -Total Square (Post) (cm) 0.24 0.24 0.56 -Area of Debridement (cm) - Length 0.8 0.8 0.8 -Area of Debridement (cm) - Width 0.3 0.3 0.7 -Total Square (Area) (cm) 0.24 0.24 0.56 -Tunneling No No No -Undermining/Tunneling No No No -Circular Undermining No No No -Wound/Ulcer Outcome Not Healed Not Healed Not Healed -Ulcer Cleansing Rinsed/ Rinsed/ Rinsed/ Irrigated with Irrigated with Irrigated with Saline Saline Saline -Foul Odor after Cleansing No No No -Bioengineered Tissue No No No -Bleeding Controlled with Pressure Pressure Pressure -Treatment Response Procedure Procedure Procedure Tolerated Well Tolerated Well Tolerated Well -Debridement - Subq, 1st 20sq cm Yes Yes Yes Pain Scale: 0-10 Numeric Is Patient Pain Free? Yes Yes Yes WC - Nurse 3 - General Ulcer D/C NN Start: 06/02/24 08:34 Freq: Status: Active Protocol: Activity Type Activity Date Activity User E-sign Co-sign Detail Recorded Client Recorded Date Recorded By Document 06/02/24 09:43 RB [id number] 06/02/24 09:44 RB Document 06/09/24 09:16 KW [id number] 06/09/24 09:17 KW Document 06/16/24 10:01 KW [id number] 06/16/24 10:03 KW 06/02/24 06/09/24 06/16/24 09:43 09:16 10:01 Wound Care Center Nurse 3 #4 RT MED ANKLE -Ulcer Cleansing Rinsed/ Irrigated with Saline -Primary Dressing Applied C Hydrogel ($), Aquacel Extra, Aquacel Extra, NonAdherent NonAdherent NonAdherent Contact Layer, Contact Layer, Contact Layer, Promogran Promogran Promogran Taniya Matter -Other Dressing two venous hydrogel hydrogel to stasis pad over ulcer before roll gauze other dressings are applied -Primary Dressing Covered/Secured with Dry Gauze,Dry Dry Gauze & Dry Gauze & Gauze & Roll Roll Gauze, Roll Gauze, Gauze,Secured Secured with Secured with with Tape Tape Tape -Aquacel Extra 1 1 -Promogran 1 1 -Promogran Taniya Matter 1 Right -Stockings Yes -Other pt own pt own compression compression stocking stockings Treatment Response Procedure Tolerated Well Pain Scale: 0-10 Numeric Is Patient Pain Free? Yes Yes Yes WC - Visit Discharge Discharge Condition Stable Ambulatory Status Ambulatory Transportation Private Auto Medication Reconcilliation completed & No provided to patient/care provider Clinical Summary of Care Provided Yes Assessment/Plan Assessment/Plan (1) Venous stasis ulcer of right ankle with fat layer exposed: CODE(S): I83.013 - Varicose veins of right lower extremity with ulcer of ankle; L97.312 - Non-pressure chronic ulcer of right ankle with fat layer exposed QUALIFIERS: Varicose vein presence: with varicose veins Qualified Code(s): I83.013 - Varicose veins of right lower extremity with ulcer of ankle; L97.312 - Non-pressure chronic ulcer of right ankle with fat layer exposed (2) Peripheral vascular disease of lower extremity with ulceration: CODE(S): I73.9 - Peripheral vascular disease, unspecified; L97.909 - Non- pressure chronic ulcer of unspecified part of unspecified lower leg with unspecified severity (3) Nonhealing nonsurgical wound with fat layer exposed: CODE(S): T14.8XXA - Other injury of unspecified body region, initial encounter (4) Cellulitis of lower extremity: CODE(S): L03.119 - Cellulitis of unspecified part of limb QUALIFIERS: Laterality: right Qualified Code(s): L03.115 - Cellulitis of right lower limb (5) Edema, lower extremity: CODE(S): R60.0 - Localized edema (6) Essential (primary) hypertension: CODE(S): I10 - Essential (primary) hypertension (7) Chronic atrial fibrillation: CODE(S): I48.2 - Chronic atrial fibrillation PLAN: Plan Debridement performed today in clinic as annotated above. At home wound-care instructions: Will have her continue to use hydrogel to ulcer and then apply Promogran and adaptic and cover with foam dressing or gauze and have her add a venous stasis pad over the ulcer. Will also continue venous stasis pad to the other side of her ankle as she has increased swelling and some blistering there last week that has resolved. She will use compression stocking for compression for her edema. Keep dressing clean and dry. Triamcinolone cream prescribed to apply to nancy-wound. Off-loading: The patient was instructed to avoid pressure and friction on the affected areas. Reposition every 2 hours at minimum. Avoid prolonged standing and/or dangling of legs. When seated, feet should be elevated at chest level. Frequent ambulation is encouraged. Diet: Patient encouraged to increase protein intake while taking caution to avoid high carbohydrate and/or sugar intake. Labs/cultures/imaging: She saw Dr. Cesar on 06/01/24 and he is planning on several tests and ultimately treating the venous insufficiency with ablation or glue. Follow-up: Return in 1 week for wound care follow up. Return sooner or report to the emergency room should symptoms worsen, or new symptoms arise. Note: [employer] speech recognition software administrator software was used to create portions of this document. Sound-alike and misspelled words, as well as other software administrator errors may be contained in the documentation.
[2024-06-23 08:09] VITALS: BP 129/49; PULSE 68; RESP 18; TEMP 35.8
--- NOTE | 2024-06-23 12:59 | PCM.WC.PN ---
History of Present Illness Date of Service: 06/23/24 Chief Complaint: right medial ankle ulcer History of Wound: Emani is a pleasant 78-year-old white [place] female who presents to the wound healing center for an evaluation of a right medial ankle venous leg ulcer. She had previously been seen at the [facility] wound healing center for 2 other right venous leg ulcers. She has a past medical history significant for atrial fibrillation and is on chronic anticoagulation with Coumadin, hypertension, peripheral venous disease. The ulcer started in January with pain and itching to the area and then it became red and started draining a large amount of serous fluid. She was seen by urgent care and prescribed Bactrim. She has been dressing the ulcer with Telfa bandages. She normally wear compression stockings daily but does not have them on today. She has noted improvement in the ulcer since taking the antibiotic but it remains open and is still draining heavily at times. She wears compression stockings (20-30 mmHg) daily, and this has been of benefit for her bilateral lower extremity edema. 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 She had a bilateral lower extremity venous Doppler studies in October 2018 and October 2020, which demonstrated incompetence of the left saphenofemoral junction, incompetence of the right greater saphenous vein below the knee, and segmental incompetence of the left greater saphenous vein. She had bilateral lower extremity arterial studies in August 2020 which showed no evidence of significant arterial occlusive disease in the bilateral lower extremities. She was referred to vascular surgery previously for consideration for operative intervention for venous incompetence but did not follow through with referral but is ready to proceed with referral for prevention of recurrent ulcers. The patient denies any fever, chills. Denies any increasing pain, redness, swelling, or purulent/malodorous drainage from affected area. Subjective Subjective Emani returns today for follow up of ulcer of right medial ankle. She tolerated treatment with Promogran, adaptic and foam dressing for moderate drainage and venous stasis pad. This is stable. She is scheduled for further testing and vascular surgery is planning on ablation procedure. She denies fever, chills, odor. Objective Data Objective Data Vital Signs: Vital Signs Temp Pulse Resp BP O2 Del Method 96.4 F L 68 18 129/49 H Room Air 06/23/24 08:09 06/23/24 08:09 06/23/24 08:09 06/23/24 08:09 06/23/24 08:09 Oxygen Delivery Method Room Air Physical Exam Const alert, oriented x3 and no apparent distress General Appearance: cooperative and comfortable HEENT normocephalic and head/scalp atraumatic Resp normal respiratory effort Effort and Inspection: able to speak in complete sentences Cardio regular rate and regular rhythm Skin Wounds: wounds noted Wound Narrative: as in clinical panel Psych mental status grossly normal, thought process normal, cooperative and affect normal Debridement Note Debridement Note Wound debrided: right medial ankle Laterality: Right Type of Debridement: Excisional debridement Anesthesia Used: 5% Lidocaine Gel Depth: Down to and including healthy tissue and in the subcutaneous layer Percentage of wound debrided: 100 Instrument Used: 3mm curette Tissue Removed: Yellow slough, devitalized tissue Severity: Fat Layer Exposed Amount of bleeding with debridement: Mild Bleeding Controlled with: Compression and gauze Patient tolerated procedure: Patient tolerated procedure well Post-Debridement Measurements and Additional Note: Post-Debridement Measurements/Treatment - Nurse 1 - General Ulcer Assessment Start: 06/02/24 08:34 Freq: Status: Active Protocol: [email or web address] Activity Type Activity Date Activity User E-sign Co-sign Detail Recorded Client Recorded Date Recorded By Document 06/02/24 08:34 KW [id number] 06/02/24 08:43 KW Document 06/09/24 08:32 KW [id number] 06/09/24 08:41 KW Document 06/16/24 08:26 KW [id number] 06/16/24 08:36 KW Document 06/23/24 08:09 KW [id number] 06/23/24 08:15 KW 06/02/24 06/09/24 06/16/24 08:34 08:32 08:26 - Today's Visit Information Type of service Follow-up Visit Follow-up Visit Follow-up Visit (Physician/BALANCING MACHINE OPERATOR (Physician/BALANCING MACHINE OPERATOR (Physician/BALANCING MACHINE OPERATOR ) ) ) Arrival Mode Ambulatory Ambulatory Ambulatory Patient Identification Verified (Name & Yes Yes Yes ) Patient Requires Transmission-Based No Precautions Vital Signs Temperature (97.8 F-99.1 F) 96.1 F L 96.6 F L 97.4 F L Temperature Source Temporal Temporal Temporal Pulse Rate (60-100) 60 60 69 Pulse Location Monitor Monitor Monitor Respiratory Rate (12-18) 18 18 18 Respiratory rate source Observation Observation Observation Oxygen Delivery Method Room Air Room Air Room Air Blood Pressure (90/60-120/80) 112/40 L 138/52 H 123/43 H Blood Pressure Mean (mm Hg) 64 80 69 Source Monitor Monitor Monitor Position Semi-Fowlers Sitting Semi-Fowlers Blood Pressure Location Right Arm Left Arm Left Forearm History Since Last Visit- (Skip if this is Patient's initial visit) Have you changed medications since your No No No last visit? Any new allergies or adverse reactions No No No Had a fall/change in ADL's that may No No No increase risk of falls Signs or symptoms of abuse and/or No No No neglect since last visit Have you been in the hospital since your No No No last visit? Has dressing in place as prescribed Yes Yes Yes Has compression in place as prescribed Yes Yes Yes Has offloadiing in place as prescribed N/A N/A N/A Experienced any changes in pain level or No No No management Left Footwear Regular Shoe Regular Shoe Regular Shoe Right Footwear Regular Shoe Regular Shoe Regular Shoe Pain Scale: 0-10 Numeric Is Patient Pain Free? Yes Yes Yes 06/23/24 08:09 - Today's Visit Information Type of service Follow-up Visit (Physician/BALANCING MACHINE OPERATOR ) Arrival Mode Ambulatory Patient Identification Verified (Name & Yes ) Patient Requires Transmission-Based Precautions Vital Signs Temperature (97.8 F-99.1 F) 96.4 F L Temperature Source Temporal Pulse Rate (60-100) 68 Pulse Location Monitor Respiratory Rate (12-18) 18 Respiratory rate source Observation Oxygen Delivery Method Room Air Blood Pressure (90/60-120/80) 129/49 H Blood Pressure Mean (mm Hg) 75 Source Monitor Position Semi-Fowlers Blood Pressure Location Left Arm History Since Last Visit- (Skip if this is Patient's initial visit) Have you changed medications since your No last visit? Any new allergies or adverse reactions No Had a fall/change in ADL's that may No increase risk of falls Signs or symptoms of abuse and/or No neglect since last visit Have you been in the hospital since your No last visit? Has dressing in place as prescribed Yes Has compression in place as prescribed Yes Has offloadiing in place as prescribed N/A Experienced any changes in pain level or No management Left Footwear Regular Shoe Right Footwear Regular Shoe Pain Scale: 0-10 Numeric Is Patient Pain Free? Yes WC - Nurse 1 - General Ulcer Measurement Start: 06/02/24 08:34 Freq: Status: Active Protocol: Activity Type Activity Date Activity User E-sign Co-sign Detail Recorded Client Recorded Date Recorded By Document 06/02/24 08:34 KW [id number] 06/02/24 08:43 KW Document 06/09/24 08:32 KW [id number] 06/09/24 08:41 KW Document 06/16/24 08:26 KW [id number] 06/16/24 08:36 KW Document 06/23/24 08:09 KW [id number] 06/23/24 08:15 KW 06/02/24 06/09/24 06/16/24 08:34 08:32 08:26 Wound Center Nurse 1 #4 RT MED ANKLE -Combined with other wound No -Current Size (cm) - Length 1.8 0.1 0.8 -Current Size (cm) - Width 0.5 0.1 0.3 -Current Size (cm) - Depth 0.1 0.1 0.1 -Total Square Cm 0.90 0.01 0.24 -Date of Last Picture (Recall this 06/16/24 field) -Tunneling No -Undermining/Tunneling No -Circular Undermining No -Exudate Amt Small Small Small -Exudate Type Serosanguineous Serosanguineous Serosanguineous -Wound Margin Distinct, Distinct, Distinct, Outline Outline Outline Attached Attached Attached -Granulation Amt Medium (34-66%) Large (67-100%) Small (1-33%) -Granulation Quality [place] -Slough/Fibrin Yes -Necrosis Amt Medium (34-66%) Small (1-33%) Large (67-100%) -Necrotic Tissue Type Adherent Slough Adherent Slough Adherent Slough -Structure Exposed N/A -Texture (Nancy-wound Skin Appearance) Assessed Assessed Assessed -Moisture (Nancy-wound Skin Appearance) Assessed Assessed Maceration -Color (Nancy-wound Skin Appearance) Assessed Assessed Assessed -Temperature (Nancy-wound Skin No Abnormality No Abnormality No Abnormality Appearance) (Pt Warm) (Pt Warm) (Pt Warm) -Tenderness on Palpation (Nancy-wound No No No Skin Appearance) -Ulcer Cleansing Rinsed/ Soap and Water Rinsed/ Irrigated with Irrigated with Saline Saline -Foul Odor after Cleansing No No No -Anesthetic Used 5% Lidocaine 5% Lidocaine 5% Lidocaine Gel Gel Gel Lower Limb Edema Present Yes Right Calf (cm) 34 Right Ankle (cm) 21.5 06/23/24 08:09 Wound Center Nurse 1 #4 RT MED ANKLE -Combined with other wound -Current Size (cm) - Length 0.4 -Current Size (cm) - Width 0.2 -Current Size (cm) - Depth 0.1 -Total Square Cm 0.08 -Date of Last Picture (Recall this field) -Tunneling -Undermining/Tunneling -Circular Undermining -Exudate Amt Small -Exudate Type Serosanguineous -Wound Margin Distinct, Outline Attached -Granulation Amt Small (1-33%) -Granulation Quality [place] -Slough/Fibrin -Necrosis Amt Large (67-100%) -Necrotic Tissue Type Adherent Slough -Structure Exposed -Texture (Nancy-wound Skin Appearance) Assessed -Moisture (Nancy-wound Skin Appearance) Assessed -Color (Nancy-wound Skin Appearance) Assessed, Erythema -Temperature (Nancy-wound Skin No Abnormality Appearance) (Pt Warm) -Tenderness on Palpation (Nancy-wound No Skin Appearance) -Ulcer Cleansing Rinsed/ Irrigated with Saline -Foul Odor after Cleansing No -Anesthetic Used 5% Lidocaine Gel Lower Limb Edema Present Right Calf (cm) Right Ankle (cm) WC - Nurse 2 - General Ulcer CM Notes Start: 06/02/24 08:34 Freq: Status: Active Protocol: Activity Type Activity Date Activity User E-sign Co-sign Detail Recorded Client Recorded Date Recorded By Document 06/02/24 09:14 [id number] 06/02/24 09:17 Document 06/09/24 08:54 [id number] 06/09/24 09:02 Document 06/16/24 09:21 [id number] 06/16/24 09:24 Document 06/23/24 08:44 [id number] 06/23/24 08:48 06/02/24 06/09/24 06/16/24 09:14 08:54 09:21 Wound Center Nurse 2 #4 RT MED ANKLE -Time 09:14 08:54 09:21 -Correct Patient Yes Yes Yes -Correct Side, Site, Position Yes Yes Yes -Correct Procedure Yes Yes Yes -Procedure Performed Yes Yes Yes -Type of Procedure Debridement Debridement Debridement -Clinical Debridement Subcutaneous Subcutaneous Subcutaneous -Tissue Removed Subcutaneous Subcutaneous Subcutaneous -Post Debridement (cm) - Length 0.8 0.8 0.8 -Post Debridement (cm) - Width 0.3 0.3 0.7 -Post Debridement (cm) - Depth 0.1 0.1 0.1 -Total Square (Post) (cm) 0.24 0.24 0.56 -Area of Debridement (cm) - Length 0.8 0.8 0.8 -Area of Debridement (cm) - Width 0.3 0.3 0.7 -Total Square (Area) (cm) 0.24 0.24 0.56 -Tunneling No No No -Undermining/Tunneling No No No -Circular Undermining No No No -Wound/Ulcer Outcome Not Healed Not Healed Not Healed -Ulcer Cleansing Rinsed/ Rinsed/ Rinsed/ Irrigated with Irrigated with Irrigated with Saline Saline Saline -Foul Odor after Cleansing No No No -Bioengineered Tissue No No No -Bleeding Controlled with Pressure Pressure Pressure -Treatment Response Procedure Procedure Procedure Tolerated Well Tolerated Well Tolerated Well -Debridement - Subq, 1st 20sq cm Yes Yes Yes Pain Scale: 0-10 Numeric Is Patient Pain Free? Yes Yes Yes 06/23/24 08:44 Wound Center Nurse 2 #4 RT MED ANKLE -Time 08:45 -Correct Patient Yes -Correct Side, Site, Position Yes -Correct Procedure Yes -Procedure Performed Yes -Type of Procedure Debridement -Clinical Debridement Subcutaneous -Tissue Removed Subcutaneous -Post Debridement (cm) - Length 1.0 -Post Debridement (cm) - Width 0.4 -Post Debridement (cm) - Depth 0.1 -Total Square (Post) (cm) 0.40 -Area of Debridement (cm) - Length 1.0 -Area of Debridement (cm) - Width 0.4 -Total Square (Area) (cm) 0.40 -Tunneling No -Undermining/Tunneling No -Circular Undermining No -Wound/Ulcer Outcome Not Healed -Ulcer Cleansing Rinsed/ Irrigated with Saline -Foul Odor after Cleansing No -Bioengineered Tissue No -Bleeding Controlled with Pressure -Treatment Response Procedure Tolerated Well -Debridement - Subq, 1st 20sq cm Yes Pain Scale: 0-10 Numeric Is Patient Pain Free? Yes - Nurse 3 - General Ulcer D/C NN Start: 06/02/24 08:34 Freq: Status: Active Protocol: Activity Type Activity Date Activity User E-sign Co-sign Detail Recorded Client Recorded Date Recorded By Document 06/02/24 09:43 RB [id number] 06/02/24 09:44 RB Document 06/09/24 09:16 KW [id number] 06/09/24 09:17 KW Document 06/16/24 10:01 KW [id number] 06/16/24 10:03 KW 06/02/24 06/09/24 06/16/24 09:43 09:16 10:01 Wound Care Center Nurse 3 #4 RT MED ANKLE -Ulcer Cleansing Rinsed/ Irrigated with Saline -Primary Dressing Applied C Hydrogel ($), Aquacel Extra, Aquacel Extra, NonAdherent NonAdherent NonAdherent Contact Layer, Contact Layer, Contact Layer, Promogran Promogran Promogran Taniya Matter -Other Dressing two venous hydrogel hydrogel to stasis pad over ulcer before roll gauze other dressings are applied -Primary Dressing Covered/Secured with Dry Gauze,Dry Dry Gauze & Dry Gauze & Gauze & Roll Roll Gauze, Roll Gauze, Gauze,Secured Secured with Secured with with Tape Tape Tape -Aquacel Extra 1 1 -Promogran 1 1 -Promogran Taniya Matter 1 Right -Stockings Yes -Other pt own pt own compression compression stocking stockings Treatment Response Procedure Tolerated Well Pain Scale: 0-10 Numeric Is Patient Pain Free? Yes Yes Yes WC - Visit Discharge Discharge Condition Stable Ambulatory Status Ambulatory Transportation Private Auto Medication Reconcilliation completed & No provided to patient/care provider Clinical Summary of Care Provided Yes Assessment/Plan Assessment/Plan (1) Venous stasis ulcer of right ankle with fat layer exposed: CODE(S): I83.013 - Varicose veins of right lower extremity with ulcer of ankle; L97.312 - Non-pressure chronic ulcer of right ankle with fat layer exposed QUALIFIERS: Varicose vein presence: with varicose veins Qualified Code(s): I83.013 - Varicose veins of right lower extremity with ulcer of ankle; L97.312 - Non-pressure chronic ulcer of right ankle with fat layer exposed (2) Peripheral vascular disease of lower extremity with ulceration: CODE(S): I73.9 - Peripheral vascular disease, unspecified; L97.909 - Non-pressure chronic ulcer of unspecified part of unspecified lower leg with unspecified severity (3) Nonhealing nonsurgical wound with fat layer exposed: CODE(S): T14.8XXA - Other injury of unspecified body region, initial encounter (4) Cellulitis of lower extremity: CODE(S): L03.119 - Cellulitis of unspecified part of limb QUALIFIERS: Laterality: right Qualified Code(s): L03.115 - Cellulitis of right lower limb (5) Edema, lower extremity: CODE(S): R60.0 - Localized edema (6) Essential (primary) hypertension: CODE(S): I10 - Essential (primary) hypertension (7) Chronic atrial fibrillation: CODE(S): I48.2 - Chronic atrial fibrillation PLAN: Plan Debridement performed today in clinic as annotated above. At home wound-care instructions: Will have her continue to use hydrogel to ulcer and then apply Promogran and adaptic and cover with foam dressing or gauze and have her continue a venous stasis pad over the ulcer. Will also continue venous stasis pad to the other side of her ankle as she has increased swelling and some blistering there last week that has resolved. She will use compression stocking for compression for her edema. Keep dressing clean and dry. Triamcinolone cream prescribed to apply to nancy-wound. Off-loading: The patient was instructed to avoid pressure and friction on the affected areas. Reposition every 2 hours at minimum. Avoid prolonged standing and/or dangling of legs. When seated, feet should be elevated at chest level. Frequent ambulation is encouraged. Diet: Patient encouraged to increase protein intake while taking caution to avoid high carbohydrate and/or sugar intake. Labs/cultures/imaging: She saw Dr. Cesar on 06/01/24 and he is planning on several tests and ultimately treating the venous insufficiency with ablation or glue. Follow-up: Return in 2 weeks for wound care follow up. Return sooner or report to the emergency room should symptoms worsen, or new symptoms arise. Note: [employer] speech recognition technical mgr software was used to create portions of this document. Sound-alike and misspelled words, as well as other technical mgr errors may be contained in the documentation.
== END 2024-07-01 23:59 | disposition home or self-care (01) ==
LOC: WC 09:00
PROVIDERS: PCP Family Medicine; Referring Provider Family Medicine; Visit Provider Family Medicine
DX: I83.013 Varicose veins of right lower extremity with ulcer of ankle (principal); L97.312 Non-pressure chronic ulcer of right ankle with fat layer exposed; I48.20 Chronic atrial fibrillation, unspecified; R60.0 Localized edema; I10 Essential (primary) hypertension; I73.9 Peripheral vascular disease, unspecified; Z79.01 Long term (current) use of anticoagulants; Z79.899 Other long term (current) drug therapy; L03.115 Cellulitis of right lower limb
CPT/HCPCS: 11042

== ENCOUNTER → 2024-06-23 | Outpatient (CLI) | payer OTHER, SELFPAY | END | disposition home or self-care (01) | LOC: MFPLAB 09:51 | PROVIDERS: PCP Family Medicine; Referring Provider Family Medicine; Visit Provider Family Medicine | DX: N39.0 Urinary tract infection, site not specified (principal) | CPT/HCPCS: 87077; 87086; 87088; 87186 ==

== ENCOUNTER 2024-07-13 06:55 | Day surgery (SDC) | payer SELFPAY, OTHER ==
[2024-07-12 09:02] VITALS: BMI 24.1
[2024-07-13 07:18] LABS: Hematocrit 38.5 % (37-47); Hemoglobin 13.2 g/dL (12.0-15.0); Mean Corp Hgb Conc 34.3 g/dL (32-36); Mean Corpuscular Hgb 30.5 pg (27.0-32.0); Mean Corpuscular Volume 88.9 fL (81-99); Mean Platelet Vol. 9.7 fl (6.2-12.0); Platelet Count 358 K/mm3 (150-450); RBC Distribution Width CV 12.1 % (11.6-14.6); RBC Distribution Width SD 38.9 fl (35.1-43.9); Red Blood Count 4.33 M/mm3 (4.2-5.4); White Blood Count 8.2 K/mm3 (4.4-11.0)
[2024-07-13 07:40] LABS: International Normalized Ratio 2.5; Prothrombin Time (Protime)PT. 26.8 SECONDS (11.7-14.9)
--- NOTE | 2024-07-13 08:55 | HP.PCM_ITS ---
HPI - General HPI Narrative RYAN VILLAVICENCIO, is a 78 F who presents for recurrent right medial ankle ulceration. Current wound began several months ago despite routine compression use. Prior ulceration in same location and an additional ulceration on anterior distal lower leg that has not recurred. No prior ablation, DVT, injury. [facility] Medical History Acute UTI Diastolic heart failure Ulcer of right leg Kidney stone on right side Osteoporosis Osteoarthritis Nonrheumatic aortic valve insufficiency Nonrheumatic mitral (valve) insufficiency Essential (primary) hypertension Chronic atrial fibrillation Home Medications ?Medication ?Instructions ?Recorded ?Last Taken ?Type metoprolol tartrate 100 mg tablet 100 mg PO BID 02/22/15 02/27/15 04:30 History 100 MG warfarin 3 mg tablet 3 mg PO DAILY 60 days #60 tabs 06/28/18 Unknown History amlodipine 5 mg tablet 5 mg PO QHS 06/29/18 Unknown History warfarin 1 mg tablet 1 mg PO DAILY 03/24/24 Unknown History triamcinolone acetonide 0.1 % 1 applic topical DAILY to affected 06/02/24 Unknown Rx topical cream area right medial ankle #30 grams Allergy/AdvReac Type Severity Reaction Status Date / Time chlorhexidine AdvReac Nausea Verified 06/01/24 16:12 Family History Mother CVA (cerebral vascular accident) Father Cancer Surgical History History of total left hip arthroplasty History of History of cardioversion History of left heart catheterization (02/22/08) Social History Smoking Status: Never smoker ROS Constitutional Constitutional: Denies chills, fever(s), frequent falls, lethargy or weakness Eyes Eyes: Denies blind spots, change in vision or loss of vision ENT HEENT: Denies bleeding gums, hoarseness or sore throat Cardiovascular Cardiovascular: Denies abdominal pain, bluish discoloration of hand/feet, chest pain with activity, claudication, cold extremities, cyanosis, dyspnea on exertion, erythema on extremities, irregular heart rhythm, leg edema, leg ulcers, numbness in extremities or weakness in extremities Respiratory/Chest Respiratory/Chest: Denies cough, excessive phlegm production, shortness of breath at rest, shortness of breath with exertion or wheezing Gastrointestinal Gastrointestinal: Denies anorexia, change in stool character, constipation, diarrhea, melena or rectal bleeding Genitourinary Genitourinary: Denies dysuria or hematuria Musculoskeletal Musculoskeletal: Denies abnormal gait Integumentary Integumentary: Reports other Details: ; Denies erythema, non-healing lesions or wounds Neurologic Neurologic: Denies abnormal speech, focal weakness, headache(s), loss of vision, numbness, paresthesias or sensory deficit Hematologic/Lymphatic Hematologic/Lymphatic: Denies easy bleeding, easy bruising or lymphadenopathy Vital Signs Vital Signs Vital Signs: Weight Weight: 145 lb Body Mass Index (BMI) 24.1 Physical Exam Const alert, oriented x3, no apparent distress and healthy appearing General Appearance: cooperative; Negative for combative or lethargic Orientation / Consciousness: awake Exam Limitations: no limitations HEENT Head and Scalp: normocephalic and atraumatic Eyes EOMs intact bilaterally General Eye: normal appearance of both eyes Neck full ROM and no lymphadenopathy General: trachea midline Resp normal respiratory effort and no use of accessory muscles Effort and Inspection: Negative for labored, stridor or audible wheezes Cardio regular rate and regular rhythm Back/Spine Cervical Spine: cervical ROM normal Extremity full ROM, normal capillary refill and no clubbing, cyanosis or edema Skin no rashes or lesions noted and no wounds Neuro oriented x3, CN's II-XII intact bilaterally, no focal motor deficits and no sensory deficits noted Psych thought process normal, cooperative, affect normal, speech normal and activity/motor behavior normal Results Lab / Micro Data 07/13/24 07:00 Labs: Laboratory Results - last 24 hr 07/13/24 07:00: WBC 8.2, RBC 4.33, Hgb 13.2, Hct 38.5, MCV 88.9, MCH 30.5, MCHC 34.3, RDW Std Deviation 38.9, RDW Coeff of Abena 12.1, Plt Count 358, MPV 9.7, PT 26.8 H, INR 2.5 Assessment & Plan Assessment/Plan (1) Venous stasis ulcer of right ankle with fat layer exposed: QUALIFIERS: Varicose vein presence: with varicose veins Qualified Code(s): I83.013 - Varicose veins of right lower extremity with ulcer of ankle; L97.312 - Non-pressure chronic ulcer of right ankle with fat layer exposed PLAN: -repeat venous duplex revealed GSV reflux below the knee -plan chemical ablation
--- NOTE | 2024-07-13 10:05 | OP.PCM_ITS ---
Operative Report (Standard) Operative Information Date of Procedure: 07/13/24 Pre-Operative Diagnosis: venous insufficiency with ulceration, right lower extremity Post-Operative Diagnosis: same Surgery/Procedure Performed: right below the knee great saphenous chemical ablation customer assistance representative: No Type of Anesthesia: Local and Sedation,Conscious Procedure Start Time: 09:20 Procedure Stop Time: 09:50 Select all DRAINS/GRAFTS/IMPLANTS that apply: None Estimated Blood Loss: 1 Specimen collected: No Description of surgery: HPI: Patient is an 78-year-old female with recurrent right lower extremity venous ulcerations and below the knee great saphenous reflux. She presents for ablation. Description of procedure: Upon obtaining form consent and verification correct patient procedure and site patient taken to the [facility] where she was positione d prepped and draped in usual sterile fashion. Conscious sedation administered Versed and fentanyl. The great saphenous vein was assessed with ultrasound the patent and continuous flow in the medial malleolus the proximal thigh at the saphenofemoral junction. Since the reflux was confined to the below the knee saphenous the plan was to ablate from the lowest accessible point to the knee. Skin overlying the saphenous vein at the malleolus was anesthetized and the vessel accessed under ultrasound guidance with a micropuncture needle wire. This was exchanged for a 7 [place] ablation sheath. Through the ablation sheath the glue delivery guide was advanced under ultrasound guidance through the saphenous vein to the knee. The glue delivery catheter was then advanced to this position and glue deposited through the treatment zone under ultrasound guidance with manual pressure held per instructions of use. Guide and catheter were then withdrawn followed by the sheath withdrawn and manual pressure held until hemostasis was obtained. The patient was then taken to the recovery area with plan discharged to home. Surgical Findings: See above Complications Complications: No
== END 2024-07-13 11:12 | disposition home or self-care (01) ==
PROVIDERS: PCP Family Medicine; Referring Provider Physician Assistant; Visit Provider Physician Assistant
DX: I83.013 Varicose veins of right lower extremity with ulcer of ankle (principal); L97.312 Non-pressure chronic ulcer of right ankle with fat layer exposed; I11.0 Hypertensive heart disease with heart failure; I50.32 Chronic diastolic (congestive) heart failure; I87.2 Venous insufficiency (chronic) (peripheral)
CPT/HCPCS: 36415; 36482; 85027; 85610; 99152; 99153; C1894

== ENCOUNTER → 2024-07-19 | Outpatient (CLI) | payer SELFPAY, OTHER ==
[2024-07-13 06:43] VITALS: BMI 25.5
--- NOTE | 2024-07-19 10:17 | VDLE_ITS ---
Reason For Study: S/P RLE Chemical Ablation RIGHT LEFT Rt GSV is compressible from SFJ to mid thigh. FV is compressible, spontaneous, phasic, GSV is NONCOMPRESSIBLE with bright competent and demonstrates normal intraluminal echoes and no flow visualized augmentation. from dist thigh to ankle. This finding is consistent with recent chemical ablation procedure. CFV is compressible, spontaneous, phasic, competent and demonstrates normal augmentation. FV is compressible, spontaneous, phasic, competent and demonstrates normal augmentation. POP V is compressible, spontaneous, phasic, competent and demonstrates normal augmentation. T/P Trunk is compressible. PTV is compressible. RT PerV is compressible. Procedure This is a venous duplex using B-mode, color flow and spectral Doppler. Exam performed in department. The exam was diagnostic. VL/Venous Duplex US, Unilateral Interpretation Summary Deep veins of the right lower extremity are patent and compressible segmentally . There is no evidence of right lower extremity deep vein thrombosis. Right great saphenous vein occluded below the knee consistent with recent ablat ion Ordering Physician: Aziza Roche Referring Physician: Wilmer Hernandez Performed By: Baron Alfaro RVT
== END | disposition home or self-care (01) ==
LOC: CVS 10:12
PROVIDERS: PCP Family Medicine; Referring Provider Physician Assistant; Visit Provider Physician Assistant
DX: I83.013 Varicose veins of right lower extremity with ulcer of ankle (principal); L97.312 Non-pressure chronic ulcer of right ankle with fat layer exposed
CPT/HCPCS: 93971

== ENCOUNTER 2024-07-21 09:00 | Outpatient (RCR) | payer OTHER, SELFPAY ==
[2024-07-02 00:25] VITALS: BP 134/61; PULSE 68; RESP 18; TEMP 36.1
[2024-07-07 09:16] VITALS: BP 127/61; PULSE 71; RESP 18; TEMP 35.9
--- NOTE | 2024-07-07 12:34 | PN.PCM_ITS ---
History of Present Illness Date of Service: 07/07/24 Chief Complaint: right medial ankle ulcer History of Wound: Emani is a pleasant 78-year-old white [place] female who presents to the wound healing center for an evaluation of a right medial ankle venous leg ulcer. She had previously been seen at the [facility] wound healing center for 2 other right venous leg ulcers. She has a past medical history significant for atrial fibrillation and is on chronic anticoagulation with Coumadin, hypertension, peripheral venous disease. The ulcer started in January with pain and itching to the area and then it became red and started draining a large amount of serous fluid. She was seen by urgent care and prescribed Bactrim. She has been dressing the ulcer with Telfa bandages. She normally wear compression stockings daily but does not have them on today. She has noted improvement in the ulcer since taking the antibiotic but it remains open and is still draining heavily at times. She wears compression stockings (20-30 mmHg) daily, and this has been of benefit for her bilateral lower ext remity edema. 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 She had a bilateral lower extremity venous Doppler studies in October 2018 and October 2020, which demonstrated incompetence of the left saphenofemoral junction, incompetence of the right greater saphenous vein below the knee, and segmental incompetence of the left greater saphenous vein. She had bilateral lower extremity arterial studies in August 2020 which showed no evidence of significant arterial occlusive disease in the bilateral lower extremities. She was referred to vascular surgery previously for consideration for operative intervention for venous incompetence but did not follow through with referral but is ready to proceed with referral for prevention of recurrent ulcers. The patient denies any fever, chills. Denies any increasing pain, redness, swelling, or purulent/malodorous drainage from affected area. Subjective Subjective Emani returns today for follow up of ulcer of right medial ankle. She is tolerating treatment with Aquacel Extra, Promogran, adaptic and foam dressing for moderate drainage and use of venous stasis pad for additional focused compression around her ulcer. The ulcer is smaller in size. She is scheduled for further testing and vascular surgery is planning on ablation procedure next 07/13/24. She denies fever, chills, odor. Objective Data Objective Data Vital Signs: Vital Signs Temp Pulse Resp BP 96.7 F L 71 18 127/61 H 07/07/24 09:16 07/07/24 09:16 07/07/24 09:16 07/07/24 09:16 Physical Exam Const alert, oriented x3 and no apparent distress General Appearance: cooperative and comfortable HEENT normocephalic and head/scalp atraumatic Resp normal respiratory effort Effort and Inspection: able to speak in complete sentences Cardio regular rate and regular rhythm Skin General Skin Exam: venous stasis and dermatitis Wounds: wounds noted Wound Narrative: as in clinical panel, decreased overall size without cellulitis, odor, undermining, moderate slough, bioburden with granulation tissue at base Psych mental status grossly normal, thought process normal, cooperative and affect normal Debridement Note Debridement Note Wound debrided: right medial ankle Laterality: Right Type of Debridement: Excisional debridement Anesthesia Used: 5% Lidocaine Gel Depth: Down to and including healthy tissue and in the subcutaneous layer Percentage of wound debrided: 100 Instrument Used: 3mm curette Tissue Removed: Yellow slough, devitalized tissue Severity: Fat Layer Exposed Amount of bleeding with debridement: Mild Bleeding Controlled with: Compression and gauze Patient tolerated procedure: Patient tolerated procedure well Post-Debridement Measurements and Additional Note: Post-Debridement Measurements/Treatment - Nurse 1 - General Ulcer Assessment Start: 07/07/24 09:16 Freq: Status: Active Protocol: ISAIAH Activity Type Activity Date Activity User E-sign Co-sign Detail Recorded Client Recorded Date Recorded By Document 07/07/24 09:16 HELDER [id number] 07/07/24 09:19 HELDER 07/07/24 09:16 - Today's Visit Information Type of service 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 Any new allergies or adverse reactions No Had a fall/change in ADL's that may No increase risk of falls Signs or symptoms of abuse and/or No neglect since last visit Have you been in the hospital since your No last visit? Has dressing in place as prescribed Yes Has compression in place as prescribed Yes Has offloadiing in place as prescribed No Experienced any changes in pain level or No management Pain Scale: 0-10 Numeric Is Patient Pain Free? Yes WC - Nurse 1 - General Ulcer Measurement Start: 07/07/24 09:16 Freq: Status: Active Protocol: Activity Type Activity Date Activity User E-sign Co-sign Detail Recorded Client Recorded Date Recorded By Document 07/07/24 09:16 RB [id number] 07/07/24 09:19 RB 07/07/24 09:16 Wound Center Nurse 1 #4 RT MED ANKLE -Combined with other wound No -Current Size (cm) - Length 0.5 -Current Size (cm) - Width 0.4 -Current Size (cm) - Depth 0.2 -Total Square Cm 0.20 -Tunneling No -Undermining/Tunneling No -Circular Undermining No -Exudate Amt Medium -Exudate Type Serosanguineous -Wound Margin Distinct, Outline Attached -Granulation Amt Medium (34-66%) -Granulation Quality [place] -Slough/Fibrin Yes -Necrosis Amt Medium (34-66%) -Necrotic Tissue Type Adherent Slough -Structure Exposed N/A -Texture (Nancy-wound Skin Appearance) Excoriation -Moisture (Nancy-wound Skin Appearance) Assessed -Color (Nancy-wound Skin Appearance) Assessed -Temperature (Nancy-wound Skin No Abnormality Appearance) (Pt Warm) -Tenderness on Palpation (Nancy-wound No Skin Appearance) -Ulcer Cleansing Wound Cleanser -Foul Odor after Cleansing No -Anesthetic Used 5% Lidocaine Gel Lower Limb Edema Present Yes Right Calf (cm) 35 Right Ankle (cm) 23.4 - Nurse 2 - General Ulcer CM Notes Start: 07/07/24 09:16 Freq: Status: Active Protocol: Activity Type Activity Date Activity User E-sign Co-sign Detail Recorded Client Recorded Date Recorded By Document 07/07/24 09:22 [id number] 07/07/24 09:26 07/07/24 09:22 Wound Center Nurse 2 #4 RT MED ANKLE -Time 09:24 -Correct Patient Yes -Correct Side, Site, Position Yes -Correct Procedure Yes -Procedure Performed Yes -Type of Procedure Debridement -Clinical Debridement Subcutaneous -Tissue Removed Subcutaneous -Post Debridement (cm) - Length 0.8 -Post Debridement (cm) - Width 0.4 -Post Debridement (cm) - Depth 0.1 -Total Square (Post) (cm) 0.32 -Area of Debridement (cm) - Length 0.8 -Area of Debridement (cm) - Width 0.4 -Total Square (Area) (cm) 0.32 -Tunneling No -Undermining/Tunneling No -Circular Undermining No -Wound/Ulcer Outcome Not Healed -Ulcer Cleansing Rinsed/ Irrigated with Saline -Foul Odor after Cleansing No -Bioengineered Tissue No -Bleeding Controlled with Pressure -Treatment Response Procedure Tolerated Well -Debridement - Subq, 1st 20sq cm Yes Pain Scale: 0-10 Numeric Is Patient Pain Free? Yes - Nurse 3 - General Ulcer D/C NN Start: 07/07/24 09:16 Freq: Status: Active Protocol: Activity Type Activity Date Activity User E-sign Co-sign Detail Recorded Client Recorded Date Recorded By Document 07/07/24 09:37 [id number] 07/07/24 09:40 KW 07/07/24 09:37 Wound Care Center Nurse 3 #4 RT MED ANKLE -Primary Dressing Applied Aquacel Extra, Promogran -Primary Dressing Covered/Secured with Dry Gauze & Roll Gauze, Secured with Tape -AMD Dressing 4x8 1 -Aquacel Extra 1 -Promogran 1 Right -Other pt own compression Pain Scale: 0-10 Numeric Is Patient Pain Free? Yes - Visit Discharge Discharge Condition Stable Ambulatory Status Ambulatory Medication Reconcilliation completed & No provided to patient/care provider Clinical Summary of Care Provided Yes Assessment/Plan Assessment/Plan (1) Venous stasis ulcer of right ankle with fat layer exposed: CODE(S): I83.013 - Varicose veins of right lower extremity with ulcer of ankle; L97.312 - Non-pressure chronic ulcer of right ankle with fat layer exposed QUALIFIERS: Varicose vein presence: with varicose veins Qualified Code(s): I83.013 - Varicose veins of right lower extremity with ulcer of ankle; L97.312 - Non-pressure chronic ulcer of right ankle with fat layer exposed (2) Peripheral vascular disease of lower extremity with ulceration: CODE(S): I73.9 - Peripheral vascular disease, unspecified; L97.909 - Non- pressure chronic ulcer of unspecified part of unspecified lower leg with unspecified severity (3) Nonhealing nonsurgical wound with fat layer exposed: CODE(S): T14.8XXA - Other injury of unspecified body region, initial encounter (4) Cellulitis of lower extremity: CODE(S): L03.119 - Cellulitis of unspecified part of limb QUALIFIERS: Laterality: right Qualified Code(s): L03.115 - Cellulitis of right lower limb (5) Edema, lower extremity: CODE(S): R60.0 - Localized edema (6) Essential (primary) hypertension: CODE(S): I10 - Essential (primary) hypertension (7) Chronic atrial fibrillation: CODE(S): I48.2 - Chronic atrial fibrillation PLAN: Plan Debridement performed today in clinic as annotated above. At home wound-care instructions: Will have her continue to use Promogran, Aquacel Extra for moderate drainage and adaptic and cover with foam dressing or gauze and have her continue a venous stasis pad over the periphery of the ulcer changed daily. Will also continue venous stasis pad to the other side of her ankle as she has increased swelling in this area from varicose vein and some venous stasis dermatitis. She will continue to use compression stocking 20-30 mm Hg pressure for compression for her edema. Keep dressing clean and dry. Off-loading: The patient was instructed to avoid pressure and friction on the affected areas. Reposition every 2 hours at minimum. Avoid prolonged standing and/or dangling of legs. When seated, feet should be elevated at chest level. Frequent ambulation is encouraged. Diet: Patient encouraged to increase protein intake while taking caution to avoid high carbohydrate and/or sugar intake. Labs/cultures/imaging: Previous labs reviewed from 01/28/2024 and do not show any obvious co-morbidities to consider in the progress of her wound healing. She saw Dr. Cesar on 06/01/24 and he is planning on ablation on 07/13/24. Follow-up: Return in 2 weeks for wound care follow up. Return sooner or report to the emergency room should symptoms worsen, or new symptoms arise. Note: [employer] speech recognition sales strategy manager software was used to create portions of this document. Sound-alike and misspelled words, as well as other sales strategy manager errors may be contained in the documentation.
[2024-07-21 08:38] VITALS: BP 122/75; PULSE 75; RESP 18; TEMP 36
--- NOTE | 2024-07-21 09:38 | PN.PCM_ITS ---
History of Present Illness Date of Service: 07/21/24 Chief Complaint: right medial ankle ulcer History of Wound: Emani is a pleasant 79-year-old white [place] female who presents to the wound healing center for an evaluation of a right medial ankle venous leg ulcer. She had previously been seen at the [facility] wound healing center for 2 other right venous leg ulcers. She has a past medical history significant for atrial fibrillation and is on chronic anticoagulation with Coumadin, hypertension, peripheral venous disease. The ulcer started in January with pain and itching to the area and then it became red and started draining a large amount of serous fluid. She was seen by urgent care and prescribed Bactrim. She has been dressing the ulcer with Telfa bandages. She normally wear compression stockings daily but does not have them on today. She has noted improvement in the ulcer since taking the antibiotic but it remains open and is still draining heavily at times. She wears compression stockings (20-30 mmHg) daily, and this has been of benefit for her bilateral lower ext remity edema. 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 She had a bilateral lower extremity venous Doppler studies in October 2018 and October 2020, which demonstrated incompetence of the left saphenofemoral junction, incompetence of the right greater saphenous vein below the knee, and segmental incompetence of the left greater saphenous vein. She had bilateral lower extremity arterial studies in August 2020 which showed no evidence of significant arterial occlusive disease in the bilateral lower extremities. She was referred to vascular surgery previously for consideration for operative intervention for venous incompetence but did not follow through with referral but is ready to proceed with referral for prevention of recurrent ulcers. The patient denies any fever, chills. Denies any increasing pain, redness, swelling, or purulent/malodorous drainage from affected area. Subjective Subjective Emani returns today for follow up of ulcer of right medial ankle. She is tolerating treatment with Aquacel Extra, Promogran, adaptic and foam dressing for moderate drainage and use of venous stasis pad for additional focused compression around her ulcer. The ulcer is smaller in size. 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 She denies fever, chills, odor. Objective Data Objective Data Vital Signs: Vital Signs Temp Pulse Resp BP 96.8 F L 75 18 122/75 H 07/21/24 08:38 07/21/24 08:38 07/21/24 08:38 07/21/24 08:38 Physical Exam Const alert, oriented x3 and no apparent distress General Appearance: cooperative and comfortable HEENT normocephalic and head/scalp atraumatic Resp normal respiratory effort Effort and Inspection: able to speak in complete sentences Cardio regular rate and regular rhythm Skin General Skin Exam: venous stasis and dermatitis Wounds: wounds noted Wound Narrative: as in clinical panel, decreased overall size without cellulitis, odor, undermining, moderate slough, there is bioburden with granulation tissue at base which was removed with debridement, she does have excoriated rash around the top of her foot and ankle from the procedure Psych mental status grossly normal, thought process normal, cooperative and affect normal Debridement Note Debridement Note Wound debrided: right medial ankle Laterality: Right Type of Debridement: Excisional debridement Anesthesia Used: 5% Lidocaine Gel and Cetacaine Depth: Down to and including healthy tissue and in the subcutaneous layer Percentage of wound debrided: 100 Instrument Used: 3mm curette Tissue Removed: Yellow slough, devitalized tissue Severity: Fat Layer Exposed Amount of bleeding with debridement: Mild Bleeding Controlled with: Compression and gauze Patient tolerated procedure: Patient tolerated procedure well Post-Debridement Measurements and Additional Note: Post-Debridement Measurements/Treatment - Nurse 1 - General Ulcer Assessment Start: 07/07/24 09:16 Freq: Status: Active Protocol: [email or web address] Activity Type Activity Date Activity User E-sign Co-sign Detail Recorded Client Recorded Date Recorded By Document 07/07/24 09:16 RB [id number] 07/07/24 09:19 RB Document 07/21/24 08:38 RB [id number] 07/21/24 08:41 RB 07/07/24 07/21/24 09:16 08:38 - Today's Visit Information Type of service Follow-up Visit Follow-up Visit (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/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 (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/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 ) ) Arrival Mode Ambulatory Ambulatory Transfer Assistance None None Patient Identification Verified (Name & Yes Yes ) Patient Requires Transmission-Based No No Precautions Vital Signs Temperature (97.8 F-99.1 F) 96.7 F L 96.8 F L Temperature Source Temporal Temporal Pulse Rate (60-100) 71 75 Pulse Location Monitor Monitor Respiratory Rate (12-18) 18 18 Respiratory rate source Observation Observation Blood Pressure (90/60-120/80) 127/61 H 122/75 H Blood Pressure Mean (mm Hg) 83 90 Source Monitor Monitor Position Semi-Fowlers Semi-Fowlers Blood Pressure Location Left Arm Left Arm History Since Last Visit- (Skip if this is Patient's initial visit) Have you changed medications since your No No last visit? Any new allergies or adverse reactions No No Had a fall/change in ADL's that may No No increase risk of falls Signs or symptoms of abuse and/or No No neglect since last visit Have you been in the hospital since your No No last visit? Has dressing in place as prescribed Yes Yes Has compression in place as prescribed Yes Yes Has offloadiing in place as prescribed No No Experienced any changes in pain level or No No management Left Footwear Regular Shoe Right Footwear Regular Shoe Pain Scale: 0-10 Numeric Is Patient Pain Free? Yes Yes WC - Nurse 1 - General Ulcer Measurement Start: 07/07/24 09:16 Freq: Status: Active Protocol: Activity Type Activity Date Activity User E-sign Co-sign Detail Recorded Client Recorded Date Recorded By Document 07/07/24 09:16 RB [id number] 07/07/24 09:19 RB Document 07/21/24 08:38 RB [id number] 07/21/24 08:41 RB 07/07/24 07/21/24 09:16 08:38 Wound Center Nurse 1 #4 RT MED ANKLE -Combined with other wound No No -Current Size (cm) - Length 0.5 0.6 -Current Size (cm) - Width 0.4 0.4 -Current Size (cm) - Depth 0.2 0.1 -Total Square Cm 0.20 0.24 -Photo Taken Yes -Tunneling No No -Undermining/Tunneling No No -Circular Undermining No No -Exudate Amt Medium Medium -Exudate Type Serosanguineous Serosanguineous -Wound Margin Distinct, Distinct, Outline Outline Attached Attached -Granulation Amt Medium (34-66%) Medium (34-66%) -Granulation Quality [place] -Slough/Fibrin Yes Yes -Necrosis Amt Medium (34-66%) Large (67-100%) -Necrotic Tissue Type Adherent Slough Adherent Slough -Structure Exposed N/A N/A -Texture (Nancy-wound Skin Appearance) Excoriation Assessed, Excoriation -Moisture (Nancy-wound Skin Appearance) Assessed Dry/Scaly -Color (Nancy-wound Skin Appearance) Assessed Assessed -Temperature (Nancy-wound Skin No Abnormality No Abnormality Appearance) (Pt Warm) (Pt Warm) -Tenderness on Palpation (Nancy-wound No No Skin Appearance) -Ulcer Cleansing Wound Cleanser Wound Cleanser -Foul Odor after Cleansing No No -Anesthetic Used 5% Lidocaine 5% Lidocaine Gel Gel Lower Limb Edema Present Yes Yes Right Calf (cm) 35 35.5 Right Ankle (cm) 23.4 23.5 WC - Nurse 2 - General Ulcer CM Notes Start: 07/07/24 09:16 Freq: Status: Active Protocol: Activity Type Activity Date Activity User E-sign Co-sign Detail Recorded Client Recorded Date Recorded By Document 07/07/24 09:22 [id number] 07/07/24 09:26 Document 07/21/24 09:05 [id number] 07/21/24 09:16 07/07/24 07/21/24 09:22 09:05 Wound Center Nurse 2 #4 RT MED ANKLE -Time 09: 09:06 -Correct Patient Yes Yes -Correct Side, Site, Position Yes Yes -Correct Procedure Yes Yes -Procedure Performed Yes Yes -Type of Procedure Debridement Debridement -Clinical Debridement Subcutaneous Subcutaneous -Tissue Removed Subcutaneous Subcutaneous -Post Debridement (cm) - Length 0.8 0.5 -Post Debridement (cm) - Width 0.4 0.5 -Post Debridement (cm) - Depth 0.1 0.2 -Total Square (Post) (cm) 0.32 0.25 -Area of Debridement (cm) - Length 0.8 0.5 -Area of Debridement (cm) - Width 0.4 0.5 -Total Square (Area) (cm) 0.32 0.25 -Tunneling No No -Undermining/Tunneling No No -Circular Undermining No No -Wound/Ulcer Outcome Not Healed Not Healed -Ulcer Cleansing Rinsed/ Rinsed/ Irrigated with Irrigated with Saline Saline -Foul Odor after Cleansing No No -Bioengineered Tissue No No -Bleeding Controlled with Pressure Pressure -Treatment Response Procedure Procedure Tolerated Well Tolerated Well -Debridement - Subq, 1st 20sq cm Yes Yes Pain Scale: 0-10 Numeric Is Patient Pain Free? Yes Yes - Nurse 3 - General Ulcer D/C NN Start: 07/07/24 09:16 Freq: Status: Active Protocol: Activity Type Activity Date Activity User E-sign Co-sign Detail Recorded Client Recorded Date Recorded By Document 07/07/24 09:37 KW [id number] 07/07/24 09:40 KW Document 07/21/24 09:23 KW [id number] 07/21/24 09:24 KW 07/07/24 07/21/24 09:37 09:23 Wound Care Center Nurse 3 #4 RT MED ANKLE -Primary Dressing Applied Aquacel Extra, NonAdherent Promogran Contact Layer -Other Dressing pt promogran -Primary Dressing Covered/Secured with Dry Gauze & Dry Gauze & Roll Gauze, Roll Gauze, Secured with Secured with Tape Tape -Other Covering iris stasis pad -AMD Dressing 4x8 1 -Aquacel Extra 1 -Promogran 1 Right -Other pt own pt own compression compression Pain Scale: 0-10 Numeric Is Patient Pain Free? Yes Yes - Visit Discharge Discharge Condition Stable Stable Ambulatory Status Ambulatory Ambulatory Medication Reconcilliation completed & No No provided to patient/care provider Clinical Summary of Care Provided Yes Yes Assessment/Plan Assessment/Plan (1) Venous stasis ulcer of right ankle with fat layer exposed: CODE(S): I83.013 - Varicose veins of right lower extremity with ulcer of ankle; L97.312 - Non-pressure chronic ulcer of right ankle with fat layer exposed QUALIFIERS: Varicose vein presence: with varicose veins Qualified Code(s): I83.013 - Varicose veins of right lower extremity with ulcer of ankle; L97.312 - Non-pressure chronic ulcer of right ankle with fat layer exposed (2) Peripheral vascular disease of lower extremity with ulceration: CODE(S): I73.9 - Peripheral vascular disease, unspecified; L97.909 - Non- pressure chronic ulcer of unspecified part of unspecified lower leg with unspecified severity (3) Nonhealing nonsurgical wound with fat layer exposed: CODE(S): T14.8XXA - Other injury of unspecified body region, initial encounter (4) Cellulitis of lower extremity: CODE(S): L03.119 - Cellulitis of unspecified part of limb QUALIFIERS: Laterality: right Qualified Code(s): L03.115 - Cellulitis of right lower limb (5) Edema, lower extremity: CODE(S): R60.0 - Localized edema (6) Essential (primary) hypertension: CODE(S): I10 - Essential (primary) hypertension (7) Chronic atrial fibrillation: CODE(S): I48.2 - Chronic atrial fibrillation PLAN: Plan Debridement performed today in clinic as annotated above. At home wound-care instructions: Will have use Promogran for moderate drainage and adaptic and cover with foam dressing or gauze and have her continue a venous stasis pad over the periphery of the ulcer changed daily. She will continue to use compression stocking 20-30 mm Hg pressure for compression for her edema. Keep dressing clean and dry. Off-loading: The patient was instructed to avoid pressure and friction on the affected areas. Reposition every 2 hours at minimum. Avoid prolonged standing and/or dangling of legs. When seated, feet should be elevated at chest level. Frequent ambulation is encouraged. Diet: Patient encouraged to increase protein intake while taking caution to avoid high carbohydrate and/or sugar intake. Labs/cultures/imaging: Previous labs reviewed from 01/28/2024 and do not show any obvious co-morbidities to consider in the progress of her wound healing. She saw Dr. Cesar on 06/01/24 and he performed ablation on 07/13/24. Follow-up: Return in 2 weeks for wound care follow up. Return sooner or report to the emergency room should symptoms worsen, or new symptoms arise. Note: [employer]real speech recognition marine engine mechanic software was used to create portions of this document. Sound-alike and misspelled words, as well as other marine engine mechanic errors may be contained in the documentation.
--- NOTE | 2024-07-24 08:03 | WC ---
PHOTO 07/21/24 RIGHT ANKLE
== END 2024-08-01 23:59 | disposition home or self-care (01) ==
LOC: WC 09:00
PROVIDERS: PCP Family Medicine; Referring Provider Family Medicine; Visit Provider Family Medicine
DX: I83.013 Varicose veins of right lower extremity with ulcer of ankle (principal); L97.312 Non-pressure chronic ulcer of right ankle with fat layer exposed; I48.20 Chronic atrial fibrillation, unspecified; I10 Essential (primary) hypertension; I73.9 Peripheral vascular disease, unspecified; R60.0 Localized edema; Z79.01 Long term (current) use of anticoagulants; Z79.899 Other long term (current) drug therapy; L03.119 Cellulitis of unspecified part of limb
CPT/HCPCS: 11042

== ENCOUNTER 2024-08-25 09:00 | Outpatient (RCR) | payer OTHER, SELFPAY ==
[2024-08-02 00:16] VITALS: BP 134/61; PULSE 68; RESP 18; TEMP 36.1
[2024-08-04 08:38] VITALS: BP 127/56; PULSE 75; RESP 16; TEMP 36.1
--- NOTE | 2024-08-04 09:28 | PN.PCM_ITS ---
History of Present Illness Date of Service: 08/04/24 Chief Complaint: right medial ankle ulcer History of Wound: Emani is a pleasant 78-year-old white [place] female who presents to the wound healing center for an evaluation of a right medial ankle venous leg ulcer. She had previously been seen at the [facility] wound healing center for 2 other right venous leg ulcers. She has a past medical history significant for atrial fibrillation and is on chronic anticoagulation with Coumadin, hypertension, peripheral venous disease. The ulcer started in January with pain and itching to the area and then it became red and started draining a large amount of serous fluid. She was seen by urgent care and prescribed Bactrim. She has been dressing the ulcer with Telfa bandages. She normally wear compression stockings daily but does not have them on today. She has noted improvement in the ulcer since taking the antibiotic but it remains open and is still draining heavily at times. She wears compression stockings (20-30 mmHg) daily, and this has been of benefit for her bilateral lower ext remity edema. 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 She had a bilateral lower extremity venous Doppler studies in October 2018 and October 2020, which demonstrated incompetence of the left saphenofemoral junction, incompetence of the right greater saphenous vein below the knee, and segmental incompetence of the left greater saphenous vein. She had bilateral lower extremity arterial studies in August 2020 which showed no evidence of significant arterial occlusive disease in the bilateral lower extremities. She was referred to vascular surgery previously for consideration for operative intervention for venous incompetence but did not follow through with referral but is ready to proceed with referral for prevention of recurrent ulcers. The patient denies any fever, chills. Denies any increasing pain, redness, swelling, or purulent/malodorous drainage from affected area. Subjective Subjective Emani returns today for follow up of ulcer of right medial ankle. She is tolerating treatment with Promogran, adaptic and foam dressing for moderate drainage and use of venous stasis pad for additional focused compression around her ulcer. The ulcer is slightly larger this week. She notes having itching and erythema of her lower leg above the ulcer and draining from the skin there. She underwent vascular procedure for ablation on 07/13/24 and has noticed improvement in swelling and her leg feels mangle press catcher than previous. She denies fever, chills, odor. Objective Data Objective Data Vital Signs: Vital Signs Temp Pulse Resp BP O2 Del Method 97.0 F L 75 16 127/56 H Room Air 08/04/24 08:38 08/04/24 08:38 08/04/24 08:38 08/04/24 08:38 08/04/24 08:38 Oxygen Delivery Method Room Air Physical Exam Const alert, oriented x3 and no apparent distress General Appearance: cooperative and comfortable HEENT normocephalic and head/scalp atraumatic Resp normal respiratory effort Effort and Inspection: able to speak in complete sentences Cardio regular rate and regular rhythm Skin General Skin Exam: venous stasis and dermatitis Wounds: wounds noted Wound Narrative: as in clinical panel, unchanged in size without obvious cellulitis, odor, undermining, moderate slough, there is bioburden with granulation tissue at base which was removed with debridement, she continues to have excoriated rash around the top of her foot and ankle Psych mental status grossly normal, thought process normal, cooperative and affect normal Debridement Note Debridement Note Wound debrided: right medial ankle Laterality: Right Type of Debridement: Excisional debridement Anesthesia Used: 4% Lidocaine Solution and 5% Lidocaine Gel Depth: Down to and including healthy tissue and in the subcutaneous layer Percentage of wound debrided: 100 Instrument Used: 3mm curette Tissue Removed: Yellow slough, devitalized tissue Severity: Fat Layer Exposed Amount of bleeding with debridement: Mild Bleeding Controlled with: Pressure Patient tolerated procedure: Patient tolerated procedure well Post-Debridement Measurements and Additional Note: Post-Debridement Measurements/Treatment - Nurse 1 - General Ulcer Assessment Start: 08/04/24 08:38 Freq: Status: Active Protocol: ISAIAH Activity Type Activity Date Activity User E-sign Co-sign Detail Recorded Client Recorded Date Recorded By Document 08/04/24 08:38 KW [id number] 08/04/24 08:49 KW 08/04/24 08:38 - Today's Visit Information Type of service Follow-up Visit (Physician/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 Any new allergies or adverse reactions No Had a fall/change in ADL's that may No increase risk of falls Signs or symptoms of abuse and/or No neglect since last visit Have you been in the hospital since your No last visit? Has dressing in place as prescribed Yes Has compression in place as prescribed Yes Has offloadiing in place as prescribed N/A Experienced any changes in pain level or No management Left Footwear Regular Shoe Right Footwear Regular Shoe Pain Scale: 0-10 Numeric Is Patient Pain Free? Yes WC - Nurse 1 - General Ulcer Measurement Start: 08/04/24 08:38 Freq: Status: Active Protocol: Activity Type Activity Date Activity User E-sign Co-sign Detail Recorded Client Recorded Date Recorded By Document 08/04/24 08:38 [id number] 08/04/24 08:49 08/04/24 08:38 Wound Center Nurse 1 #4 RT MED ANKLE -Current Size (cm) - Length 1 -Current Size (cm) - Width 0.5 -Current Size (cm) - Depth 0.1 -Total Square Cm 0.5 -Exudate Amt Small -Exudate Type Serosanguineous -Wound Margin Distinct, Outline Attached -Granulation Amt Small (1-33%) -Granulation Quality [place] -Necrosis Amt Large (67-100%) -Necrotic Tissue Type Adherent Slough -Texture (Nancy-wound Skin Appearance) Assessed -Moisture (Nancy-wound Skin Appearance) Assessed,Dry/ Scaly -Color (Nancy-wound Skin Appearance) Assessed -Temperature (Nancy-wound Skin No Abnormality Appearance) (Pt Warm) -Tenderness on Palpation (Nancy-wound No Skin Appearance) -Ulcer Cleansing Rinsed/ Irrigated with Saline -Foul Odor after Cleansing No -Anesthetic Used 5% Lidocaine Gel WC - Nurse 2 - General Ulcer CM Notes Start: 08/04/24 08:38 Freq: Status: Active Protocol: Activity Type Activity Date Activity User E-sign Co-sign Detail Recorded Client Recorded Date Recorded By Document 08/04/24 08:59 [id number] 08/04/24 09:06 08/04/24 08:59 Wound Center Nurse 2 -Time 09:00 -Correct Patient Yes -Correct Side, Site, Position Yes -Correct Procedure Yes -Procedure Performed Yes -Type of Procedure Debridement -Clinical Debridement Subcutaneous -Tissue Removed Subcutaneous -Post Debridement (cm) - Length 0.8 -Post Debridement (cm) - Width 0.4 -Post Debridement (cm) - Depth 0.2 -Total Square (Post) (cm) 0.32 -Area of Debridement (cm) - Length 0.8 -Area of Debridement (cm) - Width 0.4 -Total Square (Area) (cm) 0.32 -Tunneling No -Undermining/Tunneling No -Circular Undermining No -Wound/Ulcer Outcome Not Healed -Ulcer Cleansing Rinsed/ Irrigated with Saline -Foul Odor after Cleansing No -Bioengineered Tissue No -Bleeding Controlled with Pressure -Treatment Response Procedure Tolerated Well -Debridement - Subq, 1st 20sq cm Yes Pain Scale: 0-10 Numeric Is Patient Pain Free? Yes WC - Nurse 3 - General Ulcer D/C NN Start: 08/04/24 08:38 Freq: Status: Active Protocol: Activity Type Activity Date Activity User E-sign Co-sign Detail Recorded Client Recorded Date Recorded By Document 08/04/24 09:18 KW [id number] 08/04/24 09:20 KW 08/04/24 09:18 Wound Care Center Nurse 3 #4 RT MED ANKLE -Primary Dressing Applied Promogran -Primary Dressing Covered/Secured with Dry Gauze -Promogran 1 Right -Other pt own compression Pain Scale: 0-10 Numeric Is Patient Pain Free? Yes WC - Visit Discharge Discharge Condition Stable Ambulatory Status Ambulatory Medication Reconcilliation completed & No provided to patient/care provider Clinical Summary of Care Provided Yes Assessment/Plan Assessment/Plan (1) Venous stasis ulcer of right ankle with fat layer exposed: CODE(S): I83.013 - Varicose veins of right lower extremity with ulcer of ankle; L97.312 - Non-pressure chronic ulcer of right ankle with fat layer exposed QUALIFIERS: Varicose vein presence: with varicose veins Qualified Code(s): I83.013 - Varicose veins of right lower extremity with ulcer of ankle; L97.312 - Non-pressure chronic ulcer of right ankle with fat layer exposed (2) Peripheral vascular disease of lower extremity with ulceration: CODE(S): I73.9 - Peripheral vascular disease, unspecified; L97.909 - Non- pressure chronic ulcer of unspecified part of unspecified lower leg with unspecified severity (3) Nonhealing nonsurgical wound with fat layer exposed: CODE(S): T14.8XXA - Other injury of unspecified body region, initial encounter (4) Cellulitis of lower extremity: CODE(S): L03.119 - Cellulitis of unspecified part of limb QUALIFIERS: Laterality: right Qualified Code(s): L03.115 - Cellulitis of right lower limb (5) Edema, lower extremity: CODE(S): R60.0 - Localized edema (6) Essential (primary) hypertension: CODE(S): I10 - Essential (primary) hypertension (7) Chronic atrial fibrillation: CODE(S): I48.2 - Chronic atrial fibrillation PLAN: Plan Debridement performed today in clinic as annotated above. At home wound-care instructions: Will have use Promogran for moderate drainage and adaptic and cover with ABD daily. She will continue to use compression stocking 20-30 mm Hg pressure for compression for her edema. Keep dressing clean and dry. She may be having a reaction to the gauze. Will change to ABD. Off-loading: The patient was instructed to avoid pressure and friction on the affected areas. Reposition every 2 hours at minimum. Avoid prolonged standing and/or dangling of legs. When seated, feet should be elevated at chest level. Frequent ambulation is encouraged. Diet: Patient encouraged to increase protein intake while taking caution to avoid high carbohydrate and/or sugar intake. Labs/cultures/imaging: Previous labs reviewed from 01/28/2024 and do not show any obvious co-morbidities to consider in the progress of her wound healing. She saw Dr. Cesar on 06/01/24 and he performed ablation on 07/13/24. Wound culture taken today due to erythema but I think that it is likely from contact dermatitis. Follow-up: Return in 1 week for wound care follow up. Return sooner or report to the emergency room should symptoms worsen, or new symptoms arise. Note: [employer] speech recognition digital content manager software was used to create portions of this document. Sound-alike and misspelled words, as well as other digital content manager errors may be contained in the documentation.
[2024-08-11 08:11] VITALS: BP 109/52; PULSE 49; RESP 16; TEMP 36.2
--- NOTE | 2024-08-11 12:38 | PN.PCM_ITS ---
History of Present Illness Date of Service: 08/11/24 Chief Complaint: right medial ankle ulcer History of Wound: Emani is a pleasant 78-year-old white [place] female who presents to the wound healing center for an evaluation of a right medial ankle venous leg ulcer. She had previously been seen at the [facility] wound healing center for 2 other right venous leg ulcers. She has a past medical history significant for atrial fibrillation and is on chronic anticoagulation with Coumadin, hypertension, peripheral venous disease. The ulcer started in January with pain and itching to the area and then it became red and started draining a large amount of serous fluid. She was seen by urgent care and prescribed Bactrim. She has been dressing the ulcer with Telfa bandages. She normally wear compression stockings daily but does not have them on today. She has noted improvement in the ulcer since taking the antibiotic but it remains open and is still draining heavily at times. She wears compression stockings (20-30 mmHg) daily, and this has been of benefit for her bilateral lower ext remity edema. 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 She had a bilateral lower extremity venous Doppler studies in October 2018 and October 2020, which demonstrated incompetence of the left saphenofemoral junction, incompetence of the right greater saphenous vein below the knee, and segmental incompetence of the left greater saphenous vein. She had bilateral lower extremity arterial studies in August 2020 which showed no evidence of significant arterial occlusive disease in the bilateral lower extremities. She was referred to vascular surgery previously for consideration for operative intervention for venous incompetence but did not follow through with referral but is ready to proceed with referral for prevention of recurrent ulcers. The patient denies any fever, chills. Denies any increasing pain, redness, swelling, or purulent/malodorous drainage from affected area. Subjective Subjective Emani returns today for follow up of ulcer of right medial ankle. She is tolerating treatment with Promogran, adaptic and foam dressing for moderate drainage and use of venous stasis pad for additional focused compression around her ulcer. The ulcer is unchanged this week. She has less irritation of the periwound since switching to ABD. She underwent vascular procedure for ablation on 07/13/24 and has noticed improvement in swelling and her leg feels bin cleaner than previous. She denies fever, chills, odor. Objective Data Objective Data Vital Signs: Vital Signs Temp Pulse Resp BP O2 Del Method 97.2 F L 49 L 16 109/52 L Room Air 08/11/24 08:11 08/11/24 08:11 08/11/24 08:11 08/11/24 08:11 08/11/24 08:11 Oxygen Delivery Method Room Air Lab / Micro Data Micro: Microbiology 08/04/24 09:05 Wound - Leg, Right Gram Stain - Final 08/04/24 09:05 Wound - Leg, Right Wound Culture - Final Staphylococcus aureus 08/04/24 09:05 Wound - Leg, Right Anaerobic Culture - Final No anaerobic bacteria isolated. Physical Exam Const alert, oriented x3 and no apparent distress General Appearance: cooperative and comfortable HEENT normocephalic and head/scalp atraumatic Resp normal respiratory effort Effort and Inspection: able to speak in complete sentences Cardio regular rate and regular rhythm Skin General Skin Exam: venous stasis and dermatitis Wounds: wounds noted Wound Narrative: as in clinical panel, unchanged in size without obvious cellulitis, odor, undermining, minimal slough, there is bioburden with granulation tissue at base which was removed with debridement, she continues to have excoriated rash around the top of her foot and ankle but better than previous Psych mental status grossly normal, thought process normal, cooperative and affect normal Debridement Note Debridement Note Wound debrided: right medial ankle Laterality: Right Type of Debridement: Excisional debridement Anesthesia Used: 5% Lidocaine Gel Depth: Down to and including healthy tissue and in the subcutaneous layer Percentage of wound debrided: 100 Instrument Used: 3mm curette Tissue Removed: Yellow slough, devitalized tissue Severity: Fat Layer Exposed Amount of bleeding with debridement: Mild Bleeding Controlled with: Compression and gauze Patient tolerated procedure: Patient tolerated procedure well Post-Debridement Measurements and Additional Note: Post-Debridement Measurements/Treatment - Nurse 1 - General Ulcer Assessment Start: 08/04/24 08:38 Freq: Status: Active Protocol: ISAIAH Activity Type Activity Date Activity User E-sign Co-sign Detail Recorded Client Recorded Date Recorded By Document 08/04/24 08:38 KW [id number] 08/04/24 08:49 KW Document 08/11/24 08:11 KW [id number] 08/11/24 08:19 KW 08/04/24 08/11/24 08:38 08:11 - Today's Visit Information Type of service Follow-up Visit Follow-up Visit (Physician/UNDERGROUND SUPERVISOR (Physician/UNDERGROUND SUPERVISOR ) ) Arrival Mode Ambulatory Ambulatory Patient Identification Verified (Name & Yes Yes ) Vital Signs Temperature (97.8 F-99.1 F) 97.0 F L 97.2 F L Temperature Source Temporal Temporal Pulse Rate (60-100) 75 49 L Pulse Location Monitor Monitor Respiratory Rate (12-18) 16 16 Respiratory rate source Observation Observation Oxygen Delivery Method Room Air Room Air Blood Pressure (90/60-120/80) 127/56 H 109/52 L Blood Pressure Mean (mm Hg) 79 71 Source Monitor Monitor Position Sitting Semi-Fowlers Blood Pressure Location Left Arm Left Arm History Since Last Visit- (Skip if this is Patient's initial visit) Have you changed medications since your No No last visit? Any new allergies or adverse reactions No No Had a fall/change in ADL's that may No No increase risk of falls Signs or symptoms of abuse and/or No No neglect since last visit Have you been in the hospital since your No No last visit? Has dressing in place as prescribed Yes Yes Has compression in place as prescribed Yes Yes Has offloadiing in place as prescribed N/A N/A Experienced any changes in pain level or No No management Left Footwear Regular Shoe Regular Shoe Right Footwear Regular Shoe Regular Shoe Pain Scale: 0-10 Numeric Is Patient Pain Free? Yes Yes - Nurse 1 - General Ulcer Measurement Start: 08/04/24 08:38 Freq: Status: Active Protocol: Activity Type Activity Date Activity User E-sign Co-sign Detail Recorded Client Recorded Date Recorded By Document 08/04/24 08:38 KW [id number] 08/04/24 08:49 KW Document 08/11/24 08:11 KW [id number] 08/11/24 08:19 KW 08/04/24 08/11/24 08:38 08:11 Wound Center Nurse 1 #4 RT MED ANKLE -Current Size (cm) - Length 1 0.5 -Current Size (cm) - Width 0.5 0.5 -Current Size (cm) - Depth 0.1 0.1 -Total Square Cm 0.5 0.25 -Exudate Amt Small Small -Exudate Type Serosanguineous Serosanguineous -Wound Margin Distinct, Distinct, Outline Outline Attached Attached -Granulation Amt Small (1-33%) Small (1-33%) -Granulation Quality Plessis -Necrosis Amt Large (67-100%) Large (67-100%) -Necrotic Tissue Type Adherent Slough Adherent Slough -Texture (Nancy-wound Skin Appearance) Assessed Assessed,Rash -Moisture (Nancy-wound Skin Appearance) Assessed,Dry/ Assessed,Dry/ Scaly Scaly -Color (Nancy-wound Skin Appearance) Assessed Assessed -Temperature (Nancy-wound Skin No Abnormality No Abnormality Appearance) (Pt Warm) (Pt Warm) -Tenderness on Palpation (Nancy-wound No No Skin Appearance) -Ulcer Cleansing Rinsed/ Rinsed/ Irrigated with Irrigated with Saline Saline -Foul Odor after Cleansing No No -Anesthetic Used 5% Lidocaine 5% Lidocaine Gel Gel WC - Nurse 2 - General Ulcer CM Notes Start: 08/04/24 08:38 Freq: Status: Active Protocol: Activity Type Activity Date Activity User E-sign Co-sign Detail Recorded Client Recorded Date Recorded By Document 08/04/24 08:59 [id number] 08/04/24 09:06 Document 08/11/24 09:12 [id number] 08/11/24 09:19 08/04/24 08/11/24 08:59 09:12 Wound Center Nurse 2 #4 RT MED ANKLE -Time 09:00 09:12 -Correct Patient Yes Yes -Correct Side, Site, Position Yes Yes -Correct Procedure Yes Yes -Procedure Performed Yes Yes -Type of Procedure Debridement Debridement -Clinical Debridement Subcutaneous Subcutaneous -Tissue Removed Subcutaneous Subcutaneous -Post Debridement (cm) - Length 0.8 0.6 -Post Debridement (cm) - Width 0.4 0.7 -Post Debridement (cm) - Depth 0.2 0.2 -Total Square (Post) (cm) 0.32 0.42 -Area of Debridement (cm) - Length 0.8 0.6 -Area of Debridement (cm) - Width 0.4 0.7 -Total Square (Area) (cm) 0.32 0.42 -Tunneling No No -Undermining/Tunneling No No -Circular Undermining No No -Wound/Ulcer Outcome Not Healed Not Healed -Ulcer Cleansing Rinsed/ Rinsed/ Irrigated with Irrigated with Saline Saline -Foul Odor after Cleansing No -Bioengineered Tissue No -Bleeding Controlled with Pressure Pressure -Treatment Response Procedure Procedure Tolerated Well Tolerated Well -Debridement - Subq, 1st 20sq cm Yes Yes Pain Scale: 0-10 Numeric Is Patient Pain Free? Yes Yes - Nurse 3 - General Ulcer D/C NN Start: 08/04/24 08:38 Freq: Status: Active Protocol: Activity Type Activity Date Activity User E-sign Co-sign Detail Recorded Client Recorded Date Recorded By Document 08/04/24 09:18 KW [id number] 08/04/24 09:20 KW Document 08/11/24 09:34 GM [id number] 08/11/24 09:35 GM 08/04/24 08/11/24 09:18 09:34 Wound Care Center Nurse 3 #4 RT MED ANKLE -Ulcer Cleansing Not Cleansed -Foul Odor after Cleansing No -Primary Dressing Applied Promogran Promogran -Primary Dressing Covered/Secured with Dry Gauze Dry Gauze & Roll Gauze, Secured with Tape -Promogran 1 2 Right -Other pt own compression Pain Scale: 0-10 Numeric Is Patient Pain Free? Yes Yes - Visit Discharge Discharge Condition Stable Stable Ambulatory Status Ambulatory Ambulatory Transportation Private Auto Medication Reconcilliation completed & No provided to patient/care provider Clinical Summary of Care Provided Yes Assessment/Plan Assessment/Plan (1) Venous stasis ulcer of right ankle with fat layer exposed: CODE(S): I83.013 - Varicose veins of right lower extremity with ulcer of ankle; L97.312 - Non-pressure chronic ulcer of right ankle with fat layer exposed QUALIFIERS: Varicose vein presence: with varicose veins Qualified Code(s): I83.013 - Varicose veins of right lower extremity with ulcer of ankle; L97.312 - Non-pressure chronic ulcer of right ankle with fat layer exposed (2) Peripheral vascular disease of lower extremity with ulceration: CODE(S): I73.9 - Peripheral vascular disease, unspecified; L97.909 - Non- pressure chronic ulcer of unspecified part of unspecified lower leg with unspecified severity (3) Nonhealing nonsurgical wound with fat layer exposed: CODE(S): T14.8XXA - Other injury of unspecified body region, initial encounter (4) Cellulitis of lower extremity: CODE(S): L03.119 - Cellulitis of unspecified part of limb QUALIFIERS: Laterality: right Qualified Code(s): L03.115 - Cellulitis of right lower limb (5) Edema, lower extremity: CODE(S): R60.0 - Localized edema (6) Essential (primary) hypertension: CODE(S): I10 - Essential (primary) hypertension (7) Chronic atrial fibrillation: CODE(S): I48.2 - Chronic atrial fibrillation PLAN: Plan Debridement performed today in clinic as annotated above. At home wound-care instructions: Will have her use Promogran for moderate drainage and adaptic and cover with ABD daily. She will continue to use compression stocking 20-30 mm Hg pressure for compression for her edema. Keep dressing clean and dry. She may be having a reaction to the gauze. Will change to ABD. Off-loading: The patient was instructed to avoid pressure and friction on the affected areas. Reposition every 2 hours at minimum. Avoid prolonged standing and/or dangling of legs. When seated, feet should be elevated at chest level. Frequent ambulation is encouraged. Diet: Patient encouraged to increase protein intake while taking caution to avoid high carbohydrate and/or sugar intake. Labs/cultures/imaging: Previous labs reviewed from 01/28/2024 and do not show any obvious co-morbidities to consider in the progress of her wound healing. She saw Dr. Cesar on 06/01/24 and he performed ablation on 07/13/24. Wound culture was positive for Staph and she was advised to start Bactrim. Follow-up: Return in 1 week for wound care follow up. Return sooner or report to the emergency room should symptoms worsen, or new symptoms arise. Note: [employer] speech recognition messenger office software was used to create portions of this document. Sound-alike and misspelled words, as well as other messenger office errors may be contained in the documentation.
[2024-08-18 08:30] VITALS: BP 102/82; PULSE 69; RESP 16
--- NOTE | 2024-08-18 09:50 | PCM.WC.PN ---
History of Present Illness Date of Service: 08/18/24 Chief Complaint: right medial ankle ulcer History of Wound: Emani is a pleasant 78-year-old white [place] female who presents to the wound healing center for an evaluation of a right medial ankle venous leg ulcer. She had previously been seen at the [facility] wound healing center for 2 other right venous leg ulcers. She has a past medical history significant for atrial fibrillation and is on chronic anticoagulation with Coumadin, hypertension, peripheral venous disease. The ulcer started in January with pain and itching to the area and then it became red and started draining a large amount of serous fluid. She was seen by urgent care and prescribed Bactrim. She has been dressing the ulcer with Telfa bandages. She normally wear compression stockings daily but does not have them on today. She has noted improvement in the ulcer since taking the antibiotic but it remains open and is still draining heavily at times. She wears compression stockings (20-30 mmHg) daily, and this has been of benefit for her bilateral lower extremity edema. 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 She had a bilateral lower extremity venous Doppler studies in October 2018 and October 2020, which demonstrated incompetence of the left saphenofemoral junction, incompetence of the right greater saphenous vein below the knee, and segmental incompetence of the left greater saphenous vein. She had bilateral lower extremity arterial studies in August 2020 which showed no evidence of significant arterial occlusive disease in the bilateral lower extremities. She was referred to vascular surgery previously for consideration for operative intervention for venous incompetence but did not follow through with referral but is ready to proceed with referral for prevention of recurrent ulcers. The patient denies any fever, chills. Denies any increasing pain, redness, swelling, or purulent/malodorous drainage from affected area. Subjective Subjective Emani returns today for follow up of ulcer of right medial ankle. She is tolerating treatment with Promogran, adaptic and foam dressing for moderate drainage. The ulcer is smaller this week. She has increased irritation of the periwound and her lower leg this week. She underwent vascular procedure for ablation on 07/13/24 and has noticed improvement in swelling and her leg feels hand turner than previous. She denies fever, chills, odor. Objective Data Objective Data Vital Signs: Vital Signs Temp Pulse Resp BP O2 Del Method 97.2 F L 69 16 102/82 H Room Air 08/11/24 08:11 08/18/24 08:30 08/18/24 08:30 08/18/24 08:30 08/18/24 08:30 Oxygen Delivery Method Room Air Lab / Micro Data Micro: Microbiology 08/04/24 09:05 Wound - Leg, Right Gram Stain - Final 08/04/24 09:05 Wound - Leg, Right Wound Culture - Final Staphylococcus aureus 08/04/24 09:05 Wound - Leg, Right Anaerobic Culture - Final No anaerobic bacteria isolated. Physical Exam Const alert, oriented x3 and no apparent distress General Appearance: cooperative and comfortable HEENT normocephalic and head/scalp atraumatic Resp normal respiratory effort Effort and Inspection: able to speak in complete sentences Cardio regular rate and regular rhythm Skin General Skin Exam: venous stasis and dermatitis Wounds: wounds noted Wound Narrative: as in clinical panel, unchanged in size without obvious cellulitis, odor, undermining, minimal slough, there is bioburden with granulation tissue at base which was removed with debridement, she continues to have excoriated rash around the top of her foot and ankle but better than previous Psych mental status grossly normal, thought process normal, cooperative and affect normal Debridement Note Debridement Note Wound debrided: right medial ankle Laterality: Right Type of Debridement: Excisional debridement Anesthesia Used: 5% Lidocaine Gel Depth: Down to and including healthy tissue and in the subcutaneous layer Percentage of wound debrided: 100 Instrument Used: 3mm curette Tissue Removed: Yellow slough, devitalized tissue Severity: Fat Layer Exposed Amount of bleeding with debridement: Mild Bleeding Controlled with: Compression and gauze Patient tolerated procedure: Patient tolerated procedure well Post-Debridement Measurements and Additional Note: Post-Debridement Measurements/Treatment WC - Nurse 1 - General Ulcer Assessment Start: 08/04/24 08:38 Freq: Status: Active Protocol: ISAIAH Activity Type Activity Date Activity User E-sign Co-sign Detail Recorded Client Recorded Date Recorded By Document 08/04/24 08:38 KW [id number] 08/04/24 08:49 KW Document 08/11/24 08:11 KW [id number] 08/11/24 08:19 KW Document 08/18/24 08:30 KW [id number] 08/18/24 08:35 KW 08/04/24 08/11/24 08/18/24 08:38 08:11 08:30 - Today's Visit Information Type of service Follow-up Visit Follow-up Visit Follow-up Visit (Physician/[employer] (Physician/[employer]ER (Physician/[employer]ER ) ) ) Arrival Mode Ambulatory Ambulatory Ambulatory Patient Identification Verified (Name & Yes Yes Yes ) Vital Signs Temperature (97.8 F-99.1 F) 97.0 F L 97.2 F L Temperature Source Temporal Temporal Temporal Pulse Rate (60-100) 75 49 L 69 Pulse Location Monitor Monitor Monitor Respiratory Rate (12-18) 16 16 16 Respiratory rate source Observation Observation Observation Oxygen Delivery Method Room Air Room Air Room Air Blood Pressure (90/60-120/80) 127/56 H 109/52 L 102/82 H Blood Pressure Mean (mm Hg) 79 71 88 Source Monitor Monitor Position Sitting Semi-Fowlers Blood Pressure Location Left Arm Left Arm History Since Last Visit- (Skip if this is Patient's initial visit) Have you changed medications since your No No No last visit? Any new allergies or adverse reactions No No No Had a fall/change in ADL's that may No No No increase risk of falls Signs or symptoms of abuse and/or No No No neglect since last visit Have you been in the hospital since your No No No last visit? Has dressing in place as prescribed Yes Yes Yes Has compression in place as prescribed Yes Yes Yes Has offloadiing in place as prescribed N/A N/A N/A Experienced any changes in pain level or No No No management Left Footwear Regular Shoe Regular Shoe Regular Shoe Right Footwear Regular Shoe Regular Shoe Regular Shoe Pain Scale: 0-10 Numeric Is Patient Pain Free? Yes Yes Yes - Nurse 1 - General Ulcer Measurement Start: 08/04/24 08:38 Freq: Status: Active Protocol: Activity Type Activity Date Activity User E-sign Co-sign Detail Recorded Client Recorded Date Recorded By Document 08/04/24 08:38 KW [id number] 08/04/24 08:49 KW Document 08/11/24 08:11 KW [id number] 08/11/24 08:19 KW Document 08/18/24 08:30 KW [id number] 08/18/24 08:35 KW 08/04/24 08/11/24 08/18/24 08:38 08:11 08:30 Wound Center Nurse 1 #4 RT MED ANKLE -Current Size (cm) - Length 1 0.5 0.5 -Current Size (cm) - Width 0.5 0.5 0.4 -Current Size (cm) - Depth 0.1 0.1 0.1 -Total Square Cm 0.5 0.25 0.20 -Exudate Amt Small Small Small -Exudate Type Serosanguineous Serosanguineous Serosanguineous -Wound Margin Distinct, Distinct, Distinct, Outline Outline Outline Attached Attached Attached -Granulation Amt Small (1-33%) Small (1-33%) Small (1-33%) -Granulation Quality [place] -Necrosis Amt Large (67-100%) Large (67-100%) Large (67-100%) -Necrotic Tissue Type Adherent Slough Adherent Slough Adherent Slough -Texture (Nancy-wound Skin Appearance) Assessed Assessed,Rash Assessed,Rash -Moisture (Nancy-wound Skin Appearance) Assessed,Dry/ Assessed,Dry/ Assessed,Dry/ Scaly Scaly Scaly -Color (Nancy-wound Skin Appearance) Assessed Assessed Assessed -Temperature (Nancy-wound Skin No Abnormality No Abnormality No Abnormality Appearance) (Pt Warm) (Pt Warm) (Pt Warm) -Tenderness on Palpation (Nancy-wound No No No Skin Appearance) -Ulcer Cleansing Rinsed/ Rinsed/ Rinsed/ Irrigated with Irrigated with Irrigated with Saline Saline Saline -Foul Odor after Cleansing No No No -Anesthetic Used 5% Lidocaine 5% Lidocaine 5% Lidocaine Gel Gel Gel WC - Nurse 2 - General Ulcer CM Notes Start: 08/04/24 08:38 Freq: Status: Active Protocol: Activity Type Activity Date Activity User E-sign Co-sign Detail Recorded Client Recorded Date Recorded By Document 08/04/24 08:59 [id number] 08/04/24 09:06 Document 08/11/24 09:12 [id number] 08/11/24 09:19 Document 08/18/24 09:35 [id number] 08/18/24 09:39 08/04/24 08/11/24 08/18/24 08:59 09:12 09:35 Wound Center Nurse 2 #4 RT MED ANKLE -Time 09:00 09:12 09:35 -Correct Patient Yes Yes Yes -Correct Side, Site, Position Yes Yes Yes -Correct Procedure Yes Yes Yes -Procedure Performed Yes Yes Yes -Type of Procedure Debridement Debridement Debridement -Clinical Debridement Subcutaneous Subcutaneous Subcutaneous -Tissue Removed Subcutaneous Subcutaneous Subcutaneous -Post Debridement (cm) - Length 0.8 0.6 0.6 -Post Debridement (cm) - Width 0.4 0.7 0.3 -Post Debridement (cm) - Depth 0.2 0.2 0.2 -Total Square (Post) (cm) 0.32 0.42 0.18 -Area of Debridement (cm) - Length 0.8 0.6 0.6 -Area of Debridement (cm) - Width 0.4 0.7 0.3 -Total Square (Area) (cm) 0.32 0.42 0.18 -Tunneling No No No -Undermining/Tunneling No No No -Circular Undermining No No No -Wound/Ulcer Outcome Not Healed Not Healed Not Healed -Ulcer Cleansing Rinsed/ Rinsed/ Rinsed/ Irrigated with Irrigated with Irrigated with Saline Saline Saline -Foul Odor after Cleansing No No -Bioengineered Tissue No No -Bleeding Controlled with Pressure Pressure Pressure -Treatment Response Procedure Procedure Procedure Tolerated Well Tolerated Well Tolerated Well -Debridement - Subq, 1st 20sq cm Yes Yes Yes Pain Scale: 0-10 Numeric Is Patient Pain Free? Yes Yes Yes - Nurse 3 - General Ulcer D/C NN Start: 08/04/24 08:38 Freq: Status: Active Protocol: Activity Type Activity Date Activity User E-sign Co-sign Detail Recorded Client Recorded Date Recorded By Document 08/04/24 09:18 [id number] 08/04/24 09:20 Document 08/11/24 09:34 [id number] 08/11/24 09:35 Document 08/18/24 09:44 [id number] 08/18/24 09:46 08/04/24 08/11/24 08/18/24 09:18 09:34 09:44 Wound Care Center Nurse 3 #4 RT MED ANKLE -Ulcer Cleansing Not Cleansed -Foul Odor after Cleansing No -Primary Dressing Applied Promogran Promogran -Primary Dressing Applied Promogran -Primary Dressing Covered/Secured with Dry Gauze Dry Gauze & Roll Gauze, Secured with Tape -Promogran 1 2 2 Right -Other pt own personal compression compression stocking Pain Scale: 0-10 Numeric Is Patient Pain Free? Yes Yes Yes WC - Visit Discharge Discharge Condition Stable Stable Stable Ambulatory Status Ambulatory Ambulatory Ambulatory Transportation Private Auto Medication Reconcilliation completed & No No provided to patient/care provider Clinical Summary of Care Provided Yes Yes Assessment/Plan Assessment/Plan (1) Venous stasis ulcer of right ankle with fat layer exposed: CODE(S): I83.013 - Varicose veins of right lower extremity with ulcer of ankle; L97.312 - Non-pressure chronic ulcer of right ankle with fat layer exposed QUALIFIERS: Varicose vein presence: with varicose veins Qualified Code(s): I83.013 - Varicose veins of right lower extremity with ulcer of ankle; L97.312 - Non-pressure chronic ulcer of right ankle with fat layer exposed (2) Peripheral vascular disease of lower extremity with ulceration: CODE(S): I73.9 - Peripheral vascular disease, unspecified; L97.909 - Non-pressure chronic ulcer of unspecified part of unspecified lower leg with unspecified severity (3) Nonhealing nonsurgical wound with fat layer exposed: CODE(S): T14.8XXA - Other injury of unspecified body region, initial encounter (4) Cellulitis of lower extremity: CODE(S): L03.119 - Cellulitis of unspecified part of limb QUALIFIERS: Laterality: right Qualified Code(s): L03.115 - Cellulitis of right lower limb (5) Edema, lower extremity: CODE(S): R60.0 - Localized edema (6) Essential (primary) hypertension: CODE(S): I10 - Essential (primary) hypertension (7) Chronic atrial fibrillation: CODE(S): I48.2 - Chronic atrial fibrillation PLAN: Plan Debridement performed today in clinic as annotated above. At home wound-care instructions: Will have her use Promogran for moderate drainage and adaptic and cover with foam silicone bordered dressing daily. She will continue to use compression stocking 20-30 mm Hg pressure for compression for her edema. Keep dressing clean and dry. Prednisone prescribed to treat dermatitis of her right lower leg. Off-loading: The patient was instructed to avoid pressure and friction on the affected areas. Reposition every 2 hours at minimum. Avoid prolonged standing and/or dangling of legs. When seated, feet should be elevated at chest level. Frequent ambulation is encouraged. Diet: Patient encouraged to increase protein intake while taking caution to avoid high carbohydrate and/or sugar intake. Labs/cultures/imaging: Previous labs reviewed from 01/28/2024 and do not show any obvious co-morbidities to consider in the progress of her wound healing. She saw Dr. Cesar on 06/01/24 and he performed ablation on 07/13/24. Wound culture was positive for Staph and she was completed Bactrim. Follow-up: Return in 1 week for wound care follow up. Return sooner or report to the emergency room should symptoms worsen, or new symptoms arise. Note: [email or web address] speech recognition engine buildup mechanic software was used to create portions of this document. Sound-alike and misspelled words, as well as other engine buildup mechanic errors may be contained in the documentation.
[2024-08-25 08:29] VITALS: RESP 18; TEMP 36.5
--- NOTE | 2024-08-25 13:30 | PCM.WC.PN ---
History of Present Illness Date of Service: 08/25/24 Chief Complaint: right medial ankle ulcer History of Wound: Emani is a pleasant 78-year-old white [place] female who presents to the wound healing center for an evaluation of a right medial ankle venous leg ulcer. She had previously been seen at the [facility] wound healing center for 2 other right venous leg ulcers. She has a past medical history significant for atrial fibrillation and is on chronic anticoagulation with Coumadin, hypertension, peripheral venous disease. The ulcer started in January with pain and itching to the area and then it became red and started draining a large amount of serous fluid. She was seen by urgent care and prescribed Bactrim. She has been dressing the ulcer with Telfa bandages. She normally wear compression stockings daily but does not have them on today. She has noted improvement in the ulcer since taking the antibiotic but it remains open and is still draining heavily at times. She wears compression stockings (20-30 mmHg) daily, and this has been of benefit for her bilateral lower extremity edema. 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 She had a bilateral lower extremity venous Doppler studies in October 2018 and October 2020, which demonstrated incompetence of the left saphenofemoral junction, incompetence of the right greater saphenous vein below the knee, and segmental incompetence of the left greater saphenous vein. She had bilateral lower extremity arterial studies in August 2020 which showed no evidence of significant arterial occlusive disease in the bilateral lower extremities. She was referred to vascular surgery previously for consideration for operative intervention for venous incompetence but did not follow through with referral but is ready to proceed with referral for prevention of recurrent ulcers. The patient denies any fever, chills. Denies any increasing pain, redness, swelling, or purulent/malodorous drainage from affected area. Subjective Subjective Emani returns today for follow up of ulcer of right medial ankle. She is tolerating treatment with Promogran, adaptic and foam dressing for moderate drainage. The ulcer is smaller this week. She has significantly decreased irritation of the periwound and her lower leg this week after treatment with prednisone. 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 She denies fever, chills, odor. Objective Data Objective Data Vital Signs: Vital Signs Temp Pulse Resp BP O2 Del Method 97.7 F L 69 18 102/82 H Room Air 08/25/24 08:29 08/18/24 08:30 08/25/24 08:29 08/18/24 08:30 08/25/24 08:29 Oxygen Delivery Method Room Air Lab / Micro Data Micro: Microbiology 08/04/24 09:05 Wound - Leg, Right Gram Stain - Final 08/04/24 09:05 Wound - Leg, Right Wound Culture - Final Staphylococcus aureus 08/04/24 09:05 Wound - Leg, Right Anaerobic Culture - Final No anaerobic bacteria isolated. Physical Exam Const alert, oriented x3 and no apparent distress General Appearance: cooperative and comfortable HEENT normocephalic and head/scalp atraumatic Resp normal respiratory effort Effort and Inspection: able to speak in complete sentences Cardio regular rate and regular rhythm Skin General Skin Exam: venous stasis and dermatitis Wounds: wounds noted Wound Narrative: as in clinical panel, unchanged in size without obvious cellulitis, odor, undermining, minimal slough, there is bioburden with granulation tissue at base which was removed with debridement, she continues to have excoriated rash around the top of her foot and ankle but better than previous Psych mental status grossly normal, thought process normal, cooperative and affect normal Debridement Note Debridement Note Wound debrided: right medial ankle Laterality: Right Type of Debridement: Excisional debridement Anesthesia Used: 5% Lidocaine Gel Depth: Down to and including healthy tissue and in the subcutaneous layer Percentage of wound debrided: 100 Instrument Used: 3mm curette Tissue Removed: Yellow slough, devitalized tissue Severity: Fat Layer Exposed Amount of bleeding with debridement: Mild Bleeding Controlled with: Compression and gauze Patient tolerated procedure: Patient tolerated procedure well Post-Debridement Measurements and Additional Note: Post-Debridement Measurements/Treatment WC - Nurse 1 - General Ulcer Assessment Start: 08/04/24 08:38 Freq: Status: Active Protocol: ISAIAH Activity Type Activity Date Activity User E-sign Co-sign Detail Recorded Client Recorded Date Recorded By Document 08/04/24 08:38 KW [id number] 08/04/24 08:49 KW Document 08/11/24 08:11 KW [id number] 08/11/24 08:19 KW Document 08/18/24 08:30 KW [id number] 08/18/24 08:35 KW Document 08/25/24 08:29 KW [id number] 08/25/24 08:36 KW 08/04/24 08/11/24 08/18/24 08:38 08:11 08:30 - Today's Visit Information Type of service Follow-up Visit Follow-up Visit Follow-up Visit (Physician/TAB MACHINE OPERATOR (Physician/TAB MACHINE OPERATOR (Physician/TAB MACHINE OPERATOR ) ) ) Arrival Mode Ambulatory Ambulatory Ambulatory Patient Identification Verified (Name & Yes Yes Yes ) Vital Signs Temperature (97.8 F-99.1 F) 97.0 F L 97.2 F L Temperature Source Temporal Temporal Temporal Pulse Rate (60-100) 75 49 L 69 Pulse Location Monitor Monitor Monitor Respiratory Rate (12-18) 16 16 16 Respiratory rate source Observation Observation Observation Oxygen Delivery Method Room Air Room Air Room Air Blood Pressure (90/60-120/80) 127/56 H 109/52 L 102/82 H Blood Pressure Mean (mm Hg) 79 71 88 Source Monitor Monitor Position Sitting Semi-Fowlers Blood Pressure Location Left Arm Left Arm History Since Last Visit- (Skip if this is Patient's initial visit) Have you changed medications since your No No No last visit? Any new allergies or adverse reactions No No No Had a fall/change in ADL's that may No No No increase risk of falls Signs or symptoms of abuse and/or No No No neglect since last visit Have you been in the hospital since your No No No last visit? Has dressing in place as prescribed Yes Yes Yes Has compression in place as prescribed Yes Yes Yes Has offloadiing in place as prescribed N/A N/A N/A Experienced any changes in pain level or No No No management Left Footwear Regular Shoe Regular Shoe Regular Shoe Right Footwear Regular Shoe Regular Shoe Regular Shoe Pain Scale: 0-10 Numeric Is Patient Pain Free? Yes Yes Yes 08/25/24 08:29 - Today's Visit Information Type of service Follow-up Visit (Physician/TAB MACHINE OPERATOR ) Arrival Mode Ambulatory Patient Identification Verified (Name & Yes ) Vital Signs Temperature (97.8 F-99.1 F) 97.7 F L Temperature Source Temporal Pulse Rate (60-100) Pulse Location Monitor Respiratory Rate (12-18) 18 Respiratory rate source Observation Oxygen Delivery Method Room Air Blood Pressure (90/60-120/80) Blood Pressure Mean (mm Hg) Source Monitor Position Semi-Fowlers Blood Pressure Location Left Arm History Since Last Visit- (Skip if this is Patient's initial visit) Have you changed medications since your No last visit? Any new allergies or adverse reactions No Had a fall/change in ADL's that may No increase risk of falls Signs or symptoms of abuse and/or No neglect since last visit Have you been in the hospital since your No last visit? Has dressing in place as prescribed Yes Has compression in place as prescribed Yes Has offloadiing in place as prescribed N/A Experienced any changes in pain level or No management Left Footwear Regular Shoe Right Footwear Regular Shoe Pain Scale: 0-10 Numeric Is Patient Pain Free? Yes WC - Nurse 1 - General Ulcer Measurement Start: 08/04/24 08:38 Freq: Status: Active Protocol: Activity Type Activity Date Activity User E-sign Co-sign Detail Recorded Client Recorded Date Recorded By Document 08/04/24 08:38 KW [id number] 08/04/24 08:49 KW Document 08/11/24 08:11 KW [id number] 08/11/24 08:19 KW Document 08/18/24 08:30 KW [id number] 08/18/24 08:35 KW Document 08/25/24 08:29 KW [id number] 08/25/24 08:36 KW 08/04/24 08/11/24 08/18/24 08:38 08:11 08:30 Wound Center Nurse 1 #4 RT MED ANKLE -Current Size (cm) - Length 1 0.5 0.5 -Current Size (cm) - Width 0.5 0.5 0.4 -Current Size (cm) - Depth 0.1 0.1 0.1 -Total Square Cm 0.5 0.25 0.20 -Epithelialization -Exudate Amt Small Small Small -Exudate Type Serosanguineous Serosanguineous Serosanguineous -Wound Margin Distinct, Distinct, Distinct, Outline Outline Outline Attached Attached Attached -Granulation Amt Small (1-33%) Small (1-33%) Small (1-33%) -Granulation Quality [place] -Necrosis Amt Large (67-100%) Large (67-100%) Large (67-100%) -Necrotic Tissue Type Adherent Slough Adherent Slough Adherent Slough -Texture (Nancy-wound Skin Appearance) Assessed Assessed,Rash Assessed,Rash -Moisture (Nancy-wound Skin Appearance) Assessed,Dry/ Assessed,Dry/ Assessed,Dry/ Scaly Scaly Scaly -Color (Nancy-wound Skin Appearance) Assessed Assessed Assessed -Temperature (Nancy-wound Skin No Abnormality No Abnormality No Abnormality Appearance) (Pt Warm) (Pt Warm) (Pt Warm) -Tenderness on Palpation (Nancy-wound No No No Skin Appearance) -Ulcer Cleansing Rinsed/ Rinsed/ Rinsed/ Irrigated with Irrigated with Irrigated with Saline Saline Saline -Foul Odor after Cleansing No No No -Anesthetic Used 5% Lidocaine 5% Lidocaine 5% Lidocaine Gel Gel Gel 08/25/24 08:29 Wound Center Nurse 1 #4 RT MED ANKLE -Current Size (cm) - Length 1 -Current Size (cm) - Width 0.5 -Current Size (cm) - Depth 0.1 -Total Square Cm 0.5 -Epithelialization Medium 34-66% -Exudate Amt Small -Exudate Type Serosanguineous -Wound Margin Distinct, Outline Attached -Granulation Amt Large (67-100%) -Granulation Quality [place] -Necrosis Amt -Necrotic Tissue Type -Texture (Nancy-wound Skin Appearance) Assessed -Moisture (Nancy-wound Skin Appearance) Assessed,Dry/ Scaly -Color (Nancy-wound Skin Appearance) Assessed -Temperature (Nancy-wound Skin No Abnormality Appearance) (Pt Warm) -Tenderness on Palpation (Nancy-wound No Skin Appearance) -Ulcer Cleansing Rinsed/ Irrigated with Saline -Foul Odor after Cleansing No -Anesthetic Used 5% Lidocaine Gel WC - Nurse 2 - General Ulcer CM Notes Start: 08/04/24 08:38 Freq: Status: Active Protocol: Activity Type Activity Date Activity User E-sign Co-sign Detail Recorded Client Recorded Date Recorded By Document 08/04/24 08:59 [id number] 08/04/24 09:06 Document 08/11/24 09:12 [id number] 08/11/24 09:19 Document 08/18/24 09:35 [id number] 08/18/24 09:39 GM Document 08/25/24 09:27 [id number] 08/25/24 09:28 08/04/24 08/11/24 08/18/24 08:59 09:12 09:35 Wound Center Nurse 2 #4 RT MED ANKLE -Time 09:00 09:12 09:35 -Correct Patient Yes Yes Yes -Correct Side, Site, Position Yes Yes Yes -Correct Procedure Yes Yes Yes -Procedure Performed Yes Yes Yes -Type of Procedure Debridement Debridement Debridement -Clinical Debridement Subcutaneous Subcutaneous Subcutaneous -Tissue Removed Subcutaneous Subcutaneous Subcutaneous -Post Debridement (cm) - Length 0.8 0.6 0.6 -Post Debridement (cm) - Width 0.4 0.7 0.3 -Post Debridement (cm) - Depth 0.2 0.2 0.2 -Total Square (Post) (cm) 0.32 0.42 0.18 -Area of Debridement (cm) - Length 0.8 0.6 0.6 -Area of Debridement (cm) - Width 0.4 0.7 0.3 -Total Square (Area) (cm) 0.32 0.42 0.18 -Tunneling No No No -Undermining/Tunneling No No No -Circular Undermining No No No -Wound/Ulcer Outcome Not Healed Not Healed Not Healed -Ulcer Cleansing Rinsed/ Rinsed/ Rinsed/ Irrigated with Irrigated with Irrigated with Saline Saline Saline -Foul Odor after Cleansing No No -Bioengineered Tissue No No -Bleeding Controlled with Pressure Pressure Pressure -Treatment Response Procedure Procedure Procedure Tolerated Well Tolerated Well Tolerated Well -Debridement - Subq, 1st 20sq cm Yes Yes Yes Pain Scale: 0-10 Numeric Is Patient Pain Free? Yes Yes Yes 08/25/24 09:27 Wound Center Nurse 2 #4 RT MED ANKLE -Time 09:27 -Correct Patient Yes -Correct Side, Site, Position Yes -Correct Procedure Yes -Procedure Performed Yes -Type of Procedure Debridement -Clinical Debridement Subcutaneous -Tissue Removed Subcutaneous -Post Debridement (cm) - Length 0.5 -Post Debridement (cm) - Width 0.3 -Post Debridement (cm) - Depth 0.2 -Total Square (Post) (cm) 0.15 -Area of Debridement (cm) - Length 0.5 -Area of Debridement (cm) - Width 0.3 -Total Square (Area) (cm) 0.15 -Tunneling No -Undermining/Tunneling No -Circular Undermining No -Wound/Ulcer Outcome Not Healed -Ulcer Cleansing Rinsed/ Irrigated with Saline -Foul Odor after Cleansing No -Bioengineered Tissue No -Bleeding Controlled with Pressure -Treatment Response Procedure Tolerated Well -Debridement - Subq, 1st 20sq cm Yes Pain Scale: 0-10 Numeric Is Patient Pain Free? Yes - Nurse 3 - General Ulcer D/C NN Start: 08/04/24 08:38 Freq: Status: Active Protocol: Activity Type Activity Date Activity User E-sign Co-sign Detail Recorded Client Recorded Date Recorded By Document 08/04/24 09:18 KW [id number] 08/04/24 09:20 KW Document 08/11/24 09:34 GM [id number] 08/11/24 09:35 GM Document 08/18/24 09:44 KW [id number] 08/18/24 09:46 KW Document 08/25/24 09:38 KW [id number] 08/25/24 09:39 KW 08/04/24 08/11/24 08/18/24 09:18 09:34 09:44 Wound Care Center Nurse 3 #4 RT MED ANKLE -Ulcer Cleansing Not Cleansed -Foul Odor after Cleansing No -Primary Dressing Applied Promogran Promogran -Primary Dressing Applied Promogran -Primary Dressing Covered/Secured with Dry Gauze Dry Gauze & Roll Gauze, Secured with Tape -Promogran 1 2 2 -Silicone Border Foam 4x4 Right -Other pt own personal compression compression stocking Pain Scale: 0-10 Numeric Is Patient Pain Free? Yes Yes Yes WC - Visit Discharge Discharge Condition Stable Stable Stable Ambulatory Status Ambulatory Ambulatory Ambulatory Transportation Private Auto Medication Reconcilliation completed & No No provided to patient/care provider Clinical Summary of Care Provided Yes Yes 08/25/24 09:38 Wound Care Center Nurse 3 #4 RT MED ANKLE -Ulcer Cleansing -Foul Odor after Cleansing -Primary Dressing Applied -Primary Dressing Applied Promogran, Silicone Border Foam 4x4 -Primary Dressing Covered/Secured with -Promogran 1 -Silicone Border Foam 4x4 1 Right -Other pt own compression stocking Pain Scale: 0-10 Numeric Is Patient Pain Free? Yes WC - Visit Discharge Discharge Condition Stable Ambulatory Status Ambulatory Transportation Medication Reconcilliation completed & No provided to patient/care provider Clinical Summary of Care Provided Yes Assessment/Plan Assessment/Plan (1) Venous stasis ulcer of right ankle with fat layer exposed: CODE(S): I83.013 - Varicose veins of right lower extremity with ulcer of ankle; L97.312 - Non-pressure chronic ulcer of right ankle with fat layer exposed QUALIFIERS: Varicose vein presence: with varicose veins Qualified Code(s): I83.013 - Varicose veins of right lower extremity with ulcer of ankle; L97.312 - Non-pressure chronic ulcer of right ankle with fat layer exposed (2) Peripheral vascular disease of lower extremity with ulceration: CODE(S): I73.9 - Peripheral vascular disease, unspecified; L97.909 - Non-pressure chronic ulcer of unspecified part of unspecified lower leg with unspecified severity (3) Nonhealing nonsurgical wound with fat layer exposed: CODE(S): T14.8XXA - Other injury of unspecified body region, initial encounter (4) Cellulitis of lower extremity: CODE(S): L03.119 - Cellulitis of unspecified part of limb QUALIFIERS: Laterality: right Qualified Code(s): L03.115 - Cellulitis of right lower limb (5) Edema, lower extremity: CODE(S): R60.0 - Localized edema (6) Essential (primary) hypertension: CODE(S): I10 - Essential (primary) hypertension (7) Chronic atrial fibrillation: CODE(S): I48.2 - Chronic atrial fibrillation PLAN: Plan Debridement performed today in clinic as annotated above. At home wound-care instructions: Will have her use Promogran for moderate drainage and adaptic and cover with foam silicone bordered dressing daily. She will continue to use compression stocking 20-30 mm Hg pressure for compression for her edema. Keep dressing clean and dry. Prednisone prescribed to treat dermatitis of her right lower leg. Off-loading: The patient was instructed to avoid pressure and friction on the affected areas. Reposition every 2 hours at minimum. Avoid prolonged standing and/or dangling of legs. When seated, feet should be elevated at chest level. Frequent ambulation is encouraged. Diet: Patient encouraged to increase protein intake while taking caution to avoid high carbohydrate and/or sugar intake. Labs/cultures/imaging: Previous labs reviewed from 01/28/2024 and do not show any obvious co-morbidities to consider in the progress of her wound healing. She saw Dr. Cesar on 06/01/24 and he performed ablation on 07/13/24. Wound culture was positive for Staph and she has completed Bactrim. Follow-up: Return in 1 week for wound care follow up. Return sooner or report to the emergency room should symptoms worsen, or new symptoms arise. Note: [employer] speech recognition leases and land supervisor software was used to create portions of this document. Sound-alike and misspelled words, as well as other leases and land supervisor errors may be contained in the documentation.
== END 2024-09-01 23:59 | disposition home or self-care (01) ==
LOC: WC 09:00
PROVIDERS: PCP Family Medicine; Referring Provider Family Medicine; Visit Provider Family Medicine
DX: I83.013 Varicose veins of right lower extremity with ulcer of ankle (principal); L97.312 Non-pressure chronic ulcer of right ankle with fat layer exposed; I48.20 Chronic atrial fibrillation, unspecified; R60.0 Localized edema; I10 Essential (primary) hypertension; I73.9 Peripheral vascular disease, unspecified; Z79.01 Long term (current) use of anticoagulants; Z79.899 Other long term (current) drug therapy
CPT/HCPCS: 11042; 87070; 87075; 87077; 87186; 87205

== ENCOUNTER 2024-09-22 09:00 | Outpatient (RCR) | payer OTHER, SELFPAY ==
[2024-09-02 01:49] VITALS: BP 102/82; PULSE 69; RESP 18; TEMP 36.5
[2024-09-08 08:17] VITALS: BP 125/54; PULSE 65; RESP 18; TEMP 36.1
[2024-09-08 10:42] LABS: Absolute Lymphocyte Count 0.98 X10^3/uL (0.83-4.51); Basophil# 0.07 X10^3/uL; Basophil% 1.1 % (0-1); Eosinophil# 0.61 X10^3/uL; Eosinophils% 9.8 % (0-5); Hematocrit 38.2 % (37-47); Hemoglobin 12.6 g/dL (12.0-15.0); Lymphocyte # 0.98 X10^3/ul (0.83-4.51); Lymphocyte % 15.8 % (19-41); Mean Corpuscular Hgb 29.7 pg (27.0-32.0); Mean Corpuscular Volume 90.1 fL (81-99); Mean Platelet Vol. 9.9 fl (6.2-12.0); Monocyte% 8.1 % (0-10); NRBC Flagged by Analyzer 0 % (0-5); Neutrophil # 4.02 X10^3/uL (2.7-7.7); Neutrophil % 64.7 % (47-70); Platelet Count 301 K/mm3 (150-450); RBC Distribution Width CV 13.2 % (11.6-14.6); RBC Distribution Width SD 43.5 fl (35.1-43.9); Red Blood Count 4.24 M/mm3 (4.2-5.4); White Blood Count 6.2 K/mm3 (4.4-11.0)
[2024-09-08 10:58] LABS: International Normalized Ratio 2.5; Prothrombin Time (Protime)PT. 27.2 SECONDS (11.7-14.9)
[2024-09-08 11:10] LABS: ALB/GLOB Ratio 0.9 RATIO (0.9-2.4); AST(SGOT) 18 U/L (15-37); Alanine Aminotransfer ALT/SGPT 15 U/L (13-56); Albumin, Serum 3.6 g/dL (3.2-5.0); Alkaline Phosphatase 73 U/L (45-117); Anion Gap 7 (5-15); BUN 14 mg/dL (7-18); BUN/Creat Ratio 22.5 RATIO (10-20); Calcium,Total 9.1 mg/dL (8.5-10.1); Chloride 103 mmol/L (98-107); Cholesterol 187 mg/dL (200); Creatinine, Serum 0.62 mg/dL (0.55-1.02); EST Glomerular Filtration Rate 98 mL/min (>60); Est Glom Filt Rate - Afr Amer 118 mL/min (>60); Glucose 93 mg/dL (74-106); High Density Lipoprotein 77 mg/dL; Magnesium 1.9 mg/dL (1.6-2.6); Potassium 3.6 mmol/L (3.5-5.1); Protein, Total 7.6 g/dL (6.4-8.2); Sodium Level 138 mmol/L (136-145); Triglycerides 65 mg/dL; Very Low Density Lipoprotein 13 mg/dL (5-40)
--- NOTE | 2024-09-08 15:18 | PN.PCM_ITS ---
History of Present Illness Date of Service: 09/08/24 Chief Complaint: right medial ankle ulcer History of Wound: Emani is a pleasant 78-year-old white [place] female who presents to the wound healing center for an evaluation of a right medial ankle venous leg ulcer. She had previously been seen at the [facility] wound healing center for 2 other right venous leg ulcers. She has a past medical history significant for atrial fibrillation and is on chronic anticoagulation with Coumadin, hypertension, peripheral venous disease. The ulcer started in January with pain and itching to the area and then it became red and started draining a large amount of serous fluid. She was seen by urgent care and prescribed Bactrim. She has been dressing the ulcer with Telfa bandages. She normally wear compression stockings daily but does not have them on today. She has noted improvement in the ulcer since taking the antibiotic but it remains open and is still draining heavily at times. She wears compression stockings (20-30 mmHg) daily, and this has been of benefit for her bilateral lower extremity edema. 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 She had a bilateral lower extremity venous Doppler studies in October 2018 and October 2020, which demonstrated incompetence of the left saphenofemoral junction, incompetence of the right greater saphenous vein below the knee, and segmental incompetence of the left greater saphenous vein. She had bilateral lower extremity arterial studies in August 2020 which showed no evidence of significant arterial occlusive disease in the bilateral lower extremities. She was referred to vascular surgery previously for consideration for operative intervention for venous incompetence but did not follow through with referral but is ready to proceed with referral for prevention of recurrent ulcers. The patient denies any fever, chills. Denies any increasing pain, redness, swelling, or purulent/malodorous drainage from affected area. Subjective Subjective Emani returns today for follow up of ulcer of right medial ankle. She is tolerating treatment with Promogran, adaptic and foam dressing for moderate drainage. The ulcer is smaller this week. She has increased irritation of the periwound and her lower leg this week. 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 She denies fever, chills, odor. Objective Data Objective Data Vital Signs: Vital Signs Temp Pulse Resp BP 97 F L 65 18 125/54 H 09/08/24 08:17 09/08/24 08:17 09/08/24 08:17 09/08/24 08:17 Lab / Micro Data 09/08/24 10:17 09/08/24 10:17 Labs: Laboratory Results - last 24 hr 09/08/24 10:17: WBC 6.2, RBC 4.24, Hgb 12.6, Hct 38.2, MCV 90.1, MCH 29.7, MCHC 33.0, RDW Std Deviation 43.5, RDW Coeff of [place]ena 13.2, Plt Count 301, MPV 9.9, Immature Gran % (Auto) 0.500, Neut % (Auto) 64.7, Lymph % (Auto) 15.8 L, [place] % (Auto) 8.1, Eos % (Auto) 9.8 H, Baso % (Auto) 1.1 H, Absolute Neuts (auto) 4.0, Absolute Lymphs (auto) 0.98, Nucleated RBC % 0, PT 27.2 H, INR 2.5, Sodium 138, Potassium 3.6, Chloride 103, Carbon Dioxide 28.0, Anion Gap 7, BUN 14, Creatinine 0.62, Est GFR (MDRD) Af Amer 118, Est GFR (MDRD) Non-Af 98, B UN/Creatinine Ratio 22.5 H, Glucose 93, Calcium 9.1, Magnesium 1.9, Total Bilirubin 0.70, AST 18, ALT 15, Alkaline Phosphatase 73, Total Protein 7.6, Albumin 3.6, Globulin 4.0, Albumin/Globulin Ratio 0.9, Triglycerides 65, Cholesterol 187, LDL Cholesterol 97, VLDL Cholesterol 13, HDL Cholesterol 77 Physical Exam Const alert, oriented x3 and no apparent distress General Appearance: cooperative and comfortable HEENT normocephalic and head/scalp atraumatic Resp normal respiratory effort Effort and Inspection: able to speak in complete sentences Cardio regular rate and regular rhythm Skin General Skin Exam: venous stasis and dermatitis Wounds: wounds noted Wound Narrative: as in clinical panel, smaller in size without obvious cellulitis, odor, undermining, minimal slough, there is bioburden with granulation tissue at base which was removed with debridement, she continues to have excoriated rash around the top of her foot and ankle Psych mental status grossly normal, thought process normal, cooperative and affect normal Debridement Note Debridement Note Wound debrided: right medial ankle Laterality: Right Type of Debridement: Excisional debridement Anesthesia Used: 5% Lidocaine Gel Depth: Down to and including healthy tissue and in the subcutaneous layer Percentage of wound debrided: 100 Instrument Used: 3mm curette Tissue Removed: Yellow slough, devitalized tissue Severity: Fat Layer Exposed Amount of bleeding with debridement: Mild Bleeding Controlled with: Compression and gauze Patient tolerated procedure: Patient tolerated procedure well Post-Debridement Measurements and Additional Note: Post-Debridement Measurements/Treatment - Nurse 1 - General Ulcer Assessment Start: 09/08/24 08:17 Freq: Status: Active Protocol: ISAIAH Activity Type Activity Date Activity User E-sign Co-sign Detail Recorded Client Recorded Date Recorded By Document 09/08/24 08:17 HELDER [id number] 09/08/24 08:19 HELDRE 09/08/24 08:17 WC - Today's Visit Information Type of service Follow-up Visit (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 Any new allergies or adverse reactions No Had a fall/change in ADL's that may No increase risk of falls Signs or symptoms of abuse and/or No neglect since last visit Have you been in the hospital since your No last visit? Has dressing in place as prescribed Yes Has compression in place as prescribed Yes Has offloadiing in place as prescribed N/A Experienced any changes in pain level or No management Pain Scale: 0-10 Numeric Is Patient Pain Free? Yes - Nurse 1 - General Ulcer Measurement Start: 09/08/24 08:17 Freq: Status: Active Protocol: Activity Type Activity Date Activity User E-sign Co-sign Detail Recorded Client Recorded Date Recorded By Document 09/08/24 08:17 [email or web address] [id number] 09/08/24 08:19 RB 09/08/24 08:17 Wound Center Nurse 1 #4 RT MED ANKLE -Combined with other wound No -Current Size (cm) - Length 1 -Current Size (cm) - Width 0.6 -Current Size (cm) - Depth 0.1 -Total Square Cm 0.6 -Photo Taken No -Tunneling No -Undermining/Tunneling No -Circular Undermining No -Exudate Amt Medium -Exudate Type Serosanguineous -Wound Margin Distinct, Outline Attached -Granulation Amt Medium (34-66%) -Granulation Quality [place] -Slough/Fibrin Yes -Necrosis Amt Medium (34-66%) -Necrotic Tissue Type Adherent Slough -Structure Exposed N/A -Texture (Nancy-wound Skin Appearance) Assessed, Scarring -Moisture (Nancy-wound Skin Appearance) Assessed -Color (Nancy-wound Skin Appearance) Assessed -Temperature (Nancy-wound Skin No Abnormality Appearance) (Pt Warm) -Tenderness on Palpation (Nancy-wound No Skin Appearance) -Ulcer Cleansing Wound Cleanser -Foul Odor after Cleansing No -Anesthetic Used 5% Lidocaine Gel WC - Nurse 2 - General Ulcer CM Notes Start: 09/08/24 08:17 Freq: Status: Active Protocol: Activity Type Activity Date Activity User E-sign Co-sign Detail Recorded Client Recorded Date Recorded By Document 09/08/24 09:31 [id number] 09/08/24 09:32 09/08/24 09:31 Wound Center Nurse 2 -Time 09:31 -Correct Patient Yes -Correct Side, Site, Position Yes -Correct Procedure Yes -Procedure Performed Yes -Type of Procedure Debridement -Clinical Debridement Subcutaneous -Tissue Removed Subcutaneous -Post Debridement (cm) - Length 0.5 -Post Debridement (cm) - Width 0.2 -Post Debridement (cm) - Depth 0.1 -Total Square (Post) (cm) 0.10 -Area of Debridement (cm) - Length 0.5 -Area of Debridement (cm) - Width 0.2 -Total Square (Area) (cm) 0.10 -Tunneling No -Undermining/Tunneling No -Circular Undermining No -Wound/Ulcer Outcome Not Healed -Ulcer Cleansing Rinsed/ Irrigated with Saline -Foul Odor after Cleansing No -Bioengineered Tissue No -Bleeding Controlled with Pressure -Treatment Response Procedure Tolerated Well -Debridement - Subq, 1st 20sq cm Yes Pain Scale: 0-10 Numeric Is Patient Pain Free? Yes WC - Nurse 3 - General Ulcer D/C NN Start: 09/08/24 08:17 Freq: Status: Active Protocol: Activity Type Activity Date Activity User E-sign Co-sign Detail Recorded Client Recorded Date Recorded By Document 09/08/24 09:45 KW [id number] 09/08/24 09:46 KW 09/08/24 09:45 Wound Care Center Nurse 3 #4 RT MED ANKLE -Primary Dressing Applied Silicone Border Foam 4x4 -Other Dressing hydrogel -Silicone Border Foam 4x4 1 Right -Other pt own compression Pain Scale: 0-10 Numeric Is Patient Pain Free? Yes WC - Visit Discharge Discharge Condition Stable Ambulatory Status Ambulatory Transportation Private Auto Medication Reconcilliation completed & No provided to patient/care provider Clinical Summary of Care Provided Yes Assessment/Plan Assessment/Plan (1) Venous stasis ulcer of right ankle with fat layer exposed: CODE(S): I83.013 - Varicose veins of right lower extremity with ulcer of ankle; L97.312 - Non-pressure chronic ulcer of right ankle with fat layer exposed QUALIFIERS: Varicose vein presence: with varicose veins Qualified Code(s): I83.013 - Varicose veins of right lower extremity with ulcer of ankle; L97.312 - Non-pressure chronic ulcer of right ankle with fat layer exposed (2) Peripheral vascular disease of lower extremity with ulceration: CODE(S): I73.9 - Peripheral vascular disease, unspecified; L97.909 - Non- pressure chronic ulcer of unspecified part of unspecified lower leg with unspecified severity (3) Nonhealing nonsurgical wound with fat layer exposed: CODE(S): T14.8XXA - Other injury of unspecified body region, initial encounter (4) Cellulitis of lower extremity: CODE(S): L03.119 - Cellulitis of unspecified part of limb QUALIFIERS: Laterality: right Qualified Code(s): L03.115 - Cellulitis of right lower limb (5) Edema, lower extremity: CODE(S): R60.0 - Localized edema (6) Essential (primary) hypertension: CODE(S): I10 - Essential (primary) hypertension (7) Chronic atrial fibrillation: CODE(S): I48.2 - Chronic atrial fibrillation PLAN: Plan Debridement performed today in clinic as annotated above. At home wound-care instructions: Will have her change to hydrogel and cover with foam silicone bordered dressing daily. She will continue to use compression stocking 20-30 mm Hg pressure for compression for her edema. Keep dressing clean and dry. Prednisone prescribed again to treat dermatitis of her right lower leg. Off-loading: The patient was instructed to avoid pressure and friction on the affected areas. Reposition every 2 hours at minimum. Avoid prolonged standing and/or dangling of legs. When seated, feet should be elevated at chest level. Frequent ambulation is encouraged. Diet: Patient encouraged to increase protein intake while taking caution to avoid high carbohydrate and/or sugar intake. Labs/cultures/imaging: Previous labs reviewed from 01/28/2024 and do not show any obvious co-morbidities to consider in the progress of her wound healing. She saw Dr. Cesar on 06/01/24 and he performed ablation on 07/13/24. Wound culture was positive for Staph and she has completed Bactrim. Follow-up: Return in 1 week for wound care follow up. Return sooner or report to the emergency room should symptoms worsen, or new symptoms arise. Note: [employer] speech recognition motorcoach operator software was used to create portions of this document. Sound-alike and misspelled words, as well as other motorcoach operator errors may be contained in the documentation.
[2024-09-15 08:22] VITALS: BP 148/56; PULSE 67; RESP 16; TEMP 35.8
[2024-09-22 08:52] VITALS: BP 129/62; PULSE 59; RESP 16; TEMP 35.6
--- NOTE | 2024-09-22 15:27 | PCM.WC.PN ---
History of Present Illness Date of Service: 09/22/24 Chief Complaint: right medial ankle ulcer History of Wound: Emani is a pleasant 79-year-old white [place] female who presents to the wound healing center for an evaluation of a right medial ankle venous leg ulcer. She had previously been seen at the [facility] wound healing center for 2 other right venous leg ulcers. She has a past medical history significant for atrial fibrillation and is on chronic anticoagulation with Coumadin, hypertension, peripheral venous disease. The ulcer started in January with pain and itching to the area and then it became red and started draining a large amount of serous fluid. She was seen by urgent care and prescribed Bactrim. She has been dressing the ulcer with Telfa bandages. She normally wear compression stockings daily but does not have them on today. She has noted improvement in the ulcer since taking the antibiotic but it remains open and is still draining heavily at times. She wears compression stockings (20-30 mmHg) daily, and this has been of benefit for her bilateral lower extremity edema. 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 She had a bilateral lower extremity venous Doppler studies in October 2018 and October 2020, which demonstrated incompetence of the left saphenofemoral junction, incompetence of the right greater saphenous vein below the knee, and segmental incompetence of the left greater saphenous vein. She had bilateral lower extremity arterial studies in August 2020 which showed no evidence of significant arterial occlusive disease in the bilateral lower extremities. She was referred to vascular surgery previously for consideration for operative intervention for venous incompetence but did not follow through with referral but is ready to proceed with referral for prevention of recurrent ulcers. The patient denies any fever, chills. Denies any increasing pain, redness, swelling, or purulent/malodorous drainage from affected area. Subjective Subjective Emani returns today for follow up of ulcer of right medial ankle. She is tolerating treatment with Promogran and band aid. The ulcer is healed this week. 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 She denies fever, chills, odor. Objective Data Objective Data Vital Signs: Vital Signs Temp Pulse Resp BP O2 Del Method 96.1 F L 59 L 16 129/62 H Room Air 09/22/24 08:52 09/22/24 08:52 09/22/24 08:52 09/22/24 08:52 09/22/24 08:52 Oxygen Delivery Method Room Air Lab / Micro Data 09/08/24 10:17 09/08/24 10:17 Physical Exam Const alert, oriented x3 and no apparent distress General Appearance: cooperative and comfortable HEENT normocephalic and head/scalp atraumatic Resp normal respiratory effort Effort and Inspection: able to speak in complete sentences Cardio regular rate and regular rhythm Skin General Skin Exam: venous stasis and dermatitis Wounds: wounds noted Wound Narrative: epithelialized ulcer medial right ankle Psych mental status grossly normal, thought process normal, cooperative and affect normal Debridement Note Debridement Note Wound debrided: right medial ankle Laterality: Right No debridement was completed: No debridement was completed today (ulcer is healed) Post-Debridement Measurements and Additional Note: Post-Debridement Measurements/Treatment - Nurse 1 - General Ulcer Assessment Start: 09/08/24 08:17 Freq: Status: Active Protocol: ISAIAH Activity Type Activity Date Activity User E-sign Co-sign Detail Recorded Client Recorded Date Recorded By Document 09/08/24 08:17 RB [id number] 09/08/24 08:19 RB Document 09/15/24 08:22 KW [id number] 09/15/24 08:27 KW Document 09/22/24 08:52 KW [id number] 09/22/24 08:59 KW 09/08/24 09/15/24 09/22/24 08:17 08:22 08:52 - Today's Visit Information Type of service Follow-up Visit Follow-up Visit Follow-up Visit (Physician/MARINE DESIGNER (Physician/MARINE DESIGNER (Physician/MARINE DESIGNER ) ) ) Arrival Mode Ambulatory Ambulatory Ambulatory Transfer Assistance None Patient Identification Verified (Name & Yes Yes Yes ) Patient Requires Transmission-Based No Precautions Vital Signs Temperature (97.8 F-99.1 F) 97 F L 96.5 F L 96.1 F L Temperature Source Temporal Temporal Temporal Pulse Rate (60-100) 65 67 59 L Pulse Location Monitor Monitor Monitor Respiratory Rate (12-18) 18 16 16 Respiratory rate source Observation Observation Monitor Oxygen Delivery Method Room Air Room Air Blood Pressure (90/60-120/80) 125/54 H 148/56 H 129/62 H Blood Pressure Mean (mm Hg) 77 86 84 Source Monitor Monitor Monitor Position Semi-Fowlers Semi-Fowlers Sitting Blood Pressure Location Left Arm Right Arm Left Arm History Since Last Visit- (Skip if this is Patient's initial visit) Have you changed medications since your No No No last visit? Any new allergies or adverse reactions No No No Had a fall/change in ADL's that may No No No increase risk of falls Signs or symptoms of abuse and/or No No No neglect since last visit Have you been in the hospital since your No No No last visit? Has dressing in place as prescribed Yes Yes Yes Has compression in place as prescribed Yes Yes Yes Has offloadiing in place as prescribed N/A N/A N/A Experienced any changes in pain level or No No No management Left Footwear Regular Shoe Regular Shoe Right Footwear Regular Shoe Regular Shoe Pain Scale: 0-10 Numeric Is Patient Pain Free? Yes Yes Yes WC - Nurse 1 - General Ulcer Measurement Start: 09/08/24 08:17 Freq: Status: Active Protocol: Activity Type Activity Date Activity User E-sign Co-sign Detail Recorded Client Recorded Date Recorded By Document 09/08/24 08:17 RB [id number] 09/08/24 08:19 RB Document 09/15/24 08:22 KW [id number] 09/15/24 08:27 KW Document 09/22/24 08:52 KW [id number] 09/22/24 08:59 KW 09/08/24 09/15/24 09/22/24 08:17 08:22 08:52 Wound Center Nurse 1 #4 RT MED ANKLE -Combined with other wound No -Current Size (cm) - Length 1 0.6 0.4 -Current Size (cm) - Width 0.6 0.3 0.2 -Current Size (cm) - Depth 0.1 0.1 0.1 -Total Square Cm 0.6 0.18 0.08 -Photo Taken No -Tunneling No -Undermining/Tunneling No -Circular Undermining No -Exudate Amt Medium Small Small -Exudate Type Serosanguineous Serosanguineous Serous -Wound Margin Distinct, Distinct, Distinct, Outline Outline Outline Attached Attached Attached -Granulation Amt Medium (34-66%) Small (1-33%) Small (1-33%) -Granulation Quality [place] -Slough/Fibrin Yes -Necrosis Amt Medium (34-66%) Large (67-100%) Large (67-100%) -Necrotic Tissue Type Adherent Slough Adherent Slough Adherent Slough -Structure Exposed N/A -Texture (Nancy-wound Skin Appearance) Assessed, Assessed Assessed Scarring -Moisture (Nancy-wound Skin Appearance) Assessed Assessed,Dry/ Assessed,Dry/ Scaly Scaly -Color (Nancy-wound Skin Appearance) Assessed Assessed Assessed -Temperature (Nancy-wound Skin No Abnormality No Abnormality No Abnormality Appearance) (Pt Warm) (Pt Warm) (Pt Warm) -Tenderness on Palpation (Nancy-wound No No No Skin Appearance) -Ulcer Cleansing Wound Cleanser Rinsed/ Rinsed/ Irrigated with Irrigated with Saline Saline -Foul Odor after Cleansing No No No -Anesthetic Used 5% Lidocaine 5% Lidocaine 5% Lidocaine Gel Gel Gel WC - Nurse 2 - General Ulcer CM Notes Start: 09/08/24 08:17 Freq: Status: Active Protocol: Activity Type Activity Date Activity User E-sign Co-sign Detail Recorded Client Recorded Date Recorded By Document 09/08/24 09:31 [id number] 09/08/24 09:32 Document 09/15/24 10:00 [id number] 09/15/24 10:04 Document 09/22/24 09:14 [id number] 09/22/24 09:15 09/08/24 09/15/24 09/22/24 09:31 10:00 09:14 Wound Center Nurse 2 #4 RT MED ANKLE -Time 09: 10:00 09:14 -Correct Patient Yes Yes Yes -Correct Side, Site, Position Yes Yes Yes -Correct Procedure Yes Yes No -Procedure Performed Yes Yes No -Type of Procedure Debridement Debridement -Clinical Debridement Subcutaneous Subcutaneous -Tissue Removed Subcutaneous Subcutaneous -Post Debridement (cm) - Length 0.5 0.2 -Post Debridement (cm) - Width 0.2 0.2 -Post Debridement (cm) - Depth 0.1 0.1 -Total Square (Post) (cm) 0.10 0.04 -Area of Debridement (cm) - Length 0.5 0.2 -Area of Debridement (cm) - Width 0.2 0.2 -Total Square (Area) (cm) 0.10 0.04 -Tunneling No No No -Undermining/Tunneling No No No -Circular Undermining No No No -Wound/Ulcer Outcome Not Healed Not Healed Healed- Epithelialized -Ulcer Cleansing Rinsed/ Rinsed/ Irrigated with Irrigated with Saline Saline -Foul Odor after Cleansing No No No -Bioengineered Tissue No No No -Bleeding Controlled with Pressure Pressure NA -Treatment Response Procedure Procedure Tolerated Well Tolerated Well -Offloading No No -Debridement - Subq, 1st 20sq cm Yes Yes Pain Scale: 0-10 Numeric Is Patient Pain Free? Yes Yes Yes - Nurse 3 - General Ulcer D/C NN Start: 09/08/24 08:17 Freq: Status: Active Protocol: Activity Type Activity Date Activity User E-sign Co-sign Detail Recorded Client Recorded Date Recorded By Document 09/08/24 09:45 KW [id number] 09/08/24 09:46 KW Document 09/15/24 10:13 KW [id number] 09/15/24 10:14 KW Document 09/22/24 09:16 GM [id number] 09/22/24 09:17 GM 09/08/24 09/15/24 09/22/24 09:45 10:13 09:16 Wound Care Center Nurse 3 #4 RT MED ANKLE -Primary Dressing Applied Silicone Border C Hydrogel Foam 4x4 -Other Dressing hydrogel bandaide -Silicone Border Foam 4x4 1 Right -Other pt own pt own compression Pain Scale: 0-10 Numeric Is Patient Pain Free? Yes Yes Yes - Visit Discharge Discharge Condition Stable Stable Stable Ambulatory Status Ambulatory Ambulatory Ambulatory Transportation Private Auto Medication Reconcilliation completed & No No provided to patient/care provider Clinical Summary of Care Provided Yes Yes #4 RT MED ANKLE -Foul Odor after Cleansing No -Negative Pressure Wound Therapy N/A -Primary Dressing Covered/Secured with Other -Other Covering Bandaid Assessment/Plan Assessment/Plan (1) Venous stasis ulcer of right ankle with fat layer exposed: CODE(S): I83.013 - Varicose veins of right lower extremity with ulcer of ankle; L97.312 - Non-pressure chronic ulcer of right ankle with fat layer exposed QUALIFIERS: Varicose vein presence: with varicose veins Qualified Code(s): I83.013 - Varicose veins of right lower extremity with ulcer of ankle; L97.312 - Non-pressure chronic ulcer of right ankle with fat layer exposed (2) Peripheral vascular disease of lower extremity with ulceration: CODE(S): I73.9 - Peripheral vascular disease, unspecified; L97.909 - Non-pressure chronic ulcer of unspecified part of unspecified lower leg with unspecified severity (3) Nonhealing nonsurgical wound with fat layer exposed: CODE(S): T14.8XXA - Other injury of unspecified body region, initial encounter (4) Cellulitis of lower extremity: CODE(S): L03.119 - Cellulitis of unspecified part of limb QUALIFIERS: Laterality: right Qualified Code(s): L03.115 - Cellulitis of right lower limb (5) Edema, lower extremity: CODE(S): R60.0 - Localized edema (6) Essential (primary) hypertension: CODE(S): I10 - Essential (primary) hypertension (7) Chronic atrial fibrillation: CODE(S): I48.2 - Chronic atrial fibrillation PLAN: Rolando Joaquin is healed today and will be discharged from care at the wound healing center. Compression stockings daily for continued treatment and avoiding recurrence of ulcers stressed. Off-loading: The patient was instructed to avoid pressure and friction on the affected areas. Reposition every 2 hours at minimum. Avoid prolonged standing and/or dangling of legs. When seated, feet should be elevated at chest level. Frequent ambulation is encouraged. Diet: Patient encouraged to increase protein intake while taking caution to avoid high carbohydrate and/or sugar intake. Labs/cultures/imaging: Previous labs reviewed from 01/28/2024 and do not show any obvious co-morbidities to consider in the progress of her wound healing. She saw Dr. Cesar on 06/01/24 and he performed ablation on 07/13/24. Follow-up: Return in 1 week for wound care follow up. Return sooner or report to the emergency room should symptoms worsen, or new symptoms arise. Note: [employer] speech recognition customer success representative software was used to create portions of this document. Sound-alike and misspelled words, as well as other customer success representative errors may be contained in the documentation.
--- NOTE | 2024-09-22 21:07 | PN.PCM_ITS ---
History of Present Illness Date of Service: 09/15/24 Chief Complaint: right medial ankle ulcer History of Wound: Emani is a pleasant 79-year-old white [place] female who presents to the wound healing center for an evaluation of a right medial ankle venous leg ulcer. She had previously been seen at the [facility] wound healing center for 2 other right venous leg ulcers. She has a past medical history significant for atrial fibrillation and is on chronic anticoagulation with Coumadin, hypertension, peripheral venous disease. The ulcer started in January with pain and itching to the area and then it became red and started draining a large amount of serous fluid. She was seen by urgent care and prescribed Bactrim. She has been dressing the ulcer with Telfa bandages. She normally wear compression stockings daily but does not have them on today. She has noted improvement in the ulcer since taking the antibiotic but it remains open and is still draining heavily at times. She wears compression stockings (20-30 mmHg) daily, and this has been of benefit for her bilateral lower extremity edema. 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 She had a bilateral lower extremity venous Doppler studies in October 2018 and October 2020, which demonstrated incompetence of the left saphenofemoral junction, incompetence of the right greater saphenous vein below the knee, and segmental incompetence of the left greater saphenous vein. She had bilateral lower extremity arterial studies in August 2020 which showed no evidence of significant arterial occlusive disease in the bilateral lower extremities. She was referred to vascular surgery previously for consideration for operative intervention for venous incompetence but did not follow through with referral but is ready to proceed with referral for prevention of recurrent ulcers. The patient denies any fever, chills. Denies any increasing pain, redness, swelling, or purulent/malodorous drainage from affected area. Subjective Subjective Emani returns today for follow up of ulcer of right medial ankle. She is tolerating treatment with Promogran and band aid. She underwent vascular procedure for ablation on 07/13/24 and has noticed improvement in swelling and her leg feels press breaker than previous. She denies fever, chills, odor. Objective Data Objective Data Vital Signs: Vital Signs Temp Pulse Resp BP O2 Del Method 96.1 F L 59 L 16 129/62 H Room Air 09/22/24 08:52 09/22/24 08:52 09/22/24 08:52 09/22/24 08:52 09/22/24 08:52 Oxygen Delivery Method Room Air Lab / Micro Data 09/08/24 10:17 09/08/24 10:17 Physical Exam Const alert, oriented x3 and no apparent distress General Appearance: cooperative and comfortable HEENT normocephalic and head/scalp atraumatic Resp normal respiratory effort Effort and Inspection: able to speak in complete sentences Cardio regular rate and regular rhythm Skin General Skin Exam: venous stasis and dermatitis Wounds: wounds noted Wound Narrative: as in clinical panel, smaller in size without obvious cellulitis, odor, undermining, minimal slough, there is bioburden with granulation tissue at base which was removed with debridement Psych mental status grossly normal, thought process normal, cooperative and affect normal Debridement Note Debridement Note Wound debrided: right medial ankle Laterality: Right Type of Debridement: Excisional debridement Anesthesia Used: 5% Lidocaine Gel Depth: Down to and including healthy tissue and in the subcutaneous layer Percentage of wound debrided: 100 Instrument Used: 3mm curette Tissue Removed: Yellow slough, devitalized tissue Severity: Fat Layer Exposed Amount of bleeding with debridement: Mild Bleeding Controlled with: Compression and gauze Patient tolerated procedure: Patient tolerated procedure well Post-Debridement Measurements and Additional Note: Post-Debridement Measurements/Treatment - Nurse 1 - General Ulcer Assessment Start: 09/08/24 08:17 Freq: Status: Active Protocol: [email or web address] Activity Type Activity Date Activity User E-sign Co-sign Detail Recorded Client Recorded Date Recorded By Document 09/08/24 08:17 RB [id number] 09/08/24 08:19 RB Document 09/15/24 08:22 KW [id number] 09/15/24 08:27 KW Document 09/22/24 08:52 KW [id number] 09/22/24 08:59 KW 09/08/24 09/15/24 09/22/24 08:17 08:22 08:52 - Today's Visit Information Type of service Follow-up Visit Follow-up Visit Follow-up Visit (Physician/CUSTOMS OPENER VERIFIER PACKER (Physician/CUSTOMS OPENER VERIFIER PACKER (Physician/CUSTOMS OPENER VERIFIER PACKER ) ) ) Arrival Mode Ambulatory Ambulatory Ambulatory Transfer Assistance None Patient Identification Verified (Name & Yes Yes Yes ) Patient Requires Transmission-Based No Precautions Vital Signs Temperature (97.8 F-99.1 F) 97 F L 96.5 F L 96.1 F L Temperature Source Temporal Temporal Temporal Pulse Rate (60-100) 65 67 59 L Pulse Location Monitor Monitor Monitor Respiratory Rate (12-18) 18 16 16 Respiratory rate source Observation Observation Monitor Oxygen Delivery Method Room Air Room Air Blood Pressure (90/60-120/80) 125/54 H 148/56 H 129/62 H Blood Pressure Mean (mm Hg) 77 86 84 Source Monitor Monitor Monitor Position Semi-Fowlers Semi-Fowlers Sitting Blood Pressure Location Left Arm Right Arm Left Arm History Since Last Visit- (Skip if this is Patient's initial visit) Have you changed medications since your No No No last visit? Any new allergies or adverse reactions No No No Had a fall/change in ADL's that may No No No increase risk of falls Signs or symptoms of abuse and/or No No No neglect since last visit Have you been in the hospital since your No No No last visit? Has dressing in place as prescribed Yes Yes Yes Has compression in place as prescribed Yes Yes Yes Has offloadiing in place as prescribed N/A N/A N/A Experienced any changes in pain level or No No No management Left Footwear Regular Shoe Regular Shoe Right Footwear Regular Shoe Regular Shoe Pain Scale: 0-10 Numeric Is Patient Pain Free? Yes Yes Yes WC - Nurse 1 - General Ulcer Measurement Start: 09/08/24 08:17 Freq: Status: Active Protocol: Activity Type Activity Date Activity User E-sign Co-sign Detail Recorded Client Recorded Date Recorded By Document 09/08/24 08:17 RB [id number] 09/08/24 08:19 RB Document 09/15/24 08:22 KW [id number] 09/15/24 08:27 KW Document 09/22/24 08:52 KW [id number] 09/22/24 08:59 KW 09/08/24 09/15/24 09/22/24 08:17 08:22 08:52 Wound Center Nurse 1 #4 RT MED ANKLE -Combined with other wound No -Current Size (cm) - Length 1 0.6 0.4 -Current Size (cm) - Width 0.6 0.3 0.2 -Current Size (cm) - Depth 0.1 0.1 0.1 -Total Square Cm 0.6 0.18 0.08 -Photo Taken No -Tunneling No -Undermining/Tunneling No -Circular Undermining No -Exudate Amt Medium Small Small -Exudate Type Serosanguineous Serosanguineous Serous -Wound Margin Distinct, Distinct, Distinct, Outline Outline Outline Attached Attached Attached -Granulation Amt Medium (34-66%) Small (1-33%) Small (1-33%) -Granulation Quality Grayson Grayson Grayson -Slough/Fibrin Yes -Necrosis Amt Medium (34-66%) Large (67-100%) Large (67-100%) -Necrotic Tissue Type Adherent Slough Adherent Slough Adherent Slough -Structure Exposed N/A -Texture (Nancy-wound Skin Appearance) Assessed, Assessed Assessed Scarring -Moisture (Nancy-wound Skin Appearance) Assessed Assessed,Dry/ Assessed,Dry/ Scaly Scaly -Color (Nancy-wound Skin Appearance) Assessed Assessed Assessed -Temperature (Nancy-wound Skin No Abnormality No Abnormality No Abnormality Appearance) (Pt Warm) (Pt Warm) (Pt Warm) -Tenderness on Palpation (Nancy-wound No No No Skin Appearance) -Ulcer Cleansing Wound Cleanser Rinsed/ Rinsed/ Irrigated with Irrigated with Saline Saline -Foul Odor after Cleansing No No No -Anesthetic Used 5% Lidocaine 5% Lidocaine 5% Lidocaine Gel Gel Gel WC - Nurse 2 - General Ulcer CM Notes Start: 09/08/24 08:17 Freq: Status: Active Protocol: Activity Type Activity Date Activity User E-sign Co-sign Detail Recorded Client Recorded Date Recorded By Document 09/08/24 09:31 [id number] 09/08/24 09:32 Document 09/15/24 10:00 [id number] 09/15/24 10:04 Document 09/22/24 09:14 [id number] 09/22/24 09:15 09/08/24 09/15/24 09/22/24 09:31 10:00 09:14 Wound Center Nurse 2 #4 RT MED ANKLE -Time : 10:00 09:14 -Correct Patient Yes Yes Yes -Correct Side, Site, Position Yes Yes Yes -Correct Procedure Yes Yes No -Procedure Performed Yes Yes No -Type of Procedure Debridement Debridement -Clinical Debridement Subcutaneous Subcutaneous -Tissue Removed Subcutaneous Subcutaneous -Post Debridement (cm) - Length 0.5 0.2 -Post Debridement (cm) - Width 0.2 0.2 -Post Debridement (cm) - Depth 0.1 0.1 -Total Square (Post) (cm) 0.10 0.04 -Area of Debridement (cm) - Length 0.5 0.2 -Area of Debridement (cm) - Width 0.2 0.2 -Total Square (Area) (cm) 0.10 0.04 -Tunneling No No No -Undermining/Tunneling No No No -Circular Undermining No No No -Wound/Ulcer Outcome Not Healed Not Healed Healed- Epithelialized -Ulcer Cleansing Rinsed/ Rinsed/ Irrigated with Irrigated with Saline Saline -Foul Odor after Cleansing No No No -Bioengineered Tissue No No No -Bleeding Controlled with Pressure Pressure NA -Treatment Response Procedure Procedure Tolerated Well Tolerated Well -Offloading No No -Debridement - Subq, 1st 20sq cm Yes Yes Pain Scale: 0-10 Numeric Is Patient Pain Free? Yes Yes Yes - Nurse 3 - General Ulcer D/C NN Start: 09/08/24 08:17 Freq: Status: Active Protocol: Activity Type Activity Date Activity User E-sign Co-sign Detail Recorded Client Recorded Date Recorded By Document 09/08/24 09:45 KW [id number] 09/08/24 09:46 KW Document 09/15/24 10:13 KW [id number] 09/15/24 10:14 KW Document 09/22/24 09:16 [id number] 09/22/24 09:17 09/08/24 09/15/24 09/22/24 09:45 10:13 09:16 Wound Care Center Nurse 3 #4 RT MED ANKLE -Primary Dressing Applied Silicone Border C Hydrogel Foam 4x4 -Other Dressing hydrogel bandaide -Silicone Border Foam 4x4 1 Right -Other pt own pt own compression Pain Scale: 0-10 Numeric Is Patient Pain Free? Yes Yes Yes - Visit Discharge Discharge Condition Stable Stable Stable Ambulatory Status Ambulatory Ambulatory Ambulatory Transportation Private Auto Medication Reconcilliation completed & No No provided to patient/care provider Clinical Summary of Care Provided Yes Yes #4 RT MED ANKLE -Foul Odor after Cleansing No -Negative Pressure Wound Therapy N/A -Primary Dressing Covered/Secured with Other -Other Covering Bandaid Assessment/Plan Assessment/Plan (1) Venous stasis ulcer of right ankle with fat layer exposed: CODE(S): I83.013 - Varicose veins of right lower extremity with ulcer of ankle; L97.312 - Non-pressure chronic ulcer of right ankle with fat layer exposed QUALIFIERS: Varicose vein presence: with varicose veins Qualified Code(s): I83.013 - Varicose veins of right lower extremity with ulcer of ankle; L97.312 - Non-pressure chronic ulcer of right ankle with fat layer exposed (2) Peripheral vascular disease of lower extremity with ulceration: CODE(S): I73.9 - Peripheral vascular disease, unspecified; L97.909 - Non- pressure chronic ulcer of unspecified part of unspecified lower leg with unspecified severity (3) Nonhealing nonsurgical wound with fat layer exposed: CODE(S): T14.8XXA - Other injury of unspecified body region, initial encounter (4) Cellulitis of lower extremity: CODE(S): L03.119 - Cellulitis of unspecified part of limb QUALIFIERS: Laterality: right Qualified Code(s): L03.115 - Cellulitis of right lower limb (5) Edema, lower extremity: CODE(S): R60.0 - Localized edema (6) Essential (primary) hypertension: CODE(S): I10 - Essential (primary) hypertension (7) Chronic atrial fibrillation: CODE(S): I48.2 - Chronic atrial fibrillation PLAN: Plan Debridement performed today in clinic as annotated above. At home wound-care instructions: Will have her continue hydrogel and cover with bandaid dressing daily. She will continue to use compression stocking 20-30 mm Hg pressure for compression for her edema. Keep dressing clean and dry. Off-loading: The patient was instructed to avoid pressure and friction on the affected areas. Reposition every 2 hours at minimum. Avoid prolonged standing and/or dangling of legs. When seated, feet should be elevated at chest level. Frequent ambulation is encouraged. Diet: Patient encouraged to increase protein intake while taking caution to avoid high carbohydrate and/or sugar intake. Labs/cultures/imaging: Previous labs reviewed from 01/28/2024 and do not show any obvious co-morbidities to consider in the progress of her wound healing. She saw Dr. Cesar on 06/01/24 and he performed ablation on 07/13/24. Wound culture was positive for Staph and she has completed Bactrim. Follow-up: Return in 1 week for wound care follow up. Return sooner or report to the emergency room should symptoms worsen, or new symptoms arise. Note: [employer] speech recognition scrap baller software was used to create portions of this document. Sound-alike and misspelled words, as well as other scrap baller errors may be contained in the documentation.
== END 2024-09-29 11:03 | disposition home or self-care (01) ==
LOC: WC 09:00
PROVIDERS: PCP Family Medicine; Referring Provider Family Medicine; Visit Provider Family Medicine
DX: I83.013 Varicose veins of right lower extremity with ulcer of ankle (principal); L97.312 Non-pressure chronic ulcer of right ankle with fat layer exposed; I48.20 Chronic atrial fibrillation, unspecified; I10 Essential (primary) hypertension; L03.119 Cellulitis of unspecified part of limb; R60.0 Localized edema; I73.9 Peripheral vascular disease, unspecified; Z79.01 Long term (current) use of anticoagulants; Z79.52 Long term (current) use of systemic steroids; Z79.899 Other long term (current) drug therapy
CPT/HCPCS: 11042; 36415; 80053; 80061; 83735; 85025; 85610; 99213; G0463

== ENCOUNTER 2024-10-13 08:48 | Outpatient (RCR) | payer OTHER, SELFPAY ==
[2024-10-13 08:57] VITALS: BP 157/66; PULSE 75; RESP 18; TEMP 35.7
--- NOTE | 2024-10-13 09:36 | WC ---
pt was seen as a free nurse eval to confirm wound is still healed.
== END 2024-10-30 23:59 | disposition home or self-care (01) ==
LOC: WC 08:48
PROVIDERS: PCP Family Medicine; Referring Provider Family Medicine; Visit Provider Family Medicine
DX: Z09 Encounter for follow-up examination after completed treatment for conditions other than malignant neoplasm (principal)

== ENCOUNTER 2024-10-13 09:33 | Outpatient (RCR) | payer OTHER, SELFPAY ==
[2024-07-02 01:44] VITALS: BMI 26.8
[2024-10-13 10:44] LABS: Prothrombin Time (Protime)PT. 23.3 SECONDS (11.7-14.9)
== END 2024-10-13 18:00 | disposition home or self-care (01) ==
LOC: LAB 09:33
PROVIDERS: Family Provider Family Medicine; PCP Family Medicine; Referring Provider Family Medicine; Visit Provider Family Medicine
DX: I48.91 Unspecified atrial fibrillation (principal); Z79.01 Long term (current) use of anticoagulants
CPT/HCPCS: 36415; 85610

== ENCOUNTER 2024-11-20 10:17 | Outpatient (RCR) | payer OTHER, SELFPAY ==
[2024-10-30 22:58] VITALS: BMI 26.8
[2024-11-20 10:45] LABS: International Normalized Ratio 2.1
== END 2024-11-29 18:00 | disposition home or self-care (01) ==
LOC: LAB 10:17
PROVIDERS: Family Provider Family Medicine; PCP Family Medicine; Referring Provider Family Medicine; Visit Provider Family Medicine
DX: Z79.01 Long term (current) use of anticoagulants
CPT/HCPCS: 36415; 85610

== ENCOUNTER 2025-01-17 07:58 | Outpatient (RCR) | payer OTHER, SELFPAY ==
[2024-11-29 22:20] VITALS: BMI 26.8
[2025-01-05 09:17] LABS: International Normalized Ratio 1.9; Prothrombin Time (Protime)PT. 22.2 SECONDS (11.7-14.9)
[2025-01-17 08:57] LABS: International Normalized Ratio 2.4; Prothrombin Time (Protime)PT. 26.7 SECONDS (11.7-14.9)
== END 2025-01-17 18:00 | disposition home or self-care (01) ==
LOC: LAB 07:58
PROVIDERS: Family Provider Family Medicine; PCP Family Medicine; Referring Provider Family Medicine; Visit Provider Family Medicine
DX: Z79.01 Long term (current) use of anticoagulants
CPT/HCPCS: 36415; 85610

== ENCOUNTER 2025-02-23 08:07 | Outpatient (RCR) | payer OTHER, SELFPAY ==
[2025-02-23 08:11] LABS: Mucous, Urine 0 SEEN /hpf (<or=2+); Red Blood Cells-Urine 0 SEEN /hpf (0-5); Squamous Epithelial Cells - UA 0 SEEN /hpf (5-10)
[2025-02-23 08:37] LABS: Color, Urine Yellow (Yellow); Glucose, Dipstick Normal (Normal); Ketone-Dipstick Negative (Negative); Leukocyte Esterase-Dipstick 25 /ul (Negative); Nitrite-Dipstick Negative (Negative); Occult Blood-Urine 10 /ul (Negative); Protein-Dipstick 30 mg/dl (Negative); Specific Gravity, Urine 1.020 (1.002-1.030); Urine Bilirubin Dipstick Negative (Negative)
[2025-02-23 08:40] LABS: Hematocrit 37.4 % (37-47); Hemoglobin 12.5 g/dL (12.0-15.0); Immature Granulocytes Count 0.010 X10^3/uL (0.0-0.0); Mean Corp Hgb Conc 33.4 g/dL (32-36); Mean Corpuscular Volume 90.6 fL (81-99); Mean Platelet Vol. 10.2 fl (6.2-12.0); NRBC Flagged by Analyzer 0 % (0-5); Platelet Count 311 K/mm3 (150-450); RBC Distribution Width CV 12.7 % (11.6-14.6); RBC Distribution Width SD 42.2 fl (35.1-43.9); Red Blood Count 4.13 M/mm3 (4.2-5.4); White Blood Count 6.0 K/mm3 (4.4-11.0)
[2025-02-23 08:51] LABS: Prothrombin Time (Protime)PT. 23.7 SECONDS (11.7-14.9)
[2025-02-23 10:06] LABS: AST(SGOT) 27 U/L (<=31); Alanine Aminotransfer ALT/SGPT 8 U/L (<=34); Albumin, Serum 4.1 g/dL (3.4-4.8); Alkaline Phosphatase 65 U/L (35-104); Anion Gap 12 (5-15); BUN 23 mg/dL (4-19); BUN/Creat Ratio 27.1 RATIO (10-20); Calcium,Total 9.1 mg/dL (7.6-11.0); Carbon Dioxide 24.5 mmol/L (21.0-32.0); Chloride 101 mmol/L (98-108); Cholesterol 159 mg/dL (<=200); Globulin 2.9 g/dL (2.2-4.2); Glucose 138 mg/dL (70-99); Low Density Lipoprotein Calc. 84 mg/dL; Magnesium 1.9 mg/dL (1.5-2.2); Potassium 4.0 mmol/L (3.3-5.1); Triglycerides 67 mg/dL; Very Low Density Lipoprotein 13 mg/dL (5-40); cholesterol:hdl ratio screen 2.57
== END 2025-03-01 21:39 | disposition home or self-care (01) ==
LOC: LAB 08:07
PROVIDERS: Family Provider Family Medicine; PCP Family Medicine; Referring Provider Family Medicine; Visit Provider Family Medicine
DX: I48.91 Unspecified atrial fibrillation (principal); Z79.01 Long term (current) use of anticoagulants; I10 Essential (primary) hypertension; R79.89 Other specified abnormal findings of blood chemistry
CPT/HCPCS: 36415; 80053; 80061; 81001; 83735; 84439; 84443; 85025; 85610

== ENCOUNTER 2025-03-19 09:50 | Outpatient (RCR) | payer OTHER, SELFPAY ==
[2025-03-19 10:42] LABS: Prothrombin Time (Protime)PT. 25.5 SECONDS (11.7-14.9)
== END 2025-03-19 18:00 | disposition home or self-care (01) ==
LOC: LAB 09:50
PROVIDERS: Family Provider Family Medicine; PCP Family Medicine; Referring Provider Family Medicine; Visit Provider Family Medicine
DX: Z79.01 Long term (current) use of anticoagulants (principal)
CPT/HCPCS: 36415; 83036; 85610

== ENCOUNTER 2025-05-09 09:45 | Outpatient (RCR) | payer OTHER, SELFPAY ==
[2025-05-09 10:55] LABS: Prothrombin Time (Protime)PT. 24.0 SECONDS (11.7-14.9)
== END 2025-05-09 18:00 | disposition home or self-care (01) ==
LOC: LAB 09:45
PROVIDERS: Family Provider Family Medicine; PCP Family Medicine; Referring Provider Family Medicine; Visit Provider Family Medicine
DX: Z79.01 Long term (current) use of anticoagulants
CPT/HCPCS: 36415; 85610

== ENCOUNTER 2025-06-08 08:55 | Outpatient (RCR) | payer OTHER, SELFPAY ==
[2025-06-08 09:40] LABS: Prothrombin Time (Protime)PT. 26.0 SECONDS (11.7-14.9)
== END 2025-06-30 18:00 | disposition home or self-care (01) ==
LOC: LAB 08:55
PROVIDERS: Family Provider Family Medicine; PCP Family Medicine; Referring Provider Family Medicine; Visit Provider Family Medicine
DX: Z79.01 Long term (current) use of anticoagulants (principal)
CPT/HCPCS: 36415; 85610

== ENCOUNTER → 2025-06-08 | Outpatient (CLI) | payer SELFPAY, OTHER ==
--- NOTE | 2025-06-08 10:24 | ECHOD_ITS ---
Reason For Study Reason For Study: AFIB Procedure This was a 2D Doppler, Color Flow transthoracic echocardiogram. Exam performed in department. Left Ventricle Normal LV size. Left ventricular systolic function is normal. The left ventricular ejection fraction is 55 %. No regional wall motion abnormalities noted. Right Ventricle Normal RV size. Normal systolic function. Atria The left atrium is moderately enlarged. The right atrium is moderately enlarged. Mitral Valve Normal mitral valve. Mild (1+) mitral valve insufficiency. Tricuspid Valve Normal tricuspid valve. Moderate (2+) tricuspid valve insufficiency. Pulmonary artery systolic pressure is 48 mmHg. Aortic Valve Normal aortic valve. Trisinus/trileaflet aortic valve. Trivial aortic valve insufficiency. Great Vessels Normal aortic root. The pulmonary artery is normal size. Inferior vena cava collapse with respiration. Pericardium/Pleural No pericardial effusion. MMode/2D Measurements & Calculations LVIDd: 4.7 cm IVSd: 1.1 cm Ao root diam: 3.3 cm LVIDs: 3.1 cm LVPWd: 1.0 cm RVDd: 3.4 cm FS: 33.0 % LAV(MOD-bp): 108.4 ml LVAd ap4: 20.7 cm2 SV(MOD-sp4): 28.6 ml LAV(MOD-bp) Indexed: 64.9 ml/m2 LVLd ap4: 6.4 cm SI(MOD-sp4): 17.1 ml/m2 LAV(MOD-sp2): 113.4 ml EDV(MOD-sp4): 55.6 ml LAV(MOD-sp4): 95.7 ml EDV(sp4-el): 57.1 ml LVAs ap4: 12.8 cm2 LVLs ap4: 5.3 cm ESV(MOD-sp4): 27.0 ml ESV(sp4-el): 26.1 ml EF(MOD-sp4): 51.4 % EF(sp4-el): 54.2 % SV(sp4-el): 30.9 ml LA dimension(2D): 5.1 cm LA A4 area: 28.2 cm2 RA A4 area: 26.8 cm2 Doppler Measurements & Calculations MV E max wero: 110.2 cm/sec Ao V2 max: 121.5 cm/sec LV V1 max: 113.4 cm/sec Ao max P.9 mmHg LV V1 max P.1 mmHg Ao V2 mean: 89.9 cm/sec LV V1 mean P.8 mmHg Ao mean P.6 mmHg LV V1 mean: 77.7 cm/sec Ao V2 VTI: 27.8 cm LV V1 VTI: 26.6 cm AV (velocity ratio): 0.96 PA V2 max: 93.9 cm/sec TR max wero: 337.3 cm/sec PA V2 mean: 69.4 cm/sec TR max P.5 mmHg ECHO/Echo Complete Interpretation Summary Normal LV size. Left ventricular systolic function is normal. The left ventricular ejection fraction is 55 %. The left atrium is moderately enlarged. The right atrium is moderately enlarged. Pulmonary artery systolic pressure is 48 mmHg. Moderate (2+) tricuspid valve insufficiency. Ordering Physician: Demario Mccauley Referring Physician: Demario Mccauley Performed By: Kristi Fuentes RCS
== END | disposition home or self-care (01) ==
LOC: CVS 10:22
PROVIDERS: PCP Family Medicine; Referring Provider Internal Medicine Cardiovascular Disease; Visit Provider Internal Medicine Cardiovascular Disease
DX: I48.20 Chronic atrial fibrillation, unspecified (principal)
CPT/HCPCS: 93306